=== PATIENT | female | born 1980 | race Caucasian/White ===

== ENCOUNTER 2016-04-12 03:34 | Observation (INO) | payer SELFPAY ==
[2016-04-12] MEDS ORDERED: Sodium Chloride 0.9% 10 ML Syringe FLUSH PRN (03:36)
[2016-04-12] MEDS ORDERED: Sodium Chloride 0.9% 1,000 ML IV ONE (03:40)
[2016-04-12] MEDS ORDERED: Ondansetron 4 MG/2 ML SDV IVPUSH ONE (03:40)
[2016-04-12] MEDS ORDERED: diphenhydrAMINE 50 MG/ML SDV IVPUSH ONE (03:42)
[2016-04-12] MEDS ORDERED: methylPREDNISolone Sodium Succinate 125 MG/2 ML SDV IV ONE (03:42)
[2016-04-12] MEDS ORDERED: EPINEPHrine 1:1000 1 MG/ML SDV IM ONE (04:09)
[2016-04-12] MEDS ORDERED: LORazepam 2 MG/ML MDV IVPUSH ONE ×2 (04:10→04:55)
[2016-04-12] MEDS ORDERED: Haloperidol Lactate 5 MG/ML SDV IVPUSH ONE (04:31)
[2016-04-12 04:37] LABS: BASOPHILS PERCENT AUTO 0.1 % (0.2-1.2); EOSINOPHILS PERCENT AUTO 0.7 % (0.0-4.0); HEMATOCRIT 42.2 % (33.0-47.0); HEMOGLOBIN 14.3 g/dL (12.0-16.0); LYMPHOCYTES PERCENT AUTO 30.6 % (25.0-50.0); MEAN CORPUSCULAR HEMOGLOBIN 30.7 pg (26.0-32.0); MEAN CORPUSCULAR HGB CONC 33.9 g/dL (32.0-36.0); MEAN CORPUSCULAR VOLUME 90.6 fL (78.0-93.0); MONOCYTES PERCENT AUTO 6.8 % (2.0-11.0); NEUTROPHILS PERCENT AUTO 61.8 % (50.0-80.0); RDW CV 13.5 % (10.0-15.0); RED BLOOD CELL COUNT 4.66 x10^6/uL (4.00-5.50)
[2016-04-12] MEDS ORDERED: Haloperidol Lactate 5 MG/ML SDV ONE (04:39)
[2016-04-12 05:08] LABS: A/G RATIO 1.03; ALBUMIN 3.6 g/dL (3.4-5.0); ALKALINE PHOSPHATASE 82 U/L (46-116); BILIRUBIN TOTAL 0.1 mg/dL (0.2-1.0); CALCIUM 8.1 mg/dL (8.5-10.1); CHLORIDE,CL 113 mmol/L (98-107); CORRECTED CALCIUM 8.42 mg/dL (8.5-10.1); CREATININE 0.7 mg/dL (0.55-1.02); ESTIMATED GFR > 60; GLUCOSE RANDOM 107 mg/dL (74-106)
[2016-04-12 05:09] LABS: C-REACTIVE PROTEIN < 0.2 mg/dL (<=0.9); INR 0.9 (2.0-3.5); PROTHROMBIN TIME 10.7 SEC (10.0-12.8)
[2016-04-12] MEDS ORDERED: LORazepam 2 MG/ML MDV IVPUSH PRN (06:23)
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
[2016-04-12] MEDS ORDERED: PARoxetine 20 MG Tab PO SCH (08:00)
[2016-04-12 11:28] VITALS: BP 122/81
[2016-04-12] MEDS ORDERED: Flu Vaccine 2016-17(36Mos+)/PF 60 MCG/0.5 ML Syringe IM ONE (12:00)
[2016-04-12 12:57] LABS: APPEARANCE,URINE SLIGHTLY CLOUDY (CLEAR); BILIRUBIN,URINE NEGATIVE (NEGATIVE); GLUCOSE,URINE NEGATIVE (NEGATIVE); KETONES,URINE NEGATIVE (NEGATIVE); LEUKOCYTE ESTERASE,URINE NEGATIVE (NEGATIVE); NITRITE,URINE NEGATIVE (NEGATIVE); OCCULT BLOOD,URINE NEGATIVE (NEGATIVE); PH,URINE 5.5 (5.0-8.0); PROTEIN,URINE NEGATIVE (NEGATIVE); UROBILINOGEN,URINE 0.2 EU/dL (0.2)
[2016-04-12 13:04] LABS: BARBITUATES,URINE NEGATIVE (NEGATIVE); BENZODIAZEPINES,URINE NEGATIVE (NEGATIVE); COCAINE,URINE NEGATIVE (NEGATIVE); MARIJUANA,URINE NEGATIVE (NEGATIVE); METHADONE,URINE NEGATIVE (NEGATIVE); METHAMPHETAMINE,URINE NEGATIVE (NEGATIVE); METHYLENEDIOXYMETHAMP,UR NEGATIVE (NEGATIVE); OPIATES,URINE NEGATIVE (NEGATIVE); POC DRUG SCRN UR NEG CONTROL ACCEPTABLE (ACCEPTABLE); POC DRUG SCRN UR POS CONTROL ACCEPTABLE (ACCEPTABLE); URINE CASSETTE LOT NUMBER 163361
[2016-04-12 13:13] LABS: BACTERIA,URINE MODERATE /HPF (NEGATIVE); RBC,URINE 0-5 /HPF (NOT SEEN); WBC,URINE 0-5 /HPF (NOT SEEN)
[2016-04-12 13:14] LABS: MUCUS,URINE NOT SEEN /LPF (NEGATIVE)
--- NOTE | 2016-04-12 14:34 | PCM.DCSUM1 ---
Discharge Summary - Hospital Course Free Text/Narrative:: Patient admitted due to allergic reaction to some type of alcohol. She was intoxicated on admission. stated the only new alcohol she tried was some champagne. She no longer has any rash or facial redness. She was given benadryl as well as subq epi by Jose Alejandro Alvarado. Possible statements of suicidality reported from her while she was intoxicated. - Discharge Data Discharge Date: 04/12/16 Discharge Disposition: Home, Self-Care 01 Condition: Good - Discharge Diagnosis/Problem(s) (1) Allergic reaction SNOMED Code(s): 604845656 ICD Code: T78.40XA - ALLERGY, UNSPECIFIED, INITIAL ENCOUNTER Status: Acute Priority: Low Current Visit: Yes Qualifiers: Encounter type: subsequent encounter Qualified Code(s): T78.40XD - Allergy , unspecified, subsequent encounter - Patient Instructions Diet: Usual Diet as Tolerated Activity: As Tolerated Driving: May Drive Today Showering/Bathing: August Shower - Discharge Plan Home Medications: Home Meds PARoxetine [Paxil] 20 mg PO DAILY tablet 05/21/15 [Rx] Acetaminophen [Tylenol] 650 mg PO Q4H PRN 08/23/15 [History] Patient Handouts: Allergies, [id number], Food Allergy Forms: ED Department Discharge Referrals: PCP,Unknown [Primary Care Provider] - - Discharge Summary/Plan Comment DC Time >30 min.: Yes - General Info Date of Service: 04/12/16 Admission Dx/Problem (Free Text: allergic reaction Functional Status: Reports: pain controlled, tolerating diet, ambulating - Review of Systems General: Reports: no symptoms HEENT: Reports: no symptoms Pulmonary: Reports: no symptoms Cardiovascular: Reports: no symptoms Gastrointestinal: Reports: No symptoms Genitourinary: Reports: no symptoms Musculoskeletal: Reports: no symptoms Skin: Reports: no symptoms Neurological: Reports: no symptoms Psychiatric: Reports: no symptoms - Patient Data Vitals - Most Recent: Last Vital Signs Temp 36.9 C 04/12/16 10:15 Pulse 128 H 04/12/16 10:15 Resp 20 04/12/16 10:15 BP 122/81 04/12/16 10:15 Pulse Ox 96 04/12/16 10:15 Weight - Most Recent: 225 kg Lab Results - Last 24 hrs: Laboratory Results - last 24 hr 04/12/16 04/12/16 Range/Units 12:50 12:50 Urine Color Yellow (YELLOW) Urine Appearance Slightly cloudy H (CLEAR) Urine pH 5.5 (5.0-8.0) Ur Specific [place] >=1.030 Urine Protein Negative (NEGATIVE) mg/dL Urine Glucose (UA) Negative (NEGATIVE) mg/dL Urine Ketones Negative (NEGATIVE) mg/dL Urine Occult Blood Negative (NEGATIVE) Urine Nitrite Negative (NEGATIVE) Urine Bilirubin Negative (NEGATIVE) Urine Urobilinogen 0.2 (0.2) EU/dL Ur Leukocyte Esterase Negative (NEGATIVE) Urine RBC 0-5 (NOT SEEN) /HPF Urine WBC 0-5 (NOT SEEN) /HPF Ur Transition Epith Cell Rare H (NEGATIVE) /HPF Urine Bacteria Moderate H (NEGATIVE) /HPF Urine Mucus Not seen (NEGATIVE) /LPF Urine Opiates Screen Negative (NEGATIVE) Ur Buprenorphine Scrn Negative (NEGATIVE) Ur Oxycodone Screen Negative (NEGATIVE) Urine Methadone Screen Negative (NEGATIVE) Ur Barbituates Screen Negative (NEGATIVE) Ur Tricyclics Screen Negative (NEGATIVE) Ur Amphetamines Screen Negative (NEGATIVE) U Methamphetamines Scrn Negative (NEGATIVE) Urine MDMA Screen Negative (NEGATIVE) U Benzodiazepines Scrn Negative (NEGATIVE) Urine Cocaine Screen Negative (NEGATIVE) U Marijuana (THC) Screen Negative (NEGATIVE) Med Orders - Current: Current Medications Lorazepam (Ativan) 2 mg IVPUSH Q6H PRN PRN Reason: Agitation Paroxetine HCl (Paxil) 20 mg PO DAILY EMILY Last Admin: 04/12/16 11:25 Dose: 20 mg Sodium Chloride (Saline Flush) 10 ml FLUSH ASDIRECTED PRN PRN Reason: Keep Vein Open Discontinued Medications Diphenhydramine HCl (Benadryl) 50 mg IVPUSH ONETIME ONE Stop: 04/12/16 03:43 Last Admin: 04/12/16 04:00 Dose: 50 mg Epinephrine HCl (Adrenalin 1:1000) 0.3 mg IM ONETIME ONE Stop: 04/12/16 04:10 Last Admin: 04/12/16 04:16 Dose: 0.3 mg Haloperidol Lactate (Haldol) Confirm Administered Dose 10 mg .ROUTE .STK-MED ONE Stop: 04/12/16 04:40 Last Admin: 04/12/16 04:54 Dose: Not Given Haloperidol Lactate (Haldol) 10 mg IVPUSH ONETIME ONE Stop: 04/12/16 04:32 Last Admin: 04/12/16 04:54 Dose: 10 mg Sodium Chloride (Normal Saline) 1,000 mls @ 1,000 mls/hr IV .BOLUS ONE Stop: 04/12/16 04:39 Last Admin: 04/12/16 03:55 Dose: 1,000 mls/hr Influenza Virus Vaccine (Fluzone/Fluarix Vaccine) 60 mcg IM .ONCE ONE Stop: 04/12/16 12:01 Last Admin: 04/12/16 12:45 Dose: Not Given Lorazepam (Ativan) 1 mg IVPUSH ONETIME ONE Stop: 04/12/16 04:11 Last Admin: 04/12/16 04:18 Dose: 1 mg Lorazepam (Ativan) 1 mg IVPUSH ONETIME ONE Stop: 04/12/16 04:56 Last Admin: 04/12/16 04:19 Dose: 1 mg Methylprednisolone Sodium Succinate (Solu-Medrol) 125 mg IV ONETIME ONE Stop: 04/12/16 03:43 Last Admin: 04/12/16 04:00 Dose: 125 mg Ondansetron HCl (Zofran) 4 mg IVPUSH ONETIME ONE Stop: 04/12/16 03:41 Last Admin: 04/12/16 04:00 Dose: 4 mg - Exam General: Reports: alert, oriented, cooperative, no acute distress HEENT: Reports: Pupils equal Lungs: Reports: Clear to auscultation, Normal respiratory effort Cardiovascular: Reports: regular rate, regular rhythm Abdomen: Reports: bowel sounds present, soft, no tenderness, no distension Extremities: Reports: no edema, normal pulses Skin: Reports: warm, dry, intact Neurological: Reports: no new focal deficit Psy/Mental Status: Reports: alert, normal affect, normal mood. Denies: suicidal ideation, homicidal ideation *Q Meaningful Use (DIS) - VTE *Q VTE Criteria *Q: - Stroke *Q Stroke Criteria *Q: - AMI *Q AMI Criteria *Q:
--- NOTE | 2016-04-14 08:24 | ER ---
Date of Service: 04/12/2016 ADDENDUM: This emergency room note may be used as the patient's admission H and P. MWK: 04/13/2016 15:47:46 MODL: 04/13/2016 19:36:18 /[id number]
== END 2016-04-12 14:45 | disposition home or self-care (01) ==
LOC: VM.ED 03:34 → VM.MS 05:00
PROVIDERS: ADMIT Physician Assistant; ATTEND Physician Assistant
DX: T78.40XD Allergy, unspecified, subsequent encounter (principal); F10.129 Alcohol abuse with intoxication, unspecified; F32.9 Major depressive disorder, single episode, unspecified; F41.9 Anxiety disorder, unspecified; Z90.710 Acquired absence of both cervix and uterus; Z91.048 Other nonmedicinal substance allergy status; Z79.899 Other long term (current) drug therapy; Z91.040 Latex allergy status; Z88.8 Allergy status to other drugs, medicaments and biological substances
CPT/HCPCS: 36415; 80053; 80305; 81001; 84443; 85025; 85610; 86140; 96365; 96372; 96375; 99285; A9270; G0480; J0171; J1200; J1630; J2060; J2405; J2930; J7030; 96361; G0378

== ENCOUNTER 2016-04-15 21:31 | Emergency (ER) | payer SELFPAY ==
[2016-04-15] MEDS ORDERED: LORazepam 2 MG/ML MDV IM ONE (22:02)
[2016-04-15] MEDS ORDERED: Haloperidol Lactate 5 MG/ML SDV IM ONE (22:14)
[2016-04-15 22:34] LABS: BASOPHILS PERCENT AUTO 0.2 % (0.2-1.2); EOSINOPHILS PERCENT AUTO 2.5 % (0.0-4.0); HEMATOCRIT 42.9 % (33.0-47.0); HEMOGLOBIN 14.8 g/dL (12.0-16.0); LYMPHOCYTES PERCENT AUTO 27.8 % (25.0-50.0); MEAN CORPUSCULAR HGB CONC 34.5 g/dL (32.0-36.0); MEAN CORPUSCULAR VOLUME 89.9 fL (78.0-93.0); NEUTROPHILS PERCENT AUTO 62.5 % (50.0-80.0); RDW CV 13.4 % (10.0-15.0); RED BLOOD CELL COUNT 4.77 x10^6/uL (4.00-5.50)
[2016-04-15 22:38] LABS: APPEARANCE,URINE SLIGHTLY CLOUDY (CLEAR); BILIRUBIN,URINE NEGATIVE (NEGATIVE); GLUCOSE,URINE NEGATIVE (NEGATIVE); KETONES,URINE NEGATIVE (NEGATIVE); LEUKOCYTE ESTERASE,URINE NEGATIVE (NEGATIVE); NITRITE,URINE NEGATIVE (NEGATIVE); OCCULT BLOOD,URINE NEGATIVE (NEGATIVE); PROTEIN,URINE NEGATIVE (NEGATIVE); UROBILINOGEN,URINE 0.2 EU/dL (0.2)
[2016-04-15 22:41] LABS: BARBITUATES,URINE NEGATIVE (NEGATIVE); BENZODIAZEPINES,URINE NEGATIVE (NEGATIVE); COCAINE,URINE NEGATIVE (NEGATIVE); HCG URINE CONTROL ACCEPTABLE; MARIJUANA,URINE NEGATIVE (NEGATIVE); METHADONE,URINE NEGATIVE (NEGATIVE); METHAMPHETAMINE,URINE NEGATIVE (NEGATIVE); METHYLENEDIOXYMETHAMP,UR NEGATIVE (NEGATIVE); OPIATES,URINE NEGATIVE (NEGATIVE); POC DRUG SCRN UR NEG CONTROL ACCEPTABLE (ACCEPTABLE); POC DRUG SCRN UR POS CONTROL ACCEPTABLE (ACCEPTABLE); URINE CASSETTE LOT NUMBER 163631
[2016-04-15 22:51] LABS: BACTERIA,URINE NOT SEEN /HPF (NEGATIVE); MUCUS,URINE NOT SEEN /LPF (NEGATIVE); RBC,URINE NOT SEEN /HPF (NOT SEEN); WBC,URINE NOT SEEN /HPF (NOT SEEN)
[2016-04-15 23:03] LABS: A/G RATIO 1.12; ALBUMIN 3.8 g/dL (3.4-5.0); ALKALINE PHOSPHATASE 91 U/L (46-116); BILIRUBIN TOTAL 0.2 mg/dL (0.2-1.0); CALCIUM 8.3 mg/dL (8.5-10.1); CHLORIDE,CL 107 mmol/L (98-107); CORRECTED CALCIUM 8.46 mg/dL (8.5-10.1); ESTIMATED GFR > 60; GLUCOSE RANDOM 94 mg/dL (74-106)
[2016-04-15 23:06] LABS: ACETAMINOPHEN 0 ug/ml (10-30)
[2016-04-16 00:38] VITALS: BP 144/103
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
== END 2016-04-16 00:08 | disposition home or self-care (01) ==
LOC: VM.ED 21:31
DX: F32.9 Major depressive disorder, single episode, unspecified (principal); F41.9 Anxiety disorder, unspecified; F20.9 Schizophrenia, unspecified; Z90.710 Acquired absence of both cervix and uterus; Z79.899 Other long term (current) drug therapy; Z88.8 Allergy status to other drugs, medicaments and biological substances; Z91.040 Latex allergy status; Z91.048 Other nonmedicinal substance allergy status
CPT/HCPCS: 36415; 80053; 80305; 81001; 81025; 84443; 85025; 96372; 99285; G0479; G0480; J1630; J2060

== ENCOUNTER 2016-04-18 14:33 | Emergency (ER) | payer SELFPAY ==
[2016-04-18 15:22] VITALS: BP 143/96
--- NOTE | 2016-04-18 15:36 | EDM.PDOC ---
ED HPI Trauma - General Chief Complaint: Upper Extremity Injury/Pain Stated Complaint: RT HAND INJURY Time Seen by Provider: 04/18/16 14:42 Source: Reports: Patient History Limitations: Reports: No limitations - History of Present Illness INITIAL COMMENTS - FREE TEXT/NARRATIVE: The patient comes in accompanied by her mother. Patient is right-handed and she has not injured this hand before. She does have a history of schizophrenia. She struck the back of her hand against a wall. She states that it was not directed at anybody. The dorsum of her hand is quite bruised. I did do an x-ray and was found that it was grossly negative. I then wrapped the hand with Coban and gave her an ice pack. I told her that she can anticipate that this will her probably for the rest of this week. I did give her conservative measures for this. Patient was agreeable to this. Before she departed I did check her pulse and it did come down to about 96 and her blood pressure remained high and this is probably secondary to her discomfort. I also gave her a Edgar wrap case she needs it. No pain about the wrist. Occurred When: just prior to arrival Occurred Where: home Method of Injury: direct blow Severity: moderate Pain/Injury Location: Reports: upper extremity, right Consciousness: Reports: no loss of consciousness, remembers incident Associated Symptoms: Reports: no other symptoms Allergies/ADRs: Allergies adhesive tape Allergy (Verified 04/18/16 15:02) Hives gabapentin Allergy (Verified 04/18/16 15:02) Cannot Remember latex Allergy (Verified 04/18/16 15:02) Hives isoniazid Adverse Reaction (Unknown, Verified 04/18/16 15:02) Seizure tramadol Adverse Reaction (Unknown, Verified 04/18/16 15:02) Seizure Home Medications: Ambulatory Orders PARoxetine [Paxil] 20 mg PO DAILY tablet 05/21/15 [Confirmed 04/18/16] Acetaminophen [Tylenol] 650 mg PO Q4H PRN 08/23/15 [Confirmed 04/18/16] Potassium Chloride [Klor-Con 10] 20 meq PO DAILY 04/15/16 [Confirmed 04/18/16] LORazepam [Ativan] 1 mg Q4H PRN 04/18/16 [Confirmed 04/18/16] hydrOXYzine Pamoate [Vistaril] 50 mg Q4H PRN 04/18/16 [Confirmed 04/18/16] Past Medical History HEENT History: Reports: None Cardiovascular History: Reports: Arrhythmia Other Cardiovascular History: tachycardia Gastrointestinal History: Reports: Other (see below) Other Gastrointestinal History: Heartburn CERTIFIED MORTICIAN History: Reports: Other (see below) Other OB/BYN History: dysmenorrhea Psychiatric History: Reports: Anxiety, Depression, Psychosis, Schizophrenia, Suicidal ideation Immunologic History: Reports: None Oncologic (Cancer) History: Reports: None - Past Surgical History Female Surgical History: Reports: Hysterectomy Other Female Surgeries/Procedures: hysterectomy on 02/04/16 Other Musculoskeletal Surgeries/Procedures:: foot surgery Oncologic Surgical History: Reports: None Social & Family History - Family History Family Medical History: Noncontributory - Tobacco Use Smoking Status *Q: Unknown Ever Smoked Years of Tobacco use: 1 Packs/Tins Daily: 1 Month Tobacco Last Used: 8\14 Second Hand Smoke Exposure: Yes - Alcohol Use Days Per Week of Alcohol Use: 0 Number of Drinks Per Day: 0 Total Drinks Per Week: 0 - Recreational Drug Use Recreational Drug Use: No Drug Use in Last 12 Months: No - Sexual History Sexual History: Reports: Same sex partner, Single partner Review of Systems - Review of Systems Review Of Systems: See Below Constitutional: Reports: no symptoms Eyes: Reports: no symptoms Ears: Reports: no symptoms Nose: Reports: no symptoms Mouth/Throat: Reports: no symptoms Respiratory: Reports: no symptoms Cardiovascular: Reports: no symptoms GI/Abdominal: Reports: No symptoms Musculoskeletal: Reports: hand pain (Right. ). Denies: joint pain, joint swelling Skin: Reports: bruising (right hand- dorsum. ) Neurological: Reports: no symptoms Psychiatric: Reports: depression, anxiety, hallucinations (visual) (Chronic condition. ) Trauma Exam - Physical Exam Exam: See Below Exam Limited By: No limitations General Appearance: Reports: alert, anxious, moderate distress Respiratory Exam: Reports: no respiratory distress, lungs clear, normal breath sounds Cardiovascular: Reports: normal peripheral pulses, regular rate, rhythm, no edema, no gallop, no JVD, no murmur, no rub Extremities: Reports: pain with movement (right hand pain. The patient does have ecchymosis about the right hand about the dorsum. This involves the metacarpals of three and four. The dexterity is hindered by perception of pain. Interdigit strength is also decreased. She does have good capillary refill. No crepitus per se. ), tenderness Skin: Reports: Ecchymosis (right hand. ) Course - Vital Signs Last Recorded V/S: Last Vital Signs Temp 37.4 C 04/18/16 14:40 Pulse 107 H 04/18/16 14:40 Resp 16 04/18/16 14:40 BP 143/96 H 04/18/16 14:40 Pulse Ox - Orders/Labs/Meds Orders: Active Orders 24 hr Category Date Time Status Hand Comp Min 3V Rt [CR] Stat Exams 04/18/16 15:13 Taken Departure - Departure Time of Disposition: 15:35 Disposition: Home, Self-Care 01 Preliminary Cause of *Q: Cardiac arrest Condition: good Clinical Impression: Contusion of right hand Qualifiers: Encounter type: initial encounter Qualified Code(s): S60.221A - Contusion of right hand, initial encounter Referrals: Sanam Woodson DO [Primary Care Provider] - Forms: ED Department Discharge Additional Instructions: The x-ray was grossly negative. Utilize ice and ibuprofen and Tylenol. Gentle range of motion. - My Orders Last 24 Hours: My Active Orders 04/18/16 15:13 Hand Comp Min 3V Rt [CR] Stat - Assessment/Plan Last 24 Hours: My Active Orders 04/18/16 15:13 Hand Comp Min 3V Rt [CR] Stat
== END 2016-04-18 15:40 | disposition home or self-care (01) ==
LOC: VM.ED 14:33
DX: S60.221A Contusion of right hand, initial encounter (principal); I49.9 Cardiac arrhythmia, unspecified; F41.9 Anxiety disorder, unspecified; F32.9 Major depressive disorder, single episode, unspecified; Z90.710 Acquired absence of both cervix and uterus; Z88.8 Allergy status to other drugs, medicaments and biological substances; Z91.040 Latex allergy status; W22.8XXA Striking against or struck by other objects, initial encounter; Y92.009 Unspecified place in unspecified non-institutional (private) residence as the place of occurrence of the external cause
CPT/HCPCS: 73130-RT; 99282-GF; 99283

== ENCOUNTER 2016-04-21 15:21 | Emergency (ER) | payer SELFPAY ==
[2016-04-21] MEDS ORDERED: Sodium Chloride 0.9% 10 ML Syringe FLUSH PRN (15:31)
[2016-04-21] MEDS ORDERED: Sodium Chloride 0.9% 1,000 ML IV ONE (15:34)
[2016-04-21] MEDS ORDERED: Haloperidol Lactate 5 MG/ML SDV IVPUSH ONE (15:35)
[2016-04-21] MEDS ORDERED: diphenhydrAMINE 50 MG/ML SDV IVPUSH ONE (15:41)
[2016-04-21 16:03] LABS: BASOPHILS PERCENT AUTO 0.2 % (0.2-1.2); EOSINOPHILS PERCENT AUTO 3.5 % (0.0-4.0); HEMATOCRIT 42.7 % (33.0-47.0); HEMOGLOBIN 14.2 g/dL (12.0-16.0); LYMPHOCYTES PERCENT AUTO 30.4 % (25.0-50.0); MEAN CORPUSCULAR HEMOGLOBIN 30.7 pg (26.0-32.0); MEAN CORPUSCULAR HGB CONC 33.3 g/dL (32.0-36.0); MEAN CORPUSCULAR VOLUME 92.2 fL (78.0-93.0); NEUTROPHILS PERCENT AUTO 55.9 % (50.0-80.0); RDW CV 13.4 % (10.0-15.0); RED BLOOD CELL COUNT 4.63 x10^6/uL (4.00-5.50)
[2016-04-21 16:36] LABS: A/G RATIO 1.06; ALBUMIN 3.5 g/dL (3.4-5.0); ALKALINE PHOSPHATASE 90 U/L (46-116); BILIRUBIN TOTAL 0.2 mg/dL (0.2-1.0); C-REACTIVE PROTEIN 0.7 mg/dL (<=0.9); CALCIUM 8.3 mg/dL (8.5-10.1); CHLORIDE,CL 106 mmol/L (98-107); CREATININE 0.9 mg/dL (0.55-1.02); ESTIMATED GFR > 60; GLUCOSE RANDOM 87 mg/dL (74-106)
[2016-04-21 16:48] LABS: APPEARANCE,URINE CLEAR (CLEAR); BILIRUBIN,URINE NEGATIVE (NEGATIVE); GLUCOSE,URINE NEGATIVE (NEGATIVE); KETONES,URINE NEGATIVE (NEGATIVE); LEUKOCYTE ESTERASE,URINE NEGATIVE (NEGATIVE); NITRITE,URINE NEGATIVE (NEGATIVE); OCCULT BLOOD,URINE NEGATIVE (NEGATIVE); PH,URINE 6.5 (5.0-8.0); PROTEIN,URINE NEGATIVE (NEGATIVE); UROBILINOGEN,URINE 0.2 EU/dL (0.2)
[2016-04-21 16:49] LABS: INR 0.9 (2.0-3.5); PROTHROMBIN TIME 9.9 SEC (10.0-12.8)
[2016-04-21 16:56] LABS: RBC,URINE 0-5 /HPF (NOT SEEN); WBC,URINE 0-5 /HPF (NOT SEEN)
[2016-04-21 16:58] LABS: BACTERIA,URINE RARE /HPF (NEGATIVE); MUCUS,URINE RARE /LPF (NEGATIVE)
[2016-04-21 17:24] LABS: BARBITUATES,URINE NEGATIVE (NEGATIVE); BENZODIAZEPINES,URINE NEGATIVE (NEGATIVE); COCAINE,URINE NEGATIVE (NEGATIVE); MARIJUANA,URINE NEGATIVE (NEGATIVE); METHADONE,URINE NEGATIVE (NEGATIVE); METHAMPHETAMINE,URINE NEGATIVE (NEGATIVE); METHYLENEDIOXYMETHAMP,UR NEGATIVE (NEGATIVE); OPIATES,URINE NEGATIVE (NEGATIVE); POC DRUG SCRN UR NEG CONTROL ACCEPTABLE (ACCEPTABLE); POC DRUG SCRN UR POS CONTROL ACCEPTABLE (ACCEPTABLE); URINE CASSETTE LOT NUMBER 163361
[2016-04-21 17:43] VITALS: BP 138/78
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
== END 2016-04-21 18:30 ==
LOC: VM.ED 15:21
DX: F41.9 Anxiety disorder, unspecified (principal); F32.9 Major depressive disorder, single episode, unspecified; Z79.899 Other long term (current) drug therapy; Z88.8 Allergy status to other drugs, medicaments and biological substances
CPT/HCPCS: 36415; 70450; 71010; 80053; 80305; 81001; 83605; 85025; 85610; 86140; 87040; 93005; 96361; 96374; 96375; 99285; J1200; J1630; J7030

== ENCOUNTER 2016-09-23 20:11 | Emergency (ER) | payer OTHER, SELFPAY ==
--- NOTE | 2016-09-23 20:35 | EDM.PDOC ---
ED HPI GENERAL MEDICAL PROBLEM - General Chief Complaint: Chest Pain Stated Complaint: heart racing; chest pain; nausea Time Seen by Provider: 09/23/16 20:13 Source of Information: Reports: Patient, Family, RN, RN Notes Reviewed History Limitations: Reports: No Limitations - History of Present Illness INITIAL COMMENTS - FREE TEXT/NARRATIVE: Patient presents to the ED at [facility] complaining of chest pain, palpitations, nausea, and SOB. Patient states her symptoms began about 2 hours ago. She has a history of tachy arrythmias in the past, related to low potassium levels. Patient did have one emesis [employer]. Onset: Today Onset Date: 09/23/16 Onset Time: 18:30 Duration: Constant, Getting Worse Location: Reports: Chest Quality: Reports: Pressure Severity: Moderate Improves with: Reports: None Worsens with: Reports: Movement Context: Denies: Activity, Exercise, Lifting, Sick Contact, Trauma Associated Symptoms: Reports: Nausea/Vomiting - Related Data Allergies Allergy/AdvReac Type Severity Reaction Status Date / Time adhesive tape Allergy Hives Verified 04/21/16 15:47 gabapentin Allergy Cannot Verified 04/21/16 15:47 Remember latex Allergy Hives Verified 04/21/16 15:47 isoniazid AdvReac Unknown Seizure Verified 04/21/16 15:47 tramadol AdvReac Unknown Seizure Verified 04/21/16 15:47 Home Meds: Home Meds Acetaminophen [Tylenol] 650 mg PO Q4H PRN 08/23/15 [History] Potassium Chloride [Klor-Con 10] 20 meq PO DAILY 04/15/16 [History] hydrOXYzine Pamoate [Vistaril] 50 mg PO Q4H PRN 04/18/16 [History] Past Medical History HEENT History: Reports: None Cardiovascular History: Reports: Arrhythmia Other Cardiovascular History: tachycardia Gastrointestinal History: Reports: Other (See Below) Other Gastrointestinal History: Heartburn [employer] History: Reports: Other (See Below) Other OB/BYN History: dysmenorrhea Psychiatric History: Reports: Anxiety, Depression, Psychosis, Schizophrenia, Suicidal Ideation Immunologic History: Reports: None Oncologic (Cancer) History: Reports: None - Past Surgical History Female Surgical History: Reports: Hysterectomy Other Female Surgeries/Procedures: hysterectomy on 02/04/16 Other Musculoskeletal Surgeries/Procedures:: foot surgery Oncologic Surgical History: Reports: None Social & Family History - Family History Family Medical History: Noncontributory - Tobacco Use Smoking Status *Q: Current Every Day Smoker Years of Tobacco use: 20 Packs/Tins Daily: 0.7 Month Tobacco Last Used: 8\14 Second Hand Smoke Exposure: Yes - Alcohol Use Days Per Week of Alcohol Use: 0 Number of Drinks Per Day: 0 Total Drinks Per Week: 0 - Recreational Drug Use Recreational Drug Use: No Drug Use in Last 12 Months: No - Sexual History Sexual History: Reports: Same Sex Partner, Single Partner ED ROS GENERAL - Review of Systems Review Of Systems: See Below Constitutional: Denies: Fever, Chills Respiratory: Reports: Shortness of Breath. Denies: Cough Cardiovascular: Reports: Chest Pain, Lightheadedness, Palpitations GI/Abdominal: Reports: Nausea, Vomiting. Denies: Abdominal Pain, Diarrhea Skin: Reports: No Symptoms Neurological: Denies: Dizziness, Headache, Numbness, Paresthesia, Tingling ED EXAM, GENERAL - Physical Exam Exam: See Below Exam Limited By: No Limitations General Appearance: Alert, Anxious, Obese Respiratory/Chest: No Respiratory Distress, Lungs Clear, Normal Breath Sounds Cardiovascular: Normal Peripheral Pulses, Regular Rate, Rhythm, No JVD, No Murmur, Tachycardia Peripheral Pulses: 2+: Radial (L), Radial (R) GI/Abdominal: Normal Bowel Sounds, Soft, Non-Tender Neurological: Alert, Oriented Skin Exam: Warm, Dry, Intact, Normal Color, No Rash EKG INTERPRETATION EKG Date: 09/23/16 Time: 20:42 Rhythm: Other Rate (Beats/Min): 133 Cornell: Normal P-Wave: Present QRS: Normal ST-T: Normal QT: Normal Comparison: No Change EKG Interpretation Comments: EKG #1 A flutter/Tachy Nonspecific T wave abnormality EKG #2 Sinus Tachycardia Nonspecific T wave abnormality Course - Orders/Labs/Meds Orders: Active Orders 24 hr Category Date Time Status EKG 12 Lead [EKG Documentation Completion] [RC] STAT Care 09/23/16 20:37 Active EKG 12 Lead [EKG Documentation Completion] [RC] STAT Care 09/23/16 21:34 Active Chest 2V [CR] Stat Exams 09/23/16 20:36 Taken Sodium Chloride 0.9% [Saline Flush] Med 09/23/16 20:36 Active 10 ml FLUSH ASDIRECTED PRN Peripheral IV Insertion Adult [OM.PC] Routine Oth 09/23/16 20:36 Ordered Medication Orders Sodium Chloride (Saline Flush) 10 ml FLUSH ASDIRECTED PRN PRN Reason: Keep Vein Open Labs: Laboratory Tests 09/23/16 09/23/16 09/23/16 Range/Units 20:59 20:59 21:02 WBC 11.9 H (4.0-10.0) x10^3/uL RBC 4.66 (4.00-5.50) x10^6/uL Hgb 14.2 (12.0-16.0) g/dL Hct 41.7 (33.0-47.0) % MCV 89.5 (78.0-93.0) fL MCH 30.5 (26.0-32.0) pg MCHC 34.1 (32.0-36.0) g/dL RDW Coeff of Dionna 13.4 (10.0-15.0) % Plt Count 279 (130-400) x10^3/uL Neut % (Auto) 78.9 (50.0-80.0) % Lymph % (Auto) 12.9 L (25.0-50.0) % Rutherford % (Auto) 7.8 (2.0-11.0) % Eos % (Auto) 0.3 (0.0-4.0) % Baso % (Auto) 0.1 L (0.2-1.2) % Sodium 144 (136-145) mmol/L Potassium 3.0 L (3.5-5.1) mmol/L Chloride 108 H (98-107) mmol/L Carbon Dioxide 22 (21-32) mmol/L BUN 5 L (7-18) mg/dL Creatinine 0.9 (0.55-1.02) mg/dL Est Cr Clr Drug Dosing TNP Estimated GFR (MDRD) > 60 Glucose 146 H (74-106) mg/dL Calcium 8.0 L (8.5-10.1) mg/dL Corrected Calcium 8.32 L (8.5-10.1) mg/dL Phosphorus 3.2 (2.6-4.7) mg/dL Magnesium 1.6 L (1.8-2.4) mg/dL Total Bilirubin 0.2 (0.2-1.0) mg/dL AST 19 (15-37) U/L ALT 45 (14-59) U/L Alkaline Phosphatase 79 (46-116) U/L Creatine Kinase 44 (26-192) U/L POC Troponin I 0.00 (0.00-0.08) ng/mL Total Protein 7.1 (6.4-8.2) g/dL Albumin 3.6 (3.4-5.0) g/dL Globulin 3.5 Albumin/Globulin Ratio 1.03 Urine Color (YELLOW) Urine Appearance (CLEAR) Urine pH (5.0-8.0) Ur Specific Huggins Urine Protein (NEGATIVE) mg/dL Urine Glucose (UA) (NEGATIVE) mg/dL Urine Ketones (NEGATIVE) mg/dL Urine Occult Blood (NEGATIVE) Urine Nitrite (NEGATIVE) Urine Bilirubin (NEGATIVE) Urine Urobilinogen (0.2) EU/dL Ur Leukocyte Esterase (NEGATIVE) Urine RBC (NOT SEEN) /HPF Urine WBC (NOT SEEN) /HPF Ur Squamous Epith Cells (NEGATIVE) /HPF Urine Bacteria (NEGATIVE) /HPF Urine Mucus (NEGATIVE) /LPF Urine Opiates Screen (NEGATIVE) Ur Buprenorphine Scrn (NEGATIVE) Ur Oxycodone Screen (NEGATIVE) Urine Methadone Screen (NEGATIVE) Ur Barbiturates Screen (NEGATIVE) Ur Tricyclics Screen (NEGATIVE) Ur Amphetamine Screen (NEGATIVE) U Methamphetamines Scrn (NEGATIVE) Urine MDMA Screen (NEGATIVE) U Benzodiazepines Scrn (NEGATIVE) U Cocaine Metab Screen (NEGATIVE) U Marijuana (THC) Screen (NEGATIVE) Ethyl Alcohol < 3 (0-3) mg/dL 09/23/16 09/23/16 Range/Units 21:29 21:29 WBC (4.0-10.0) x10^3/uL RBC (4.00-5.50) x10^6/uL Hgb (12.0-16.0) g/dL Hct (33.0-47.0) % MCV (78.0-93.0) fL MCH (26.0-32.0) pg MCHC (32.0-36.0) g/dL RDW Coeff of Dionna (10.0-15.0) % Plt Count (130-400) x10^3/uL Neut % (Auto) (50.0-80.0) % Lymph % (Auto) (25.0-50.0) % Rutherford % (Auto) (2.0-11.0) % Eos % (Auto) (0.0-4.0) % Baso % (Auto) (0.2-1.2) % Sodium (136-145) mmol/L Potassium (3.5-5.1) mmol/L Chloride (98-107) mmol/L Carbon Dioxide (21-32) mmol/L BUN (7-18) mg/dL Creatinine (0.55-1.02) mg/dL Est Cr Clr Drug Dosing Estimated GFR (MDRD) Glucose (74-106) mg/dL Calcium (8.5-10.1) mg/dL Corrected Calcium (8.5-10.1) mg/dL Phosphorus (2.6-4.7) mg/dL Magnesium (1.8-2.4) mg/dL Total Bilirubin (0.2-1.0) mg/dL AST (15-37) U/L ALT (14-59) U/L Alkaline Phosphatase (46-116) U/L Creatine Kinase (26-192) U/L POC Troponin I (0.00-0.08) ng/mL Total Protein (6.4-8.2) g/dL Albumin (3.4-5.0) g/dL Globulin Albumin/Globulin Ratio Urine Color Yellow (YELLOW) Urine Appearance Cloudy H (CLEAR) Urine pH 5.5 (5.0-8.0) Ur Specific Huggins 1.025 Urine Protein Negative (NEGATIVE) mg/dL Urine Glucose (UA) Negative (NEGATIVE) mg/dL Urine Ketones Negative (NEGATIVE) mg/dL Urine Occult Blood Negative (NEGATIVE) Urine Nitrite Negative (NEGATIVE) Urine Bilirubin Negative (NEGATIVE) Urine Urobilinogen 0.2 (0.2) EU/dL Ur Leukocyte Esterase Negative (NEGATIVE) Urine RBC 0-5 (NOT SEEN) /HPF Urine WBC 0-5 (NOT SEEN) /HPF Ur Squamous Epith Cells Many H (NEGATIVE) /HPF Urine Bacteria Not seen (NEGATIVE) /HPF Urine Mucus Few H (NEGATIVE) /LPF Urine Opiates Screen Negative (NEGATIVE) Ur Buprenorphine Scrn Negative (NEGATIVE) Ur Oxycodone Screen Negative (NEGATIVE) Urine Methadone Screen Negative (NEGATIVE) Ur Barbiturates Screen Negative (NEGATIVE) Ur Tricyclics Screen Negative (NEGATIVE) Ur Amphetamine Screen Negative (NEGATIVE) U Methamphetamines Scrn Negative (NEGATIVE) Urine MDMA Screen Negative (NEGATIVE) U Benzodiazepines Scrn Negative (NEGATIVE) U Cocaine Metab Screen Negative (NEGATIVE) U Marijuana (THC) Screen Negative (NEGATIVE) Ethyl Alcohol (0-3) mg/dL Meds: Medications Generic Name Dose Route Start Last Admin Trade Name Freq PRN Reason Stop Dose Admin Sodium Chloride 10 ml 09/23/16 20:36 Saline Flush FLUSH ASDIRECTED PRN Keep Vein Open Discontinued Medications Generic Name Dose Route Start Last Admin Trade Name Freq PRN Reason Stop Dose Admin Sodium Chloride 1,000 mls @ 999 mls/hr 09/23/16 20:36 09/23/16 22:02 Normal Saline IV 09/23/16 21:36 999 mls/hr ONETIME ONE Administration Ondansetron HCl 4 mg 09/23/16 20:39 09/23/16 21:50 Zofran IVPUSH 09/23/16 20:40 4 mg ONETIME ONE Administration Departure - Departure Time of Disposition: 22:29 Disposition: Home, Self-Care 01 Reason for Transfer *Q: Other Condition: Good Clinical Impression: Sinus tachycardia, Nausea Instructions: Sinus Tachycardia Referrals: Sanam Woodson DO [Primary Care Provider] - Forms: ED Department Discharge Additional Instructions: 1. Stay well hydrated and rest 2. Take medications the same without any changes; may take one extra potassium pill tonight 3. See your Primary as symptoms warrant ED Communication - ED Communication Date/Time Date: 09/23/16 Time Called: 22:19 - Discussed Case With (1) Discussed Case With (1): Outpatient Provider Person/s Notified (1): Brian Loera - Conversation Summary Summary Comment: Discussed EKG and labs with Dr. Toi Loera, Cardiology. EKG only shows Sinus Tach. No intervention needed from Cardiology. - Problem List Review Problem List Initiated/Reviewed/Updated: Yes - My Orders Last 24 Hours: My Active Orders 09/23/16 20:36 Chest 2V [CR] Stat Sodium Chloride 0.9% [Saline Flush] 10 ml FLUSH ASDIRECTED PRN Peripheral IV Insertion Adult [OM.PC] Routine 09/23/16 20:37 EKG 12 Lead [EKG Documentation Completion] [RC] STAT 09/23/16 21:34 EKG 12 Lead [EKG Documentation Completion] [RC] STAT - Assessment/Plan Last 24 Hours: My Active Orders 09/23/16 20:36 Chest 2V [CR] Stat Sodium Chloride 0.9% [Saline Flush] 10 ml FLUSH ASDIRECTED PRN Peripheral IV Insertion Adult [OM.PC] Routine 09/23/16 20:37 EKG 12 Lead [EKG Documentation Completion] [RC] STAT 09/23/16 21:34 EKG 12 Lead [EKG Documentation Completion] [RC] STAT Plan: Observation admission was offered to patient, but was declined
[2016-09-23] MEDS ORDERED: Sodium Chloride 0.9% 1,000 ML IV ONE (20:36)
[2016-09-23] MEDS ORDERED: Sodium Chloride 0.9% 10 ML Syringe FLUSH PRN (20:36)
[2016-09-23] MEDS ORDERED: Ondansetron 4 MG/2 ML SDV IVPUSH ONE (20:39)
[2016-09-23 21:35] LABS: CHLORIDE,CL 108 mmol/L (98-107); SODIUM,NA 144 mmol/L (136-145)
[2016-09-24 05:20] VITALS: BP 138/75
== END 2016-09-23 23:38 | disposition home or self-care (01) ==
LOC: VM.ED 20:11
DX: R00.0 Tachycardia, unspecified (principal); R11.0 Nausea; F41.9 Anxiety disorder, unspecified; F32.9 Major depressive disorder, single episode, unspecified; F20.9 Schizophrenia, unspecified; F17.210 Nicotine dependence, cigarettes, uncomplicated; Z90.710 Acquired absence of both cervix and uterus; Z98.890 Other specified postprocedural states; Z79.899 Other long term (current) drug therapy; Z88.5 Allergy status to narcotic agent; Z88.8 Allergy status to other drugs, medicaments and biological substances; Z91.040 Latex allergy status
CPT/HCPCS: 36415; 71020; 80053; 80305; 81001; 82550; 83735; 84100; 84484; 85025; 93005; 96365; 96366; 96375; 99284; 99285; G0480; J2405; J7030

== ENCOUNTER 2016-10-01 04:43 | Emergency (ER) | payer OTHER, SELFPAY ==
[2016-10-01] MEDS ORDERED: Sodium Chloride 0.9% 10 ML Syringe FLUSH PRN (05:06)
[2016-10-01] MEDS ORDERED: Ampicillin/Sulbactam Na 3 GM in Sodium Chloride 0.9% 100 ML IV ONE (05:09)
[2016-10-01 06:06] LABS: CHLORIDE,CL 107 mmol/L (98-107); SODIUM,NA 140 mmol/L (136-145)
[2016-10-01] MEDS ORDERED: Ketorolac 30 MG/ML SDV IVPUSH ONE (06:16)
[2016-10-01] MEDS ORDERED: Morphine 4 MG/ML Syringe IVPUSH ONE ×2 (06:16→08:33)
[2016-10-01] MEDS ORDERED: Sodium Chloride 0.9% 80 ML IV ONE (06:38)
[2016-10-01] MEDS ORDERED: Iopamidol 612 MG/ML 100 ML Bottle IVPUSH ONE (06:38)
[2016-10-01 14:22] VITALS: BP 128/88
--- NOTE | 2016-10-02 04:27 | ER ---
Date of Service: 10/01/2016 SUBJECTIVE: aDfne presents to the emergency room with complaints of right-sided facial swelling. The patient states that she was seen for dental infection at [facility] yesterday and was started on amoxicillin 500 mg twice daily. The patient has a history of severe periodontal disease and advanced tooth decay. She does have complete dentures on upper dentures. She is a patient of Dr. Anderson Bronson. The patient states that she came home after starting the amoxicillin and throughout the evening and into the night, she began experiencing increased right-sided facial swelling and exquisite tenderness to her right lateral neck area. She states that she is fatigued and does feel weak, but denies any significant nausea or vomiting. She states that she is able to swallow albeit with increased discomfort. PAST MEDICAL HISTORY: 1. Dental infections. 2. Schizophrenia by history. 3. History of tachycardia. 4. Chronic hypokalemia. 5. Status post hysterectomy. 6. Depression and anxiety. MEDICATIONS: 1. Penicillin V 500 mg p.o. b.i.d. 2. Vistaril 50 mg p.o. q.4 hours p.r.n. 3. Klor-Con 20 mEq p.o. daily. 4. Tylenol 650 mg p.o. q.4 hours p.r.n. ALLERGIES: Adhesive tape, gabapentin, latex, isoniazid, and tramadol. REVIEW OF SYSTEMS: GENERAL: Denies any fever or chills. HEENT: Denies any sore throat, rhinorrhea, or congestion. Mouth, please see history of present illness. Respiratory: Denies any shortness of breath. Cardiac: Denies any substernal chest pain. No palpitations. GI: No nausea, vomiting, or diarrhea. No melena, hematochezia, or hematemesis. : Denies any dysuria. PHYSICAL EXAMINATION: General: This is a 36-year-old female patient, who is in no acute distress. Blood pressure is 135/92, pulse rate is 88, temperature is 36.3, respiratory rate 16, and O2 saturations 98%. Skin: Warm, pink, and dry. HEENT: Head is normocephalic, atraumatic. Mouth, oral mucosa, is moist. She does have severe tooth decay with right lower molar and premolar decayed to the level of the gums. No obvious large abscess noted. Neck: No obvious large palpable areas of abscess noted. She does have significant edema to the right buccal area consistent with facial cellulitis. Lungs: Clear to auscultation. Heart: Regular rate and rhythm. Abdomen: Soft, nontender. There is no hepatosplenomegaly noted. There is no masses noted. DIAGNOSTIC DATA: CT scan of the soft tissue of the patient's neck was obtained. She did have evidence of significant cellulitis to the right buccal area in the lateral aspect of her neck. There was no large parapharyngeal abscesses or other collections of infection. No obvious retropharyngeal masses or abscess noted. LABORATORY DATA: WBCs 9.6, hemoglobin is 14.7, platelets are 266. Chemistry: Sodium is 140, potassium is 4.1, chloride is 107, bicarb is 25, BUN is 7, creatinine 0.8. GFR is greater than 60. Glucose is 86, lactic acid is 0.6, calcium is 7.9, corrected calcium is 8.22, total bilirubin is 0.4. AST is 16, ALT is 35, alkaline phosphatase is 72, CRP elevated at 2.2, total protein is 7.2, and albumin is 3.6. EMERGENCY ROOM COURSE: IV access was established. The patient was given morphine 4 mg IV and Toradol 30 mg IV. She was also given 3 g IV Unasyn IV. She remained stable under my care in the emergency room. To note, she was given a 2nd 4 mg dose of morphine prior to departure. ASSESSMENT: Right-sided facial cellulitis. PLAN: I did speak with the maxillofacial surgeon at [facility] in [place]. To note, the patient is a [place] patient, but they did not have a maxillofacial surgeon on-call. Subsequently, the surgeon at [facility] did review the images and stated that the patient should be treated with broad-spectrum IV beta-lactam such as Unasyn. The patient was subsequently given her initial dose of Unasyn 3 g IV and was setup as a series patient under outpatient care for a total of 3 more infusions, 1 at noon, 1 at 6 this evening, and 1 at midnight. We will re- evaluate her after each infusion, but likely she will require further infusions of the antibiotic during her stay. All questions were answered. MWK: 10/01/2016 13:36:40 MODL: 10/01/2016 21:06:57 /[id number]
== END 2016-10-01 09:40 | disposition home or self-care (01) ==
LOC: VM.ED 04:43
DX: L03.211 Cellulitis of face (principal); Z90.710 Acquired absence of both cervix and uterus; Z91.040 Latex allergy status; Z88.8 Allergy status to other drugs, medicaments and biological substances; Z88.5 Allergy status to narcotic agent
CPT/HCPCS: 36415; 70491; 80053; 83605; 85025; 86140; 87040; 96365; 96375; 96376; 99284; J0295; J1885; J2270; J7050; Q9967

== ENCOUNTER 2016-10-01 19:24 | Observation (INO) | payer OTHER ==
[2016-10-01] MEDS ORDERED: Sodium Chloride 0.9% 10 ML Syringe FLUSH PRN (20:00)
[2016-10-01] MEDS ORDERED: Sodium Chloride 0.9% 1,000 ML IV ONE (21:02)
[2016-10-01] MEDS ORDERED: Ondansetron 4 MG/2 ML SDV IVPUSH SCH (21:15)
[2016-10-01] MEDS: Acetaminophen/HYDROcodone 325-5 MG Tab PO PRN (21:25)
[2016-10-01] MEDS ORDERED: Ondansetron 4 MG/2 ML SDV IVPUSH PRN (21:32)
[2016-10-02] MEDS: Ampicillin/Sulbactam Na 3 GM in Sodium Chloride 0.9% 100 ML IV SCH ×4 (00:06→18:10)
[2016-10-02] MEDS: Clindamycin Phosphate 900 MG in Sodium Chloride 0.9% 100 ML IV SCH ×3 (03:12→16:04)
[2016-10-02] MEDS: Acetaminophen/HYDROcodone 325-5 MG Tab PO PRN (03:15)
[2016-10-02] MEDS ORDERED: Morphine 4 MG/ML Syringe IVPUSH ONE ×2 (03:49→13:15)
[2016-10-02] MEDS ORDERED: Ketorolac 30 MG/ML SDV IVPUSH ONE ×2 (03:53→13:15)
[2016-10-02] MEDS: Acetaminophen/HYDROcodone 325-10 MG Tab PO PRN ×4 (07:53→20:16)
[2016-10-02] MEDS ORDERED: Acetaminophen/HYDROcodone 325-10 MG Tab PO ONE (21:38)
[2016-10-03] MEDS: Ampicillin/Sulbactam Na 3 GM in Sodium Chloride 0.9% 100 ML IV SCH ×2 (00:17→06:22)
[2016-10-03] MEDS: Acetaminophen/HYDROcodone 325-10 MG Tab PO PRN ×2 (00:17→06:21)
[2016-10-03] MEDS: Clindamycin Phosphate 900 MG in Sodium Chloride 0.9% 100 ML IV SCH ×2 (00:18→07:40)
[2016-10-03 06:14] VITALS: BP 148/97
--- NOTE | 2016-10-04 08:24 | ER ---
Date of Service: SUBJECTIVE: Dafne was seen earlier today with complaints of right-sided facial swelling. She underwent a CT scan and was found to have significant cellulitis to the right side of her face arising from a dental infection. Dr. Najera, maxillofacial surgeon, at [facility] in [place] was consulted regarding this patient and he advised setting the patient up for IV Unasyn every 6 hours as an outpatient. The patient subsequently was given a dose of Unasyn at noon yesterday as well as at 6 and presents tonight at midnight for her third subsequent infusion. The patient states that she has noticed that the swelling to her face has increased and she is experiencing some firmness and tautness to the inferior aspect of her chin and lower jaw. She states that she has not been experiencing any fever or chills and states that the discomfort is controlled adequately with Lortab 5/325. PAST MEDICAL HISTORY: 1. Dental infections. 2. Schizophrenia, by history. 3. History of tachycardia. 4. Chronic hypokalemia. 5. Status post hysterectomy. 6. Depression. 7. Anxiety. MEDICATIONS: 1. Vistaril 50 mg p.o. q.4 hours p.r.n. 2. Klor-Con 20 mEq p.o. daily. 3. Lortab 5/325 one every 4 hours as needed for pain. 4. Unasyn 3 g IV q.6 hours. ALLERGIES: Adhesive tape, gabapentin, latex, isoniazid, and tramadol. REVIEW OF SYSTEMS: General: Denies any fever or chills. HEENT: Please see history of present illness. Does complain of some increased discomfort to the inferior aspect of the patient's right lower jaw. Denies any difficulties with swallowing or managing her secretions. Respiratory: Denies any shortness of breath or cough. Cardiac: Denies any substernal chest pain. No jaw, arm, neck, or back pain. GI: No nausea, vomiting, or diarrhea. No melena, hematochezia, or hematemesis. : Denies any dysuria. Musculoskeletal: No myalgias or arthralgias. PHYSICAL EXAMINATION: General: This is a 36-year-old female patient, who is in no acute distress. Vital Signs: Blood pressure is 100/58, pulse rate is 93, temperature is 36.7, O2 saturation is 98%, and respiratory rate is 16. Skin: Warm, pink, and dry. HEENT: Head is normocephalic, atraumatic. Mouth, oral mucosa is moist. She does have evidence of significant edema to her right lower jaw area. The skin in the inferior aspect of the area is more taut than when examined earlier today. No significant erythema or outward signs of cellulitis at this time. NECK: She does have some fullness and right anterior cervical lymphadenopathy. Lungs: Clear to auscultation. Heart: Regular rate and rhythm. Abdomen: Soft, nontender. There are no hepatosplenomegaly or masses noted. Extremities: Without edema. Neurologic: She is alert. Answers all questions appropriately. Her speech is fluent. Remainder of her physical examination is within normal limits. LABORATORY DATA: Repeat laboratory studies: WBC is 6.8, hemoglobin is 13.5, and platelets are 284. C-reactive protein is mildly elevated at 5.1. ASSESSMENT: Dental infection and subsequent soft tissue infection of the right lower jaw. PLAN: I did again contact Dr. Najera, the maxillofacial surgeon, at [facility] in [place] and discussed the new findings of this patient. I did ask him if he advised repeat imaging of the patient, which he advised not at this point. I also stated if he felt that the patient should be transferred and he felt at this time if the patient was able to manage her own secretions, was not experiencing any significant trismus, or other worrisome signs or symptoms that she could remain at our facility. We will continue with the IV Unasyn. In addition, I will add clindamycin 900 mg every 8 hours. We will admit her on observation status. We will begin normal saline at 150 an hour. We will continue with oral Lortab 5/325 one every 4 hours as needed for pain. All questions were answered. SCOTTIEK: 10/02/2016 04:34:17 MODL: 10/02/2016 05:10:29 /[id number]
--- NOTE | 2016-10-06 02:38 | ER ---
Date of Service: ADDENDUM: This emergency room note may be used as the patient's admission H and P. MWK: 10/05/2016 23:29:26 MODL: 10/06/2016 02:30:15 /[id number]
--- NOTE | 2016-10-07 08:04 | DISCH ---
ADMITTING DIAGNOSIS: Right-sided dental infection and right-sided facial cellulitis. SUBJECTIVE: The patient was admitted on 10/01/2016 with right-sided facial cellulitis. She had been seen at [facility] by Dr. Anderson Leigh and was found to have a dental infection with started on Pen VK. The patient presented to the emergency room with significant facial swelling and worsening infection refractory to the Pen VK and was subsequently started on IV Unasyn 3 g q.6 hours. On the third dose of Unasyn, she was evaluated and found to have worsening swelling and the patient was subsequently admitted for observation due to increased swelling and worsening of her condition. The patient was kept on Unasyn 3 g every 6 hours, then was also started on clindamycin 900 mg every 8 hours in addition. In the evening of hospital day 2, she showed significant improvement in the swelling and decision was made to discharge the patient. PHYSICAL EXAMINATION: General: At the time of discharge, the patient's swelling had improved significantly as had her discomfort. Vital Signs: Blood pressure is 140/97, pulse rate is 68, temperature is 37.1, respiratory rate is 14, O2 saturations 93% on room air. Skin: Warm, pink, and dry. HEENT: The patient does continue to have some right-sided facial swelling but this has improved significantly. No edema to the hypopharynx. She is able to manage her secretions. Lungs: Clear to auscultation. Heart: Regular rate and rhythm. Abdomen: Soft and nontender. There is no hepatosplenomegaly noted. There is no masses noted. Extremities: Without edema. Remainder of her physical examination is within normal limits. LABORATORY DATA: WBC is 6.8, hemoglobin is 13.5, platelets are 248. INR is 0.9. PT is 9.9. Chemistry: Sodium is 140, potassium is 4.1, chloride is 107, bicarb is 25, BUN is 9, creatinine is 0.3, GFR is greater than 60, glucose is 86. Lactic acid remained within normal limits. HOSPITAL COURSE: Again, the patient was handled initially as an outpatient receiving IV Unasyn to administrator health care facility every 6 hours. The patient was subsequently admitted and kept on the Unasyn at 3 g/hour as well as clindamycin 900 mg every 8 hours. She did receive a CT scan of the soft tissue of her neck which revealed cellulitis and no evidence of any abscess that could be drained surgically. Dr. Najera at [facility] Maxillofacial Surgery was consulted on several occasions regarding the patient's condition. DISCHARGE CONDITION: Good. DISPOSITION: Home with self-care. DISCHARGE MEDICATIONS: 1. [place] 10/325 one every 4 to 6 hours as needed for pain. 2. Augmentin 875 mg 1 twice daily for 10 days. FOLLOWUP: Follow up in the next 7 to 10 days with Maxillofacial Surgery at [facility]. I did contact [facility] and spoke to mail the warehouse order picker regarding setting up an appointment for this patient, but they did not have a maxillofacial surgeon on-call at that time. At time of discharge, she advised that the patient contact [facility] on Tuesday. The patient was given the information regarding contacting the clinic for further followup and treatment. MWK: 10/05/2016 23:39:41 MODL: 10/07/2016 02:09:08 /[id number]
--- NOTE | 2016-10-14 20:00 | PN ---
Progress Note for MAYRA HERNANDEZ Date: 10/02/2016 Room #: VM.204 SUBJECTIVE: The patient did well overnight. She states that she has noticed that the swelling to her face has decreased somewhat. She still is continuing to experience discomfort on the right side of her face. She is continuing to receive IV Unasyn and clindamycin. She states that she is not experiencing any difficulties with swallowing or managing her oral secretions. PHYSICAL EXAMINATION: General: This is a 36-year-old female patient, in no acute distress. Vital Signs: Blood pressure is 103/69, heart rate is 66, temperature is 36.4, respiratory rate 12, and O2 saturations 93% on room air. Skin: Warm, pink, and dry. HEENT: Mouth, oral mucosa is moist. She is experiencing continued swelling to the right side of her face, however, it possibly has decreased in size somewhat, but certainly has not increased in size. She does have fullness to her anterior cervical lymph nodes. No obvious edema to her posterior hypopharynx. No obvious drainable abscess noted. Lungs: Clear to auscultation. Heart: Regular rate and rhythm. Normal S1 and S2. No S3, S4, clicks, or rubs. Abdomen: Soft, nontender. There is no hepatosplenomegaly noted. There are no masses noted. Extremities: Without edema. ASSESSMENT: Right-sided facial cellulitis secondary to dental infection. PLAN: We will continue the IV Unasyn and clindamycin. We will anticipate discharge once her symptoms are continuing to improve. Again I did consult Maxillofacial Surgery at [facility] in [place] regarding this patient. All questions were answered . MWK: 10/14/2016 19:11:40 MODL: 10/14/2016 19:44:21 /[id number]
== END 2016-10-03 08:24 | disposition home or self-care (01) ==
LOC: VM.MS 19:24
PROVIDERS: ADMIT Physician Assistant; ATTEND Physician Assistant
DX: K04.7 Periapical abscess without sinus (principal); F20.9 Schizophrenia, unspecified; F32.9 Major depressive disorder, single episode, unspecified; F41.9 Anxiety disorder, unspecified; Z88.5 Allergy status to narcotic agent; Z88.1 Allergy status to other antibiotic agents; Z88.8 Allergy status to other drugs, medicaments and biological substances; Z91.040 Latex allergy status; Z91.048 Other nonmedicinal substance allergy status; Z79.899 Other long term (current) drug therapy
CPT/HCPCS: 94760; A9270; J0295; J1885; J2270; J2405; J7030; J7050; 96361; 96365; 96366; 96367; 96375; 96376; 99219; 99225; G0378; S0077

== ENCOUNTER 2016-10-31 16:49 | Emergency (ER) | payer MEDICAID, SELFPAY ==
[2016-10-31] MEDS ORDERED: Aspirin 81 MG Tab.Chew PO ONE (17:08)
[2016-10-31] MEDS ORDERED: Sodium Chloride 0.9% 10 ML Syringe FLUSH PRN (17:08)
[2016-10-31] MEDS ORDERED: GI Cocktail Oral Solution 30 ML PO ONE (17:08)
[2016-10-31] MEDS ORDERED: Sodium Chloride 0.9% 1,000 ML IV ONE (17:08)
[2016-10-31] MEDS ORDERED: LORazepam 2 MG/ML SDV IVPUSH ONE (17:08)
[2016-10-31 18:26] LABS: CHLORIDE,CL 107 mmol/L (98-107); SODIUM,NA 142 mmol/L (136-145)
[2016-10-31] MEDS ORDERED: Potassium Chloride 10 MEQ Tab.ER PO ONE (18:38)
--- NOTE | 2016-10-31 18:44 | EDM.PDOC ---
ED HPI GENERAL MEDICAL PROBLEM - General Chief Complaint: Chest Pain Stated Complaint: CHEST PAINS,SOB Time Seen by Provider: 10/31/16 16:53 Source of Information: Reports: Patient, Family History Limitations: Reports: No Limitations - History of Present Illness INITIAL COMMENTS - FREE TEXT/NARRATIVE: Patient arrives complaints of chest pain, shortness of breath. She has a history of anxiety, depression, tachycardia. No history of diabetes, thyroid issues. She denies nausea, vomiting, headache, no abdominal pain. She states she has left sided chest pressure that does radiate down the arms bilateral with numbness. She states lying down makes it worse, has been here before for similar type attacks. She denies family history of early cardiac . No history of SVT. Has history of hypokalemia. Denies blood in urine or stool, no UTI symptoms. Onset: Today, Sudden Onset Date: 10/31/16 Onset Time: 17:00 Location: Reports: Chest Quality: Reports: Pressure, Same as Previous Episode Severity: Moderate Improves with: Reports: Medication Worsens with: Reports: Movement Associated Symptoms: Reports: Chest Pain Middle Chest Pain Score (Numeric/FACES): 8 - Related Data Allergies Allergy/AdvReac Type Severity Reaction Status Date / Time adhesive tape Allergy Hives Verified 10/31/16 17:10 gabapentin Allergy Cannot Verified 10/31/16 17:10 Remember latex Allergy Hives Verified 10/31/16 17:10 isoniazid AdvReac Unknown Seizure Verified 10/31/16 17:10 tramadol AdvReac Unknown Seizure Verified 10/31/16 17:10 Home Meds: Home Meds . 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 ankle surgery. hand surgery Oncologic Surgical History: Reports: None Social & Family History - Family History Family Medical History: Noncontributory - Tobacco Use Smoking Status *Q: Current Status Unknown Years of Tobacco use: 10 Packs/Tins Daily: 1 Month Tobacco Last Used: 8\14 Second Hand Smoke Exposure: Yes - Caffeine Use Caffeine Use: Reports: None - Alcohol Use Days Per Week of Alcohol Use: 0 Number of Drinks Per Day: 0 Total Drinks Per Week: 0 - Recreational Drug Use Recreational Drug Use: No Drug Use in Last 12 Months: No - Sexual History Sexual History: Reports: Same Sex Partner, Single Partner ED ROS GENERAL - Review of Systems Review Of Systems: See Below Constitutional: Reports: Diaphoresis HEENT: Reports: No Symptoms Respiratory: Reports: Shortness of Breath Cardiovascular: Reports: Chest Pain Endocrine: Reports: No Symptoms GI/Abdominal: Reports: No Symptoms : Reports: No Symptoms Musculoskeletal: Reports: Arm Pain, Hand Pain Skin: Reports: No Symptoms Neurological: Reports: Numbness, Tingling (to hands) Psychiatric: Reports: Anxiety Hematologic/Lymphatic: Reports: No Symptoms Immunologic: Reports: No Symptoms ED EXAM, GENERAL - Physical Exam Exam: See Below Exam Limited By: No Limitations General Appearance: Alert, Moderate Distress Eye Exam: Bilateral Eye: EOMI, PERRL Ears: Normal TMs Throat/Mouth: Normal Inspection, Normal Lips, Normal Teeth, Normal Gums, Normal Oropharynx, Normal Voice, No Airway Compromise Head: Atraumatic, Normocephalic Neck: Normal Inspection, Supple, Non-Tender, Full Range of Motion Respiratory/Chest: No Respiratory Distress, Lungs Clear, Normal Breath Sounds, No Accessory Muscle Use, Chest Non-Tender Cardiovascular: Normal Peripheral Pulses, No Edema, No Gallop, Tachycardia Peripheral Pulses: 2+: Posterior Tibial (L), Posterior Tibial (R), Dorsalis Pedis (L), Dorsalis Pedis (R) GI/Abdominal: Normal Bowel Sounds, Soft, Non-Tender, No Organomegaly, No Distention Back Exam: Normal Inspection Extremities: Normal Inspection, Normal Range of Motion, Non-Tender, No Pedal Edema, Normal Capillary Refill Neurological: Alert, Oriented, CN II-XII Intact, Normal Cognition, Normal Gait, Normal Reflexes, No Motor/Sensory Deficits Psychiatric: Normal Affect, Anxious Skin Exam: Warm, Intact, Diaphoretic Lymphatic: No Adenopathy Course - Vital Signs Last Recorded V/S: Last Vital Signs Temp 37.9 C 10/31/16 16:50 Pulse 125 H 10/31/16 18:15 Resp 20 10/31/16 18:15 BP 125/86 10/31/16 18:15 Pulse Ox 98 10/31/16 16:50 - Orders/Labs/Meds Orders: Active Orders 24 hr Category Date Time Status EKG Documentation Completion [RC] ROUTINE Care 10/31/16 17:08 Active Chest 2V [CR] Stat Exams 10/31/16 17:08 Taken CULTURE BLOOD [BC] Stat Lab 10/31/16 17:30 Received CULTURE BLOOD [BC] Stat Lab 10/31/16 17:36 Results Blood Culture x2 Reflex Set [OM.PC] Stat Oth 10/31/16 17:14 Ordered Saline Lock Insert [OM.PC] Routine Oth 10/31/16 17:08 Ordered Labs: Laboratory Tests 10/31/16 10/31/16 10/31/16 Range/Units 17:36 17:36 17:36 WBC 9.6 (4.0-10.0) x10^3/uL RBC 4.59 (4.00-5.50) x10^6/uL Hgb 13.9 (12.0-16.0) g/dL Hct 40.7 (33.0-47.0) % MCV 88.7 (78.0-93.0) fL MCH 30.3 (26.0-32.0) pg MCHC 34.2 (32.0-36.0) g/dL RDW Coeff of Dionna 13.1 (10.0-15.0) % Plt Count 234 (130-400) x10^3/uL Neut % (Auto) 79.8 (50.0-80.0) % Lymph % (Auto) 14.4 L (25.0-50.0) % [place] % (Auto) 5.1 (2.0-11.0) % Eos % (Auto) 0.6 (0.0-4.0) % Baso % (Auto) 0.1 L (0.2-1.2) % PT 10.4 (10.0-12.8) SEC INR 0.9 L (2.0-3.5) APTT 22.1 L (24.0-36.0) SEC D-Dimer, Quantitative (<=0.58) mg/LFEU Sodium 142 (136-145) mmol/L Potassium 2.4 L* D (3.5-5.1) mmol/L Chloride 107 (98-107) mmol/L Carbon Dioxide 24 (21-32) mmol/L BUN 5 L (7-18) mg/dL Creatinine 1.0 (0.55-1.02) mg/dL Est Cr Clr Drug Dosing 64.95 mL/min Estimated GFR (MDRD) > 60 Glucose 189 H (74-106) mg/dL Lactic Acid (0.4-2.0) mmol/L Calcium 8.1 L (8.5-10.1) mg/dL Corrected Calcium 8.66 (8.5-10.1) mg/dL Total Bilirubin 0.2 (0.2-1.0) mg/dL AST 13 L (15-37) U/L ALT 25 (14-59) U/L Alkaline Phosphatase 71 (46-116) U/L Creatine Kinase 46 (26-192) U/L Creatine Kinase Index TNP CK-MB (CK-2) TNP Troponin I < 0.017 (<=0.056) ng/mL C-Reactive Protein 0.2 (<=0.9) mg/dL Total Protein 7.0 (6.4-8.2) g/dL Albumin 3.3 L (3.4-5.0) g/dL Globulin 3.7 Albumin/Globulin Ratio 0.89 Amylase 31 (25-115) U/L Lipase 88 (73-393) U/L TSH, Ultra Sensitive (0.358-3.74) uIU/mL Urine Color (YELLOW) Urine Appearance (CLEAR) Urine pH (5.0-8.0) Ur Specific [place] Urine Protein (NEGATIVE) mg/dL Urine Glucose (UA) (NEGATIVE) mg/dL Urine Ketones (NEGATIVE) mg/dL Urine Occult Blood (NEGATIVE) Urine Nitrite (NEGATIVE) Urine Bilirubin (NEGATIVE) Urine Urobilinogen (0.2) EU/dL Ur Leukocyte Esterase (NEGATIVE) Urine RBC (NOT SEEN) /HPF Urine WBC (NOT SEEN) /HPF Ur Squamous Epith Cells (NEGATIVE) /HPF Urine Bacteria (NEGATIVE) /HPF Urine Mucus (NEGATIVE) /LPF 10/31/16 10/31/16 10/31/16 Range/Units 17:36 17:36 17:36 WBC (4.0-10.0) x10^3/uL RBC (4.00-5.50) x10^6/uL Hgb (12.0-16.0) g/dL Hct (33.0-47.0) % MCV (78.0-93.0) fL MCH (26.0-32.0) pg MCHC (32.0-36.0) g/dL RDW Coeff of Dionna (10.0-15.0) % Plt Count (130-400) x10^3/uL Neut % (Auto) (50.0-80.0) % Lymph % (Auto) (25.0-50.0) % [place] % (Auto) (2.0-11.0) % Eos % (Auto) (0.0-4.0) % Baso % (Auto) (0.2-1.2) % PT (10.0-12.8) SEC INR (2.0-3.5) APTT (24.0-36.0) SEC D-Dimer, Quantitative 0.43 (<=0.58) mg/LFEU Sodium (136-145) mmol/L Potassium (3.5-5.1) mmol/L Chloride (98-107) mmol/L Carbon Dioxide (21-32) mmol/L BUN (7-18) mg/dL Creatinine (0.55-1.02) mg/dL Est Cr Clr Drug Dosing mL/min Estimated GFR (MDRD) Glucose (74-106) mg/dL Lactic Acid 3.3 H (0.4-2.0) mmol/L Calcium (8.5-10.1) mg/dL Corrected Calcium (8.5-10.1) mg/dL Total Bilirubin (0.2-1.0) mg/dL AST (15-37) U/L ALT (14-59) U/L Alkaline Phosphatase (46-116) U/L Creatine Kinase (26-192) U/L Creatine Kinase Index CK-MB (CK-2) Troponin I (<=0.056) ng/mL C-Reactive Protein (<=0.9) mg/dL Total Protein (6.4-8.2) g/dL Albumin (3.4-5.0) g/dL Globulin Albumin/Globulin Ratio Amylase (25-115) U/L Lipase (73-393) U/L TSH, Ultra Sensitive 1.983 (0.358-3.74) uIU/mL Urine Color (YELLOW) Urine Appearance (CLEAR) Urine pH (5.0-8.0) Ur Specific [place] Urine Protein (NEGATIVE) mg/dL Urine Glucose (UA) (NEGATIVE) mg/dL Urine Ketones (NEGATIVE) mg/dL Urine Occult Blood (NEGATIVE) Urine Nitrite (NEGATIVE) Urine Bilirubin (NEGATIVE) Urine Urobilinogen (0.2) EU/dL Ur Leukocyte Esterase (NEGATIVE) Urine RBC (NOT SEEN) /HPF Urine WBC (NOT SEEN) /HPF Ur Squamous Epith Cells (NEGATIVE) /HPF Urine Bacteria (NEGATIVE) /HPF Urine Mucus (NEGATIVE) /LPF 10/31/16 Range/Units 17:45 WBC (4.0-10.0) x10^3/uL RBC (4.00-5.50) x10^6/uL Hgb (12.0-16.0) g/dL Hct (33.0-47.0) % MCV (78.0-93.0) fL MCH (26.0-32.0) pg MCHC (32.0-36.0) g/dL RDW Coeff of Dionna (10.0-15.0) % Plt Count (130-400) x10^3/uL Neut % (Auto) (50.0-80.0) % Lymph % (Auto) (25.0-50.0) % [place] % (Auto) (2.0-11.0) % Eos % (Auto) (0.0-4.0) % Baso % (Auto) (0.2-1.2) % PT (10.0-12.8) SEC INR (2.0-3.5) APTT (24.0-36.0) SEC D-Dimer, Quantitative (<=0.58) mg/LFEU Sodium (136-145) mmol/L Potassium (3.5-5.1) mmol/L Chloride (98-107) mmol/L Carbon Dioxide (21-32) mmol/L BUN (7-18) mg/dL Creatinine (0.55-1.02) mg/dL Est Cr Clr Drug Dosing mL/min Estimated GFR (MDRD) Glucose (74-106) mg/dL Lactic Acid (0.4-2.0) mmol/L Calcium (8.5-10.1) mg/dL Corrected Calcium (8.5-10.1) mg/dL Total Bilirubin (0.2-1.0) mg/dL AST (15-37) U/L ALT (14-59) U/L Alkaline Phosphatase (46-116) U/L Creatine Kinase (26-192) U/L Creatine Kinase Index CK-MB (CK-2) Troponin I (<=0.056) ng/mL C-Reactive Protein (<=0.9) mg/dL Total Protein (6.4-8.2) g/dL Albumin (3.4-5.0) g/dL Globulin Albumin/Globulin Ratio Amylase (25-115) U/L Lipase (73-393) U/L TSH, Ultra Sensitive (0.358-3.74) uIU/mL Urine Color Light yellow (YELLOW) Urine Appearance Turbid H (CLEAR) Urine pH 6.5 (5.0-8.0) Ur Specific [place] 1.010 Urine Protein Negative (NEGATIVE) mg/dL Urine Glucose (UA) 250 H (NEGATIVE) mg/dL Urine Ketones Negative (NEGATIVE) mg/dL Urine Occult Blood Negative (NEGATIVE) Urine Nitrite Negative (NEGATIVE) Urine Bilirubin Negative (NEGATIVE) Urine Urobilinogen 0.2 (0.2) EU/dL Ur Leukocyte Esterase Negative (NEGATIVE) Urine RBC Not seen (NOT SEEN) /HPF Urine WBC Not seen (NOT SEEN) /HPF Ur Squamous Epith Cells Few H (NEGATIVE) /HPF Urine Bacteria Not seen (NEGATIVE) /HPF Urine Mucus Rare H (NEGATIVE) /LPF Meds: Medications Discontinued Medications Generic Name Dose Route Start Last Admin Trade Name Freq PRN Reason Stop Dose Admin Al Hydroxide/Mg Hydroxide 30 ml 10/31/16 17:08 10/31/16 17:32 Gi Cocktail PO 10/31/16 17:09 30 ml ONETIME ONE Administration Aspirin 324 mg 10/31/16 17:08 10/31/16 17:05 Aspirin PO 10/31/16 17:09 324 mg ONETIME ONE Administration Sodium Chloride 1,000 mls @ 999 mls/hr 10/31/16 17:08 10/31/16 17:32 Normal Saline IV 10/31/16 18:08 999 mls/hr ONETIME ONE Administration Lorazepam 0.5 mg 10/31/16 17:08 10/31/16 17:33 Ativan IVPUSH 10/31/16 17:09 0.5 mg ONETIME ONE Administration Potassium Chloride 60 meq 10/31/16 18:38 10/31/16 18:55 Klor-Con 10 PO 10/31/16 18:39 60 meq ONETIME ONE Administration Sodium Chloride 10 ml 10/31/16 17:08 Saline Flush FLUSH ASDIRECTED PRN Keep Vein Open - Radiology Interpretation Free Text/Narrative:: chest x-ray reviewed, no acute process. Ekg sinus tach - Re-Assessments/Exams Free Text/Narrative Re-Assessment/Exam: 10/31/16 18:46 potassium level at 2.4, patient given 60 meq of KCL. According to patient, she does have history of hypokalemia. Departure - Departure Time of Disposition: 19:42 Disposition: Eloped 07 Condition: Good Clinical Impression: POTS (postural orthostatic tachycardia syndrome) Instructions: Postural Orthostatic Tachycardia Syndrome Referrals: Sanam Woodson DO [Primary Care Provider] - Forms: ED Department Discharge Additional Instructions: Restart taking your potassium medications, eat a diet high in potassium and follow up with Dr. Woodson for symptom management. You need to follow through with your metabolic/endocrine appointment to rule out endocrine involvement. Possible postural orthostatic tachycardia syndrome? Please call us anytime with any questions or concerns that you may have. - Problem List & Annotations (1) POTS (postural orthostatic tachycardia syndrome) SNOMED Code(s): 482502157 Code(s): R00.0 - TACHYCARDIA, UNSPECIFIED; I95.1 - ORTHOSTATIC HYPOTENSION Status: Acute Priority: Medium - Problem List Review Problem List Initiated/Reviewed/Updated: Yes - My Orders Last 24 Hours: My Active Orders 10/31/16 17:08 EKG Documentation Completion [RC] ROUTINE Chest 2V [CR] Stat Saline Lock Insert [OM.PC] Routine 10/31/16 17:14 Blood Culture x2 Reflex Set [OM.PC] Stat 10/31/16 17:30 CULTURE BLOOD [BC] Stat 10/31/16 17:36 CULTURE BLOOD [BC] Stat - Assessment/Plan Last 24 Hours: My Active Orders 10/31/16 17:08 EKG Documentation Completion [RC] ROUTINE Chest 2V [CR] Stat Saline Lock Insert [OM.PC] Routine 10/31/16 17:14 Blood Culture x2 Reflex Set [OM.PC] Stat 10/31/16 17:30 CULTURE BLOOD [BC] Stat 10/31/16 17:36 CULTURE BLOOD [BC] Stat Assessment:: Chest pain ?? POTS Plan: Restart taking your potassium medications, eat a diet high in potassium and follow up with Dr. Woodson for symptom management. You need to follow through with your metabolic/endocrine appointment to rule out endocrine involvement. Possible postural orthostatic tachycardia syndrome? Please call us anytime with any questions or concerns that you may have.
[2016-10-31 18:48] VITALS: BP 125/86
== END 2016-10-31 19:50 | disposition left against medical advice (07) ==
LOC: VM.ED 16:49
DX: I49.8 Other specified cardiac arrhythmias (principal); Z91.040 Latex allergy status; Z88.5 Allergy status to narcotic agent; Z90.49 Acquired absence of other specified parts of digestive tract; Z90.710 Acquired absence of both cervix and uterus; Z98.890 Other specified postprocedural states
CPT/HCPCS: 36415; 71020; 80053; 81001; 82150; 82550; 83605; 83690; 84443; 84484; 85025; 85379; 85610; 85730; 86140; 87040; 93005; 96361; 96374; 99285; A9270; J2060; J7030; 99284-GF

== ENCOUNTER 2016-11-01 19:05 | Observation (INO) | payer MEDICAID, OTHER ==
--- NOTE | 2016-11-01 19:16 | EDM.PDOC ---
ED HPI GENERAL MEDICAL PROBLEM - General Chief Complaint: Cardiovascular Problem Stated Complaint: HEART BEATING REALLY FAST Time Seen by Provider: 11/01/16 19:15 Source of Information: Reports: Patient, RN, RN Notes Reviewed History Limitations: Reports: No Limitations - History of Present Illness INITIAL COMMENTS - FREE TEXT/NARRATIVE: Patient presents to the ED at [facility] with acute on chronic tachycardia. This patient is well known to us. She had a long-standing history of hypokalemia. She had been seen by Cardiology in the past. She had also seen Nephrology and Urology. According to the patient, it is not well understood why she had the tachycardia and hypokalemic events. Patient was seen in this ER yesterday for the same symptoms. Patient was given IV and oral potassium. Patient states she did not feel any better upon discharge. She states she has been tachy in the 120's and higher all day today. She feels very shaky and dizzy. She did have a fever yesterday. Lactic Acid yesterday was 3.1, K+ 2.4. Patient states her chest does hurt from her current symptoms. She denies any N/V /D. No focal neurological deficits. She does not feel SOB. Duration: Chronic - Related Data Allergies Allergy/AdvReac Type Severity Reaction Status Date / Time adhesive tape Allergy Hives Verified 11/01/16 19:28 gabapentin Allergy Cannot Verified 11/01/16 19:28 Remember latex Allergy Hives Verified 11/01/16 19:28 isoniazid AdvReac Unknown Seizure Verified 11/01/16 19:28 tramadol AdvReac Unknown Seizure Verified 11/01/16 19:28 Home Meds: Home Meds . 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 (See Below) Other OB/BYN History: dysmenorrhea Psychiatric History: Reports: Anxiety, Depression, Psychosis, Schizophrenia, Suicidal Ideation Immunologic History: Reports: None Oncologic (Cancer) History: Reports: None - Past Surgical History Other Musculoskeletal Surgeries/Procedures:: foot surgery Social & Family History - Family History Family Medical History: Noncontributory - Tobacco Use Smoking Status *Q: Current Status Unknown Years of Tobacco use: 10 Packs/Tins Daily: 1 Month Tobacco Last Used: 8\14 Second Hand Smoke Exposure: Yes - Caffeine Use Caffeine Use: Reports: None - Alcohol Use Days Per Week of Alcohol Use: 0 Number of Drinks Per Day: 0 Total Drinks Per Week: 0 - Recreational Drug Use Recreational Drug Use: No Drug Use in Last 12 Months: No - Sexual History Sexual History: Reports: Same Sex Partner, Single Partner ED ROS GENERAL - Review of Systems Review Of Systems: See Below Constitutional: Reports: Diaphoresis, Decreased Appetite. Denies: Fever, Chills Respiratory: Denies: Shortness of Breath, Cough Cardiovascular: Reports: Chest Pain, Lightheadedness, Palpitations GI/Abdominal: Reports: Decreased Appetite. Denies: Abdominal Pain, Nausea, Vomiting Skin: Reports: No Symptoms Neurological: Reports: Dizziness, Headache. Denies: Numbness, Paresthesia, Tingling ED EXAM, GENERAL - Physical Exam Exam: See Below Exam Limited By: No Limitations General Appearance: Alert, WD/WN, Anxious, Obese Respiratory/Chest: No Respiratory Distress, Lungs Clear, Normal Breath Sounds Cardiovascular: No Edema, No Murmur, Tachycardia, Other (Distant heart tones) Peripheral Pulses: 2+: Radial (L), Radial (R) GI/Abdominal: Normal Bowel Sounds, Soft, Non-Tender Neurological: Alert, Oriented Psychiatric: Anxious Skin Exam: Warm, Dry, Intact, Normal Color, No Rash EKG INTERPRETATION EKG Date: 11/01/16 Time: 19:18 Rhythm: NSR Rate (Beats/Min): 148 [place]: Normal P-Wave: Present QRS: Normal ST-T: Normal QT: Normal NM/PQ Interval: 0.12 Comparison: No Change EKG Interpretation Comments: 1. Sinus Tachycardia, possible Atrial flutter 2. LVH and ST-T change Course - Vital Signs Last Recorded V/S: Last Vital Signs Temp 36.8 C 11/01/16 19:08 Pulse 120 H 11/01/16 20:12 Resp 16 11/01/16 20:12 BP 144/72 H 11/01/16 20:12 Pulse Ox 98 11/01/16 20:12 - Orders/Labs/Meds Orders: Active Orders 24 hr Category Date Time Status Admission Status [Patient Status] [ADT] Routine ADT 11/01/16 20:40 Ordered EKG 12 Lead [EKG Documentation Completion] [RC] STAT Care 11/01/16 19:20 Active Chest 1V Frontal [CR] Stat Exams 11/01/16 19:31 Taken CULTURE BLOOD [BC] Stat Lab 11/01/16 19:45 Received CULTURE BLOOD [BC] Stat Lab 11/01/16 19:51 Received Sodium Chloride 0.9% [Saline Flush] Med 11/01/16 19:38 Active 10 ml FLUSH ASDIRECTED PRN Blood Culture x2 Reflex Set [OM.PC] Stat Oth 11/01/16 19:32 Ordered Peripheral IV Insertion Adult [OM.PC] Routine Oth 11/01/16 19:38 Ordered Medication Orders Sodium Chloride (Saline Flush) 10 ml FLUSH ASDIRECTED PRN PRN Reason: Keep Vein Open Labs: Laboratory Tests 11/01/16 11/01/16 11/01/16 Range/Units 19:45 19:45 19:45 WBC 7.3 (4.0-10.0) x10^3/uL RBC 4.49 (4.00-5.50) x10^6/uL Hgb 13.6 (12.0-16.0) g/dL Hct 39.7 (33.0-47.0) % MCV 88.4 (78.0-93.0) fL MCH 30.3 (26.0-32.0) pg MCHC 34.3 (32.0-36.0) g/dL RDW Coeff of Dionna 13.7 (10.0-15.0) % Plt Count 244 (130-400) x10^3/uL Neut % (Auto) 70.7 (50.0-80.0) % Lymph % (Auto) 20.4 L (25.0-50.0) % [place] % (Auto) 8.1 (2.0-11.0) % Eos % (Auto) 0.7 (0.0-4.0) % Baso % (Auto) 0.1 L (0.2-1.2) % Sodium 142 (136-145) mmol/L Potassium 2.6 L* (3.5-5.1) mmol/L Chloride 108 H (98-107) mmol/L Carbon Dioxide 22 (21-32) mmol/L BUN 2 L (7-18) mg/dL Creatinine 0.8 (0.55-1.02) mg/dL Est Cr Clr Drug Dosing TNP Estimated GFR (MDRD) > 60 Glucose 106 (74-106) mg/dL Lactic Acid 2.4 H (0.4-2.0) mmol/L Calcium 8.0 L (8.5-10.1) mg/dL Phosphorus 2.7 (2.6-4.7) mg/dL Magnesium 2.0 (1.8-2.4) mg/dL Creatine Kinase 66 (26-192) U/L Creatine Kinase Index 1.1 (0.0-4.0) % CK-MB (CK-2) 0.7 (0.0-3.6) ng/mL Troponin I < 0.017 (<=0.056) ng/mL C-Reactive Protein (<=0.9) mg/dL 11/01/16 Range/Units 19:45 WBC (4.0-10.0) x10^3/uL RBC (4.00-5.50) x10^6/uL Hgb (12.0-16.0) g/dL Hct (33.0-47.0) % MCV (78.0-93.0) fL MCH (26.0-32.0) pg MCHC (32.0-36.0) g/dL RDW Coeff of Dionna (10.0-15.0) % Plt Count (130-400) x10^3/uL Neut % (Auto) (50.0-80.0) % Lymph % (Auto) (25.0-50.0) % [place] % (Auto) (2.0-11.0) % Eos % (Auto) (0.0-4.0) % Baso % (Auto) (0.2-1.2) % Sodium (136-145) mmol/L Potassium (3.5-5.1) mmol/L Chloride (98-107) mmol/L Carbon Dioxide (21-32) mmol/L BUN (7-18) mg/dL Creatinine (0.55-1.02) mg/dL Est Cr Clr Drug Dosing Estimated GFR (MDRD) Glucose (74-106) mg/dL Lactic Acid (0.4-2.0) mmol/L Calcium (8.5-10.1) mg/dL Phosphorus (2.6-4.7) mg/dL Magnesium (1.8-2.4) mg/dL Creatine Kinase (26-192) U/L Creatine Kinase Index (0.0-4.0) % CK-MB (CK-2) (0.0-3.6) ng/mL Troponin I (<=0.056) ng/mL C-Reactive Protein 0.9 (<=0.9) mg/dL Meds: Medications Generic Name Dose Route Start Last Admin Trade Name Freq PRN Reason Stop Dose Admin Sodium Chloride 10 ml 11/01/16 19:38 Saline Flush FLUSH ASDIRECTED PRN Keep Vein Open Discontinued Medications Generic Name Dose Route Start Last Admin Trade Name Freq PRN Reason Stop Dose Admin Acetaminophen 1,000 mg 11/01/16 19:54 11/01/16 19:58 Tylenol Extra Strength PO 11/01/16 19:55 1,000 mg ONETIME ONE Administration Diltiazem HCl 20 mg 11/01/16 19:57 11/01/16 20:08 Diltiazem IVPUSH 11/01/16 19:58 20 mg ONETIME ONE Administration Sodium Chloride 1,000 mls @ 999 mls/hr 11/01/16 19:39 11/01/16 19:49 Normal Saline IV 11/01/16 20:39 999 mls/hr ONETIME ONE Administration - Radiology Interpretation Free Text/Narrative:: No radiographic evidence of infiltrate, including aspiration pneumonia - Discussed with Dr. Munir Lucero, 11/01/2016 20:17 See scanned report in EMR Departure - Departure Time of Disposition: 20:42 Disposition: Refer to Observation Condition: Good Clinical Impression: Tachycardia, Hypokalemia, Tremor, Dizziness ED Communication - ED Communication Date/Time Date: 11/01/16 Time Called: 20:34 - Problem List & Annotations (1) Tachycardia SNOMED Code(s): 2781556 Code(s): R00.0 - TACHYCARDIA, UNSPECIFIED Status: Chronic Priority: High Current Visit: Yes (2) Hypokalemia SNOMED Code(s): 34493686 Code(s): E87.6 - HYPOKALEMIA Status: Chronic Priority: High Current Visit: Yes (3) Tremor SNOMED Code(s): 34130312 Code(s): R25.1 - TREMOR, UNSPECIFIED Status: Acute Priority: Medium Current Visit: Yes Onset Date: ~11/01/16 (4) Dizziness SNOMED Code(s): 926891781, 924125246 Code(s): R42 - DIZZINESS AND GIDDINESS Status: Acute Priority: Medium Current Visit: Yes Onset Date: ~11/01/16 - Problem List Review Problem List Initiated/Reviewed/Updated: Yes - My Orders Last 24 Hours: My Active Orders 11/01/16 19:20 EKG 12 Lead [EKG Documentation Completion] [RC] STAT 11/01/16 19:31 Chest 1V Frontal [CR] Stat 11/01/16 19:32 Blood Culture x2 Reflex Set [OM.PC] Stat 11/01/16 19:38 Sodium Chloride 0.9% [Saline Flush] 10 ml FLUSH ASDIRECTED PRN Peripheral IV Insertion Adult [OM.PC] Routine 11/01/16 19:45 CULTURE BLOOD [BC] Stat 11/01/16 19:51 CULTURE BLOOD [BC] Stat 11/01/16 20:40 Admission Status [Patient Status] [ADT] Routine - Assessment/Plan Last 24 Hours: My Active Orders 11/01/16 19:20 EKG 12 Lead [EKG Documentation Completion] [RC] STAT 11/01/16 19:31 Chest 1V Frontal [CR] Stat 11/01/16 19:32 Blood Culture x2 Reflex Set [OM.PC] Stat 11/01/16 19:38 Sodium Chloride 0.9% [Saline Flush] 10 ml FLUSH ASDIRECTED PRN Peripheral IV Insertion Adult [OM.PC] Routine 11/01/16 19:45 CULTURE BLOOD [BC] Stat 11/01/16 19:51 CULTURE BLOOD [BC] Stat 11/01/16 20:40 Admission Status [Patient Status] [ADT] Routine Plan: Discussed with patient admitting for obs for IV Potassium and Cardiac monitoring. Patient agrees with POC.
[2016-11-01] MEDS ORDERED: Sodium Chloride 0.9% 1,000 ML IV ONE (19:39)
[2016-11-01] MEDS ORDERED: Acetaminophen 500 MG Tab PO ONE (19:54)
[2016-11-01] MEDS ORDERED: Diltiazem 25 MG/5 ML SDV IVPUSH ONE (19:57)
[2016-11-01 20:24] LABS: CHLORIDE,CL 108 mmol/L (98-107); SODIUM,NA 142 mmol/L (136-145)
[2016-11-01] MEDS ORDERED: Acetaminophen 325 MG Tab PO PRN (20:52)
[2016-11-01] MEDS ORDERED: Ondansetron 4 MG Tab.DIS PO PRN (20:52)
[2016-11-01] MEDS: Potassium Chloride 20 MEQ in Premix Bag 1 BAG IV SCH ×2 (21:49→23:23)
[2016-11-01] MEDS: Acetaminophen/HYDROcodone 325-5 MG Tab PO PRN (21:58)
--- NOTE | 2016-11-01 22:39 | PCM.HP ---
H&P History of Present Illness - General Date of Service: 11/01/16 Admit Problem/Dx: Admission Diagnosis/Problem Admission Diagnosis/Problem Tachycardia Hypokalemia Dizziness Tremors Source of Information: Patient, RN, RN Notes Reviewed History Limitations: Reports: No Limitations - History of Present Illness Initial Comments - Free Text/Narative: Patient presented to the ED at [facility] with acute on chronic tachycardia. This patient is well known to us. She had a long-standing history of hypokalemia. She had been seen by Cardiology in the past. She had also seen Nephrology and Urology. According to the patient, it is not well understood why she had the tachycardia and hypokalemic events. Patient was seen in this ER yesterday for the same symptoms. Patient was given IV and oral potassium. Patient states she did not feel any better upon discharge. She states she has been tachy in the 120's and higher all day today. She feels very shaky and dizzy. She did have a fever yesterday. Lactic Acid yesterday was 3.1, K+ 2.4. Patient states her chest does hurt from her current symptoms. She denies any N/V /D. No focal neurological deficits. She does not feel SOB. Duration of Symptoms: Reports: Chronic - Related Data Allergies/Adverse Reactions: Allergies Allergy/AdvReac Type Severity Reaction Status Date / Time adhesive tape Allergy Hives Verified 11/01/16 19:28 gabapentin Allergy Cannot Verified 11/01/16 19:28 Remember latex Allergy Hives Verified 11/01/16 19:28 isoniazid AdvReac Unknown Seizure Verified 11/01/16 19:28 tramadol AdvReac Unknown Seizure Verified 11/01/16 19:28 Home Medications: Home Meds . [No Known Home Meds] 10/31/16 [History] Past Medical History Cardiovascular History: Reports: Arrhythmia Other Cardiovascular History: tachycardia Gastrointestinal History: Reports: [employer] History: Reports: Other (See Below) Other OB/BYN History: dysmenorrhea Psychiatric History: Reports: Anxiety, Depression, Psychosis, Schizophrenia, Suicidal Ideation - Past Surgical History Other Musculoskeletal Surgeries/Procedures:: foot surgery Social & Family History - Family History Family Medical History: Noncontributory - Tobacco Use Smoking Status *Q: Current Status Unknown Years of Tobacco use: 10 Packs/Tins Daily: 1 Month Tobacco Last Used: 8\14 Second Hand Smoke Exposure: Yes - Caffeine Use Caffeine Use: Reports: None - Alcohol Use Days Per Week of Alcohol Use: 0 Number of Drinks Per Day: 0 Total Drinks Per Week: 0 - Recreational Drug Use Recreational Drug Use: No Drug Use in Last 12 Months: No - Sexual History Sexual History: Reports: Same Sex Partner, Single Partner H&P Review of Systems - Review of Systems: Review Of Systems: See Below General: Reports: Fever, Decreased Appetite. Denies: Chills, Weakness Pulmonary: Denies: Shortness of Breath, Cough Cardiovascular: Reports: Lightheadedness. Denies: Chest Pain, Palpitations Gastrointestinal: Reports: Nausea. Denies: Abdominal Pain, Diarrhea, Vomiting Skin: Reports: No Symptoms Neurological: Reports: Dizziness, Headache. Denies: Numbness, Paresthesia, Tingling Exam - Exam Exam: See Below - Vital Signs Vital Signs: Last Vital Signs Temp 36.6 C 11/01/16 20:30 Pulse 110 H 11/01/16 20:50 Resp 16 11/01/16 20:12 BP 144/72 H 11/01/16 20:12 Pulse Ox 98 11/01/16 20:12 Weight: 113.398 kg - Exam General: Alert, Oriented, Cooperative Lungs: Clear to Auscultation, Normal Respiratory Effort Cardiovascular: Normal S1, Normal S2, Tachycardia GI/Abdominal Exam: Normal Bowel Sounds, Soft, Non-Tender Peripheral Pulses: 2+: Radial (L), Radial (R) Skin: Warm, Dry, Intact Neuro Extensive - Mental Status: Alert, Oriented x3 - Patient Data Result Diagrams: 11/01/16 19:45 11/01/16 19:45 *Q Meaningful Use (ADM) - VTE *Q VTE Criteria *Q: No prophylaxis indicated - Early ambulation - Stroke *Q Stroke Criteria *Q: - AMI *Q AMI Criteria *Q: - Problem List (1) Tachycardia SNOMED Code(s): 1332730 ICD Code: R00.0 - TACHYCARDIA, UNSPECIFIED Status: Chronic Priority: High Current Visit: Yes (2) Hypokalemia SNOMED Code(s): 43509953 ICD Code: E87.6 - HYPOKALEMIA Status: Chronic Priority: High Current Visit: Yes (3) Tremor SNOMED Code(s): 06498667 ICD Code: R25.1 - TREMOR, UNSPECIFIED Status: Acute Priority: Medium Current Visit: Yes Onset Date: ~11/01/16 (4) Dizziness SNOMED Code(s): 902482977, 916254043 ICD Code: R42 - DIZZINESS AND GIDDINESS Status: Acute Priority: Medium Current Visit: Yes Onset Date: ~11/01/16 Problem List Initiated/Reviewed/Updated: Yes Orders Last 24hrs: Active Orders 24 hr Category Date Time Status Patient Status [ADT] Routine ADT 11/01/16 20:52 Active Ambulate [RC] ASDIRECTED Care 11/01/16 20:52 Active Ambulate [RC] PER UNIT ROUTINE Care 11/01/16 21:04 Active Cardiac Monitoring [RC] 06,10,14,18,22,02 Care 11/01/16 21:03 Active Height and Weight [RC] UPON Care 11/01/16 20:52 Active Intake and Output [RC] QSHIFT Care 11/01/16 21:02 Active May Shower [RC] ASDIRECTED Care 11/01/16 20:52 Active Oxygen Therapy [RC] PRN Care 11/01/16 20:52 Active VTE/DVT Education [RC] PER UNIT ROUTINE Care 11/01/16 20:52 Active Vital Signs [RC] 06,10,14,18,22,02 Care 11/01/16 20:52 Active Regular Diet [DIET] Diet 11/01/16 Breakfast Active BASIC METABOLIC PANEL,BMP [CHEM] Routine Lab 11/02/16 05:11 Ordered Acetaminophen [Tylenol] Med 11/01/16 20:52 Active 650 mg PO Q4H PRN Acetaminophen/HYDROcodone [[place] 325-5 MG] Med 11/01/16 21:09 Active 1 tab PO Q4H PRN HYDROmorphone [Dilaudid] Med 11/01/16 20:52 Active 0.5 mg IVPUSH Q2H PRN Ondansetron [Zofran ODT] Med 11/01/16 20:52 Active 4 mg PO Q6H PRN Potassium Chloride [KCL 20 MEQ in Water 50 ML] 20 meq Med 11/01/16 21:15 Active Premix Bag 1 bag IV Q2H Resuscitation Status Routine Resus Stat 11/01/16 20:52 Ordered Medication Orders Acetaminophen (Tylenol) 650 mg PO Q4H PRN PRN Reason: Pain (Mild 1-3)/fever Hydrocodone Bitart/Acetaminophen ([place] 325-5 Mg) 1 tab PO Q4H PRN PRN Reason: Pain (moderate 4-6) Last Admin: 11/01/16 21:58 Dose: 1 tab Hydromorphone HCl (Dilaudid) 0.5 mg IVPUSH Q2H PRN PRN Reason: Pain (severe 7-10) Potassium Chloride 20 meq/ (Premix) 50 mls @ 25 mls/hr IV Q2H EMILY Stop: 11/02/16 03:14 Last Admin: 11/01/16 21:49 Dose: 25 mls/hr Ondansetron HCl (Zofran Odt) 4 mg PO Q6H PRN PRN Reason: nausea, able to take PO Sodium Chloride (Saline Flush) 10 ml FLUSH ASDIRECTED PRN PRN Reason: Keep Vein Open Assessment/Plan Comment:: 1. Admit observation 2. Replace Potassium IV; no IVF warranted 3. Recheck blood work in AM 4. DVT prophylaxis - early ambulation 5. Pain medication for headache 6. Code 1 7. Patient will be transferred to a higher level of care should the need arise 8. Anticipate admission <48 hours
[2016-11-01] MEDS ORDERED: LORazepam 2 MG/ML SDV IVPUSH ONE (22:40)
[2016-11-02] MEDS: Potassium Chloride 20 MEQ in Premix Bag 1 BAG IV SCH ×4 (00:01→07:30)
[2016-11-02] MEDS: HYDROmorphone 1 MG/ML Syringe IVPUSH PRN ×3 (01:02→08:48)
[2016-11-02] MEDS: Sodium Chloride 0.9% 10 ML Syringe FLUSH PRN ×3 (01:12→08:49)
[2016-11-02 07:12] LABS: CHLORIDE,CL 109 mmol/L (98-107); SODIUM,NA 142 mmol/L (136-145)
[2016-11-02] MEDS ORDERED: LORazepam 2 MG/ML SDV IM ONE (09:21)
[2016-11-02] MEDS: Acetaminophen/HYDROcodone 325-5 MG Tab PO PRN (09:36)
[2016-11-02] MEDS ORDERED: HYDROmorphone 1 MG/ML Syringe IVPUSH ONE (13:38)
--- NOTE | 2016-11-02 13:53 | PCM.DCSUM1 ---
Discharge Summary - Hospital Course HPI Initial Comments: Patient presented to the ED at [facility] yesterday with acute on chronic tachycardia. This patient is well known to us. She had a long-standing history of hypokalemia. She had been seen by Cardiology in the past. She had also seen Nephrology and Urology. According to the patient, it is not well understood why she had the tachycardia and hypokalemic events. Patient was seen in this ER two days ago (10/31/2016) for the same symptoms. Patient was given IV and oral potassium. Patient states she did not feel any better upon discharge. She states she has been tachy in the 120's and higher all day today. She feels very shaky and dizzy. She did have a fever yesterday. Lactic Acid yesterday was 3.1, K+ 2.4. Patient states her chest does hurt from her current symptoms. She denies any N/V /D. No focal neurological deficits. She does not feel SOB. - Discharge Data Discharge Date: 11/02/16 Discharge Disposition: DC/Tfer to Acute Hospital 02 Condition: Good - Discharge Diagnosis/Problem(s) (1) Tachycardia SNOMED Code(s): 8069507 ICD Code: R00.0 - TACHYCARDIA, UNSPECIFIED Status: Chronic Priority: High Current Visit: Yes (2) Hypokalemia SNOMED Code(s): 96315411 ICD Code: E87.6 - HYPOKALEMIA Status: Chronic Priority: High Current Visit: Yes (3) Tremor SNOMED Code(s): 54712420 ICD Code: R25.1 - TREMOR, UNSPECIFIED Status: Acute Priority: Medium Current Visit: Yes Onset Date: ~11/01/16 (4) Dizziness SNOMED Code(s): 653996636, 818171925 ICD Code: R42 - DIZZINESS AND GIDDINESS Status: Acute Priority: Medium Current Visit: Yes Onset Date: ~11/01/16 (5) Headache SNOMED Code(s): 21191274 ICD Code: R51 - HEADACHE Status: Acute Current Visit: Yes Qualifiers: Headache type: unspecified Headache chronicity pattern: acute headache Intractability: not intractable Qualified Code(s): R51 - Headache - Patient Summary/Data Operative Procedure(s) Performed: None Labs Pending at D/C: None Hospital Course: Patient continued to remain tachy with low potassium after IV supplement. Patient continue with a severe headache dizziness. She feels tremorous despite IV medications. Blood pressures remain ok, afebrile. HR 120's-150's after Cardizem. TSH elevated. Discussed with patient a recommend further treatment and work-up at [facility]. Patient agrees with POC and wished to proceed. - Patient Instructions Diet: Heart Healthy Diet Activity: Rest and Relax Today Driving: Do Not Drive Showering/Bathing: May Shower Notify Provider of: Fever, Increased Pain, Nausea and/or Vomiting - Discharge Plan Home Medications: Home Meds . [No Known Home Meds] 10/31/16 [History] Forms: Interfacility Transfer EMTALA - Discharge Summary/Plan Comment DC Time >30 min.: Yes Discharge Summary/Plan Comment: Patient will be transferred to [facility]. Accepting provider is Dr. Hubbard, Hospitalist. Full report given. All questions answered. 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 Patient agrees with POC and wishes to proceed. - General Info Date of Service: 11/02/16 Admission Dx/Problem (Free Text: Admission Diagnosis/Problem Admission Diagnosis/Problem Tachycardia Hypokalemia Dizziness Tremors Functional Status: Reports: Tolerating Diet, Ambulating Numeric/FACES Score: 10 - Review of Systems General: Reports: Fatigue. Denies: Fever, Weakness Pulmonary: Reports: Shortness of Breath Cardiovascular: Reports: Palpitations, Orthopnea, Lightheadedness Gastrointestinal: Denies: Abdominal Pain, Nausea, Vomiting Skin: Reports: No Symptoms Neurological: Reports: Dizziness, Headache. Denies: Numbness, Paresthesia, Tingling - Patient Data Vitals - Most Recent: Last Vital Signs Temp 36.6 C 11/02/16 09:44 Pulse 112 H 11/02/16 09:44 Resp 20 11/02/16 09:44 BP 129/82 11/02/16 09:44 Pulse Ox 96 11/02/16 09:44 Weight - Most Recent: 113.398 kg I&O - Last 24 hours: Intake & Output 11/01/16 11/02/16 11/02/16 22:59 06:59 14:59 Intake Total 850 120 Output Total 250 750 Balance -250 100 120 Lab Results - Last 24 hrs: Laboratory Results - last 24 hr 11/02/16 Range/Units 06:17 Sodium 142 (136-145) mmol/L Potassium 2.8 L* (3.5-5.1) mmol/L Chloride 109 H (98-107) mmol/L Carbon Dioxide 23 (21-32) mmol/L BUN 3 L (7-18) mg/dL Creatinine 0.8 (0.55-1.02) mg/dL Est Cr Clr Drug Dosing 84.76 mL/min Estimated GFR (MDRD) > 60 Glucose 112 H (74-106) mg/dL Calcium 7.9 L (8.5-10.1) mg/dL TSH, Ultra Sensitive 6.033 H (0.358-3.74) uIU/mL Med Orders - Current: Current Medications Acetaminophen (Tylenol) 650 mg PO Q4H PRN PRN Reason: Pain (Mild 1-3)/fever Hydrocodone Bitart/Acetaminophen ([place] 325-5 Mg) 1 tab PO Q4H PRN PRN Reason: Pain (moderate 4-6) Last Admin: 11/02/16 09:36 Dose: 1 tab Hydromorphone HCl (Dilaudid) 0.5 mg IVPUSH Q2H PRN PRN Reason: Pain (severe 7-10) Last Admin: 11/02/16 05:46 Dose: 0.5 mg Ondansetron HCl (Zofran Odt) 4 mg PO Q6H PRN PRN Reason: nausea, able to take PO Sodium Chloride (Saline Flush) 10 ml FLUSH ASDIRECTED PRN PRN Reason: Keep Vein Open Last Admin: 11/02/16 08:49 Dose: 10 ml Discontinued Medications Acetaminophen (Tylenol Extra Strength) 1,000 mg PO ONETIME ONE Stop: 11/01/16 19:55 Last Admin: 11/01/16 19:58 Dose: 1,000 mg Diltiazem HCl (Diltiazem) 20 mg IVPUSH ONETIME ONE Stop: 11/01/16 19:58 Last Admin: 11/01/16 20:08 Dose: 20 mg Hydromorphone HCl (Dilaudid) 1 mg IVPUSH ONETIME ONE Stop: 11/02/16 13:39 Sodium Chloride (Normal Saline) 1,000 mls @ 999 mls/hr IV ONETIME ONE Stop: 11/01/16 20:39 Last Admin: 11/01/16 19:49 Dose: 999 mls/hr Potassium Chloride 20 meq/ (Premix) 50 mls @ 25 mls/hr IV Q2H EMILY Stop: 11/02/16 03:14 Last Admin: 11/02/16 07:30 Dose: Not Given Potassium Chloride 20 meq/ (Premix) 50 mls @ 25 mls/hr IV Q2H EMILY Stop: 11/02/16 03:59 Last Admin: 11/02/16 00:01 Dose: 25 mls/hr Potassium Chloride 20 meq/ (Premix) 50 mls @ 25 mls/hr IV Q2H EMLIY Stop: 11/02/16 04:29 Last Admin: 11/02/16 02:08 Dose: 25 mls/hr Lorazepam (Ativan) 2 mg IVPUSH ONETIME ONE Stop: 11/01/16 22:41 Last Admin: 11/01/16 23:05 Dose: 2 mg Lorazepam (Ativan) 2 mg IM ONETIME ONE Stop: 11/02/16 09:22 Last Admin: 11/02/16 09:36 Dose: 2 mg - Exam General: Reports: Alert, Oriented, Cooperative Neck: Reports: Supple Lungs: Reports: Clear to Auscultation, Normal Respiratory Effort Cardiovascular: Reports: Regular Rhythm, No Murmurs, Tachycardia GI/Abdominal Exam: Normal Bowel Sounds, Soft, Non-Tender Skin: Reports: Warm, Dry, Intact Neurological: Reports: No New Focal Deficit, Normal Speech *Q Meaningful Use (DIS) - VTE *Q VTE Criteria *Q: No risk for VTE - patient is ambulating - Stroke *Q Stroke Criteria *Q: - AMI *Q AMI Criteria *Q:
[2016-11-02 14:07] VITALS: BP 140/64
== END 2016-11-02 15:20 | disposition short-term general hospital (02) ==
LOC: VM.ED 19:05 → VM.MS 20:40
PROVIDERS: ADMIT Nurse Practitioner Family; ATTEND Nurse Practitioner Family
DX: R00.0 Tachycardia, unspecified (principal); E87.6 Hypokalemia; R25.1 Tremor, unspecified; R42 Dizziness and giddiness; R51 Headache; F41.9 Anxiety disorder, unspecified; F32.9 Major depressive disorder, single episode, unspecified; Z79.899 Other long term (current) drug therapy; Z88.8 Allergy status to other drugs, medicaments and biological substances; Z91.09 Other allergy status, other than to drugs and biological substances; Z91.040 Latex allergy status; F17.210 Nicotine dependence, cigarettes, uncomplicated
CPT/HCPCS: 36415; 70450; 71010; 80048; 82550; 82553; 83605; 83735; 84100; 84443; 84484; 85025; 86140; 87040; 93005; 96361; 96374; 99285; A9270; J1170; J2060; J3480; J7030; J7050; 96365; 96367; 96372; 96375; 96376; 99217; 99220; G0378; J3490

== ENCOUNTER 2017-01-08 21:05 | Emergency (ER) | payer MEDICAID, SELFPAY ==
[2017-01-08 21:53] VITALS: BP 119/70
[2017-01-08] MEDS ORDERED: Albuterol/Ipratropium 3.0-0.5 MG/3 ML Neb Soln NEB ONE (22:02)
[2017-01-08] MEDS ORDERED: Take Home: Codeine/guaiFENesin 100-10 MG/5 ML Syrup 5 ML, 2 Cup Pack PO ONE (22:03)
[2017-01-08] MEDS ORDERED: Take Home: predniSONE 20 MG, 2 Tab Pack PO ONE (22:03)
--- NOTE | 2017-01-08 22:22 | EDM.PDOC ---
ED HPI GENERAL MEDICAL PROBLEM - General Chief Complaint: Respiratory Problem Stated Complaint: severe coughing Time Seen by Provider: 01/08/17 21:25 Source of Information: Reports: Patient History Limitations: Reports: No Limitations - History of Present Illness INITIAL COMMENTS - FREE TEXT/NARRATIVE: Pt comes in today with a 2 week history of a cough. She was in the clinic 2 days ago and was started on Augmentin. Today she presents to the ED because the coughing is so severe. The pt is unable to sleep at night, lay flat, will cough so hard she will throw up. Pt denies any fever, chest pain, or SOB with rest. Onset: Gradual Improves with: Reports: Rest Chest Pain Score (Numeric/FACES): 6 - Related Data Allergies Allergy/AdvReac Type Severity Reaction Status Date / Time adhesive tape Allergy Hives Verified 01/08/17 21:46 gabapentin Allergy Cannot Verified 01/08/17 21:46 Remember latex Allergy Hives Verified 01/08/17 21:46 isoniazid AdvReac Unknown Seizure Verified 01/08/17 21:46 tramadol AdvReac Unknown Seizure Verified 01/08/17 21:46 Home Meds: Home Meds Amoxicillin/Clavulanate K [Augmentin 875 MG/125 MG] 1 tab PO Q12HR 01/08/17 [ History] Benzonatate [Tessalon Perle] 100 mg PO TID PRN 01/08/17 [History] Past Medical History HEENT History: Reports: None Cardiovascular History: Reports: Arrhythmia Other Cardiovascular History: tachycardia Gastrointestinal History: Reports: GERD Other Gastrointestinal History: Heartburn 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) Other OB/BYN History: dysmenorrhea Psychiatric History: Reports: Anxiety, Depression, Psychosis, Schizophrenia, Suicidal Ideation Immunologic History: Reports: None Oncologic (Cancer) History: Reports: None - Past Surgical History Respiratory Surgical History: Reports: Thoracotomy Female Surgical History: Reports: Hysterectomy Other Female Surgeries/Procedures: hysterectomy on 02/04/16 Other Musculoskeletal Surgeries/Procedures:: foot surgery Social & Family History - Family History Family Medical History: Noncontributory - Tobacco Use Smoking Status *Q: Current Every Day Smoker Years of Tobacco use: 20 Packs/Tins Daily: 1 Used Tobacco, but Quit: No Month Tobacco Last Used: 8\14 Second Hand Smoke Exposure: Yes - Caffeine Use Caffeine Use: Reports: None - Alcohol Use Days Per Week of Alcohol Use: 0 Number of Drinks Per Day: 0 Total Drinks Per Week: 0 - Recreational Drug Use Recreational Drug Use: No Drug Use in Last 12 Months: No - Sexual History Sexual History: Reports: Same Sex Partner, Single Partner ED ROS GENERAL - Review of Systems Review Of Systems: See Below Constitutional: Reports: No Symptoms HEENT: Reports: No Symptoms Respiratory: Reports: Wheezing, Cough, Sputum Cardiovascular: Reports: No Symptoms Endocrine: Reports: No Symptoms GI/Abdominal: Reports: Mucous in Stool Musculoskeletal: Reports: No Symptoms Skin: Reports: No Symptoms ED EXAM, GENERAL - Physical Exam Exam: See Below Exam Limited By: No Limitations General Appearance: Alert, WD/WN, No Apparent Distress Head: Atraumatic, Normocephalic Neck: Normal Inspection, Non-Tender, Full Range of Motion Respiratory/Chest: Decreased Breath Sounds, Wheezing Cardiovascular: Normal Peripheral Pulses Course - Vital Signs Last Recorded V/S: Last Vital Signs Temp 37.1 C 01/08/17 21:48 Pulse 90 01/08/17 21:48 Resp 18 01/08/17 21:48 BP 119/70 01/08/17 21:48 Pulse Ox 96 01/08/17 21:48 - Orders/Labs/Meds Orders: Active Orders 24 hr Category Date Time Status RT Aerosol Therapy [RC] ASDIRECTED Care 01/08/17 22:02 Active Meds: Medications Discontinued Medications Generic Name Dose Route Start Last Admin Trade Name Alla PRN Reason Stop Dose Admin Albuterol/Ipratropium 3 ml 01/08/17 22:02 01/08/17 22:11 Duoneb 3.0-0.5 Mg/3 Ml NEB 01/08/17 22:03 3 ml ONETIME ONE Administration Guaifenesin/Codeine Phosphate 3 packet 01/08/17 22:03 Take Home: Codeine/Guaifenesin 100-10 Mg/5ml PO 01/08/17 22:04 ONETIME ONE Prednisone 2 packet 01/08/17 22:03 Take Home: Prednisone 20 Mg, 2 Tab Pack PO 01/08/17 22:04 ONETIME ONE Departure - Departure Time of Disposition: 22:24 Disposition: Home, Self-Care 01 Condition: Good Clinical Impression: Acute bronchospasm Acute bronchiolitis Qualifiers: Bronchiolitis organism: unspecified organism Qualified Code(s): J21.9 - Acute bronchiolitis, unspecified - Discharge Information Instructions: Smoking Cessation, Tips for Success, [id number], Acute Bronchitis, [id number] Referrals: Sanam Woodson DO [Primary Care Provider] - Forms: ED Department Discharge - My Orders Last 24 Hours: My Active Orders 01/08/17 22:02 RT Aerosol Therapy [RC] ASDIRECTED - Assessment/Plan Last 24 Hours: My Active Orders 01/08/17 22:02 RT Aerosol Therapy [RC] ASDIRECTED
== END 2017-01-08 22:43 | disposition home or self-care (01) ==
LOC: VM.ED 21:05
DX: J21.9 Acute bronchiolitis, unspecified (principal); K21.9 Gastro-esophageal reflux disease without esophagitis; F41.9 Anxiety disorder, unspecified; F32.9 Major depressive disorder, single episode, unspecified; F20.9 Schizophrenia, unspecified; Z90.710 Acquired absence of both cervix and uterus; F17.210 Nicotine dependence, cigarettes, uncomplicated; Z88.5 Allergy status to narcotic agent; Z91.040 Latex allergy status; Z88.8 Allergy status to other drugs, medicaments and biological substances
CPT/HCPCS: 94640; 99283; A9270

== ENCOUNTER 2017-04-09 23:30 | Emergency (ER) | payer MEDICAID, OTHER ==
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
[2017-04-10 00:35] VITALS: BP 129/86
== END 2017-04-10 00:09 | disposition home or self-care (01) ==
LOC: VM.ED 23:30
DX: Z46.89 Encounter for fitting and adjustment of other specified devices (principal); M21.071 Valgus deformity, not elsewhere classified, right ankle; F17.210 Nicotine dependence, cigarettes, uncomplicated; Z88.5 Allergy status to narcotic agent; Z91.040 Latex allergy status; Z88.8 Allergy status to other drugs, medicaments and biological substances; Z91.048 Other nonmedicinal substance allergy status
CPT/HCPCS: 99282

== ENCOUNTER 2017-04-27 17:02 | Emergency (ER) | payer MEDICAID ==
[2017-04-27 17:34] VITALS: BP 98/74
--- NOTE | 2017-04-27 17:35 | EDM.PDOC ---
ED HPI GENERAL MEDICAL PROBLEM - General Chief Complaint: Lower Extremity Injury/Pain Stated Complaint: Right Foot Pain/Injury Time Seen by Provider: 04/27/17 17:03 Source of Information: Reports: Patient, RN, RN Notes Reviewed History Limitations: Reports: No Limitations - History of Present Illness INITIAL COMMENTS - FREE TEXT/NARRATIVE: Patient presents to the ED at [facility] complaining of right lateral foot pain "after I stepped wrong." Patient states she was walking on a dry level surface when she heard a popping sound as she stepped down on her right foot. Patient recently had right foot surgery on 03/11/[address] Tim Woodson. Surgery was uneventful and incision has been healing well. Patient states she was not suppose to be weight baring on her right foot until seen by Podiatry. She has an appointment with Dr. Woodson tomorrow at the [facility] in [place]. Patient denies any numbness, tingling, or paresthesia of the right lower extremity. Onset: Today, Sudden Right Feet Pain Score (Numeric/FACES): 10 - Related Data Allergies Allergy/AdvReac Type Severity Reaction Status Date / Time adhesive tape Allergy Hives Verified 04/27/17 17:24 gabapentin Allergy Cannot Verified 04/27/17 17:24 Remember latex Allergy Hives Verified 04/27/17 17:24 isoniazid AdvReac Unknown Seizure Verified 04/27/17 17:24 tramadol AdvReac Unknown Seizure Verified 04/27/17 17:24 Home Meds: Home Meds oxyCODONE HCl/Acetaminophen [oxyCODONE-Acetaminophen 5-325] 1 tab Q4H PRN [History] Past Medical History HEENT History: Reports: None Cardiovascular History: Reports: Arrhythmia Other Cardiovascular History: tachycardia Gastrointestinal History: Reports: GERD Other Gastrointestinal History: Heartburn 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) Other OB/BYN History: dysmenorrhea Psychiatric History: Reports: Anxiety, Depression, Psychosis, Schizophrenia, Suicidal Ideation Immunologic History: Reports: None Oncologic (Cancer) History: Reports: None - Past Surgical History Respiratory Surgical History: Reports: Thoracotomy Female Surgical History: Reports: Hysterectomy Other Female Surgeries/Procedures: hysterectomy on 02/04/16 Other Musculoskeletal Surgeries/Procedures:: foot surgery Social & Family History - Family History Family Medical History: Noncontributory - Tobacco Use Smoking Status *Q: Current Every Day Smoker Years of Tobacco use: 20 Packs/Tins Daily: 1 Used Tobacco, but Quit: No Month Tobacco Last Used: 8\\14 Second Hand Smoke Exposure: Yes - Caffeine Use Caffeine Use: Reports: None - Alcohol Use Days Per Week of Alcohol Use: 0 Number of Drinks Per Day: 0 Total Drinks Per Week: 0 - Recreational Drug Use Recreational Drug Use: No Drug Use in Last 12 Months: No - Sexual History Sexual History: Reports: Same Sex Partner, Single Partner Review of Systems - Review of Systems Review Of Systems: See Below Constitutional: Denies: Chills, Fever Respiratory: Denies: Shortness of Breath, Cough Cardiovascular: Denies: Chest Pain, Palpitations Musculoskeletal: Reports: Foot Pain (Right) Skin: Reports: No Symptoms Neurological: Reports: No Symptoms. Denies: Numbness, Paresthesia, Tingling ED EXAM, GENERAL - Physical Exam Exam: See Below Exam Limited By: No Limitations General Appearance: Alert, No Apparent Distress Respiratory/Chest: No Respiratory Distress, Lungs Clear, Normal Breath Sounds Cardiovascular: Normal Peripheral Pulses, Regular Rate, Rhythm Peripheral Pulses: 2+: Posterior Tibial (R), Dorsalis Pedis (R) Extremities: Normal Capillary Refill, Limited Range of Motion (due to pain of right foot), Other (very mild lateral right foot swelling; no obvious bone deformity; tender to deep palpation right lateral). No: Joint Swelling, Leg Pain, Increased Warmth, Redness Skin Exam: Warm, Dry, Intact, Normal Color Course - Vital Signs Last Recorded V/S: Last Vital Signs Temp 37.2 C 04/27/17 17:10 Pulse 100 04/27/17 17:10 Resp 20 04/27/17 17:10 BP 98/74 04/27/17 17:10 Pulse Ox - Orders/Labs/Meds Orders: Active Orders 24 hr Category Date Time Status Foot Comp Min 3V Rt [CR] Stat Exams 04/27/17 17:35 Taken - Radiology Interpretation Free Text/Narrative:: Right Foot, 3V: No acute fracture or dislocation See scanned report in EMR Departure - Departure Time of Disposition: 18:40 Disposition: Home, Self-Care 01 Condition: Good Clinical Impression: Right foot pain Contusion of foot, right Qualifiers: Encounter type: initial encounter Qualified Code(s): S90.31XA - Contusion of right foot, initial encounter - Discharge Information Instructions: Foot Contusion Referrals: Sanam Woodson DO [Primary Care Provider] - Forms: ED Department Discharge Additional Instructions: 1. Stay well hydrated and rest 2. Continue taking home medications as directed 3. Use scooter as directed 4. May use ice if needed 5. Keep appointment with Dr. Woodson tomorrow 6. Call with any questions/concerns - Problem List Review Problem List Initiated/Reviewed/Updated: Yes - My Orders Last 24 Hours: My Active Orders 04/27/17 17:35 Foot Comp Min 3V Rt [CR] Stat - Assessment/Plan Last 24 Hours: My Active Orders 04/27/17 17:35 Foot Comp Min 3V Rt [CR] Stat Plan: No evidence of fracture or dislocation of right foot. Will discharge home. Continue using scooter for right foot. Keep appointment with Dr. Woodson for tomorrow.
== END 2017-04-27 18:55 | disposition home or self-care (01) ==
LOC: VM.ED 17:02
DX: S90.31XA Contusion of right foot, initial encounter (principal); F17.210 Nicotine dependence, cigarettes, uncomplicated; Z88.8 Allergy status to other drugs, medicaments and biological substances; Z91.040 Latex allergy status; Z88.5 Allergy status to narcotic agent; X50.1XXA Overexertion from prolonged static or awkward postures, initial encounter
CPT/HCPCS: 73630-RT; 99283

== ENCOUNTER 2017-05-08 20:25 | Observation (INO) | payer MEDICAID ==
--- NOTE | 2017-05-08 20:37 | EDM.PDOC ---
ED HPI GENERAL MEDICAL PROBLEM - General Chief Complaint: General Stated Complaint: Low Potassium; tachycardia; N/V Time Seen by Provider: 05/08/17 20:27 Source of Information: Reports: Patient, Family, RN, RN Notes Reviewed History Limitations: Reports: No Limitations - History of Present Illness INITIAL COMMENTS - FREE TEXT/NARRATIVE: Patient presents to the emergency room at [facility] complaining of chest discomfort, nausea and vomiting, and tachycardia. The patient has a long- standing history of issues with hypokalemia and she states her current symptoms are similar to those in the past. The patient is on potassium supplementation but she does have issues with hypokalemia from time to time. Patient states she was recently taken off of her potassium pills. The patient states her symptoms began earlier today. The patient states she only vomited once. The patient states that she can "feel my heart pounding." Patient denies any neurological problems. The patient denies any shortness of breath. The patient denies any abdominal pain. No dizziness. Onset: Today upper, mid sternal Pain Score (Numeric/FACES): 5 - Related Data Allergies Allergy/AdvReac Type Severity Reaction Status Date / Time adhesive tape Allergy Hives Verified 05/08/17 21:14 gabapentin Allergy Cannot Verified 05/08/17 21:14 Remember latex Allergy Hives Verified 05/08/17 21:14 isoniazid AdvReac Unknown Seizure Verified 05/08/17 21:14 tramadol AdvReac Unknown Seizure Verified 05/08/17 21:14 Home Meds: Home Meds . 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) Other OB/BYN History: dysmenorrhea Psychiatric History: Reports: Anxiety, Depression, Psychosis, Schizophrenia, Suicidal Ideation Immunologic History: Reports: None Oncologic (Cancer) History: Reports: None - Past Surgical History Respiratory Surgical History: Reports: Thoracotomy Female Surgical History: Reports: Hysterectomy Other Female Surgeries/Procedures: hysterectomy on 02/04/16 Other Musculoskeletal Surgeries/Procedures:: foot surgery Social & Family History - Family History Family Medical History: Noncontributory - Tobacco Use Smoking Status *Q: Current Every Day Smoker Years of Tobacco use: 20 Packs/Tins Daily: 1 Used Tobacco, but Quit: No Month Tobacco Last Used: 8\\14 Second Hand Smoke Exposure: Yes - Caffeine Use Caffeine Use: Reports: None - Alcohol Use Days Per Week of Alcohol Use: 0 Number of Drinks Per Day: 0 Total Drinks Per Week: 0 - Recreational Drug Use Recreational Drug Use: No Drug Use in Last 12 Months: No - Sexual History Sexual History: Reports: Same Sex Partner, Single Partner ED ROS GENERAL - Review of Systems Review Of Systems: See Below Constitutional: Reports: No Symptoms. Denies: Fever, Chills, Weakness Respiratory: Denies: Shortness of Breath, Cough Cardiovascular: Reports: Chest Pain, Palpitations. Denies: Lightheadedness GI/Abdominal: Reports: Nausea, Vomiting. Denies: Abdominal Pain Skin: Reports: No Symptoms Neurological: Reports: No Symptoms. Denies: Dizziness, Headache, Numbness, Paresthesia, Tingling ED EXAM, GENERAL - Physical Exam Exam: See Below Exam Limited By: No Limitations General Appearance: Alert, No Apparent Distress, Obese Respiratory/Chest: No Respiratory Distress, Lungs Clear, Normal Breath Sounds Cardiovascular: Normal Peripheral Pulses, No Murmur, Tachycardia Peripheral Pulses: 2+: Radial (L), Radial (R) GI/Abdominal: Normal Bowel Sounds, Soft, Non-Tender Neurological: Alert, Oriented Skin Exam: Warm, Dry, Intact, Normal Color, No Rash EKG INTERPRETATION EKG Date: 05/08/17 Time: 20:58 Rhythm: Other (Sinus Tachycardia) Rate (Beats/Min): 125 [place]: Normal P-Wave: Present QRS: Normal ST-T: Normal QT: Normal AK/PQ Interval: 0.12 Comparison: Change From Previous EKG EKG Interpretation Comments: 1. Sinus Tachycardia 2. Nonspecific ST & T-wave abnormality Course - Vital Signs Last Recorded V/S: Last Vital Signs Temp 36.8 C 05/08/17 20:35 Pulse 136 H 05/08/17 20:35 Resp 24 H 05/08/17 20:35 BP 143/82 H 05/08/17 20:35 Pulse Ox 100 05/08/17 20:35 - Orders/Labs/Meds Orders: Active Orders 24 hr Category Date Time Status Admission Status [Patient Status] [ADT] Routine ADT 05/08/17 22:02 Ordered Acetaminophen [Tylenol Extra Strength] Med 05/08/17 22:02 Once 1,000 mg PO ONETIME ONE Medication Orders Acetaminophen (Tylenol Extra Strength) 1,000 mg PO ONETIME ONE Stop: 05/08/17 22:03 Labs: Laboratory Tests 05/08/17 Range/Units 21:00 Sodium 144 (136-145) mmol/L Potassium 2.5 L* (3.5-5.1) mmol/L Chloride 107 (98-107) mmol/L Carbon Dioxide 25 (21-32) mmol/L BUN 8 (7-18) mg/dL Creatinine 1.0 (0.55-1.02) mg/dL Est Cr Clr Drug Dosing 61.51 mL/min Estimated GFR (MDRD) > 60 Glucose 166 H (74-106) mg/dL Calcium 8.3 L (8.5-10.1) mg/dL Magnesium 1.7 L (1.8-2.4) mg/dL Creatine Kinase 63 (26-192) U/L Creatine Kinase Index TNP CK-MB (CK-2) TNP Troponin I < 0.017 (<=0.056) ng/mL Meds: Medications Generic Name Dose Route Start Last Admin Trade Name Freq PRN Reason Stop Dose Admin Acetaminophen 1,000 mg 05/08/17 22:02 Tylenol Extra Strength PO 05/08/17 22:03 ONETIME ONE Departure - Departure Time of Disposition: 22:05 Disposition: Refer to Observation Clinical Impression: Hypokalemia, Hypomagnesemia, Headache - Problem List & Annotations (1) Hypokalemia SNOMED Code(s): 55893213 Code(s): E87.6 - HYPOKALEMIA Status: Acute Priority: High Current Visit : Yes Onset Date: ~05/08/17 (2) Hypomagnesemia SNOMED Code(s): 625096721 Code(s): E83.42 - HYPOMAGNESEMIA Status: Acute Priority: High Current Visit: Yes Onset Date: ~05/08/17 (3) Headache SNOMED Code(s): 63743038 Code(s): R51 - HEADACHE Status: Acute Priority: Medium Current Visit: Yes Onset Date: ~05/08/17 Qualifiers: Headache type: unspecified Headache chronicity pattern: acute headache Intractability: not intractable Qualified Code(s): R51 - Headache - Problem List Review Problem List Initiated/Reviewed/Updated: Yes - My Orders Last 24 Hours: My Active Orders 05/08/17 22:02 Admission Status [Patient Status] [ADT] Routine Acetaminophen [Tylenol Extra Strength] 1,000 mg PO ONETIME ONE - Assessment/Plan Admission H&P: Please use this note as an admission H&P Last 24 Hours: My Active Orders 05/08/17 22:02 Admission Status [Patient Status] [ADT] Routine Acetaminophen [Tylenol Extra Strength] 1,000 mg PO ONETIME ONE Plan: Patient will be admitted to the observation unit for hypokalemia and hypomagnesemia, and a headache. The patient will receive IV potassium and recheck labs in the morning. If they are stable she will be discharged. Patient agrees with the plan of care and wishes to proceed.
[2017-05-08 21:38] LABS: CHLORIDE,CL 107 mmol/L (98-107); SODIUM,NA 144 mmol/L (136-145)
[2017-05-08] MEDS ORDERED: Acetaminophen 500 MG Tab PO ONE (22:02)
[2017-05-08] MEDS ORDERED: Acetaminophen 325 MG Tab PO PRN (22:14)
[2017-05-08] MEDS ORDERED: Ondansetron 4 MG Tab.DIS PO PRN (22:14)
[2017-05-08] MEDS ORDERED: Sodium Chloride 0.9% with KCl 1,000 ML IV SCH (22:15)
[2017-05-08] MEDS ORDERED: Magnesium Sulfate/Water 2 GM in Premix Bag 1 BAG IV ONE (22:32)
[2017-05-08] MEDS ORDERED: Potassium Chloride 20 MEQ Tab.ER PO ONE (22:43)
[2017-05-08] MEDS ORDERED: NS + KCl 20mEq/L 1,000 ML IV SCH (22:45)
[2017-05-08] MEDS ORDERED: Ketorolac 30 MG/ML SDV IVPUSH ONE (22:55)
--- NOTE | 2017-05-08 23:09 | PCM.HP ---
H&P History of Present Illness - General Date of Service: 05/08/17 Admit Problem/Dx: Admission Diagnosis/Problem Admission Diagnosis/Problem Hypokalemia Hypomagnesemia Tachycardia Headache Source of Information: Patient, Family, Old Records, RN, RN Notes Reviewed History Limitations: Reports: No Limitations - History of Present Illness Initial Comments - Free Text/Narative: This is a 37-year-old female patient presented to the emergency room at [facility] earlier this evening complaining of headache, tachycardia, and nausea and vomiting. The patient states that when she has the symptoms she knows that her potassium level is low. The patient does have a long-standing history of hypokalemia in the past. She has had extensive workup for this without any etiology being found. The patient was to see an stage electrician but has not attended any appointments. The patient has not seen her primary care provider since January 2017. The patient states that she is due this week to have her potassium level rechecked. The patient denies any focal neurological deficits. The patient states that she only vomited one time. She still feels somewhat nauseated. The patient was given Tylenol in the emergency room for her headache but still complains of a 10 out of 10 headache. The patient has not vomited since she came to the hospital. The patient denies any shortness of breath. No cough. The patient states she has some chest discomfort. The patient's cardiac enzymes were negative in the emergency room. The patient's admission EKG only showed a sinus tachycardia without any ST to T changes. Patient denies any myalgias. The patient does not feel dizzy or lightheaded. Onset of Symptoms: Reports: Today upper, mid sternal Pain Score (Numeric/FACES): 5 - Related Data Allergies/Adverse Reactions: Allergies Allergy/AdvReac Type Severity Reaction Status Date / Time adhesive tape Allergy Hives Verified 05/08/17 21:14 gabapentin Allergy Cannot Verified 05/08/17 21:14 Remember latex Allergy Hives Verified 05/08/17 21:14 isoniazid AdvReac Unknown Seizure Verified 05/08/17 21:14 tramadol AdvReac Unknown Seizure Verified 05/08/17 21:14 Home Medications: Home Meds . 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: Other (See Below) Other OB/BYN History: dysmenorrhea Psychiatric History: Reports: Anxiety, Depression, Psychosis, Schizophrenia, Suicidal Ideation Endocrine/Metabolic History: Reports: Obesity/BMI 30+ - Past Surgical History Respiratory Surgical History: Reports: Thoracotomy Female Surgical History: Reports: Hysterectomy Other Female Surgeries/Procedures: hysterectomy on 02/04/16 Other Musculoskeletal Surgeries/Procedures:: foot surgery Social & Family History - Family History Family Medical History: Noncontributory - Tobacco Use Smoking Status *Q: Current Every Day Smoker Tobacco Use Within Last Twelve Months: Cigarettes Years of Tobacco use: 20 Packs/Tins Daily: 1 Used Tobacco, but Quit: No Second Hand Smoke Exposure: Yes - Tobacco Core Measures Tobacco Use/Smoking Within Last 30 Days: Refused Screening - Caffeine Use Caffeine Use: Reports: None - Alcohol Use Alcohol Use History: No Days Per Week of Alcohol Use: 0 Number of Drinks Per Day: 0 Total Drinks Per Week: 0 Alcohol Use in Last Twelve Months: No - Recreational Drug Use Recreational Drug Use: No Drug Use in Last 12 Months: No - Sexual History Sexual History: Reports: Same Sex Partner, Single Partner - Living Situation & Occupation Living situation: Reports: , with Spouse Occupation: Employed H&P Review of Systems - Review of Systems: Review Of Systems: See Below General: Denies: Fever, Chills, Weakness Pulmonary: Denies: Shortness of Breath, Cough Cardiovascular: Reports: Palpitations. Denies: Chest Pain, Lightheadedness Gastrointestinal: Reports: Nausea, Vomiting. Denies: Abdominal Pain Musculoskeletal: Reports: No Symptoms Skin: Reports: No Symptoms Neurological: Reports: Headache. Denies: Dizziness Exam - Exam Exam: See Below - Vital Signs Vital Signs: Last Vital Signs Temp 36.6 C 05/08/17 22:34 Pulse 109 H 05/08/17 22:34 Resp 16 05/08/17 22:34 BP 154/94 H 05/08/17 22:34 Pulse Ox 98 05/08/17 22:34 Weight: 101.514 kg - Exam General: Alert, Oriented Lungs: Clear to Auscultation, Normal Respiratory Effort Cardiovascular: Regular Rhythm, Normal S1, Normal S2, Tachycardia GI/Abdominal Exam: Normal Bowel Sounds, Soft, Non-Tender Peripheral Pulses: 2+: Radial (L), Radial (R) Skin: Warm, Dry, Intact Neuro Extensive - Mental Status: Alert, Oriented x3 - Patient Data Result Diagrams: 05/08/17 21:00 *Q Meaningful Use (ADM) - VTE *Q VTE Criteria *Q: No indication for fall risk - Stroke *Q Stroke Criteria *Q: - AMI *Q AMI Criteria *Q: - Problem List (1) Hypokalemia SNOMED Code(s): 01759594 ICD Code: E87.6 - HYPOKALEMIA Status: Acute Priority: High Current Visit: Yes Onset Date: ~05/08/17 (2) Hypomagnesemia SNOMED Code(s): 777801800 ICD Code: E83.42 - HYPOMAGNESEMIA Status: Acute Priority: High Current Visit: Yes Onset Date: ~05/08/17 (3) Headache SNOMED Code(s): 30585663 ICD Code: R51 - HEADACHE Status: Acute Priority: Medium Current Visit: Yes Onset Date: ~05/08/17 Qualifiers: Headache type: unspecified Headache chronicity pattern: acute headache Intractability: not intractable Qualified Code(s): R51 - Headache (4) Schizophrenia, catatonic, chronic with acute exacerbation SNOMED Code(s): 986664942 ICD Code: F20.2 - CATATONIC SCHIZOPHRENIA Status: Chronic Priority: Low Current Visit: No (5) Anxiety SNOMED Code(s): 36361921 ICD Code: F41.9 - ANXIETY DISORDER, UNSPECIFIED Status: Chronic Priority : Low Current Visit: No (6) Depression SNOMED Code(s): 11108650 ICD Code: F32.9 - MAJOR DEPRESSIVE DISORDER, SINGLE EPISODE, UNSPECIFIED Status: Chronic Priority: Low Current Visit: No Qualifiers: Depression Type: major depressive disorder Major depression recurrence: recurrent Active/Remission status: currently active Psychotic features: without psychotic features (7) Tobacco use disorder SNOMED Code(s): 078855988 ICD Code: F17.200 - NICOTINE DEPENDENCE, UNSPECIFIED, UNCOMPLICATED Status : Chronic Priority: Low Current Visit: No (8) GERD (gastroesophageal reflux disease) SNOMED Code(s): 312686308 ICD Code: K21.9 - GASTRO-ESOPHAGEAL REFLUX DISEASE WITHOUT ESOPHAGITIS Status: Chronic Priority: Low Current Visit: Yes Qualifiers: Esophagitis presence: with esophagitis Qualified Code(s): K21.0 - Gastro- esophageal reflux disease with esophagitis Problem List Initiated/Reviewed/Updated: Yes Orders Last 24hrs: Active Orders 24 hr Category Date Time Status Patient Status [ADT] Routine ADT 05/08/17 22:14 Active Ambulate [RC] ASDIRECTED Care 05/08/17 22:14 Active Cardiac Monitoring [RC] CONTINUOUS Care 05/08/17 22:16 Active Height and Weight [RC] UPON Care 05/08/17 22:14 Active Intake and Output [RC] QSHIFT Care 05/08/17 22:15 Active May Shower [RC] ASDIRECTED Care 05/08/17 22:14 Active Oxygen Therapy [RC] PRN Care 05/08/17 22:14 Active VTE/DVT Education [RC] PER UNIT ROUTINE Care 05/08/17 22:14 Active Vital Signs [RC] Q4H Care 05/08/17 22:14 Active Regular Diet [DIET] Diet 05/08/17 Breakfast Active BASIC METABOLIC PANEL,BMP [CHEM] Routine Lab 05/09/17 05:11 Ordered MAGNESIUM [CHEM] Routine Lab 05/09/17 05:11 Ordered Acetaminophen [Tylenol] Med 05/08/17 22:14 Active 650 mg PO Q4H PRN Magnesium Sulfate/Water [Magnesium Sulfate 2 GM in Med 05/08/17 22:32 Active Water 50 ML] 2 gm Premix Bag 1 bag IV ONETIME NS + KCl 20mEq/L [Normal Saline with 20 mEq KCl] 1,000 Med 05/08/17 22:45 Active ml IV ASDIRECTED Ondansetron [Zofran ODT] Med 05/08/17 22:14 Active 4 mg PO Q6H PRN Resuscitation Status Routine Resus Stat 05/08/17 22:14 Ordered Medication Orders Acetaminophen (Tylenol) 650 mg PO Q4H PRN PRN Reason: Pain (Mild 1-3)/fever Magnesium Sulfate 2 gm/ Premix 50 mls @ 25 mls/hr IV ONETIME ONE Stop: 05/09/17 00:31 Last Admin: 05/08/17 23:03 Dose: 25 mls/hr Potassium Chloride/Sodium Chloride (Normal Saline With 20 Meq Kcl) 1,000 mls @ 125 mls/hr IV ASDIRECTED EMILY Ondansetron HCl (Zofran Odt) 4 mg PO Q6H PRN PRN Reason: nausea, able to take PO Assessment/Plan Comment:: 37-year-old female patient with a past medical history of depression, anxiety, schizoaffective disorder, hypokalemia, GERD, and obesity is admitted to the observation unit at [facility] with a diagnosis of hypokalemia, hypomagnesemia, and headache. The patient will be started on normal saline with 20 mEq IV and she will also be given 40 mEq by mouth potassium. The patient will also be given 2 g of IV magnesium. The patient will have her headache treated with Tylenol and/or ibuprofen. The patient requested antibiotics for her headache, however it was discussed the patient she will not receive any narcotics for her headache pain. The patient states that she currently is not taking any home medications. As of the time of this dictation, the patient has not received any electrolyte supplementation, therefore I cannot check electrolyte levels until the morning blood work. The patient is a full code. DVT prophylaxis is early ambulation. The patient is not at any risk for DVT development. The patient does wish to be transferred to a higher level of care should the need arise. The patient will be on continuous cardiac telemetry. She does have Zofran ordered for any nausea/vomiting. I do not anticipate the patient staying greater than 48 hours this admission. If the patient's potassium and magnesium levels returned to normal, she may be discharged home tomorrow.
[2017-05-09] MEDS ORDERED: Metoprolol Tartrate 5 MG/5 ML SDV IVPUSH ONE (00:45)
[2017-05-09 07:23] LABS: CHLORIDE,CL 111 mmol/L (98-107); SODIUM,NA 145 mmol/L (136-145)
[2017-05-09] MEDS ORDERED: Potassium Chloride 20 MEQ in Premix Bag 1 BAG IV SCH (09:35)
[2017-05-09 09:59] VITALS: BP 162/59
[2017-05-09] MEDS ORDERED: Potassium Chloride 20 MEQ Tab.ER PO ONE (10:39)
--- NOTE | 2017-05-09 10:46 | PCM.DCSUM1 ---
Discharge Summary - Hospital Course HPI Initial Comments: This is a 37-year-old female patient presented to the emergency room at [facility] earlier this evening complaining of headache, tachycardia, and nausea and vomiting. The patient states that when she has the symptoms she knows that her potassium level is low. The patient does have a long-standing history of hypokalemia in the past. She has had extensive workup for this without any etiology being found. 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 The patient has not seen her primary care provider since January 2017. The patient states that she is due this week to have her potassium level rechecked. The patient denies any focal neurological deficits. The patient states that she only vomited one time. She still feels somewhat nauseated. The patient was given Tylenol in the emergency room for her headache but still complains of a 10 out of 10 headache. The patient has not vomited since she came to the hospital. The patient denies any shortness of breath. No cough. The patient states she has some chest discomfort. The patient's cardiac enzymes were negative in the emergency room. The patient's admission EKG only showed a sinus tachycardia without any ST to T changes. Patient denies any myalgias. The patient does not feel dizzy or lightheaded. - Discharge Data Discharge Date: 05/09/17 Discharge Disposition: Home, Self-Care 01 Condition: Good - Discharge Diagnosis/Problem(s) (1) Hypokalemia SNOMED Code(s): 51492782 ICD Code: E87.6 - HYPOKALEMIA Status: Resolved Priority: High Current Visit: Yes Onset Date: ~05/08/17 (2) Hypomagnesemia SNOMED Code(s): 198596956 ICD Code: E83.42 - HYPOMAGNESEMIA Status: Resolved Priority: High Current Visit: Yes Onset Date: ~05/08/17 (3) Headache SNOMED Code(s): 49777308 ICD Code: R51 - HEADACHE Status: Resolved Priority: Medium Current Visit: Yes Onset Date: ~05/08/17 Qualifiers: Headache type: unspecified Headache chronicity pattern: acute headache Intractability: not intractable Qualified Code(s): R51 - Headache (4) Schizophrenia, catatonic, chronic with acute exacerbation SNOMED Code(s): 045564769 ICD Code: F20.2 - CATATONIC SCHIZOPHRENIA Status: Chronic Priority: Low Current Visit: No (5) Anxiety SNOMED Code(s): 47966469 ICD Code: F41.9 - ANXIETY DISORDER, UNSPECIFIED Status: Chronic Priority : Low Current Visit: No (6) Depression SNOMED Code(s): 26824779 ICD Code: F32.9 - MAJOR DEPRESSIVE DISORDER, SINGLE EPISODE, UNSPECIFIED Status: Chronic Priority: Low Current Visit: No Qualifiers: Depression Type: major depressive disorder Major depression recurrence: recurrent Active/Remission status: currently active Psychotic features: without psychotic features (7) Tobacco use disorder SNOMED Code(s): 014062419 ICD Code: F17.200 - NICOTINE DEPENDENCE, UNSPECIFIED, UNCOMPLICATED Status : Chronic Priority: Low Current Visit: No (8) GERD (gastroesophageal reflux disease) SNOMED Code(s): 786710916 ICD Code: K21.9 - GASTRO-ESOPHAGEAL REFLUX DISEASE WITHOUT ESOPHAGITIS Status: Chronic Priority: Low Current Visit: Yes Qualifiers: Esophagitis presence: with esophagitis Qualified Code(s): K21.0 - Gastro- esophageal reflux disease with esophagitis - Patient Summary/Data Operative Procedure(s) Performed: None Consults: None Labs Pending at D/C: None Recommended Follow-up Testing/Procedures: Recheck potassium per PCP Planned Operative Procedure(s) after DC: None Hospital Course: Patient did well during her stay on observation. Patient continue to have a headache, despite being given Tylenol and Advil. Patient continue to have myalgias, which is chronic she states this morning. Otherwise, no chest pain, palpitations improved. No N/V/D. Ambulating ok. No problems with urination or BM 's. - Patient Instructions Diet: Regular Diet as Tolerated Activity: Rest and Relax Today Driving: May Drive Today Showering/Bathing: May Shower Notify Provider of: Fever, Nausea and/or Vomiting Other/Special Instructions: problems related to low potassium - Discharge Plan Home Medications: Home Meds . [No Known Home Meds] 05/08/17 [History] Patient Handouts: Hypokalemia, Muscle Cramps and Spasms Referrals: Sanam Woodson DO [Primary Care Provider] - - Discharge Summary/Plan Comment DC Time >30 min.: No Discharge Summary/Plan Comment: Patient will be discharged home today. Potassium level acceptable for discharge. Patient will be given an additional 20 meq at discharge. She is asked to have her K level checked tomorrow during her appointment with her PCP. Patient discharged in stable condition. - General Info Date of Service: 05/09/17 Admission Dx/Problem (Free Text: Admission Diagnosis/Problem Admission Diagnosis/Problem Hypokalemia Hypomagnesemia Tachycardia Headache Functional Status: Reports: Pain Controlled, Tolerating Diet, Ambulating, Urinating - Review of Systems General: Denies: Fever, Weakness Pulmonary: Denies: Shortness of Breath, Cough Cardiovascular: Denies: Chest Pain, Palpitations Gastrointestinal: Denies: Abdominal Pain, Nausea, Vomiting Skin: Reports: No Symptoms Neurological: Reports: No Symptoms - Patient Data Vitals - Most Recent: Last Vital Signs Temp 37.1 C 05/09/17 09:58 Pulse 90 05/09/17 09:58 Resp 20 05/09/17 09:58 BP 162/59 H 05/09/17 09:58 Pulse Ox 96 05/09/17 09:58 Weight - Most Recent: 101.514 kg I&O - Last 24 hours: Intake & Output 05/08/17 05/09/17 05/09/17 22:59 06:59 14:59 Intake Total 1094 120 Output Total 600 Balance 494 120 Lab Results - Last 24 hrs: Laboratory Results - last 24 hr 05/09/17 Range/Units 06:55 Sodium 145 (136-145) mmol/L Potassium 3.4 L (3.5-5.1) mmol/L Chloride 111 H (98-107) mmol/L Carbon Dioxide 24 (21-32) mmol/L BUN 5 L (7-18) mg/dL Creatinine 0.7 (0.55-1.02) mg/dL Est Cr Clr Drug Dosing 87.87 mL/min Estimated GFR (MDRD) > 60 Glucose 117 H (74-106) mg/dL Calcium 8.2 L (8.5-10.1) mg/dL Magnesium 2.0 (1.8-2.4) mg/dL Med Orders - Current: Current Medications Acetaminophen (Tylenol) 650 mg PO Q4H PRN PRN Reason: Pain (Mild 1-3)/fever Last Admin: 05/09/17 04:09 Dose: 650 mg Potassium Chloride/Sodium Chloride (Normal Saline With 20 Meq Kcl) 1,000 mls @ 125 mls/hr IV ASDIRECTED [facility] Last Admin: 05/09/17 01:13 Dose: 125 mls/hr Potassium Chloride 20 meq/ (Premix) 0 mls @ 50 mls/hr IV Q2H [facility] Stop: 05/09/17 11:36 Last Admin: 05/09/17 09:54 Dose: 50 mls/hr Ondansetron HCl (Zofran Odt) 4 mg PO Q6H PRN PRN Reason: nausea, able to take PO Potassium Chloride (Klor-Con M20) 20 meq PO ONETIME ONE Stop: 05/09/17 10:40 Discontinued Medications Acetaminophen (Tylenol Extra Strength) 1,000 mg PO ONETIME ONE Stop: 05/08/17 22:03 Last Admin: 05/08/17 22:07 Dose: 1,000 mg Potassium Chloride/Sodium Chloride (Normal Saline With 40 Meq Kcl) 1,000 mls @ 125 mls/hr IV ASDIRECTED [facility] Magnesium Sulfate 2 gm/ Premix 50 mls @ 25 mls/hr IV ONETIME ONE Stop: 05/09/17 00:31 Last Admin: 05/08/17 23:03 Dose: 25 mls/hr Ketorolac Tromethamine (Toradol) 30 mg IVPUSH ONETIME ONE Stop: 05/08/17 22:56 Last Admin: 05/08/17 23:25 Dose: 30 mg Metoprolol Tartrate (Lopressor) 5 mg IVPUSH ONETIME ONE Stop: 05/09/17 00:46 Last Admin: 05/09/17 01:08 Dose: 5 mg Potassium Chloride (Klor-Con M20) 40 meq PO ONETIME ONE Stop: 05/08/17 22:44 Last Admin: 05/08/17 23:10 Dose: 40 meq - Exam General: Reports: Alert, Oriented Lungs: Reports: Clear to Auscultation, Normal Respiratory Effort Cardiovascular: Reports: Regular Rate, Regular Rhythm, No Murmurs GI/Abdominal Exam: Normal Bowel Sounds, Soft, Non-Tender Skin: Reports: Warm, Dry, Intact Neurological: Reports: No New Focal Deficit, Normal Speech *Q Meaningful Use (DIS) - VTE *Q VTE Criteria *Q: No risk for falls - Stroke *Q Stroke Criteria *Q: - AMI *Q AMI Criteria *Q:
== END 2017-05-09 11:15 | disposition home or self-care (01) ==
LOC: VM.ED 20:25 → VM.MS 22:02
PROVIDERS: ADMIT Nurse Practitioner Family; ATTEND Nurse Practitioner Family
DX: E87.6 Hypokalemia (principal); E83.42 Hypomagnesemia; R51 Headache; F17.210 Nicotine dependence, cigarettes, uncomplicated; F41.9 Anxiety disorder, unspecified; F32.9 Major depressive disorder, single episode, unspecified; K21.9 Gastro-esophageal reflux disease without esophagitis; M79.1 Myalgia; F29 Unspecified psychosis not due to a substance or known physiological condition; F20.9 Schizophrenia, unspecified; R45.851 Suicidal ideations; E66.9 Obesity, unspecified; Z68.32 Body mass index [BMI] 32.0-32.9, adult; Z91.040 Latex allergy status; Z88.8 Allergy status to other drugs, medicaments and biological substances; Z91.048 Other nonmedicinal substance allergy status; Z90.711 Acquired absence of uterus with remaining cervical stump; Z98.890 Other specified postprocedural states
CPT/HCPCS: 36415; 80048; 82550; 83735; 84484; 93005; 96361; 96365; 96367; 96375; 99285; A9270; G0378; J1885; J3480; J3475; J3490

== ENCOUNTER 2017-05-10 14:37 | Observation (INO) | payer MEDICAID ==
[2017-05-10] MEDS ORDERED: Ketorolac 30 MG/ML SDV IVPUSH PRN (15:04)
[2017-05-10] MEDS ORDERED: Sodium Chloride 0.9% 10 ML Syringe FLUSH PRN (15:04)
[2017-05-10] MEDS ORDERED: Promethazine 25 MG Tab PO PRN (15:04)
[2017-05-10] MEDS ORDERED: HYDROmorphone 1 MG/ML Syringe IVPUSH PRN ×2 (15:04→16:20)
[2017-05-10] MEDS ORDERED: Magnesium Sulfate/Water 100 ML IV ONE (15:06)
[2017-05-10] MEDS ORDERED: Sodium Chloride 0.9% 1,000 ML IV SCH ×2 (15:15→16:30)
[2017-05-10] MEDS ORDERED: MAGNESIUM CARBONATE PO PRN (16:19)
[2017-05-10] MEDS ORDERED: ALUMINUM HYDROXIDE PO PRN (16:19)
[2017-05-10] MEDS ORDERED: Acetaminophen 325 MG Tab PO PRN (16:19)
[2017-05-10] MEDS ORDERED: ALGINIC ACID PO PRN (16:19)
[2017-05-10] MEDS ORDERED: Lactated Ringers 1,000 ML IV SCH (16:30)
[2017-05-10] MEDS ORDERED: Diazepam 2 MG Tab PO PRN (17:31)
[2017-05-10] MEDS: hydrOXYzine HCl 25 MG Tab PO PRN (17:41)
[2017-05-10] MEDS: Ibuprofen 200 MG Tab PO PRN (17:41)
[2017-05-10] MEDS: Potassium Chloride 20 MEQ Tab.ER PO SCH ×2 (17:41→20:22)
--- NOTE | 2017-05-11 00:16 | HP ---
CHIEF COMPLAINT: Headache, dizziness, and racing heart rate. HISTORY OF PRESENT ILLNESS: Her symptoms all started up again an hour ago with the heart racing, but she has been really dizzy the last two days. Her symptoms started on Tuesday. Her chest hurt every time her heart pounded. She woke up feeling drenched in sweat, but has not really had any fevers. She went to the emergency room and was admitted on Tuesday. Her potassium was 2.4. She was given some IV potassium, and levels improved to 3.4 on discharge. She was given an oral dose as well. She was given some IV fluids based on what Pharmacy found, but she remembers only the potassium. Her magnesium also improved on discharge, but now she is getting muscle cramps in her legs. She has had multiple previous admissions for low potassium and tachycardia. She has not started any new medications. She did have foot surgery back in March. She was on some oxycodone, but ran out of that several weeks ago. She did take two Motrin of 400 mg this morning for headache. PAST MEDICAL HISTORY: Otherwise, her past medical history does include 1. GERD. 2. Depression. She had some depression in the past with psychotic features. She was on Seroquel, Wellbutrin, Celexa, Cymbalta, and Paxil, all previously. 3. Smoking. 4. Convulsive disorder with tramadol and isoniazid. 5. Obesity. 6. Anxiety, she previously took BuSpar. 7. Polycystic ovaries. 8. Metformin-caused diarrhea. 9. She had some chronic foot pain. She previously did take pain pills, but has not been on opioids continuously for quite some time. 10.Recurrent hypokalemia. 11.She has had workups for hypoaldosteronism and pheochromocytoma, which have all came back normal. This has been going on over the past three to four years. ALLERGIES: Include tape, gabapentin caused stuttering and bad dreams, isoniazid caused abnormal body movements, tramadol caused body convulsions, and latex, she is sensitive to that. SOCIAL HISTORY: Otherwise, socially, she is . Again, she smokes. She denies any significant alcohol use. FAMILY HISTORY: Mother is alive, had diabetes, COPD, and hypertension. Father had hypertension. Sister has depression. PAST SURGICAL HISTORY: Otherwise, surgically 1. She had multiple foot surgeries on the right foot including recent osteotomy, calcaneal on 03/11/2017. 2. She has had a previous thoracotomy after she had pneumonia. 3. She had a pain pump, but that was removed. 4. She has had carpal tunnel surgery. 5. Lap hysterectomy. 6. Cholecystectomy. 7. Knee surgery. 8. Arthroscopy. REVIEW OF SYSTEMS: Constitutional: No weight changes, no fever, and no chills documented. HEENT: No sore throat. Cardiac: She has had the chest pounding, but no really tightness or pressure. She has had racing heart rates, but no irregular beats. Respiratory: No cough. No shortness of breath. Musculoskeletal: She has had muscle aches. She has right foot pain, but she feels that is pretty similar since surgery. Abdomen: She has not felt nausea or vomiting. She states they just do not feel good. She has not had diarrhea. Neurologic: She has felt shaky, but has not had any confusion. Otherwise, all systems were reviewed and were found to be negative unless otherwise stated for her history. MEDICATIONS: She did have oxycodone refilled by Podiatry on 03/11/2017 for 45 pills, then again on 03/15/2017, 03/30/2017, 04/12/2017, and 04/22/2017. PHYSICAL EXAMINATION: Does include: Vital Signs: Her blood pressure on admission of 152/119; repeat after pain medication was 148/84, weight of 100.8 kg, temperature of 98.4, pulse of 100, respiratory rate of 18, and O2 of 100% on room air. General: She is in no acute distress. Heart: Regular rate and rhythm. S1 and S2 without murmur. Pulmonary: Lungs sounds are clear to auscultation bilaterally without crackles or wheezes. Extremities: Warm and dry. No edema. Psychiatric: Mental Status: She is alert and orientated x3. Neurologic: Her arm has slightly tremor noted, but it was more so towards the end of the visit, and it was slightly shaky. LABORATORY DATA: Lab work reviewed from the clinic did show her to have a normal hemoglobin of 14.4, white count of 5.1, and platelets of 227; magnesium was 1.6, glucose was 134, BUN was 3, creatinine was 0.71, sodium was 140, potassium was 3.7, chloride was 107, bicarbonate was 22, and calcium was 9.6. DIAGNOSTIC STUDIES: EKG showed sinus tachycardia same as the hospital EKG, possible left atrial enlargement, and non-specific T-wave abnormality was reported. ASSESSMENT AND PLAN: 1. Recurrent hypokalemia with tachycardia, unknown etiology. She has had previous workup. At this point, we are going to admit her, put her on some oral potassium, give her some IV fluids, and see if that improves her condition. 2. Hypomagnesemia with muscle cramps. I will replace IV. 3. Tachycardia and shakiness could be related to pain and some dehydration. We will give her some IV fluids. 4. Headache and shakiness. I did elect to give her some IV Toradol and IV Dilaudid to try to get her pain and blood pressure and heart rates under control. We will follow closely. 5. History of depression. 6. Right foot pain with recent surgery. She is off pain pills for that other than Motrin and Tylenol. The plan at this point, the patient will be admitted for observation. As she continues to feel poorly and she is quite tachycardic, we will place her on telemetry. Anticipate if she improves, she will be able to be discharged home tomorrow. MERONA: 05/10/2017 17:18:40 MODL: 05/11/2017 00:08:12 /[id number]
[2017-05-11] MEDS: hydrOXYzine HCl 25 MG Tab PO PRN (00:37)
[2017-05-11] MEDS: Ibuprofen 200 MG Tab PO PRN (00:38)
[2017-05-11 07:16] LABS: CHLORIDE,CL 111 mmol/L (98-107); SODIUM,NA 144 mmol/L (136-145)
[2017-05-11] MEDS ORDERED: Potassium Chloride 20 MEQ Tab.ER PO SCH (08:00)
[2017-05-11] MEDS ORDERED: HYDROmorphone 2 MG Tab PO PRN (08:35)
[2017-05-11] MEDS: hydrOXYzine HCl 25 MG Tab PO SCH ×2 (09:02→12:04)
[2017-05-11 10:32] VITALS: BP 125/82
[2017-05-11] MEDS ORDERED: oxyCODONE 5 MG Tab PO PRN (13:34)
[2017-05-11] MEDS ORDERED: Sertraline 25 MG Tab PO SCH (14:00)
[2017-05-11] MEDS ORDERED: Magnesium Oxide 400 MG Tab PO SCH (20:00)
--- NOTE | 2017-05-12 02:03 | DISCH ---
PRIMARY DISCHARGE DIAGNOSES: 1. Sinus tachycardia with recurrent hypokalemia and anxiety. 2. Recent opioid use due to surgery with increased restlessness after being off medication and headaches, improved on discharge with a headache level of 3. 3. Hypomagnesemia, replaced IV. 4. History of depression and anxiety, currently off medications. 5. Right foot pain with recent surgery. 6. Smoking. 7. Remote history of thoracotomy and pain pump procedures. 8. Obesity. 9. Previous [facility] admission after there was some concern for alcohol, she had cut herself at one point, had some hallucinations, she was on Seroquel, she has ongoing insomnia. REASON FOR ADMISSION: On the date of admission, this 37-year-old female was just discharged from an observation stay the day before. She came to the clinic for a followup visit. She was found to be tachycardic with heart rates of 140. She was shaky. She had a severe 10/10 headache. She was admitted. She was placed on IV fluids. She was given 1 dose of 0.5 mg of Dilaudid, improved her heart rate significantly, her headache came down to an 8/10. She also received some IV Toradol and some Phenergan for nausea, but no other narcotics during the night. She did receive an oral dose of Dilaudid in the morning 2 mg. She received some hydroxyzine for her anxiety. This seemed to help her and overall she was doing much better and was felt to be stable for discharge. We discussed her anxiety and depression. We elected to go back on her Zoloft as that was one of the more recent antidepressants that she had taken. She had been on Seroquel for a time after the [facility], but had not been diagnosed with bipolar. There was some report of potential schizophrenia, but she is not having any hallucinations or those symptoms currently. She is not currently following with a psychiatrist. She has also been on Elavil in the past for pain. She has recently had this worsening of the restlessness in her legs. Her mother and sister have restless legs, but she has never been diagnosed. Otherwise, the patient has had multiple previous admissions for hypokalemia and tachycardia, worked up for hyperaldosteronism and pheochromocytoma in the past, which were all negative. Her thyroid testing was normal during this stay and in the end we decided to discharge her on 20 mEq twice daily of potassium and 400 mg at bedtime of mag oxide. We will see her back in the clinic in 1 week with a BMP and a mag level. She will be on Zoloft 25 mg daily. She will also have oxycodone 5 mg pills to help take for pain at bedtime as possibility was that coming off narcotics abruptly did exacerbate her symptoms. Atarax was also ordered for her to take 3 times a day as needed for anxiety. Overall, the patient was discharged in improved and stable condition. PHYSICAL EXAMINATION: Vital Signs: Discharge vitals include a temperature 97.6, pulse 77, blood pressure 125/82, respiratory rate 16, and O2 of 98% on room air. General: She is in no acute distress. Heart: Regular rate and rhythm S1, S2 without murmur. Lungs: Sounds are clear to auscultation bilaterally without crackles or wheezes. Abdomen: Positive bowel sounds. Soft and nontender. Extremities: Warm and dry. No edema other than some edema over the right foot, which she had previous surgery on. Mental Status: Alert and orientated x3. DISCHARGE PLAN AND INSTRUCTIONS: The patient also did have benzodiazepines ordered during her hospital stay if needed, but she never did take any of those. She never exhibited any drug-seeking behaviors during her stay. There was no indication of alcohol use. She was strongly encouraged to quit smoking. [facility]. We will refer her back to Psychiatry if needed. MKA: 05/11/2017 17:35:13 MODL: 05/12/2017 01:56:55 /[id number]
== END 2017-05-11 14:05 | disposition home or self-care (01) ==
LOC: UNDOADMOB 14:37 → VM.MS 14:37 → UNDODISOB 05-11 14:05
PROVIDERS: ADMIT Internal Medicine; ATTEND Internal Medicine
DX: E87.6 Hypokalemia (principal); R00.0 Tachycardia, unspecified; E83.42 Hypomagnesemia; G25.81 Restless legs syndrome; R51 Headache; F31.9 Bipolar disorder, unspecified; F41.8 Other specified anxiety disorders; K21.9 Gastro-esophageal reflux disease without esophagitis; E66.9 Obesity, unspecified; G89.28 Other chronic postprocedural pain; F17.210 Nicotine dependence, cigarettes, uncomplicated; Z88.8 Allergy status to other drugs, medicaments and biological substances; Z91.040 Latex allergy status; Z83.3 Family history of diabetes mellitus; Z82.49 Family history of ischemic heart disease and other diseases of the circulatory system; Z82.5 Family history of asthma and other chronic lower respiratory diseases; Z98.890 Other specified postprocedural states; Z79.891 Long term (current) use of opiate analgesic; Z79.899 Other long term (current) drug therapy
CPT/HCPCS: 36415; 80048; 83735; 84443; 96361; 96365; 96366; 96375; A9270; G0378; J1170; J1885; J3475; J7030

== ENCOUNTER 2017-05-20 17:53 | Emergency (ER) | payer MEDICAID ==
[2017-05-20 18:05] VITALS: BP 135/85
[2017-05-20] MEDS ORDERED: Ketorolac 30 MG/ML SDV IM ONE (18:24)
[2017-05-20] MEDS ORDERED: diphenhydrAMINE 50 MG/ML SDV IM ONE (18:25)
[2017-05-20 19:06] LABS: CHLORIDE,CL 105 mmol/L (98-107); SODIUM,NA 141 mmol/L (136-145)
--- NOTE | 2017-05-20 20:08 | EDM.PDOC ---
ED HPI GENERAL MEDICAL PROBLEM - General Chief Complaint: Neurological Problem Time Seen by Provider: 05/20/17 17:58 Source of Information: Reports: Patient History Limitations: Reports: No Limitations - History of Present Illness INITIAL COMMENTS - FREE TEXT/NARRATIVE: Pt. developed onset of confused speech and headache while at work today. Pt. has has similar episodes in the past, but typically not with headache. She denies any head trauma. Pt. was able to answer questions of coworkers and did follow commands, but would state that she "needed to walk home" occasionally. She states that the headache is frontal in nature. Pt. was started on her medications yesterday which she had stopped previously. She denies any blurred vision, paresthesias, or other focal neuro symptoms. She does have a history of schizophrenia. She previously had been on seroquel, but is currently not taking this. Onset: Today Location: Reports: Head Quality: Reports: Throbbing Severity: Moderate - Related Data Allergies Allergy/AdvReac Type Severity Reaction Status Date / Time adhesive tape Allergy Hives Verified 05/20/17 18:09 gabapentin Allergy Cannot Verified 05/20/17 18:09 Remember latex Allergy Hives Verified 05/20/17 18:09 isoniazid AdvReac Unknown Seizure Verified 05/20/17 18:09 tramadol AdvReac Unknown Seizure Verified 05/20/17 18:09 Home Meds: Home Meds Acetaminophen 650 mg PO Q4H PRN 05/10/17 [History] Albuterol [Proair HFA] 1 puff INH Q4H PRN 05/10/17 [History] Ibuprofen 800 mg PO TID PRN 05/10/17 [History] Mag Carb/Al Hydrox/Alginic Ac [Gaviscon Liquid] 30 ml PO Q4H PRN 05/10/17 [ History] Magnesium Oxide 400 mg PO BEDTIME #30 tablet 05/11/17 [Rx] Potassium Chloride [Klor-Con M20] 20 meq PO BIDMEALS #60 tab.er 05/11/17 [Rx] Sertraline [Zoloft] 25 mg PO DAILY #30 tablet 05/11/17 [Rx] hydrOXYzine HCl [hydrOXYzine] 25 mg PO TID #90 tablet 05/11/17 [Rx] oxyCODONE 5 mg PO BEDTIME PRN #5 tablet 01/31/18 [Rx] Past Medical History - Past Health History Medical/Surgical History: Denies Medical/Surgical History HEENT History: Reports: None Cardiovascular History: Reports: Arrhythmia Other Cardiovascular History: tachycardia Respiratory History: Reports: Asthma Gastrointestinal History: Reports: GERD Other Gastrointestinal History: Heartburn PROJECT LEAD History: Reports: Other (See Below) Other OB/BYN History: dysmenorrhea Psychiatric History: Reports: Anxiety, Depression, Psychosis, Schizophrenia, Suicidal Ideation Endocrine/Metabolic History: Reports: Obesity/BMI 30+ Hematologic History: Reports: None Immunologic History: Reports: None Oncologic (Cancer) History: Reports: None - Infectious Disease History Infectious Disease History: Reports: Other (See Below) 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 - Past Surgical History Respiratory Surgical History: Reports: Thoracotomy GI Surgical History: Reports: Cholecystectomy, Colonoscopy Female Surgical History: Reports: Hysterectomy Other Female Surgeries/Procedures: hysterectomy on 02/04/16 Other Musculoskeletal Surgeries/Procedures:: foot surgery Social & Family History - Family History Family Medical History: Noncontributory - Tobacco Use Smoking Status *Q: Current Status Unknown Years of Tobacco use: 20 Packs/Tins Daily: 1 Used Tobacco, but Quit: No Month Tobacco Last Used: 8\\14 Second Hand Smoke Exposure: Yes - Caffeine Use Caffeine Use: Reports: None - Alcohol Use Days Per Week of Alcohol Use: 0 Number of Drinks Per Day: 0 Total Drinks Per Week: 0 - Recreational Drug Use Recreational Drug Use: No Drug Use in Last 12 Months: No - Sexual History Sexual History: Reports: Same Sex Partner, Single Partner - Living Situation & Occupation Living situation: Reports: , with Spouse Occupation: Employed ED ROS GENERAL - Review of Systems Review Of Systems: See Below Constitutional: Reports: No Symptoms HEENT: Reports: No Symptoms Respiratory: Reports: No Symptoms Cardiovascular: Reports: No Symptoms Endocrine: Reports: No Symptoms GI/Abdominal: Reports: No Symptoms : Reports: No Symptoms Musculoskeletal: Reports: No Symptoms Skin: Reports: No Symptoms Neurological: Reports: Headache, Change in Speech Psychiatric: Reports: No Symptoms Hematologic/Lymphatic: Reports: No Symptoms Immunologic: Reports: No Symptoms ED EXAM, NEURO - Physical Exam Exam: See Below Exam Limited By: No Limitations General Appearance: Alert, WD/WN, No Apparent Distress Eye Exam: Bilateral Eye: EOMI, Normal Fundi, Normal Inspection, PERRL Ears: Normal External Exam, Normal Canal, Hearing Grossly Normal, Normal TMs Nose: Normal Inspection, Normal Mucosa, No Blood Throat/Mouth: Normal Inspection, Normal Lips, Normal Teeth, Normal Gums, Normal Oropharynx, Normal Voice, No Airway Compromise Head Exam: Atraumatic, Normocephalic Neck: Normal Inspection, Supple, Non-Tender, Full Range of Motion Respiratory/Chest: No Respiratory Distress, Lungs Clear, Normal Breath Sounds, No Accessory Muscle Use, Chest Non-Tender Cardiovascular: Normal Peripheral Pulses, Regular Rate, Rhythm, No Edema, No Gallop, No JVD, No Murmur, No Rub GI/Abdominal: Normal Bowel Sounds, Soft, Non-Tender, No Organomegaly, No Distention, No Abnormal Bruit, No Mass (Female) Exam: Deferred Rectal (Female) Exam: Deferred Neurological: Alert, Normal Mood/Affect, Normal Dorsiflexion, CN II-XII Intact, Normal Plantar Flexion, Normal Gait, Normal Reflexes, No Motor/Sensory Deficits , Oriented x 3, Other (repetitive speech) Back Exam: Normal Inspection, Full Range of Motion, NT Extremities: Normal Inspection, Normal Range of Motion, Non-Tender, No Pedal Edema, Normal Capillary Refill Psychiatric: Normal Affect, Normal Mood, Anxious, Tearful Skin Exam: Warm, Dry, Intact, Normal Color, No Rash Course - Vital Signs Last Recorded V/S: Last Vital Signs Temp 37.1 C 05/20/17 17:58 Pulse 89 05/20/17 17:58 Resp 18 05/20/17 17:58 BP 135/85 05/20/17 17:58 Pulse Ox 98 05/20/17 17:58 - Orders/Labs/Meds Orders: Active Orders 24 hr Category Date Time Status Head wo Cont [CT] Stat Exams 05/20/17 18:12 Taken Labs: Laboratory Tests 05/20/17 05/20/17 05/20/17 Range/Units 18:32 18:32 18:32 WBC 5.9 (4.0-10.0) x10^3/uL RBC 4.73 (4.00-5.50) x10^6/uL Hgb 14.7 (12.0-16.0) g/dL Hct 43.3 (33.0-47.0) % MCV 91.5 D (78.0-93.0) fL MCH 31.1 (26.0-32.0) pg MCHC 33.9 (32.0-36.0) g/dL RDW Coeff of Dionna 12.7 (10.0-15.0) % Plt Count 257 (130-400) x10^3/uL Neut % (Auto) 59.6 (50.0-80.0) % Lymph % (Auto) 29.5 (25.0-50.0) % [place] % (Auto) 9.0 (2.0-11.0) % Eos % (Auto) 1.7 (0.0-4.0) % Baso % (Auto) 0.2 (0.2-1.2) % PT 10.1 (9.8-11.8) SEC INR 0.9 L (2.0-3.5) Sodium 141 (136-145) mmol/L Potassium 4.2 (3.5-5.1) mmol/L Chloride 105 (98-107) mmol/L Carbon Dioxide 27 (21-32) mmol/L BUN 6 L (7-18) mg/dL Creatinine 0.8 (0.55-1.02) mg/dL Est Cr Clr Drug Dosing TNP Estimated GFR (MDRD) > 60 Glucose 81 (74-106) mg/dL Calcium 8.6 (8.5-10.1) mg/dL Corrected Calcium 8.84 (8.5-10.1) mg/dL Total Bilirubin 0.3 (0.2-1.0) mg/dL AST 13 L (15-37) U/L ALT 24 (14-59) U/L Alkaline Phosphatase 81 (46-116) U/L C-Reactive Protein 0.4 (<=0.9) mg/dL Total Protein 7.4 (6.4-8.2) g/dL Albumin 3.7 (3.4-5.0) g/dL Globulin 3.7 Albumin/Globulin Ratio 1.00 TSH, Ultra Sensitive 1.037 (0.358-3.74) uIU/mL Urine Color (YELLOW) Urine Appearance (CLEAR) Urine pH (5.0-8.0) Ur Specific [place] Urine Protein (NEGATIVE) mg/dL Urine Glucose (UA) (NEGATIVE) mg/dL Urine Ketones (NEGATIVE) mg/dL Urine Occult Blood (NEGATIVE) Urine Nitrite (NEGATIVE) Urine Bilirubin (NEGATIVE) Urine Urobilinogen (0.2) EU/dL Ur Leukocyte Esterase (NEGATIVE) Urine RBC (NOT SEEN) /HPF Urine WBC (NOT SEEN) /HPF Ur Squamous Epith Cells (NEGATIVE) /HPF Urine Bacteria (NEGATIVE) /HPF Urine Mucus (NEGATIVE) /LPF Urine Opiates Screen (NEGATIVE) Ur Buprenorphine Scrn (NEGATIVE) Ur Oxycodone Screen (NEGATIVE) Urine Methadone Screen (NEGATIVE) Ur Barbituates Screen (NEGATIVE) Ur Tricyclics Screen (NEGATIVE) Ur Amphetamines Screen (NEGATIVE) U Methamphetamines Scrn (NEGATIVE) Urine MDMA Screen (NEGATIVE) U Benzodiazepines Scrn (NEGATIVE) Urine Cocaine Screen (NEGATIVE) U Marijuana (THC) Screen (NEGATIVE) Ethyl Alcohol < 3 (0-3) mg/dL 05/20/17 05/20/17 Range/Units 18:42 18:42 WBC (4.0-10.0) x10^3/uL RBC (4.00-5.50) x10^6/uL Hgb (12.0-16.0) g/dL Hct (33.0-47.0) % MCV (78.0-93.0) fL MCH (26.0-32.0) pg MCHC (32.0-36.0) g/dL RDW Coeff of Dionna (10.0-15.0) % Plt Count (130-400) x10^3/uL Neut % (Auto) (50.0-80.0) % Lymph % (Auto) (25.0-50.0) % [place] % (Auto) (2.0-11.0) % Eos % (Auto) (0.0-4.0) % Baso % (Auto) (0.2-1.2) % PT (9.8-11.8) SEC INR (2.0-3.5) Sodium (136-145) mmol/L Potassium (3.5-5.1) mmol/L Chloride (98-107) mmol/L Carbon Dioxide (21-32) mmol/L BUN (7-18) mg/dL Creatinine (0.55-1.02) mg/dL Est Cr Clr Drug Dosing Estimated GFR (MDRD) Glucose (74-106) mg/dL Calcium (8.5-10.1) mg/dL Corrected Calcium (8.5-10.1) mg/dL Total Bilirubin (0.2-1.0) mg/dL AST (15-37) U/L ALT (14-59) U/L Alkaline Phosphatase (46-116) U/L C-Reactive Protein (<=0.9) mg/dL Total Protein (6.4-8.2) g/dL Albumin (3.4-5.0) g/dL Globulin Albumin/Globulin Ratio TSH, Ultra Sensitive (0.358-3.74) uIU/mL Urine Color Light yellow (YELLOW) Urine Appearance Clear (CLEAR) Urine pH 7.5 (5.0-8.0) Ur Specific [place] 1.015 Urine Protein Negative (NEGATIVE) mg/dL Urine Glucose (UA) Negative (NEGATIVE) mg/dL Urine Ketones Negative (NEGATIVE) mg/dL Urine Occult Blood Negative (NEGATIVE) Urine Nitrite Negative (NEGATIVE) Urine Bilirubin Negative (NEGATIVE) Urine Urobilinogen 0.2 (0.2) EU/dL Ur Leukocyte Esterase Negative (NEGATIVE) Urine RBC 0-5 (NOT SEEN) /HPF Urine WBC 0-5 (NOT SEEN) /HPF Ur Squamous Epith Cells Few H (NEGATIVE) /HPF Urine Bacteria Not seen (NEGATIVE) /HPF Urine Mucus Not seen (NEGATIVE) /LPF Urine Opiates Screen Negative (NEGATIVE) Ur Buprenorphine Scrn Negative (NEGATIVE) Ur Oxycodone Screen Negative (NEGATIVE) Urine Methadone Screen Negative (NEGATIVE) Ur Barbituates Screen Negative (NEGATIVE) Ur Tricyclics Screen Negative (NEGATIVE) Ur Amphetamines Screen Negative (NEGATIVE) U Methamphetamines Scrn Negative (NEGATIVE) Urine MDMA Screen Negative (NEGATIVE) U Benzodiazepines Scrn Negative (NEGATIVE) Urine Cocaine Screen Negative (NEGATIVE) U Marijuana (THC) Screen Negative (NEGATIVE) Ethyl Alcohol (0-3) mg/dL Meds: Medications Discontinued Medications Generic Name Dose Route Start Last Admin Trade Name Freq PRN Reason Stop Dose Admin Chlorpromazine HCl 50 mg 05/20/17 18:22 05/20/17 18:41 Thorazine IM 05/20/17 18:23 50 mg ONETIME ONE Administration Diphenhydramine HCl 50 mg 05/20/17 18:25 05/20/17 18:41 Benadryl IM 05/20/17 18:26 50 mg ONETIME ONE Administration Ketorolac Tromethamine 30 mg 05/20/17 18:24 05/20/17 18:40 Toradol IM 05/20/17 18:25 30 mg ONETIME ONE Administration Departure - Departure Time of Disposition: 09:36 Disposition: Home, Self-Care 01 Condition: Good Clinical Impression: Headache - Discharge Information Instructions: Migraine Headache, [id number] Referrals: Sanam Woodson DO [Primary Care Provider] - Forms: ED Department Discharge Additional Instructions: Home to rest. Ibuprofen 600mg every 6 hours. Follow-up with Dr. Woodson in 7-10 days. - My Orders Last 24 Hours: My Active Orders 05/20/17 18:12 Head wo Cont [CT] Stat - Assessment/Plan Last 24 Hours: My Active Orders 05/20/17 18:12 Head wo Cont [CT] Stat
== END 2017-05-20 19:36 | disposition home or self-care (01) ==
LOC: VM.ED 17:53
DX: R51 Headache (principal); J45.909 Unspecified asthma, uncomplicated; K21.9 Gastro-esophageal reflux disease without esophagitis; F32.9 Major depressive disorder, single episode, unspecified; Z88.5 Allergy status to narcotic agent; Z91.040 Latex allergy status; Z88.8 Allergy status to other drugs, medicaments and biological substances; Z72.0 Tobacco use
CPT/HCPCS: 36415; 70450; 80053; 80305; 81001; 84443; 85025; 85610; 86140; 96372; 99284; G0480; J1200; J1885; J3230

== ENCOUNTER 2017-05-30 09:16 | Emergency (ER) | payer MEDICAID ==
[2017-05-30] MEDS ORDERED: Sodium Chloride 0.9% 10 ML Syringe FLUSH PRN (09:42)
[2017-05-30] MEDS ORDERED: Sodium Chloride 0.9% 1,000 ML IV ONE (09:44)
[2017-05-30] MEDS ORDERED: Metoclopramide 10 MG/2 ML SDV IVPUSH ONE (09:46)
[2017-05-30] MEDS ORDERED: Ketorolac 30 MG/ML SDV IVPUSH ONE (09:47)
[2017-05-30 10:29] LABS: CHLORIDE,CL 108 mmol/L (98-107); SODIUM,NA 138 mmol/L (136-145)
[2017-05-30 14:37] VITALS: BP 126/78
--- NOTE | 2017-05-31 02:54 | EDM.PDOC ---
ED HPI GENERAL MEDICAL PROBLEM - General Chief Complaint: Cardiovascular Problem Stated Complaint: er Time Seen by Provider: 05/30/17 09:22 Source of Information: Reports: Patient History Limitations: Reports: No Limitations - History of Present Illness INITIAL COMMENTS - FREE TEXT/NARRATIVE: Pt. presents to ER with complaints of sinus tachycardia. She has a history of this in the past. She has been seen in ER several times for paroxsymal sinus tachycardia in the 120s to 130s, usually associated with hypokalemia and hypomagnesmia. She denies any recent injury. No fever or chills. No weakness. She states that she also has a severe headache associated with this as well. Pt. denies any substernal chest pain. No significant shortness of breath. No abdominal pain. No nausea/vomiting/diarrhea. Onset: Today Location: Reports: Chest Headache Pain Score (Numeric/FACES): 2 Chest Pain Score (Numeric/FACES): 0 - Related Data Allergies Allergy/AdvReac Type Severity Reaction Status Date / Time adhesive tape Allergy Hives Verified 05/30/17 12:48 gabapentin Allergy Cannot Verified 05/30/17 12:48 Remember latex Allergy Hives Verified 05/30/17 12:48 isoniazid AdvReac Unknown Seizure Verified 05/30/17 12:48 tramadol AdvReac Unknown Seizure Verified 05/30/17 12:48 Home Meds: Home Meds Acetaminophen 650 mg PO Q4H PRN 05/10/17 [History] Albuterol [Proair HFA] 1 puff INH Q4H PRN 05/10/17 [History] Ibuprofen 800 mg PO TID PRN 05/10/17 [History] Mag Carb/Al Hydrox/Alginic Ac [Gaviscon Liquid] 30 ml PO Q4H PRN 05/10/17 [ History] Potassium Chloride [Klor-Con M20] 20 meq PO BIDMEALS #60 tab.er 05/11/17 [Rx] Sertraline [Zoloft] 25 mg PO DAILY #30 tablet 05/11/17 [Rx] hydrOXYzine HCl [hydrOXYzine] 25 mg PO TID #90 tablet 05/11/17 [Rx] Ketorolac Tromethamine 10 mg PO Q4H 05/30/17 [History] Magnesium Oxide 400 mg PO BID 05/30/17 [History] Past Medical History - Past Health History Medical/Surgical History: Denies Medical/Surgical History HEENT History: Reports: None Cardiovascular History: Reports: Arrhythmia Other Cardiovascular History: tachycardia Respiratory History: Reports: Asthma Gastrointestinal History: Reports: GERD Other Gastrointestinal History: Heartburn 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) Other OB/BYN History: dysmenorrhea Psychiatric History: Reports: Anxiety, Depression, Psychosis, Schizophrenia, Suicidal Ideation Endocrine/Metabolic History: Reports: Obesity/BMI 30+ Hematologic History: Reports: None Immunologic History: Reports: None Oncologic (Cancer) History: Reports: None - Infectious Disease History Infectious Disease History: Reports: Other (See Below) 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 - Past Surgical History Respiratory Surgical History: Reports: Thoracotomy GI Surgical History: Reports: Cholecystectomy, Colonoscopy Female Surgical History: Reports: Hysterectomy Other Female Surgeries/Procedures: hysterectomy on 02/04/16 Other Musculoskeletal Surgeries/Procedures:: foot surgery Social & Family History - Family History Family Medical History: Noncontributory - Tobacco Use Smoking Status *Q: Current Every Day Smoker Years of Tobacco use: 21 Packs/Tins Daily: 1 Used Tobacco, but Quit: No Month Tobacco Last Used: 8\14 Second Hand Smoke Exposure: Yes - Caffeine Use Caffeine Use: Reports: None - Alcohol Use Days Per Week of Alcohol Use: 0 Number of Drinks Per Day: 0 Total Drinks Per Week: 0 - Recreational Drug Use Recreational Drug Use: No Drug Use in Last 12 Months: No - Sexual History Sexual History: Reports: Same Sex Partner, Single Partner - Living Situation & Occupation Living situation: Reports: , with Spouse Occupation: Employed ED ROS GENERAL - Review of Systems Review Of Systems: See Below Constitutional: Reports: Fatigue HEENT: Reports: No Symptoms Respiratory: Reports: No Symptoms Cardiovascular: Reports: Other (tachycardia) Endocrine: Reports: No Symptoms GI/Abdominal: Reports: No Symptoms : Reports: No Symptoms Musculoskeletal: Reports: No Symptoms Skin: Reports: No Symptoms Neurological: Reports: No Symptoms Psychiatric: Reports: No Symptoms Hematologic/Lymphatic: Reports: No Symptoms Immunologic: Reports: No Symptoms ED EXAM, GENERAL - Physical Exam Exam: See Below Exam Limited By: No Limitations General Appearance: Alert, WD/WN, No Apparent Distress Respiratory/Chest: No Respiratory Distress, Lungs Clear, Normal Breath Sounds, No Accessory Muscle Use, Chest Non-Tender Cardiovascular: Normal Peripheral Pulses, No Edema, No Gallop, No JVD, No Murmur , No Rub, Tachycardia (returned to normal rate and rhythm after a fluid bolus of NS) Peripheral Pulses: 2+: Radial (L), Radial (R) GI/Abdominal: Normal Bowel Sounds, Soft, Non-Tender, No Organomegaly, No Distention, No Abnormal Bruit, No Mass Back Exam: Normal Inspection, Full Range of Motion, NT Extremities: Normal Inspection, Normal Range of Motion, Non-Tender, Normal Capillary Refill, No Pedal Edema Neurological: Alert, Oriented, CN II-XII Intact, Normal Cognition, Normal Gait, Normal Reflexes, No Motor/Sensory Deficits Psychiatric: Normal Affect, Normal Mood Skin Exam: Warm, Dry, Intact, Normal Color, No Rash Course - Vital Signs Last Recorded V/S: Last Vital Signs Temp 36.1 C 05/30/17 09:20 Pulse 64 05/30/17 10:10 Resp 18 05/30/17 10:10 BP 126/78 05/30/17 10:10 Pulse Ox 99 05/30/17 10:10 - Orders/Labs/Meds Orders: Active Orders 24 hr Category Date Time Status EKG Documentation Completion [RC] STAT Care 05/30/17 09:42 Active Peripheral IV Insertion Adult [OM.PC] Routine Oth 05/30/17 09:43 Ordered Labs: Laboratory Tests 05/30/17 05/30/17 05/30/17 Range/Units 09:52 09:52 09:52 WBC 4.3 (4.0-10.0) x10^3/uL RBC 4.57 (4.00-5.50) x10^6/uL Hgb 14.5 (12.0-16.0) g/dL Hct 42.0 (33.0-47.0) % MCV 91.9 (78.0-93.0) fL MCH 31.7 (26.0-32.0) pg MCHC 34.5 (32.0-36.0) g/dL RDW Coeff of Dionna 12.9 (10.0-15.0) % Plt Count 233 (130-400) x10^3/uL Neut % (Auto) 61.0 (50.0-80.0) % Lymph % (Auto) 28.9 (25.0-50.0) % [place] % (Auto) 8.7 (2.0-11.0) % Eos % (Auto) 1.2 (0.0-4.0) % Baso % (Auto) 0.2 (0.2-1.2) % PT 10.0 (9.8-11.8) SEC INR 0.9 L (2.0-3.5) Sodium 138 (136-145) mmol/L Potassium 3.0 L (3.5-5.1) mmol/L Chloride 108 H (98-107) mmol/L Carbon Dioxide 25 (21-32) mmol/L BUN 8 (7-18) mg/dL Creatinine 0.9 (0.55-1.02) mg/dL Est Cr Clr Drug Dosing TNP Estimated GFR (MDRD) > 60 Glucose 122 H (74-106) mg/dL Calcium 8.5 (8.5-10.1) mg/dL Corrected Calcium 8.90 (8.5-10.1) mg/dL Phosphorus 2.5 L (2.6-4.7) mg/dL Magnesium 1.9 (1.8-2.4) mg/dL Total Bilirubin 0.3 (0.2-1.0) mg/dL AST 10 L (15-37) U/L ALT 21 (14-59) U/L Alkaline Phosphatase 80 (46-116) U/L Creatine Kinase 37 (26-192) U/L Creatine Kinase Index TNP CK-MB (CK-2) TNP Troponin I < 0.017 (<=0.056) ng/mL C-Reactive Protein 0.2 (<=0.9) mg/dL Total Protein 7.0 (6.4-8.2) g/dL Albumin 3.5 (3.4-5.0) g/dL Globulin 3.5 Albumin/Globulin Ratio 1.00 TSH, Ultra Sensitive 1.487 (0.358-3.74) uIU/mL Meds: Medications Discontinued Medications Generic Name Dose Route Start Last Admin Trade Name Freq PRN Reason Stop Dose Admin Sodium Chloride 1,000 mls @ 1,000 mls/hr 05/30/17 09:44 05/30/17 10:22 Normal Saline IV 05/30/17 10:43 1,000 mls/hr .BOLUS ONE Administration Ketorolac Tromethamine 30 mg 05/30/17 09:47 05/30/17 10:19 Toradol IVPUSH 05/30/17 09:48 30 mg ONETIME ONE Administration Metoclopramide HCl 10 mg 05/30/17 09:46 05/30/17 10:21 Reglan IVPUSH 05/30/17 09:47 10 mg ONETIME ONE Administration Sodium Chloride 10 ml 05/30/17 09:42 Saline Flush FLUSH ASDIRECTED PRN Keep Vein Open Departure - Departure Time of Disposition: 11:20 Disposition: Home, Self-Care 01 Clinical Impression: POTS (postural orthostatic tachycardia syndrome) Instructions: Postural Orthostatic Tachycardia Syndrome Referrals: Sanam Woodson DO [Primary Care Provider] - Forms: ED Department Discharge Additional Instructions: Follow-up with Dr. Woodson next week. Return if you have recurrence of your headache or sustained rapid heart rate. - My Orders Last 24 Hours: My Active Orders 05/30/17 09:42 EKG Documentation Completion [RC] STAT 05/30/17 09:43 Peripheral IV Insertion Adult [OM.PC] Routine - Assessment/Plan Last 24 Hours: My Active Orders 05/30/17 09:42 EKG Documentation Completion [RC] STAT 05/30/17 09:43 Peripheral IV Insertion Adult [OM.PC] Routine
== END 2017-05-30 11:20 | disposition home or self-care (01) ==
LOC: VM.ED 09:16
DX: I49.8 Other specified cardiac arrhythmias (principal); J45.909 Unspecified asthma, uncomplicated; F17.210 Nicotine dependence, cigarettes, uncomplicated; Z91.040 Latex allergy status; Z88.5 Allergy status to narcotic agent; Z88.8 Allergy status to other drugs, medicaments and biological substances; Z79.899 Other long term (current) drug therapy
CPT/HCPCS: 36415; 80053; 82550; 83735; 84100; 84443; 84484; 85025; 85610; 86140; 93005; 96361; 96374; 96375; 99285; J1885; J2765; J7030

== ENCOUNTER 2017-06-11 15:35 | Emergency (ER) | payer MEDICAID ==
[2017-06-11] MEDS ORDERED: Sodium Chloride 0.9% 10 ML Syringe FLUSH PRN (15:57)
[2017-06-11] MEDS ORDERED: Metoprolol Tartrate 5 MG/5 ML SDV IVPUSH ONE ×2 (15:57→16:42)
[2017-06-11] MEDS ORDERED: Metoprolol Tartrate 5 MG/5 ML SDV ONE (15:58)
[2017-06-11] MEDS ORDERED: Sodium Chloride 0.9% 1,000 ML IV SCH (16:00)
[2017-06-11] MEDS ORDERED: Ketorolac 15 MG/ML SDV IVPUSH ONE (16:23)
--- NOTE | 2017-06-11 16:32 | EDM.PDOC ---
ED HPI GENERAL MEDICAL PROBLEM - General Chief Complaint: Chest Pain Stated Complaint: fast heart rate Time Seen by Provider: 06/11/17 15:40 Source of Information: Reports: Patient History Limitations: Reports: No Limitations - History of Present Illness INITIAL COMMENTS - FREE TEXT/NARRATIVE: Patient comes into the emergency department today with a sudden onset heart palpitations and increased heart rate dizziness or lightheadedness. Patient has a history of severe tachycardia and SVT. She has been on medications in the past to control this. They have taken her off those medications approximately 3 or 4 months ago and since then she's had 4 episodes of severe tachycardia or SVT. She is coming to the emergency room only approximately 20 days ago for similar symptoms at that time she was given IV fluids which controlled the rate. She had not need to have adenosine. Patient states she's had adenosine a few times in the past she really looks about does not have this time. She states that she does have a headache with the palpitation does have discomfort related to that. She denies any active chest pain shortness of breath blurred vision. Onset: Sudden Headache Pain Score (Numeric/FACES): 8 - Related Data Allergies Allergy/AdvReac Type Severity Reaction Status Date / Time adhesive tape Allergy Hives Verified 05/30/17 12:48 gabapentin Allergy Cannot Verified 05/30/17 12:48 Remember latex Allergy Hives Verified 05/30/17 12:48 isoniazid AdvReac Unknown Seizure Verified 05/30/17 12:48 tramadol AdvReac Unknown Seizure Verified 05/30/17 12:48 Home Meds: Home Meds Acetaminophen 650 mg PO Q4H PRN 05/10/17 [History] Albuterol [Proair HFA] 1 puff INH Q4H PRN 05/10/17 [History] Ibuprofen 800 mg PO TID PRN 05/10/17 [History] Mag Carb/Al Hydrox/Alginic Ac [Gaviscon Liquid] 30 ml PO Q4H PRN 05/10/17 [ History] Potassium Chloride [Klor-Con M20] 20 meq PO BIDMEALS #60 tab.er 05/11/17 [Rx] Sertraline [Zoloft] 25 mg PO DAILY #30 tablet 05/11/17 [Rx] hydrOXYzine HCl [hydrOXYzine] 25 mg PO TID #90 tablet 01/31/18 [Rx] Ketorolac Tromethamine 10 mg PO Q4H 05/30/17 [History] Magnesium Oxide 400 mg PO BID 05/30/17 [History] Past Medical History - Past Health History Medical/Surgical History: Denies Medical/Surgical History HEENT History: Reports: None Cardiovascular History: Reports: Arrhythmia Other Cardiovascular History: tachycardia Respiratory History: Reports: Asthma Gastrointestinal History: Reports: GERD Other Gastrointestinal History: Heartburn 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: Reports: Other (See Below) Other OB/BYN History: dysmenorrhea Psychiatric History: Reports: Anxiety, Depression, Psychosis, Schizophrenia, Suicidal Ideation Endocrine/Metabolic History: Reports: Obesity/BMI 30+ Hematologic History: Reports: None Immunologic History: Reports: None Oncologic (Cancer) History: Reports: None - Infectious Disease History Infectious Disease History: Reports: Other (See Below) 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 - Past Surgical History Respiratory Surgical History: Reports: Thoracotomy GI Surgical History: Reports: Cholecystectomy, Colonoscopy Female Surgical History: Reports: Hysterectomy Other Female Surgeries/Procedures: hysterectomy on 02/04/16 Other Musculoskeletal Surgeries/Procedures:: foot surgery Social & Family History - Family History Family Medical History: Noncontributory - Tobacco Use Smoking Status *Q: Current Every Day Smoker Years of Tobacco use: 21 Packs/Tins Daily: 1 Used Tobacco, but Quit: No Month Tobacco Last Used: 8\14 Second Hand Smoke Exposure: Yes - Caffeine Use Caffeine Use: Reports: None - Alcohol Use Days Per Week of Alcohol Use: 0 Number of Drinks Per Day: 0 Total Drinks Per Week: 0 - Recreational Drug Use Recreational Drug Use: No Drug Use in Last 12 Months: No - Sexual History Sexual History: Reports: Same Sex Partner, Single Partner - Living Situation & Occupation Living situation: Reports: , with Spouse Occupation: Employed ED ROS GENERAL - Review of Systems Review Of Systems: See Below Constitutional: Reports: No Symptoms Respiratory: Reports: No Symptoms Cardiovascular: Reports: Palpitations GI/Abdominal: Reports: No Symptoms : Reports: No Symptoms Musculoskeletal: Reports: No Symptoms Skin: Reports: No Symptoms Neurological: Reports: No Symptoms ED EXAM, GENERAL - Physical Exam Exam: See Below Exam Limited By: No Limitations General Appearance: Alert, WD/WN, Moderate Distress Respiratory/Chest: No Respiratory Distress, Lungs Clear, Normal Breath Sounds, No Accessory Muscle Use, Chest Non-Tender Cardiovascular: No JVD, No Murmur, No Rub, Tachycardia Peripheral Pulses: 2+: Radial (L), Radial (R), Dorsalis Pedis (L), Dorsalis Pedis (R) Neurological: Alert, Oriented Psychiatric: Normal Affect, Normal Mood Skin Exam: Warm, Intact EKG INTERPRETATION EKG Date: 06/11/17 Course - Vital Signs Last Recorded V/S: Last Vital Signs Temp 37.1 C 06/11/17 17:18 Pulse 112 H 06/11/17 18:24 Resp 14 06/11/17 18:24 BP 113/65 06/11/17 18:24 Pulse Ox 96 06/11/17 18:24 - Orders/Labs/Meds Orders: Active Orders 24 hr Category Date Time Status EKG 12 Lead [EKG Documentation Completion] [RC] ROUTINE Care 06/11/17 17:55 Active Peripheral IV Insertion Adult [OM.PC] Routine Oth 06/11/17 15:57 Ordered Labs: Laboratory Tests 06/11/17 06/11/17 06/11/17 Range/Units 16:20 16:20 16:20 WBC 8.7 (4.0-10.0) x10^3/uL RBC 4.19 (4.00-5.50) x10^6/uL Hgb 13.0 D (12.0-16.0) g/dL Hct 38.9 (33.0-47.0) % MCV 92.8 (78.0-93.0) fL MCH 31.0 (26.0-32.0) pg MCHC 33.4 (32.0-36.0) g/dL RDW Coeff of Dionna 13.0 (10.0-15.0) % Plt Count 232 (130-400) x10^3/uL Neut % (Auto) 78.6 (50.0-80.0) % Lymph % (Auto) 16.2 L (25.0-50.0) % [place] % (Auto) 4.8 (2.0-11.0) % Eos % (Auto) 0.3 (0.0-4.0) % Baso % (Auto) 0.1 L (0.2-1.2) % Sodium 143 (136-145) mmol/L Potassium 2.7 L* (3.5-5.1) mmol/L Chloride 109 H (98-107) mmol/L Carbon Dioxide 25 (21-32) mmol/L BUN 7 (7-18) mg/dL Creatinine 0.9 (0.55-1.02) mg/dL Est Cr Clr Drug Dosing 68.35 mL/min Estimated GFR (MDRD) > 60 Glucose 153 H (74-106) mg/dL Calcium 8.1 L (8.5-10.1) mg/dL Corrected Calcium 8.74 (8.5-10.1) mg/dL Total Bilirubin 0.2 (0.2-1.0) mg/dL AST 11 L (15-37) U/L ALT 24 (14-59) U/L Alkaline Phosphatase 71 (46-116) U/L Troponin I < 0.017 (<=0.056) ng/mL Total Protein 6.3 L (6.4-8.2) g/dL Albumin 3.2 L (3.4-5.0) g/dL Globulin 3.1 Albumin/Globulin Ratio 1.03 Meds: Medications Discontinued Medications Generic Name Dose Route Start Last Admin Trade Name Freq PRN Reason Stop Dose Admin Sodium Chloride 1,000 mls @ 1,000 mls/hr 06/11/17 16:00 06/11/17 15:59 Normal Saline IV 1,000 mls/hr ASDIRECTED EMILY Administration Ketorolac Tromethamine 15 mg 06/11/17 16:23 06/11/17 16:37 Toradol IVPUSH 06/11/17 16:24 15 mg ONETIME ONE Administration Metoprolol Tartrate 5 mg 06/11/17 15:57 06/11/17 15:59 Lopressor IVPUSH 06/11/17 15:58 5 mg ONETIME ONE Administration Metoprolol Tartrate Confirm 06/11/17 15:58 06/11/17 16:43 Lopressor Administered 06/11/17 15:59 Not Given Dose 5 mg .ROUTE .STK-MED ONE Metoprolol Tartrate 5 mg 06/11/17 16:42 06/11/17 16:56 Lopressor IVPUSH 06/11/17 16:43 5 mg ONETIME ONE Administration Metoprolol Tartrate 25 mg 06/11/17 17:45 06/11/17 18:13 Lopressor PO 06/11/17 17:46 Not Given ONETIME ONE Potassium Chloride 20 meq 06/11/17 17:45 06/11/17 18:06 Klor-Con PO 20 meq ASDIRECTED EMILY Administration Sodium Chloride 10 ml 06/11/17 15:57 Saline Flush FLUSH ASDIRECTED PRN Keep Vein Open Departure - Departure Time of Disposition: 18:15 Disposition: Home, Self-Care 01 Condition: Good Clinical Impression: Tachycardia, Sinus tachycardia Headache Qualifiers: Headache type: tension-type Headache chronicity pattern: acute headache Intractability: not intractable Qualified Code(s): G44.209 - Tension-type headache, unspecified, not intractable Instructions: Sinus Tachycardia Referrals: Sanam Woodson DO [Primary Care Provider] - Forms: ED Department Discharge Additional Instructions: 1. Labs completed in the ER and reviewed with the patient. 2. Pt is advised to increase her oral potassium that she is prescribed at home for one day until she sees her PCP on Tuesday 3. Patient is also given a beta chasidy- Metoprolol to take one dose at home tomorrow as well. 4. Increase water intake while on the beta chasidy 5. Arise slowly from a lying or sitting position 6. Follow-up with PCP on Tuesday - Problem List Review Problem List Initiated/Reviewed/Updated: Yes - My Orders Last 24 Hours: My Active Orders 06/11/17 15:57 Peripheral IV Insertion Adult [OM.PC] Routine 06/11/17 17:55 EKG 12 Lead [EKG Documentation Completion] [RC] ROUTINE - Assessment/Plan Last 24 Hours: My Active Orders 06/11/17 15:57 Peripheral IV Insertion Adult [OM.PC] Routine 06/11/17 17:55 EKG 12 Lead [EKG Documentation Completion] [RC] ROUTINE Plan: 1. Start IV 2. Complete EKG 3. 1 L of saline given in ER 4. Lopressor x 2 doses given in ER 5. Labs completed in the ER and reviewed with the patient. The findings reveal hypokalemia. Patient given oral medication in the emergency department. Plan is to have the patient increase her oral regimen at home over the weekend return to PCP on Tuesday. Patient is also given a beta chasidy- Metoprolol to take one dose at home tomorrow. Again patient is to follow-up in the clinic on Tuesday. 6. Patient is advised that specialty care regarding her severe tachycardia/SVT episodes is warranted.
[2017-06-11 16:52] LABS: CHLORIDE,CL 109 mmol/L (98-107); SODIUM,NA 143 mmol/L (136-145)
[2017-06-11] MEDS ORDERED: Metoprolol Tartrate 25 MG Tab PO ONE (17:45)
[2017-06-11] MEDS ORDERED: Potassium Chloride 20 MEQ Packet PO SCH (17:45)
[2017-06-11 18:24] VITALS: BP 113/65
== END 2017-06-11 18:28 | disposition home or self-care (01) ==
LOC: VM.ED 15:35
DX: R00.0 Tachycardia, unspecified (principal); G44.209 Tension-type headache, unspecified, not intractable; J45.909 Unspecified asthma, uncomplicated; K21.9 Gastro-esophageal reflux disease without esophagitis; F17.210 Nicotine dependence, cigarettes, uncomplicated; F41.8 Other specified anxiety disorders; E66.9 Obesity, unspecified; Z91.040 Latex allergy status; Z88.5 Allergy status to narcotic agent; Z91.09 Other allergy status, other than to drugs and biological substances; Z79.899 Other long term (current) drug therapy; Z68.41 Body mass index [BMI] 40.0-44.9, adult
CPT/HCPCS: 36415; 80053; 84484; 85025; 93005; 96365; 96375; 96376; 99285; A9270; J1885; J7030; J3490

== ENCOUNTER 2017-06-12 14:18 | Observation (INO) | payer MEDICAID ==
[2017-06-12] MEDS ORDERED: Metoprolol Tartrate 5 MG/5 ML SDV IVPUSH ONE ×3 (14:54→16:27)
[2017-06-12] MEDS ORDERED: Sodium Chloride 0.9% 10 ML Syringe FLUSH PRN (14:54)
[2017-06-12] MEDS: NS + KCl 20mEq/L 1,000 ML IV SCH ×2 (15:02→22:29)
[2017-06-12] MEDS ORDERED: LORazepam 2 MG/ML MDV IVPUSH PRN (15:28)
[2017-06-12] MEDS ORDERED: Morphine 2 MG/ML Syringe IVPUSH ONE (15:30)
[2017-06-12 15:42] LABS: CHLORIDE,CL 108 mmol/L (98-107); SODIUM,NA 143 mmol/L (136-145)
[2017-06-12] MEDS ORDERED: Potassium Chloride 10 MEQ Tab.ER PO ONE (15:49)
[2017-06-12] MEDS ORDERED: Ondansetron 4 MG/2 ML SDV IVPUSH ONE (16:02)
--- NOTE | 2017-06-12 16:33 | EDM.PDOC ---
ED HPI GENERAL MEDICAL PROBLEM - General Chief Complaint: Cardiovascular Problem Stated Complaint: HEART RACING Time Seen by Provider: 06/12/17 14:43 Source of Information: Reports: Patient, Family History Limitations: Reports: No Limitations - History of Present Illness INITIAL COMMENTS - FREE TEXT/NARRATIVE: Patient returns to the ED today with complaints of palpitations. She does have palpitations and racing heart feelings on occasion. She was just seen yesterday in this hospital for similar complaints. She was treated with iv metoprolol and discharged. She returns today after having taken the oral metoprolol she was given while here yesterday. She has no complaints of SOB or chest pain, but states she feels like her heart is beating out of her chest. She is here with her . Has been taken off her propranolol last September and has had several episodes of this. Has history of hypokalemia and hypomagnesemia. Onset: Today Duration: Intermittent Location: Reports: Chest Headache Pain Score (Numeric/FACES): 9 Chest Pain Score (Numeric/FACES): 6 - Related Data Allergies Allergy/AdvReac Type Severity Reaction Status Date / Time adhesive tape Allergy Hives Verified 06/12/17 15:30 gabapentin Allergy Cannot Verified 06/12/17 15:30 Remember latex Allergy Hives Verified 06/12/17 15:30 isoniazid AdvReac Unknown Seizure Verified 06/12/17 15:30 tramadol AdvReac Unknown Seizure Verified 06/12/17 15:30 Home Meds: Home Meds Acetaminophen 650 mg PO Q4H PRN 05/10/17 [History] Albuterol [Proair HFA] 1 puff INH Q4H PRN 05/10/17 [History] Ibuprofen 800 mg PO TID PRN 05/10/17 [History] Mag Carb/Al Hydrox/Alginic Ac [Gaviscon Liquid] 30 ml PO Q4H PRN 05/10/17 [ History] Potassium Chloride [Klor-Con M20] 20 meq PO BIDMEALS #60 tab.er 05/11/17 [Rx] Sertraline [Zoloft] 25 mg PO DAILY #30 tablet 05/11/17 [Rx] hydrOXYzine HCl [hydrOXYzine] 25 mg PO TID #90 tablet 05/11/17 [Rx] Magnesium Oxide 400 mg PO BID 05/30/17 [History] Pramipexole Di-HCl [Mirapex] 0.125 mg PO BEDTIME 06/12/17 [History] Past Medical History - Past Health History Medical/Surgical History: Denies Medical/Surgical History HEENT History: Reports: None Cardiovascular History: Reports: Arrhythmia Other Cardiovascular History: tachycardia Respiratory History: Reports: Asthma Gastrointestinal History: Reports: GERD Other Gastrointestinal History: Heartburn 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 (See Below) Other OB/BYN History: dysmenorrhea Psychiatric History: Reports: Anxiety, Depression, Psychosis, Schizophrenia, Suicidal Ideation Endocrine/Metabolic History: Reports: Obesity/BMI 30+ Hematologic History: Reports: None Immunologic History: Reports: None Oncologic (Cancer) History: Reports: None - Infectious Disease History Infectious Disease History: Reports: Other (See Below) 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 - Past Surgical History Respiratory Surgical History: Reports: Thoracotomy GI Surgical History: Reports: Cholecystectomy, Colonoscopy Female Surgical History: Reports: Hysterectomy Other Female Surgeries/Procedures: hysterectomy on 02/04/16 Other Musculoskeletal Surgeries/Procedures:: foot surgery Social & Family History - Family History Family Medical History: Noncontributory - Tobacco Use Smoking Status *Q: Current Every Day Smoker Years of Tobacco use: 21 Packs/Tins Daily: 1 Used Tobacco, but Quit: No Month Tobacco Last Used: 8\14 Second Hand Smoke Exposure: Yes - Caffeine Use Caffeine Use: Reports: None - Alcohol Use Days Per Week of Alcohol Use: 0 Number of Drinks Per Day: 0 Total Drinks Per Week: 0 - Recreational Drug Use Recreational Drug Use: No Drug Use in Last 12 Months: No - Sexual History Sexual History: Reports: Same Sex Partner, Single Partner - Living Situation & Occupation Living situation: Reports: , with Spouse Occupation: Employed ED ROS GENERAL - Review of Systems Review Of Systems: See Below Constitutional: Reports: No Symptoms HEENT: Reports: No Symptoms Respiratory: Reports: No Symptoms Cardiovascular: Reports: Palpitations Endocrine: Reports: No Symptoms GI/Abdominal: Reports: No Symptoms : Reports: No Symptoms Musculoskeletal: Reports: No Symptoms Skin: Reports: No Symptoms Neurological: Reports: Headache Psychiatric: Reports: No Symptoms Hematologic/Lymphatic: Reports: No Symptoms Immunologic: Reports: No Symptoms ED EXAM, GENERAL - Physical Exam Exam: See Below Exam Limited By: No Limitations General Appearance: Alert, WD/WN, No Apparent Distress Eye Exam: Bilateral Eye: EOMI, Normal Inspection, PERRL Ears: Normal TMs Head: Atraumatic, Normocephalic Neck: Normal Inspection, Supple, Non-Tender, Full Range of Motion Respiratory/Chest: No Respiratory Distress, Lungs Clear, Normal Breath Sounds, No Accessory Muscle Use, Chest Non-Tender Cardiovascular: Tachycardia Peripheral Pulses: 2+: Posterior Tibial (L), Posterior Tibial (R), Dorsalis Pedis (L), Dorsalis Pedis (R) GI/Abdominal: Normal Bowel Sounds, Soft, Non-Tender, No Organomegaly, No Distention, No Abnormal Bruit, No Mass Back Exam: Normal Inspection, Full Range of Motion, NT Extremities: Normal Inspection, Normal Range of Motion, Non-Tender, Normal Capillary Refill, No Pedal Edema Neurological: Alert, Oriented, CN II-XII Intact, Normal Cognition, Normal Gait, Normal Reflexes, No Motor/Sensory Deficits Psychiatric: Normal Affect, Anxious Skin Exam: Warm, Dry, Intact, Normal Color, No Rash Lymphatic: No Adenopathy Course - Vital Signs Last Recorded V/S: Last Vital Signs Temp 37.1 C 06/12/17 14:25 Pulse 136 H 06/12/17 14:25 Resp 20 06/12/17 14:25 BP 110/53 L 06/12/17 15:02 Pulse Ox 100 06/12/17 14:25 - Orders/Labs/Meds Orders: Active Orders 24 hr Category Date Time Status BASIC METABOLIC PANEL,BMP [CHEM] Stat Lab 06/12/17 15:15 Received LORazepam [Ativan] Med 06/12/17 15:28 Active 0.5 mg IVPUSH Q4H PRN NS + KCl 20mEq/L [Normal Saline with 20 mEq KCl] 1,000 Med 06/12/17 15:00 Active ml IV ASDIRECTED Sodium Chloride 0.9% [Saline Flush] Med 06/12/17 14:54 Active 10 ml FLUSH ASDIRECTED PRN Saline Lock Insert [OM.PC] Routine Oth 06/12/17 14:54 Ordered Medication Orders Potassium Chloride/Sodium Chloride (Normal Saline With 20 Meq Kcl) 1,000 mls @ 150 mls/hr IV ASDIRECTED EMILY Last Admin: 06/12/17 15:02 Dose: 150 mls/hr Lorazepam (Ativan) 0.5 mg IVPUSH Q4H PRN PRN Reason: Anxiety Sodium Chloride (Saline Flush) 10 ml FLUSH ASDIRECTED PRN PRN Reason: Keep Vein Open Labs: Laboratory Tests 06/12/17 Range/Units 15:15 WBC 7.0 (4.0-10.0) x10^3/uL RBC 4.31 (4.00-5.50) x10^6/uL Hgb 13.5 (12.0-16.0) g/dL Hct 40.2 (33.0-47.0) % MCV 93.3 H (78.0-93.0) fL MCH 31.3 (26.0-32.0) pg MCHC 33.6 (32.0-36.0) g/dL RDW Coeff of Dionna 13.4 (10.0-15.0) % Plt Count 236 (130-400) x10^3/uL Neut % (Auto) 70.7 (50.0-80.0) % Lymph % (Auto) 20.8 L (25.0-50.0) % [place] % (Auto) 7.5 (2.0-11.0) % Eos % (Auto) 0.9 (0.0-4.0) % Baso % (Auto) 0.1 L (0.2-1.2) % Meds: Medications Generic Name Dose Route Start Last Admin Trade Name Freq PRN Reason Stop Dose Admin Potassium Chloride/Sodium Chloride 1,000 mls @ 150 mls/hr 06/12/17 15:00 07/27 15:02 Normal Saline With 20 Meq Kcl IV 150 mls/hr ASDIRECTED EMILY Administration Lorazepam 0.5 mg 06/12/17 15:28 Ativan IVPUSH Q4H PRN Anxiety Sodium Chloride 10 ml 06/12/17 14:54 Saline Flush FLUSH ASDIRECTED PRN Keep Vein Open Discontinued Medications Generic Name Dose Route Start Last Admin Trade Name Freq PRN Reason Stop Dose Admin Metoprolol Tartrate 5 mg 06/12/17 14:54 06/12/17 15:02 Lopressor IVPUSH 06/12/17 14:55 5 mg ONETIME ONE Administration Morphine Sulfate 2 mg 06/12/17 15:30 Morphine IVPUSH 06/12/17 15:31 ONETIME ONE Departure - Departure Time of Disposition: 16:55 Disposition: Refer to Observation Condition: Good Clinical Impression: Palpitations, Sinus tachycardia Referrals: Sanam Woodson DO [Primary Care Provider] - - Problem List & Annotations (1) Hypomagnesemia SNOMED Code(s): 979294482 Code(s): E83.42 - HYPOMAGNESEMIA Status: Resolved Priority: High Current Visit: No Onset Date: ~05/08/17 (2) Hypokalemia SNOMED Code(s): 45845336 Code(s): E87.6 - HYPOKALEMIA Status: Resolved Priority: High Current Visit: No Onset Date: ~05/08/17 (3) Sinus tachycardia SNOMED Code(s): 57703902 Code(s): R00.0 - TACHYCARDIA, UNSPECIFIED Status: Acute Priority: Medium Current Visit: Yes (4) Palpitations SNOMED Code(s): 22395457 Code(s): R00.2 - PALPITATIONS Status: Acute Priority: Medium Current Visit: Yes - Problem List Review Problem List Initiated/Reviewed/Updated: Yes - My Orders Last 24 Hours: My Active Orders 06/12/17 14:54 Sodium Chloride 0.9% [Saline Flush] 10 ml FLUSH ASDIRECTED PRN Saline Lock Insert [OM.PC] Routine 06/12/17 15:00 NS + KCl 20mEq/L [Normal Saline with 20 mEq KCl] 1,000 ml IV ASDIRECTED 06/12/17 15:15 BASIC METABOLIC PANEL,BMP [CHEM] Stat 06/12/17 15:28 LORazepam [Ativan] 0.5 mg IVPUSH Q4H PRN - Assessment/Plan Last 24 Hours: My Active Orders 06/12/17 14:54 Sodium Chloride 0.9% [Saline Flush] 10 ml FLUSH ASDIRECTED PRN Saline Lock Insert [OM.PC] Routine 06/12/17 15:00 NS + KCl 20mEq/L [Normal Saline with 20 mEq KCl] 1,000 ml IV ASDIRECTED 06/12/17 15:15 BASIC METABOLIC PANEL,BMP [CHEM] Stat 06/12/17 15:28 LORazepam [Ativan] 0.5 mg IVPUSH Q4H PRN Assessment:: Sinus tachycardia hypokalemia hypomagnesemia Plan: 1. Sinus tachycardia continue fluids, iv hydration, IV metoprolol as needed 2. Hypokalemia continue fluids with 40 KCL, daily PO KCL, 3. Hypomagnesemia start magnesium, reinfuse in AM
[2017-06-12] MEDS ORDERED: Acetaminophen 325 MG Tab PO ONE (17:19)
[2017-06-12] MEDS ORDERED: Acetaminophen/HYDROcodone 325-5 MG Tab PO PRN (18:16)
[2017-06-12] MEDS ORDERED: Ibuprofen 200 MG Tab PO PRN (18:16)
[2017-06-12] MEDS ORDERED: Ondansetron 4 MG Tab.DIS PO PRN (18:16)
[2017-06-12] MEDS ORDERED: Magnesium Sulfate/Water 2 GM in Premix Bag 1 BAG IV ONE (18:21)
[2017-06-12] MEDS ORDERED: Aluminum Hydroxide/Magnesium Hydroxide/Simethicone Susp 30 ML Cup PO PRN (18:29)
[2017-06-12] MEDS ORDERED: Albuterol 8 GM Inhaler INH PRN (18:29)
[2017-06-12] MEDS: Potassium Chloride 20 MEQ Tab.ER PO SCH (18:38)
[2017-06-12] MEDS ORDERED: Pramipexole 0.125 MG Tab PO SCH (20:00)
[2017-06-12] MEDS: hydrOXYzine HCl 25 MG Tab PO SCH (20:44)
[2017-06-12] MEDS: Magnesium Oxide 400 MG Tab PO SCH (20:44)
[2017-06-12] MEDS ORDERED: Ketorolac 30 MG/ML SDV IVPUSH ONE (22:35)
[2017-06-13] MEDS: NS + KCl 20mEq/L 1,000 ML IV SCH (05:12)
[2017-06-13 06:29] VITALS: BP 124/74
[2017-06-13] MEDS: hydrOXYzine HCl 25 MG Tab PO SCH (07:47)
[2017-06-13] MEDS: Potassium Chloride 20 MEQ Tab.ER PO SCH (07:47)
[2017-06-13] MEDS: Magnesium Oxide 400 MG Tab PO SCH (07:47)
[2017-06-13] MEDS ORDERED: Sertraline 25 MG Tab PO SCH (08:00)
--- NOTE | 2017-06-13 15:13 | PCM.DCSUM1 ---
Discharge Summary - Hospital Course Free Text/Narrative:: Pt. was admitted 06/11/17 with sinus tachycardia, hypokalemia, and hypomagnesmia. She has chronic issues with this. She also was experiencing a severe headache which is often the case when her electrolytes are low. Pt. electrolytes have been repleted and her headache is resolved. Her tachycardia has completely resolved, and she remains in a sinus rhythm. - Discharge Data Discharge Date: 06/13/17 Discharge Disposition: Home, Self-Care 01 Condition: Good - Discharge Diagnosis/Problem(s) (1) Headache SNOMED Code(s): 41657565 ICD Code: R51 - HEADACHE Status: Acute Qualifiers: Headache type: unspecified Headache chronicity pattern: episodic headache Intractability: not intractable Qualified Code(s): R51 - Headache (2) Hypokalemia SNOMED Code(s): 72010789 ICD Code: E87.6 - HYPOKALEMIA Status: Acute Priority: High (3) POTS (postural orthostatic tachycardia syndrome) SNOMED Code(s): 020323909 ICD Code: R00.0 - TACHYCARDIA, UNSPECIFIED; I95.1 - ORTHOSTATIC HYPOTENSION Status: Acute Priority: High (4) Sinus tachycardia SNOMED Code(s): 40401589 ICD Code: R00.0 - TACHYCARDIA, UNSPECIFIED Status: Acute Priority: High (5) Hypomagnesemia SNOMED Code(s): 698075042 ICD Code: E83.42 - HYPOMAGNESEMIA Status: Resolved Priority: High Onset Date: ~05/08/17 - Patient Instructions Driving: Do Not Drive - Discharge Plan Home Medications: Home Meds Acetaminophen 650 mg PO Q4H PRN 05/10/17 [History] Albuterol [Proair HFA] 1 puff INH Q4H PRN 05/10/17 [History] Ibuprofen 800 mg PO TID PRN 05/10/17 [History] Mag Carb/Al Hydrox/Alginic Ac [Gaviscon Liquid] 30 ml PO Q4H PRN 05/10/17 [ History] Potassium Chloride [Klor-Con M20] 20 meq PO BIDMEALS #60 tab.er 05/11/17 [Rx] Sertraline [Zoloft] 25 mg PO DAILY #30 tablet 05/11/17 [Rx] hydrOXYzine HCl [hydrOXYzine] 25 mg PO TID #90 tablet 05/11/17 [Rx] Magnesium Oxide 400 mg PO BID 05/30/17 [History] Pramipexole Di-HCl [Mirapex] 0.125 mg PO BEDTIME 06/12/17 [History] Forms: ED Department Discharge Referrals: Sanam Woodson DO [Primary Care Provider] - - General Info Date of Service: 06/13/17 Admission Dx/Problem (Free Text: Tachycardia Hypokalemia Hypomagnesmia Functional Status: Reports: Pain Controlled - Review of Systems General: Reports: No Symptoms HEENT: Reports: No Symptoms Pulmonary: Reports: No Symptoms Cardiovascular: Reports: No Symptoms Gastrointestinal: Reports: No Symptoms Genitourinary: Reports: No Symptoms Musculoskeletal: Reports: No Symptoms Skin: Reports: No Symptoms Neurological: Reports: No Symptoms - Patient Data Vitals - Most Recent: Last Vital Signs Temp 36.9 C 06/13/17 06:00 Pulse 77 06/13/17 06:00 Resp 19 06/13/17 06:00 BP 124/74 06/13/17 06:00 Pulse Ox 96 06/13/17 06:00 Weight - Most Recent: 101.831 kg I&O - Last 24 hours: Intake & Output 06/13/17 06/13/17 06/13/17 06:59 14:59 22:59 Intake Total 3160 Output Total 1800 Balance 1360 Lab Results - Last 24 hrs: Laboratory Results - last 24 hr 06/13/17 Range/Units 06:37 Potassium 4.1 D (3.5-5.1) mmol/L Magnesium 1.9 (1.8-2.4) mg/dL Med Orders - Current: Current Medications Discontinued Medications Acetaminophen (Tylenol) 650 mg PO NOW ONE Stop: 06/12/17 17:20 Last Admin: 06/12/17 17:43 Dose: 650 mg Hydrocodone Bitart/Acetaminophen ([place] 325-5 Mg) 1 tab PO Q4H PRN PRN Reason: Pain (moderate 4-6) Last Admin: 06/12/17 20:44 Dose: 1 tab Al Hydroxide/Mg Hydroxide (Mag-Al Plus) 30 ml PO Q4H PRN PRN Reason: Heartburn Albuterol (Ventolin Hfa) 0 gm INH Q4H PRN PRN Reason: Shortness of Breath Chlorpromazine HCl (Thorazine) 50 mg IM ONETIME ONE Stop: 06/12/17 22:40 Last Admin: 06/12/17 23:17 Dose: 50 mg Hydroxyzine HCl (Atarax) 25 mg PO TID [facility] Last Admin: 06/13/17 07:47 Dose: 25 mg Potassium Chloride/Sodium Chloride (Normal Saline With 20 Meq Kcl) 1,000 mls @ 150 mls/hr IV ASDIRECTED [facility] Last Admin: 06/13/17 05:12 Dose: 150 mls/hr Magnesium Sulfate 2 gm/ Premix 50 mls @ 25 mls/hr IV ONETIME ONE Stop: 06/12/17 20:20 Last Admin: 06/12/17 18:32 Dose: 25 mls/hr Chlorpromazine HCl 25 mg/ (Sodium Chloride) 51 mls @ 100 mls/hr IV ONETIME ONE Stop: 06/12/17 23:03 Last Admin: 06/12/17 23:38 Dose: Not Given Ibuprofen (Motrin) 600 mg PO Q6H PRN PRN Reason: Pain (mild 1-3) Ketorolac Tromethamine (Toradol) 30 mg IVPUSH ONETIME ONE Stop: 06/12/17 22:36 Last Admin: 06/12/17 22:44 Dose: 30 mg Lorazepam (Ativan) 0.5 mg IVPUSH Q4H PRN PRN Reason: Anxiety Last Admin: 06/12/17 15:40 Dose: 0.5 mg Magnesium Oxide (Magnesium Oxide) 400 mg PO BID [facility] Last Admin: 06/13/17 07:47 Dose: 400 mg Metoprolol Tartrate (Lopressor) 5 mg IVPUSH ONETIME ONE Stop: 06/12/17 14:55 Last Admin: 06/12/17 15:02 Dose: 5 mg Metoprolol Tartrate (Lopressor) 5 mg IVPUSH ONETIME ONE Stop: 06/12/17 15:52 Last Admin: 06/12/17 15:56 Dose: 5 mg Metoprolol Tartrate (Lopressor) 5 mg IVPUSH ONETIME ONE Stop: 06/12/17 16:28 Last Admin: 06/12/17 16:41 Dose: 5 mg Morphine Sulfate (Morphine) 2 mg IVPUSH ONETIME ONE Stop: 06/12/17 15:31 Last Admin: 06/12/17 15:39 Dose: 2 mg Ondansetron HCl (Zofran) 4 mg IVPUSH ONETIME ONE Stop: 06/12/17 16:03 Last Admin: 06/12/17 16:10 Dose: 4 mg Ondansetron HCl (Zofran Odt) 4 mg PO Q6H PRN PRN Reason: nausea, able to take PO Potassium Chloride (Klor-Con 10) 40 meq PO ONETIME ONE Stop: 06/12/17 15:50 Last Admin: 06/12/17 15:56 Dose: 40 meq Potassium Chloride (Klor-Con M20) 20 meq PO BIDMEALS [facility] Last Admin: 06/13/17 07:47 Dose: 20 meq Pramipexole Dihydrochloride (Mirapex) 0.125 mg PO BEDTIME [facility] Last Admin: 06/12/17 20:44 Dose: 0.125 mg Sertraline HCl (Zoloft) 25 mg PO DAILY [facility] Last Admin: 06/13/17 07:47 Dose: 25 mg Sodium Chloride (Saline Flush) 10 ml FLUSH ASDIRECTED PRN PRN Reason: Keep Vein Open - Exam General: Reports: Alert, Oriented Neck: Reports: Supple Lungs: Reports: Clear to Auscultation, Normal Respiratory Effort Cardiovascular: Reports: Regular Rate, Regular Rhythm GI/Abdominal Exam: Normal Bowel Sounds, Soft, Non-Tender, No Organomegaly, No Distention, No Abnormal Bruit, No Mass, Pelvis Stable (Female) Exam: Deferred Rectal (Female) Exam: Normal Exam, Normal Rectal Tone Back Exam: Reports: Normal Inspection, Full Range of Motion Extremities: Normal Inspection, Normal Range of Motion, Non-Tender, No Pedal Edema, Normal Capillary Refill Skin: Reports: Warm, Dry, Intact Neurological: Reports: No New Focal Deficit Psy/Mental Status: Reports: Alert, Normal Affect, Normal Mood *Q Meaningful Use (DIS) - VTE *Q VTE Criteria *Q: - Stroke *Q Stroke Criteria *Q: - AMI *Q AMI Criteria *Q:
== END 2017-06-13 11:00 | disposition home or self-care (01) ==
LOC: VM.ED 14:18 → VM.MS 16:38
PROVIDERS: ADMIT Nurse Practitioner Family; ATTEND Nurse Practitioner Family
DX: R51 Headache (principal); E87.6 Hypokalemia; R00.0 Tachycardia, unspecified; E83.42 Hypomagnesemia; Z79.899 Other long term (current) drug therapy; Z88.8 Allergy status to other drugs, medicaments and biological substances; Z91.040 Latex allergy status; Z91.09 Other allergy status, other than to drugs and biological substances
CPT/HCPCS: 36415; 80048; 83735; 84132; 84484; 85025; 85610; 93005; 96361; 96365; 96366; 96372; 96375; 96376; 99285; A9270-GY; G0378; J1885; J2060; J2270; J2405; J3230; J3475; J3480; J3490

== ENCOUNTER 2017-06-20 21:18 | Emergency (ER) | payer MEDICAID ==
--- NOTE | 2017-06-20 21:39 | EDM.PDOC ---
ED HPI GENERAL MEDICAL PROBLEM - General Chief Complaint: Cardiovascular Problem Stated Complaint: fast heart rate Time Seen by Provider: 06/20/17 21:23 Source of Information: Reports: Patient, Family, RN, RN Notes Reviewed History Limitations: Reports: No Limitations - History of Present Illness INITIAL COMMENTS - FREE TEXT/NARRATIVE: Patient presents to the ED at [facility] complaining of a fast heart rate, headache, and feeling shaky. Symptoms started earlier this afternoon. Patient has a long standing history of hypokalemia and hypomagnesia. She has been hospitalized several times in the past for these problems. Patient states her current presentation is similar to previous electrolyte problems. She denies any chest pain or SOB. No focal neurological deficits. Patient denies any N/V/ D. No sweating. No dizziness. Patient was recently seen by her PCP on 06/15/2017, at which time she was started on Verapamil 100mg daily. Patient states she is taking this medication as directed. See scanned reports for PCP office visit note from 06/15 Onset: Today, Sudden Onset Date: 06/20/17 - Related Data Allergies Allergy/AdvReac Type Severity Reaction Status Date / Time adhesive tape Allergy Hives Verified 06/20/17 21:38 gabapentin Allergy Cannot Verified 06/20/17 21:38 Remember latex Allergy Hives Verified 06/20/17 21:38 isoniazid AdvReac Unknown Seizure Verified 06/20/17 21:38 tramadol AdvReac Unknown Seizure Verified 06/20/17 21:38 Home Meds: Home Meds Acetaminophen 650 mg PO Q4H PRN 05/10/17 [History] Albuterol [Proair HFA] 1 puff INH Q4H PRN 05/10/17 [History] Ibuprofen 800 mg PO TID PRN 05/10/17 [History] Mag Carb/Al Hydrox/Alginic Ac [Gaviscon Liquid] 30 ml PO Q4H PRN 05/10/17 [ History] Potassium Chloride [Klor-Con M20] 20 meq PO BIDMEALS #60 tab.er 05/11/17 [Rx] Sertraline [Zoloft] 25 mg PO DAILY #30 tablet 05/11/17 [Rx] hydrOXYzine HCl [hydrOXYzine] 25 mg PO TID #90 tablet 05/11/17 [Rx] Magnesium Oxide 500 mg PO BID 05/30/17 [History] Pramipexole Di-HCl [Mirapex] 0.125 mg PO BEDTIME 06/12/17 [History] Verapamil [Verelan PM] 100 mg PO DAILY 06/20/17 [History] Past Medical History - Past Health History Medical/Surgical History: Denies Medical/Surgical History HEENT History: Reports: None Cardiovascular History: Reports: Arrhythmia Other Cardiovascular History: tachycardia Respiratory History: Reports: Asthma Gastrointestinal History: Reports: GERD Other Gastrointestinal History: Heartburn 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) Other OB/BYN History: dysmenorrhea Psychiatric History: Reports: Anxiety, Depression, Psychosis, Schizophrenia, Suicidal Ideation Endocrine/Metabolic History: Reports: Obesity/BMI 30+ Hematologic History: Reports: None Immunologic History: Reports: None Oncologic (Cancer) History: Reports: None - Infectious Disease History Infectious Disease History: Reports: Other (See Below) 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 - Past Surgical History Respiratory Surgical History: Reports: Thoracotomy GI Surgical History: Reports: Cholecystectomy, Colonoscopy Female Surgical History: Reports: Hysterectomy Other Female Surgeries/Procedures: hysterectomy on 02/04/16 Other Musculoskeletal Surgeries/Procedures:: foot surgery Social & Family History - Family History Family Medical History: Noncontributory - Tobacco Use Smoking Status *Q: Current Every Day Smoker Years of Tobacco use: 21 Packs/Tins Daily: 1 Used Tobacco, but Quit: No Month Tobacco Last Used: 8\14 Second Hand Smoke Exposure: Yes - Caffeine Use Caffeine Use: Reports: None - Alcohol Use Days Per Week of Alcohol Use: 0 Number of Drinks Per Day: 0 Total Drinks Per Week: 0 - Recreational Drug Use Recreational Drug Use: No Drug Use in Last 12 Months: No - Sexual History Sexual History: Reports: Same Sex Partner, Single Partner - Living Situation & Occupation Living situation: Reports: , with Spouse Occupation: Employed ED ROS GENERAL - Review of Systems Review Of Systems: See Below Constitutional: Denies: Fever, Chills, Weakness Respiratory: Denies: Shortness of Breath, Cough Cardiovascular: Reports: Palpitations. Denies: Chest Pain, Syncope GI/Abdominal: Denies: Abdominal Pain, Nausea, Vomiting Skin: Reports: No Symptoms Neurological: Reports: Headache. Denies: Dizziness, Numbness, Paresthesia, Tingling ED EXAM, GENERAL - Physical Exam Exam: See Below Exam Limited By: No Limitations General Appearance: Alert, No Apparent Distress Respiratory/Chest: No Respiratory Distress, Lungs Clear, Normal Breath Sounds Cardiovascular: Normal Peripheral Pulses, No Edema, No Murmur, Tachycardia Peripheral Pulses: 2+: Radial (L), Radial (R) GI/Abdominal: Normal Bowel Sounds, Soft, Non-Tender Neurological: Alert, Oriented Skin Exam: Warm, Dry, Intact, Normal Color Course - Vital Signs Last Recorded V/S: Last Vital Signs Temp 37.8 C 06/20/17 21:20 Pulse 114 H 06/20/17 22:45 Resp 12 06/20/17 22:45 BP 122/63 06/20/17 22:45 Pulse Ox 98 06/20/17 22:45 - Orders/Labs/Meds Orders: Active Orders 24 hr Category Date Time Status EKG 12 Lead [EKG Documentation Completion] [RC] STAT Care 06/20/17 21:37 Active Labs: Laboratory Tests 06/20/17 06/20/17 Range/Units 22:03 22:03 WBC 6.3 (4.0-10.0) x10^3/uL RBC 4.25 (4.00-5.50) x10^6/uL Hgb 13.2 (12.0-16.0) g/dL Hct 39.6 (33.0-47.0) % MCV 93.2 H (78.0-93.0) fL MCH 31.1 (26.0-32.0) pg MCHC 33.3 (32.0-36.0) g/dL RDW Coeff of Dionna 13.2 (10.0-15.0) % Plt Count 252 (130-400) x10^3/uL Neut % (Auto) 65.2 (50.0-80.0) % Lymph % (Auto) 25.0 (25.0-50.0) % [place] % (Auto) 9.3 (2.0-11.0) % Eos % (Auto) 0.5 (0.0-4.0) % Baso % (Auto) 0.0 L (0.2-1.2) % Sodium 141 (136-145) mmol/L Potassium 3.2 L (3.5-5.1) mmol/L Chloride 107 (98-107) mmol/L Carbon Dioxide 24 (21-32) mmol/L BUN 6 L (7-18) mg/dL Creatinine 0.9 (0.55-1.02) mg/dL Est Cr Clr Drug Dosing TNP Estimated GFR (MDRD) > 60 Glucose 131 H (74-106) mg/dL Calcium 8.6 (8.5-10.1) mg/dL Magnesium 1.8 (1.8-2.4) mg/dL Creatine Kinase 53 (26-192) U/L Troponin I < 0.017 (<=0.056) ng/mL Departure - Departure Time of Disposition: 23:15 Disposition: DC/Tfer to [facility] 02 Reason for Transfer *Q: Other Clinical Impression: Hypokalemia, Tachycardia Headache Qualifiers: Headache type: unspecified Headache chronicity pattern: episodic headache Intractability: not intractable Qualified Code(s): R51 - Headache Forms: Interfacility Transfer [facility] ED Communication - ED Communication Date/Time Date: 06/20/17 Time Called: 23:10 - Discussed Case With (1) Discussed Case With (1): Admitting Provider (JULIAN Eugene [place]. Report given. Patient accepted in transfer. Patient will be sent via ALS) - Problem List Review Problem List Initiated/Reviewed/Updated: Yes - My Orders Last 24 Hours: My Active Orders 06/20/17 21:37 EKG 12 Lead [EKG Documentation Completion] [RC] STAT - Assessment/Plan Last 24 Hours: My Active Orders 06/20/17 21:37 EKG 12 Lead [EKG Documentation Completion] [RC] STAT Plan: Case was discussed with JULIAN Eugene [place]. Recommend transferring to [place] for further workup and evaluation. Patient will be given IV KCL and Magnesium. Patient will be sent via ALS ground.
[2017-06-20 22:33] LABS: CHLORIDE,CL 107 mmol/L (98-107); SODIUM,NA 141 mmol/L (136-145)
[2017-06-20] MEDS ORDERED: Sodium Chloride 0.9% 10 ML Syringe FLUSH PRN (23:14)
[2017-06-20] MEDS ORDERED: Potassium Chloride 20 MEQ in Premix Bag 1 BAG IV ONE (23:15)
[2017-06-20] MEDS ORDERED: Sodium Chloride 0.9% 1,000 ML IV ONE (23:15)
[2017-06-20] MEDS ORDERED: Magnesium Sulfate/Water 2 GM in Premix Bag 1 BAG IV ONE (23:15)
[2017-06-20] MEDS ORDERED: Calcium Carbonate 750 MG Tab.Chew PO ONE (23:46)
[2017-06-21 00:08] VITALS: BP 128/69
== END 2017-06-21 00:15 | disposition short-term general hospital (02) ==
LOC: VM.ED 21:18
DX: E87.6 Hypokalemia (principal); R00.0 Tachycardia, unspecified; R51 Headache; J45.909 Unspecified asthma, uncomplicated; F17.210 Nicotine dependence, cigarettes, uncomplicated; Z88.5 Allergy status to narcotic agent; Z91.040 Latex allergy status; Z88.8 Allergy status to other drugs, medicaments and biological substances; Z79.899 Other long term (current) drug therapy
CPT/HCPCS: 36415; 80048; 82550; 83735; 84484; 85025; 93005; 96365; 99285; A9270; J3480; J7030; J3475

== ENCOUNTER 2017-09-05 11:23 | Emergency (ER) | payer MEDICAID ==
[2017-09-05] MEDS ORDERED: Ketorolac 30 MG/ML SDV IM ONE (11:39)
[2017-09-05] MEDS ORDERED: Acetaminophen/HYDROcodone 325-10 MG Tab PO ONE (11:40)
--- NOTE | 2017-09-05 12:06 | EDM.PDOC ---
ED HPI GENERAL MEDICAL PROBLEM - General Chief Complaint: General Stated Complaint: FELL DOWN STAIRS/INJURED RIGHT FOOT Time Seen by Provider: 09/05/17 11:39 Source of Information: Reports: Patient History Limitations: Reports: No Limitations - History of Present Illness INITIAL COMMENTS - FREE TEXT/NARRATIVE: Patient was at home and fell down 3 stairs, injuring her right ankle. She does have a history of 2 surgeries to the affected side. She reports one as a tendon repair and a second done last March as a bone wedge. She did not hit her head, no LOC, no headache or chest pain. No SOB. No abdominal pain. Is able to move foot and fingers. Blood flow is adequate. Onset: Today, Sudden Onset Date: 09/05/17 Duration: Intermittent Location: Reports: Lower Extremity, Right Quality: Reports: Sharp, Stabbing Severity: Moderate Improves with: Reports: Cold Therapy, Medication Worsens with: Reports: Movement Associated Symptoms: Reports: No Other Symptoms Right Feet Pain Score (Numeric/FACES): 10 - Related Data Allergies Allergy/AdvReac Type Severity Reaction Status Date / Time adhesive tape Allergy Hives Verified 09/05/17 11:30 gabapentin Allergy Cannot Verified 09/05/17 11:30 Remember latex Allergy Hives Verified 09/05/17 11:30 isoniazid AdvReac Unknown Seizure Verified 09/05/17 11:30 tramadol AdvReac Unknown Seizure Verified 09/05/17 11:30 Home Meds: Home Meds Acetaminophen 650 mg PO Q4H PRN 05/10/17 [History] Albuterol [Proair HFA] 1 puff INH Q4H PRN 05/10/17 [History] Ibuprofen 800 mg PO TID PRN 05/10/17 [History] Mag Carb/Al Hydrox/Alginic Ac [Gaviscon Liquid] 30 ml PO Q4H PRN 05/10/17 [ History] Sertraline [Zoloft] 25 mg PO DAILY #30 tablet 05/11/17 [Rx] Magnesium Oxide 500 mg PO BID 05/30/17 [History] Pramipexole Di-HCl [Mirapex] 0.125 mg PO BEDTIME 06/12/17 [History] Verapamil [Verelan PM] 180 mg PO DAILY 06/20/17 [History] Metoprolol Succinate [Toprol XL] 25 mg PO BEDTIME 09/05/17 [History] Past Medical History - Past Health History Medical/Surgical History: Denies Medical/Surgical History HEENT History: Reports: None Cardiovascular History: Reports: Arrhythmia Other Cardiovascular History: tachycardia Respiratory History: Reports: Asthma Gastrointestinal History: Reports: GERD Other Gastrointestinal History: Heartburn 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) Other OB/BYN History: dysmenorrhea Psychiatric History: Reports: Anxiety, Depression, Psychosis, Schizophrenia, Suicidal Ideation Endocrine/Metabolic History: Reports: Obesity/BMI 30+ Hematologic History: Reports: None Immunologic History: Reports: None Oncologic (Cancer) History: Reports: None - Infectious Disease History Infectious Disease History: Reports: Other (See Below) 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 - Past Surgical History Respiratory Surgical History: Reports: Thoracotomy GI Surgical History: Reports: Cholecystectomy, Colonoscopy Female Surgical History: Reports: Hysterectomy Other Female Surgeries/Procedures: hysterectomy on 02/04/16 Other Musculoskeletal Surgeries/Procedures:: foot surgery Social & Family History - Family History Family Medical History: Noncontributory - Tobacco Use Smoking Status *Q: Current Every Day Smoker Years of Tobacco use: 20 Packs/Tins Daily: 1 - Caffeine Use Caffeine Use: Reports: None - Recreational Drug Use Recreational Drug Use: No - Sexual History Sexual History: Reports: Same Sex Partner, Single Partner - Living Situation & Occupation Living situation: Reports: , with Spouse Occupation: Employed ED ROS GENERAL - Review of Systems Review Of Systems: See Below Constitutional: Reports: No Symptoms HEENT: Reports: No Symptoms Respiratory: Reports: No Symptoms Cardiovascular: Reports: No Symptoms Endocrine: Reports: No Symptoms GI/Abdominal: Reports: No Symptoms : Reports: No Symptoms Musculoskeletal: Reports: Foot Pain Skin: Reports: No Symptoms Neurological: Reports: No Symptoms Psychiatric: Reports: No Symptoms Hematologic/Lymphatic: Reports: No Symptoms Immunologic: Reports: No Symptoms ED EXAM, GENERAL - Physical Exam Exam: See Below Exam Limited By: No Limitations General Appearance: Alert, WD/WN, Mild Distress Eye Exam: Bilateral Eye: EOMI, Normal Inspection, PERRL Ears: Normal TMs Nose: Normal Inspection, Normal Mucosa, No Blood Throat/Mouth: Normal Inspection, Normal Lips, Normal Teeth, Normal Gums, Normal Oropharynx, Normal Voice, No Airway Compromise Head: Atraumatic, Normocephalic Neck: Normal Inspection, Supple, Non-Tender, Full Range of Motion Respiratory/Chest: No Respiratory Distress, Lungs Clear, Normal Breath Sounds, No Accessory Muscle Use, Chest Non-Tender Cardiovascular: Normal Peripheral Pulses, Regular Rate, Rhythm, No Edema, No Gallop, No JVD, No Murmur, No Rub Peripheral Pulses: 2+: Posterior Tibial (L), Posterior Tibial (R), Dorsalis Pedis (L), Dorsalis Pedis (R) GI/Abdominal: Normal Bowel Sounds, Soft, Non-Tender, No Organomegaly, No Distention, No Abnormal Bruit, No Mass Back Exam: Normal Inspection, Full Range of Motion, NT Extremities: No Pedal Edema, Normal Capillary Refill, Limited Range of Motion Neurological: Alert, Oriented, CN II-XII Intact, Normal Cognition, Normal Reflexes, No Motor/Sensory Deficits, Abnormal Gait (due to pain to right foot) Psychiatric: Normal Affect, Normal Mood Skin Exam: Warm, Dry, Intact, Normal Color, No Rash Lymphatic: No Adenopathy Course - Vital Signs Last Recorded V/S: Last Vital Signs Temp 36.7 C 09/05/17 11:31 Pulse 83 09/05/17 13:27 Resp 14 09/05/17 13:27 BP 117/89 09/05/17 13:27 Pulse Ox 98 09/05/17 13:27 - Orders/Labs/Meds Orders: Active Orders 24 hr Category Date Time Status Foot Comp Min 3V Rt [CR] Stat Exams 09/05/17 11:39 Taken Meds: Medications Discontinued Medications Generic Name Dose Route Start Last Admin Trade Name Freq PRN Reason Stop Dose Admin Hydrocodone Bitart/Acetaminophen 1 tab 09/05/17 11:40 09/05/17 11:47 [place] 325-10 Mg PO 09/05/17 11:41 1 tab ONETIME ONE Administration Hydrocodone Bitart/Acetaminophen 1 packet 09/05/17 13:19 09/05/17 13:24 Take Home: Acetaminophen/Hydrocodone 325-10mg PO 09/05/17 13:20 1 packet ONETIME ONE Administration Ketorolac Tromethamine 30 mg 09/05/17 11:39 09/05/17 11:46 Toradol IM 09/05/17 11:40 30 mg ONETIME ONE Administration - Radiology Interpretation Free Text/Narrative:: x-ray negative for acute fractures per radiology - Re-Assessments/Exams Free Text/Narrative Re-Assessment/Exam: 09/05/17 12:09 X-ray ordered, pain meds administered. Departure - Departure Time of Disposition: 13:15 Disposition: Home, Self-Care 01 Condition: Good Clinical Impression: Right ankle sprain Qualifiers: Encounter type: initial encounter Involved ligament of ankle: unspecified ligament Qualified Code(s): S93.401A - Sprain of unspecified ligament of right ankle, initial encounter - Discharge Information Instructions: Ankle Sprain, [id number] Referrals: Sanam Woodson, [Primary Care Provider] - Forms: ED Department Discharge Additional Instructions: Follow up with Dr. Woodson in 7-10 days if your pain is not resolving to determine whether an MRI is necessary to determine ligament damage. Keep your foot wrapped with the compression dressing to help keep the swelling down. Elevate your foot as much as possible and use ice on it for up to 30 minutes at a time. Alternate ibuprofen and tylenol for pain and swelling. Make sure to lock your hydrocodone up. If you do not use it all you should take it to the pharmacy or clinic to destroy it. Return to work when you are able to stand without increased pain and swelling. I would recommend off work through Tuesday. Please call with any questions or concerns. - Problem List & Annotations (1) Contusion of foot, right SNOMED Code(s): 53985182 Code(s): S90.31XA - CONTUSION OF RIGHT FOOT, INITIAL ENCOUNTER Status: Acute Priority: Medium Qualifiers: Encounter type: initial encounter Qualified Code(s): S90.31XA - Contusion of right foot, initial encounter (2) Right ankle sprain SNOMED Code(s): 93573067 Code(s): S93.401A - SPRAIN OF UNSPECIFIED LIGAMENT OF RIGHT ANKLE, INIT ENCNTR Status: Acute Priority: Medium Qualifiers: Encounter type: initial encounter Involved ligament of ankle: unspecified ligament Qualified Code(s): S93.401A - Sprain of unspecified ligament of right ankle, initial encounter - Problem List Review Problem List Initiated/Reviewed/Updated: Yes - My Orders Last 24 Hours: My Active Orders 09/05/17 11:39 Foot Comp Min 3V Rt [CR] Stat - Assessment/Plan Last 24 Hours: My Active Orders 09/05/17 11:39 Foot Comp Min 3V Rt [CR] Stat Assessment:: right ankle and foot contusion/sprain Plan: Follow up with Dr. Woodson in 7-10 days if your pain is not resolving to determine whether an MRI is necessary to determine ligament damage. Keep your foot wrapped with the compression dressing to help keep the swelling down. Elevate your foot as much as possible and use ice on it for up to 30 minutes at a time. Alternate ibuprofen and tylenol for pain and swelling. Make sure to lock your hydrocodone up. If you do not use it all you should take it to the pharmacy or clinic to destroy it. Return to work when you are able to stand without increased pain and swelling. I would recommend off work through Tuesday. Please call with any questions or concerns.
[2017-09-05] MEDS ORDERED: Take Home: Acetaminophen/HYDROcodone 325-10 MG, 5 Tab Pack PO ONE (13:19)
[2017-09-05 13:27] VITALS: BP 117/89
== END 2017-09-05 13:28 | disposition home or self-care (01) ==
LOC: VM.ED 11:23
DX: S93.401A Sprain of unspecified ligament of right ankle, initial encounter (principal); J45.909 Unspecified asthma, uncomplicated; K21.9 Gastro-esophageal reflux disease without esophagitis; E66.9 Obesity, unspecified; F17.210 Nicotine dependence, cigarettes, uncomplicated; Z88.8 Allergy status to other drugs, medicaments and biological substances; Z91.040 Latex allergy status; Z79.899 Other long term (current) drug therapy; W10.9XXA Fall (on) (from) unspecified stairs and steps, initial encounter; Z68.41 Body mass index [BMI] 40.0-44.9, adult
CPT/HCPCS: 73630; 96372; 99283; A9270; J1885

== ENCOUNTER 2017-09-30 17:39 | Observation (INO) | payer MEDICAID ==
[2017-09-30] MEDS ORDERED: hydrOXYzine HCl 25 MG Tab PO ONE (17:46)
[2017-09-30] MEDS ORDERED: Diltiazem 25 MG/5 ML SDV IVPUSH ONE ×2 (17:48→17:52)
[2017-09-30] MEDS ORDERED: Sodium Chloride 0.9% 10 ML Syringe FLUSH PRN (17:48)
--- NOTE | 2017-09-30 17:56 | EDM.PDOC ---
<Dixie Wilson - Last Filed: 09/30/17 18:37> ED HPI GENERAL MEDICAL PROBLEM - General Chief Complaint: Cardiovascular Problem Stated Complaint: tachycardia Time Seen by Provider: 09/30/17 17:39 Source of Information: Reports: Patient History Limitations: Reports: No Limitations - History of Present Illness INITIAL COMMENTS - FREE TEXT/NARRATIVE: Patient comes into the emergency Department today with complaints of tachycardia , shaky, heart palpatations. Patient has a long-standing history of tachycardia events. She is seen a web designer developer and window installer related to abnormal labs in the past with hopes of figuring out the cause of the tachycardia. She has been diagnosed with hypokalemia and hypomagnesia. Patient was last seen in our emergency department presently 3 months ago for the similar incident. Patient was given KCL and transferred to [place] for further management. She was placed on verapamil and metoprolol. Patient had a few follow-up appointments with them they ruled out anything cardiac-strong and stated was caused by high potassium levels of unknown etiology and stopped her verapamil and metoprolol. Patient has been trying to regulate her potassium however they have been unable to find an etiology for it. Patient comes in today with a sudden onset of tachycardia approximately 6 hours ago. She tried to slow her heart rate down at home however she was unsuccessful resulting her presenting to the ER. She denies any shortness of breath but she states that she is having chest discomfort related to the heart palpitations and has become dizzy and lightheaded regarding this as well. She denies any pitting edema, diarrhea, vomiting, or fever. Onset: Sudden Quality: Reports: Ache Severity: Moderate Improves with: Reports: None Worsens with: Reports: None Associated Symptoms: Reports: Headaches - Related Data Allergies Allergy/AdvReac Type Severity Reaction Status Date / Time adhesive tape Allergy Hives Verified 09/30/17 18:30 gabapentin Allergy Cannot Verified 09/30/17 18:30 Remember latex Allergy Hives Verified 09/30/17 18:30 isoniazid AdvReac Unknown Seizure Verified 09/30/17 18:30 tramadol AdvReac Unknown Seizure Verified 09/30/17 18:30 Home Meds: Home Meds Acetaminophen 650 mg PO Q4H PRN 05/10/17 [History] Albuterol [Proair HFA] 1 puff INH Q4H PRN 05/10/17 [History] Ibuprofen 800 mg PO TID PRN 05/10/17 [History] Mag Carb/Al Hydrox/Alginic Ac [Gaviscon Liquid] 30 ml PO Q4H PRN 05/10/17 [ History] Magnesium Oxide 400 mg PO BID 05/30/17 [History] Pramipexole Di-HCl [Mirapex] 0.125 mg PO BEDTIME 06/12/17 [History] Hydrocortisone [Cortef] 10 mg ASDIRECTED 09/30/17 [History] Sertraline [Zoloft] 50 mg PO DAILY 09/30/17 [History] Past Medical History - Past Health History Medical/Surgical History: Denies Medical/Surgical History HEENT History: Reports: None Cardiovascular History: Reports: Arrhythmia Other Cardiovascular History: tachycardia Respiratory History: Reports: Asthma Gastrointestinal History: Reports: GERD Other Gastrointestinal History: Heartburn DRAPERY SEAMSTRESS History: Reports: Other (See Below) Other OB/BYN History: dysmenorrhea Psychiatric History: Reports: Anxiety, Depression, Psychosis, Schizophrenia, Suicidal Ideation Endocrine/Metabolic History: Reports: Obesity/BMI 30+ Hematologic History: Reports: None Immunologic History: Reports: None Oncologic (Cancer) History: Reports: None - Infectious Disease History Infectious Disease History: Reports: Other (See Below) 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 - Past Surgical History Respiratory Surgical History: Reports: Thoracotomy GI Surgical History: Reports: Cholecystectomy, Colonoscopy Female Surgical History: Reports: Hysterectomy Other Female Surgeries/Procedures: hysterectomy on 02/04/16 Other Musculoskeletal Surgeries/Procedures:: foot surgery Social & Family History - Family History Family Medical History: Noncontributory - Caffeine Use Caffeine Use: Reports: None - Sexual History Sexual History: Reports: Same Sex Partner, Single Partner - Living Situation & Occupation Living situation: Reports: , with Spouse Occupation: Employed ED ROS GENERAL - Review of Systems Review Of Systems: See Below Constitutional: Reports: No Symptoms HEENT: Reports: No Symptoms Respiratory: Reports: No Symptoms Cardiovascular: Reports: Palpitations Endocrine: Reports: No Symptoms GI/Abdominal: Reports: No Symptoms : Reports: No Symptoms Musculoskeletal: Reports: No Symptoms Skin: Reports: No Symptoms Neurological: Reports: No Symptoms Psychiatric: Reports: Anxiety Hematologic/Lymphatic: Reports: No Symptoms Immunologic: Reports: No Symptoms ED EXAM, GENERAL - Physical Exam Exam: See Below Exam Limited By: No Limitations General Appearance: Alert, WD/WN, Anxious, Mild Distress Respiratory/Chest: No Respiratory Distress, Lungs Clear, Normal Breath Sounds, No Accessory Muscle Use, Chest Non-Tender Cardiovascular: No Edema, No JVD, No Murmur, No Rub, Tachycardia Peripheral Pulses: 2+: Carotid (L), Carotid (R), Radial (L), Radial (R) GI/Abdominal: Normal Bowel Sounds, Soft, Non-Tender, No Distention Back Exam: Normal Inspection, Full Range of Motion Extremities: Normal Inspection, Normal Range of Motion, Non-Tender, No Pedal Edema, Normal Capillary Refill Neurological: Alert, Oriented, Normal Gait Psychiatric: Anxious Skin Exam: Warm, Dry, Intact, Normal Color, No Rash Course - Vital Signs Last Recorded V/S: Last Vital Signs Temp 36.9 C 09/30/17 17:40 Pulse 141 H 09/30/17 17:40 Resp 16 09/30/17 17:40 BP 146/81 H 09/30/17 17:40 Pulse Ox 98 09/30/17 17:40 - Orders/Labs/Meds Orders: Active Orders 24 hr Category Date Time Status Admission Status [Patient Status] [ADT] Routine ADT 09/30/17 19:31 Ordered EKG Documentation Completion [RC] STAT Care 09/30/17 17:47 Active Sodium Chloride 0.9% [Saline Flush] Med 09/30/17 17:48 Active 10 ml FLUSH ASDIRECTED PRN Peripheral IV Insertion Adult [OM.PC] Stat Oth 09/30/17 17:47 Ordered Medication Orders Sodium Chloride (Saline Flush) 10 ml FLUSH ASDIRECTED PRN PRN Reason: Keep Vein Open Labs: Laboratory Tests 09/30/17 09/30/17 09/30/17 Range/Units 18:00 18:00 18:00 WBC 11.4 H (4.0-10.0) x10^3/uL RBC 4.64 (4.00-5.50) x10^6/uL Hgb 14.2 (12.0-16.0) g/dL Hct 41.4 (33.0-47.0) % MCV 89.2 D (78.0-93.0) fL MCH 30.6 (26.0-32.0) pg MCHC 34.3 (32.0-36.0) g/dL RDW Coeff of Dionna 13.5 (10.0-15.0) % Plt Count 216 (130-400) x10^3/uL Neut % (Auto) 77.6 (50.0-80.0) % Lymph % (Auto) 13.4 L (25.0-50.0) % [place] % (Auto) 8.6 (2.0-11.0) % Eos % (Auto) 0.3 (0.0-4.0) % Baso % (Auto) 0.1 L (0.2-1.2) % Sodium 143 (136-145) mmol/L Potassium 2.5 L* (3.5-5.1) mmol/L Chloride 107 (98-107) mmol/L Carbon Dioxide 22 (21-32) mmol/L Anion Gap 16.5 (10-20) mmol/L BUN 4 L (7-18) mg/dL Creatinine 0.8 (0.55-1.02) mg/dL Est Cr Clr Drug Dosing TNP Estimated GFR (MDRD) > 60 Glucose 130 H (74-106) mg/dL Calcium 8.5 (8.5-10.1) mg/dL Corrected Calcium 8.82 (8.5-10.1) mg/dL Magnesium 1.6 L (1.8-2.4) mg/dL Total Bilirubin 0.2 (0.2-1.0) mg/dL AST 13 L (15-37) U/L ALT 20 (14-59) U/L Alkaline Phosphatase 64 (46-116) U/L Troponin I < 0.017 (<=0.056) ng/mL NT-Pro-B Natriuret Pep 41 (<=125) pg/mL Total Protein 7.2 (6.4-8.2) g/dL Albumin 3.6 (3.4-5.0) g/dL Globulin 3.6 Albumin/Globulin Ratio 1.00 Meds: Medications Generic Name Dose Route Start Last Admin Trade Name Freq PRN Reason Stop Dose Admin Sodium Chloride 10 ml 09/30/17 17:48 Saline Flush FLUSH ASDIRECTED PRN Keep Vein Open Discontinued Medications Generic Name Dose Route Start Last Admin Trade Name Freq PRN Reason Stop Dose Admin Al Hydroxide/Mg Hydroxide 30 ml 09/30/17 19:28 Gi Cocktail PO 09/30/17 19:29 ONETIME ONE Diltiazem HCl 25 mg 09/30/17 17:48 Diltiazem IVPUSH 09/30/17 17:49 ONETIME ONE Diltiazem HCl 20 mg 09/30/17 17:52 09/30/17 18:12 Diltiazem IVPUSH 09/30/17 17:53 20 mg ONETIME ONE Administration Hydroxyzine HCl 50 mg 09/30/17 17:46 09/30/17 18:08 Atarax PO 09/30/17 17:47 50 mg ONETIME ONE Administration Sodium Chloride 1,000 mls @ 1,000 mls/hr 09/30/17 18:01 09/30/17 18:11 Normal Saline IV 09/30/17 19:00 1,000 mls/hr ONETIME ONE Administration Potassium Chloride 20 meq/ 50 mls @ 50 mls/hr 09/30/17 18:31 09/30/17 18:45 Premix IV 09/30/17 19:30 50 mls/hr ONETIME ONE Administration - Re-Assessments/Exams Free Text/Narrative Re-Assessment/Exam: 09/30/17 18:27 Post Cardizem and hydroxyzine-15mins: heart rate 123. Pt more relaxed chest discomfort gone. Pt conversing. Shaking minimal. Pt reports feeling much better Departure - Departure Disposition: Refer to Observation Clinical Impression: Tachycardia, Hypokalemia, Hypomagnesemia - My Orders Last 24 Hours: My Active Orders 09/30/17 19:31 Admission Status [Patient Status] [ADT] Routine - Assessment/Plan Last 24 Hours: My Active Orders 09/30/17 19:31 Admission Status [Patient Status] [ADT] Routine Assessment:: 1. Tachycardia Plan: 1. EKG completed in the ER reviewed results with the patient 2. Labs completed in the ER reviewed results with the patient 3. IV with normal saline bolus provided 4. Cardizem IV blous given for tachycardia heart rate in the 140s 5. Hydroxyzine HCL given for anxiety 6. Critical K+ 2.5. KCL given IV in ER <Bj Read - Last Filed: 09/30/17 19:37> ED HPI GENERAL MEDICAL PROBLEM Middle Chest Pain Score (Numeric/FACES): 7 Departure - Departure Time of Disposition: 19:36 Reason for Transfer *Q: Other Condition: Good ED Communication - ED Communication Date/Time Date: 09/30/17 Time Called: 19:19 - Discussed Case With (1) Discussed Case With (1): Outpatient Provider Person/s Notified (1): Sanam Woodson - Conversation Summary Outpatient Provider Agreed to Follow-up on this Patient: Yes Patient Aware of Amendments fo Care Plan: Yes - Assessment/Plan Plan: Case discussed with Dr. Teofilo Woodson. Patient will be admitted obs for tachycardia and hypokalemia. Plan that patient will stay <48 hours.
[2017-09-30] MEDS ORDERED: Sodium Chloride 0.9% 1,000 ML IV ONE (18:01)
[2017-09-30 18:30] LABS: CHLORIDE,CL 107 mmol/L (98-107); SODIUM,NA 143 mmol/L (136-145)
[2017-09-30] MEDS ORDERED: Potassium Chloride 20 MEQ in Premix Bag 1 BAG IV ONE (18:31)
[2017-09-30] MEDS ORDERED: GI Cocktail Oral Solution 30 ML PO ONE (19:28)
[2017-09-30] MEDS ORDERED: Potassium Chloride 20 MEQ Tab.ER PO ONE (19:42)
[2017-09-30] MEDS ORDERED: Aluminum Hydroxide/Magnesium Hydroxide/Simethicone Susp 30 ML Cup PO PRN (19:44)
[2017-09-30] MEDS ORDERED: Ibuprofen 200 MG Tab PO PRN (19:44)
[2017-09-30] MEDS ORDERED: Albuterol 0.083% 2.5 MG/3 ML Neb Soln INH PRN (19:44)
[2017-09-30] MEDS ORDERED: Sodium Chloride 0.9% with KCl 1,000 ML IV SCH (19:45)
--- NOTE | 2017-09-30 19:52 | PCM.HP ---
H&P History of Present Illness - General Date of Service: 09/30/17 Admit Problem/Dx: Admission Diagnosis/Problem Admission Diagnosis/Problem Tachycardia Hypokalemia Hypomagnesemia Source of Information: Patient, Family, Old Records, RN, RN Notes Reviewed History Limitations: Reports: No Limitations - History of Present Illness Initial Comments - Free Text/Narative: Patient comes into the emergency Department today with complaints of tachycardia , shaky, heart palpatations. Patient has a long-standing history of tachycardia events. She has been seen by a cremator and director regulatory affairs related to abnormal labs in the past with hopes of figuring out the cause of the tachycardia. She has been diagnosed with hypokalemia and hypomagnesia. Patient was last seen in our emergency department presently 3 months ago for the similar incident. Patient was given KCL and transferred to [place] for further management. She was placed on verapamil and metoprolol. Patient had a few follow -up appointments with them and they ruled out anything cardiac-strong and stated the cause of high potassium levels is unknown etiology and stopped her verapamil and metoprolol. Patient has been trying to regulate her potassium however they have been unable to find an etiology for it. Patient comes in today with a sudden onset of tachycardia approximately 6 hours ago. She tried to slow her heart rate down at home. She was unsuccessful resulting in her presenting to the ER. She denies any shortness of breath but she states that she is having chest discomfort related to the heart palpitations and has become dizzy and lightheaded well. She denies any pitting edema, diarrhea, vomiting, or fever. While in the ER, the patient received IV KCL, GI cocktail, and IV Cardiazem. Her heart rate remained in the 120's at the time of this admission. Her chest discomfort at resolved after the GI cocktail. Patient remained hemodynamically stable while in the ED. Onset of Symptoms: Reports: Today, Sudden Middle Chest Pain Score (Numeric/FACES): 7 - Related Data Allergies/Adverse Reactions: Allergies Allergy/AdvReac Type Severity Reaction Status Date / Time adhesive tape Allergy Hives Verified 09/30/17 18:30 gabapentin Allergy Cannot Verified 09/30/17 18:30 Remember latex Allergy Hives Verified 09/30/17 18:30 isoniazid AdvReac Unknown Seizure Verified 09/30/17 18:30 tramadol AdvReac Unknown Seizure Verified 09/30/17 18:30 Home Medications: Home Meds Acetaminophen 650 mg PO Q4H PRN 05/10/17 [History] Albuterol [Proair HFA] 1 puff INH Q4H PRN 05/10/17 [History] Ibuprofen 800 mg PO TID PRN 05/10/17 [History] Mag Carb/Al Hydrox/Alginic Ac [Gaviscon Liquid] 30 ml PO Q4H PRN 05/10/17 [ History] Magnesium Oxide 400 mg PO BID 05/30/17 [History] Pramipexole Di-HCl [Mirapex] 0.125 mg PO BEDTIME 06/12/17 [History] Hydrocortisone [Cortef] 10 mg ASDIRECTED 09/30/17 [History] Sertraline [Zoloft] 50 mg PO DAILY 09/30/17 [History] Past Medical History Cardiovascular History: Reports: Arrhythmia Other Cardiovascular History: tachycardia Respiratory History: Reports: Asthma Gastrointestinal History: Reports: GERD DIRECTOR OF ACCOUNTING History: Reports: Other (See Below) Other OB/BYN History: dysmenorrhea Psychiatric History: Reports: Anxiety, Depression, Psychosis, Schizophrenia, Suicidal Ideation Endocrine/Metabolic History: Reports: Obesity/BMI 30+ - Infectious Disease History Infectious Disease History: Reports: Other (See Below) 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 - Past Surgical History Respiratory Surgical History: Reports: Thoracotomy GI Surgical History: Reports: Cholecystectomy, Colonoscopy Female Surgical History: Reports: Hysterectomy Other Female Surgeries/Procedures: hysterectomy on 02/04/16 Other Musculoskeletal Surgeries/Procedures:: foot surgery Social & Family History - Family History Family Medical History: Noncontributory - Tobacco Use Smoking Status *Q: Current Every Day Smoker Years of Tobacco use: 20 Packs/Tins Daily: 1 - Caffeine Use Caffeine Use: Reports: None - Recreational Drug Use Recreational Drug Use: No - Sexual History Sexual History: Reports: Same Sex Partner, Single Partner - Living Situation & Occupation Living situation: Reports: , with Spouse Occupation: Employed H&P Review of Systems - Review of Systems: Review Of Systems: See Below General: Denies: Fever, Chills, Weakness Pulmonary: Denies: Shortness of Breath, Cough Cardiovascular: Reports: Palpitations, Lightheadedness. Denies: Chest Pain, Edema Gastrointestinal: Denies: Abdominal Pain, Nausea, Vomiting Skin: Reports: No Symptoms Neurological: Reports: Dizziness. Denies: Headache, Numbness, Paresthesia, Tingling Exam - Exam Exam: See Below - Vital Signs Vital Signs: Last Vital Signs Temp 36.9 C 09/30/17 17:40 Pulse 122 H 09/30/17 18:30 Resp 16 09/30/17 18:30 BP 127/88 09/30/17 18:30 Pulse Ox 98 09/30/17 17:40 Weight: 99.79 kg - Exam General: Alert, Oriented, Cooperative Lungs: Clear to Auscultation, Normal Respiratory Effort Cardiovascular: Regular Rhythm, Normal S1, Normal S2, Tachycardia GI/Abdominal Exam: Normal Bowel Sounds, Soft, Non-Tender Extremities: Normal Inspection Peripheral Pulses: 2+: Radial (L), Radial (R) Skin: Warm, Dry, Intact Neuro Extensive - Mental Status: Alert, Oriented x3 - Patient Data Lab Results Last 24 hrs: Laboratory Results - last 24 hr 09/30/17 09/30/17 09/30/17 Range/Units 18:00 18:00 18:00 WBC 11.4 H (4.0-10.0) x10^3/uL RBC 4.64 (4.00-5.50) x10^6/uL Hgb 14.2 (12.0-16.0) g/dL Hct 41.4 (33.0-47.0) % MCV 89.2 D (78.0-93.0) fL MCH 30.6 (26.0-32.0) pg MCHC 34.3 (32.0-36.0) g/dL RDW Coeff of Dionna 13.5 (10.0-15.0) % Plt Count 216 (130-400) x10^3/uL Neut % (Auto) 77.6 (50.0-80.0) % Lymph % (Auto) 13.4 L (25.0-50.0) % [place] % (Auto) 8.6 (2.0-11.0) % Eos % (Auto) 0.3 (0.0-4.0) % Baso % (Auto) 0.1 L (0.2-1.2) % Sodium 143 (136-145) mmol/L Potassium 2.5 L* (3.5-5.1) mmol/L Chloride 107 (98-107) mmol/L Carbon Dioxide 22 (21-32) mmol/L Anion Gap 16.5 (10-20) mmol/L BUN 4 L (7-18) mg/dL Creatinine 0.8 (0.55-1.02) mg/dL Est Cr Clr Drug Dosing TNP Estimated GFR (MDRD) > 60 Glucose 130 H (74-106) mg/dL Calcium 8.5 (8.5-10.1) mg/dL Corrected Calcium 8.82 (8.5-10.1) mg/dL Magnesium 1.6 L (1.8-2.4) mg/dL Total Bilirubin 0.2 (0.2-1.0) mg/dL AST 13 L (15-37) U/L ALT 20 (14-59) U/L Alkaline Phosphatase 64 (46-116) U/L Troponin I < 0.017 (<=0.056) ng/mL NT-Pro-B Natriuret Pep 41 (<=125) pg/mL Total Protein 7.2 (6.4-8.2) g/dL Albumin 3.6 (3.4-5.0) g/dL Globulin 3.6 Albumin/Globulin Ratio 1.00 Result Diagrams: 09/30/17 18:00 09/30/17 18:00 *Q Meaningful Use (ADM) - VTE *Q VTE Criteria *Q: Patient is not at risk for DVT or falls at time of this admission - Problem List (1) Tachycardia SNOMED Code(s): 3142256 ICD Code: R00.0 - TACHYCARDIA, UNSPECIFIED Status: Acute Priority: High Current Visit: Yes (2) Hypokalemia SNOMED Code(s): 87911206 ICD Code: E87.6 - HYPOKALEMIA Status: Acute Priority: High Current Visit: Yes (3) Hypomagnesemia SNOMED Code(s): 083151074 ICD Code: E83.42 - HYPOMAGNESEMIA Status: Acute Priority: Medium Current Visit: Yes (4) Anxiety SNOMED Code(s): 40918207 ICD Code: F41.9 - ANXIETY DISORDER, UNSPECIFIED Status: Chronic Priority : Low Current Visit: No (5) Depression SNOMED Code(s): 42917662 ICD Code: F32.9 - MAJOR DEPRESSIVE DISORDER, SINGLE EPISODE, UNSPECIFIED Status: Chronic Priority: Low Current Visit: No Qualifiers: Depression Type: major depressive disorder Major depression recurrence: recurrent Active/Remission status: currently active Psychotic features: without psychotic features (6) GERD (gastroesophageal reflux disease) SNOMED Code(s): 493845732 ICD Code: K21.9 - GASTRO-ESOPHAGEAL REFLUX DISEASE WITHOUT ESOPHAGITIS Status: Chronic Priority: Low Current Visit: No Qualifiers: Esophagitis presence: with esophagitis Qualified Code(s): K21.0 - Gastro- esophageal reflux disease with esophagitis Problem List Initiated/Reviewed/Updated: Yes Orders Last 24hrs: Active Orders 24 hr Category Date Time Status Patient Status [ADT] Routine ADT 09/30/17 19:39 Ordered Ambulate [RC] ASDIRECTED Care 09/30/17 19:39 Ordered Cardiac Monitoring [RC] CONTINUOUS Care 09/30/17 19:40 Ordered EKG Documentation Completion [RC] STAT Care 09/30/17 17:47 Active Height and Weight [RC] UPON Care 09/30/17 19:39 Ordered Intake and Output [RC] QSHIFT Care 09/30/17 19:40 Ordered Oxygen Therapy [RC] PRN Care 09/30/17 19:39 Ordered Up With Assistance [RC] ASDIRECTED Care 09/30/17 19:39 Ordered VTE/DVT Education [RC] PER UNIT ROUTINE Care 09/30/17 19:39 Ordered Vital Signs [RC] Q4H Care 09/30/17 19:39 Ordered Heart Healthy Diet [DIET] Diet 09/30/17 Breakfast Ordered BASIC METABOLIC PANEL,BMP [CHEM] Routine Lab 10/01/17 05:11 Ordered MAGNESIUM [CHEM] Routine Lab 10/01/17 05:11 Ordered Acetaminophen [Tylenol] Med 09/30/17 19:44 Ordered 650 mg PO Q4H PRN Albuterol [Take Home: Albuterol 6.7 GM, 1 INH Pack] Med 09/30/17 19:44 Ordered 1 puff INH Q4H PRN Diltiazem [Cardizem CD] Med 09/30/17 19:45 Ordered 120 mg PO DAILY Hydrocortisone [Cortef] Med 09/30/17 19:45 Ordered 10 mg PO ASDIRECTED Ibuprofen [Motrin] Med 09/30/17 19:44 Ordered 800 mg PO TID PRN Mag Carb/Al Hydrox/Alginic Ac [Gaviscon Liquid] Med 09/30/17 19:44 Ordered 30 ml PO Q4H PRN Magnesium Oxide Med 09/30/17 20:00 Ordered 400 mg PO BID Potassium Chloride [Klor-Con M20] Med 09/30/17 19:42 Once 40 meq PO ONETIME ONE Pramipexole Di-HCl [Mirapex] Med 09/30/17 20:00 Ordered 0.125 mg PO BEDTIME Sertraline [Zoloft] Med 10/01/17 08:00 Ordered 50 mg PO DAILY Sodium Chloride 0.9% [Saline Flush] Med 09/30/17 17:48 Active 10 ml FLUSH ASDIRECTED PRN Sodium Chloride 0.9% with KCl [Normal Saline with 40 Med 09/30/17 19:45 Ordered mEq KCl] 1,000 ml IV ASDIRECTED Peripheral IV Insertion Adult [OM.PC] Stat Oth 09/30/17 17:47 Ordered Resuscitation Status Routine Resus Stat 09/30/17 19:39 Ordered Medication Orders Acetaminophen (Tylenol) 650 mg PO Q4H PRN PRN Reason: Pain Albuterol (Take Home: Albuterol 6.7 Gm, 1 Inh Pack) packet INH Q4H PRN PRN Reason: Shortness of Breath Diltiazem HCl (Cardizem Cd) 120 mg PO DAILY EMILY Potassium Chloride/Sodium Chloride (Normal Saline With 40 Meq Kcl) 1,000 mls @ 100 mls/hr IV ASDIRECTED EMILY Ibuprofen (Motrin) 800 mg PO TID PRN PRN Reason: Pain Magnesium Oxide (Magnesium Oxide) 400 mg PO BID EMILY Non-Formulary Medication (Hydrocortisone [Cortef]) 10 mg PO ASDIRECTED EMILY Non-Formulary Medication (Mag Carb/Al Hydrox/Alginic Ac [Gaviscon Liquid]) 30 ml PO Q4H PRN PRN Reason: Heartburn Non-Formulary Medication (Pramipexole Di-Hcl [Mirapex]) 0.125 mg PO BEDTIME EMILY Potassium Chloride (Klor-Con M20) 40 meq PO ONETIME ONE Stop: 09/30/17 19:43 Sertraline HCl (Zoloft) 50 mg PO DAILY EMILY Sodium Chloride (Saline Flush) 10 ml FLUSH ASDIRECTED PRN PRN Reason: Keep Vein Open Assessment/Plan Comment:: 37-year-old female patient with a past medical history of tachycardia, anxiety, depression, GERD is admitted to the observation unit [facility] with a diagnosis of tachycardia, hypokalemia, hypomagnesemia. The patient will have IV and by mouth potassium given for replacement of her low potassium level. I will continue the patient on her home magnesium as this will be adequate since her magnesium level is only 1.6 on admission. I will start the patient on IV fluids with potassium at 100 mL an hour as a maintenance. I will recheck a basic metabolic panel and magnesium in the morning. The patient wishes to be a full code. The patient does agree to transfer to a higher level of care should the need arise. I do anticipate the patient only being admitted for less than 48 hours. I will also start the patient on by mouth Cardizem low dose 120 mg and titrate as needed to keep her heart rate less than 100. Continue home medications the same.
[2017-09-30] MEDS ORDERED: Pramipexole 0.125 MG Tab PO SCH (20:00)
[2017-09-30] MEDS ORDERED: Diltiazem 120 MG Cap.CD PO SCH (20:00)
[2017-09-30] MEDS: Acetaminophen 325 MG Tab PO PRN (21:37)
[2017-09-30] MEDS ORDERED: Magnesium Oxide 400 MG Tab PO ONE (22:45)
[2017-09-30] MEDS: Magnesium Oxide 400 MG Tab PO SCH (22:46)
[2017-10-01] MEDS ORDERED: Hydrocortisone 20 MG Tab PO SCH (07:00)
[2017-10-01] MEDS ORDERED: Sertraline 50 MG Tab PO SCH (08:00)
[2017-10-01 08:11] LABS: CHLORIDE,CL 111 mmol/L (98-107); SODIUM,NA 143 mmol/L (136-145)
[2017-10-01] MEDS: Acetaminophen 325 MG Tab PO PRN (08:45)
[2017-10-01] MEDS: Magnesium Oxide 400 MG Tab PO SCH (08:45)
[2017-10-01] MEDS ORDERED: LORazepam 1 MG Tab PO ONE (09:47)
[2017-10-01] MEDS ORDERED: LORazepam 1 MG Tab PO PRN (09:48)
[2017-10-01 10:05] VITALS: BP 114/65
--- NOTE | 2017-10-01 11:42 | DISCH ---
PRIMARY DISCHARGE DIAGNOSES: 1. Hypokalemia. 2. Sinus tachycardia. 3. Chest pain. 4. Hypokalemia. 5. Hypomagnesemia. 6. Anxiety. 7. History of depression. 8. Gastroesophageal reflux disease. 9. Obesity. 10.Smoking. REASON FOR ADMISSION: On the date of admission, this 37-year-old female with multiple previous admissions and ER visits for the same symptoms of tachycardia and hypokalemia presented to the ER with heart rates up to 160s. She reports she had been on increasing stress over the past week as her nephew went into the [employer]. Her potassium, which had previously been stopped due to her being on a diuretic that caused hyperkalemia, had fallen to 2.5. She also had been stopped a couple months ago on her metoprolol and verapamil by Cardiology as they did not feel it was cardiac; however, no recent office visits have taken place, and she did not come in for her recent clinic visit with me. She was given potassium replacement, both IV and orally. Potassium improved to 4.4 by the next morning, but she was still having chest discomfort. She denied that the GI cocktail had helped. It was 6/10. She was receiving Motrin and ibuprofen. She did get some hydroxyzine initially in the ER. On the morning of discharge, she did get a dose of Ativan, which seemed to help the pain go from a 6 to 4. I did do a D-dimer test, which was negative. The patient states this is the worst her chest discomfort has been. It has been worse with deep breaths, but she admits she has been smoking more, especially yesterday. She has not had any cough. No fever or chills. Otherwise, around midnight last night, her heart rate came back down to a normal sinus rhythm in the 70s and 80s. She states she was sleeping at that time. Otherwise, her blood pressure at its highest when she came into the ER was 146/81 and then 146/90, had improved, and was 114/65 on discharge. She did also receive some IV Cardizem in the ER to slower heart rates. She was admitted for observation and cares. DISCHARGE PLAN AND INSTRUCTIONS: 1. She will follow up in the clinic with Dr. Leigh on 10/10/2017, as previously planned. She is going to have a BMP to check the potassium on Tuesday. She was discharged with 0.5 mg pill or a half of a 1 mg Ativan to take up to 3 times a day as needed over the weekend for anxiety, #5 pills were given. She is instructed to take her Zoloft daily as apparently she has not been compliant with that. 2. She will restart her metoprolol 25 mg twice daily on discharge, and she will continue hydrocortisone until seen by Endocrinology in October. Discharge vitals included a temperature of 97.7, pulse 76, blood pressure 114/65, respiratory rate 16, and O2 of 99% on room air. In general, she is in no acute distress. Her heart has regular rate and rhythm. S1 and S2 without murmur. Lungs sounds are clear to auscultation bilaterally without crackles or wheezes. Extremities are warm and dry, no edema. Mental status, she is alert and orientated x3. MKA: 10/01/2017 11:04:18 MODL: 10/01/2017 11:37:57 /[id number]
== END 2017-10-01 11:32 | disposition home or self-care (01) ==
LOC: VM.ED 17:39 → VM.MS 19:31
PROVIDERS: ADMIT Nurse Practitioner Family; ATTEND Nurse Practitioner Family
DX: R00.0 Tachycardia, unspecified (principal); E87.6 Hypokalemia; R07.9 Chest pain, unspecified; K21.9 Gastro-esophageal reflux disease without esophagitis; E83.42 Hypomagnesemia; E66.9 Obesity, unspecified; F41.9 Anxiety disorder, unspecified; F17.210 Nicotine dependence, cigarettes, uncomplicated; Z79.899 Other long term (current) drug therapy; Z88.5 Allergy status to narcotic agent; Z88.8 Allergy status to other drugs, medicaments and biological substances; Z91.040 Latex allergy status; Z91.048 Other nonmedicinal substance allergy status
CPT/HCPCS: 36415; 80048; 80053; 83735; 83880; 84484; 85025; 85379; 93005; 96361; 96365; 96375; 99285; A9270; J3480; J3490; J7030; G0378

== ENCOUNTER 2017-10-28 16:15 | Observation (INO) | payer MEDICAID ==
[2017-10-28] MEDS ORDERED: Diltiazem 25 MG/5 ML SDV IVPUSH ONE ×2 (16:43→17:55)
[2017-10-28] MEDS ORDERED: Lactated Ringers 1,000 ML IV SCH (16:45)
[2017-10-28] MEDS ORDERED: Ketorolac 30 MG/ML SDV IVPUSH ONE ×2 (17:13→23:23)
[2017-10-28 17:30] LABS: CHLORIDE,CL 109 mmol/L (98-107); SODIUM,NA 143 mmol/L (136-145)
[2017-10-28 17:33] LABS: ANION GAP 13.6 mmol/L (10-20)
[2017-10-28] MEDS ORDERED: Morphine 4 MG/ML Syringe IVPUSH ONE (19:52)
[2017-10-28] MEDS: Enoxaparin 40 MG/0.4 ML Syringe SUBCUT SCH (19:58)
[2017-10-28] MEDS: Sodium Chloride 0.9% with KCl 1,000 ML IV SCH (19:58)
[2017-10-28] MEDS: Sodium Chloride 0.9% 10 ML Syringe FLUSH PRN (20:25)
--- NOTE | 2017-10-28 21:15 | EDM.PDOC ---
ED HPI GENERAL MEDICAL PROBLEM - General Chief Complaint: Cardiovascular Problem Time Seen by Provider: 10/28/17 16:20 Source of Information: Reports: Patient History Limitations: Reports: No Limitations - History of Present Illness INITIAL COMMENTS - FREE TEXT/NARRATIVE: Pt. presents to ER with complaints of palpitations and headache. She states that she woke up this AM not feeling well, and states that the headache was gradual in onset. She also has been having palpitations throughout the day today. She denies any chest pain or dyspnea. Her only other complaint is that of fatigue. She denies any fever or chills. No nausea, vomiting, or diarrhea. Denies any neck stiffness. Onset: Today Location: Reports: Head, Chest, Generalized Headache Pain Score (Numeric/FACES): 10 - Related Data Allergies Allergy/AdvReac Type Severity Reaction Status Date / Time adhesive tape Allergy Hives Verified 10/28/17 16:36 gabapentin Allergy Cannot Verified 10/28/17 16:36 Remember latex Allergy Hives Verified 10/28/17 16:36 isoniazid AdvReac Unknown Seizure Verified 10/28/17 16:36 tramadol AdvReac Unknown Seizure Verified 10/28/17 16:36 Home Meds: Home Meds Acetaminophen 650 mg PO Q4H PRN 05/10/17 [History] Albuterol [Proair HFA] 1 puff INH Q4H PRN 05/10/17 [History] Magnesium Oxide 400 mg PO BID 05/30/17 [History] Pramipexole Di-HCl [Mirapex] 0.125 mg PO BEDTIME 06/12/17 [History] Hydrocortisone [Cortef] 10 mg PO DAILY@12 09/30/17 [History] Sertraline [Zoloft] 75 mg PO DAILY 09/30/17 [History] hydrOXYzine HCl [hydrOXYzine] 25 mg PO TID 09/30/17 [History] Metoprolol Tartrate [Lopressor] 25 mg PO Q12HR #60 tab 10/01/17 [Rx] Hydrocortisone [Cortef] 15 mg PO DAILY 10/28/17 [History] LORazepam [Ativan] 0.5 mg PO BID PRN 10/28/17 [History] Mag Carb/Al Hydrox/Alginic Ac [Gaviscon Extra Strength Liquid] 30 ml PO Q4H PRN 10/28/17 [History] Meloxicam [Mobic] 7.5 mg PO DAILY 10/28/17 [History] Omeprazole Magnesium [Prilosec Otc] 20 mg PO DAILY 10/28/17 [History] Ondansetron HCl [Zofran] 4 mg PO TID PRN 10/28/17 [History] Potassium Chloride 15 meq PO DAILY 10/28/17 [History] Past Medical History - Past Health History Medical/Surgical History: Denies Medical/Surgical History HEENT History: Reports: None Cardiovascular History: Reports: Arrhythmia Other Cardiovascular History: inappropriate sinus tachycardia. tachyarrhythmia Respiratory History: Reports: Asthma Gastrointestinal History: Reports: GERD Other Gastrointestinal History: Heartburn EXERCISE PHYSIOLOGIST History: Reports: Polycystic Ovaries, Other (See Below) Other EXERCISE PHYSIOLOGIST History: dysmenorrhea Neurological History: Reports: Seizure Psychiatric History: Reports: Anxiety, Depression, Psychosis, Schizophrenia, Suicidal Ideation Other Psychiatric History: Schizoaffective Disorder Endocrine/Metabolic History: Reports: Obesity/BMI 30+, Other (See Below) Other Endocrine/Metabolic History: adrenal insufficiency Hematologic History: Reports: None Immunologic History: Reports: None Oncologic (Cancer) History: Reports: None - Infectious Disease History Infectious Disease History: Reports: Other (See Below) 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 - Past Surgical History Respiratory Surgical History: Reports: Thoracotomy GI Surgical History: Reports: Cholecystectomy, Colonoscopy Female Surgical History: Reports: Hysterectomy Other Female Surgeries/Procedures: hysterectomy on 02/04/16 Other Musculoskeletal Surgeries/Procedures:: foot surgery Social & Family History - Family History Family Medical History: Noncontributory - Tobacco Use Smoking Status *Q: Current Every Day Smoker Years of Tobacco use: 20 Packs/Tins Daily: 0.5 Second Hand Smoke Exposure: Yes - Caffeine Use Caffeine Use: Reports: None - Recreational Drug Use Recreational Drug Use: No - Sexual History Sexual History: Reports: Same Sex Partner, Single Partner - Living Situation & Occupation Living situation: Reports: , with Spouse Occupation: Employed ED ROS GENERAL - Review of Systems Review Of Systems: See Below Constitutional: Reports: No Symptoms HEENT: Reports: No Symptoms Respiratory: Reports: No Symptoms Cardiovascular: Reports: Palpitations Endocrine: Reports: No Symptoms GI/Abdominal: Reports: No Symptoms : Reports: No Symptoms Musculoskeletal: Reports: No Symptoms Skin: Reports: No Symptoms Neurological: Reports: Headache Psychiatric: Reports: No Symptoms Hematologic/Lymphatic: Reports: No Symptoms Immunologic: Reports: No Symptoms ED EXAM, GENERAL - Physical Exam Exam: See Below General Appearance: Alert, WD/WN, No Apparent Distress Eye Exam: Bilateral Eye: EOMI, Normal Fundi, Normal Inspection, PERRL Nose: Normal Inspection, Normal Mucosa, No Blood Throat/Mouth: Normal Inspection, Normal Lips, Normal Teeth, Normal Gums, Normal Oropharynx, Normal Voice, No Airway Compromise Head: Atraumatic, Normocephalic Neck: Normal Inspection, Supple, Non-Tender, Full Range of Motion Respiratory/Chest: No Respiratory Distress, Lungs Clear, Normal Breath Sounds, No Accessory Muscle Use, Chest Non-Tender Cardiovascular: Normal Peripheral Pulses, No Edema, No Gallop, No JVD, No Murmur , No Rub, Tachycardia GI/Abdominal: Normal Bowel Sounds, Soft, Non-Tender, No Organomegaly, No Distention, No Abnormal Bruit, No Mass Back Exam: Normal Inspection, Full Range of Motion, NT Extremities: Normal Inspection, Normal Range of Motion, Non-Tender, Normal Capillary Refill, No Pedal Edema Neurological: Alert, Oriented, CN II-XII Intact, Normal Cognition, Normal Gait, Normal Reflexes, No Motor/Sensory Deficits Psychiatric: Normal Affect, Normal Mood Skin Exam: Warm, Dry, Intact, Normal Color, No Rash Course - Vital Signs Last Recorded V/S: Last Vital Signs Temp 37.3 C 10/28/17 18:20 Pulse 108 H 10/28/17 19:07 Resp 20 10/28/17 18:20 BP 120/79 10/28/17 19:07 Pulse Ox 97 10/28/17 18:20 - Orders/Labs/Meds Orders: Active Orders 24 hr Category Date Time Status Chest 1V Frontal [CR] Stat Exams 10/28/17 16:42 Taken Lactated Ringers [Ringers, Lactated] 1,000 ml Med 10/28/17 16:45 Active IV ASDIRECTED Sodium Chloride 0.9% [Saline Flush] Med 10/28/17 16:42 Active 10 ml FLUSH ASDIRECTED PRN Peripheral IV Insertion Adult [OM.PC] Routine Oth 10/28/17 16:43 Ordered Medication Orders Enoxaparin Sodium (Lovenox) 40 mg SUBCUT DAILY EMILY Last Admin: 10/28/17 19:58 Dose: 40 mg Lactated Ringer's (Ringers, Lactated) 1,000 mls @ 500 mls/hr IV ASDIRECTED EMILY Last Admin: 10/28/17 17:00 Dose: 500 mls/hr Potassium Chloride/Sodium Chloride (Normal Saline With 40 Meq Kcl) 1,000 mls @ 150 mls/hr IV ASDIRECTED EMILY Last Admin: 10/28/17 19:58 Dose: 150 mls/hr Sodium Chloride (Saline Flush) 10 ml FLUSH ASDIRECTED PRN PRN Reason: Keep Vein Open Last Admin: 10/28/17 20:25 Dose: 10 ml Labs: Laboratory Tests 10/28/17 10/28/17 10/28/17 Range/Units 16:55 16:55 16:55 WBC 10.4 H (4.0-10.0) x10^3/uL RBC 4.52 (4.00-5.50) x10^6/uL Hgb 14.0 (12.0-16.0) g/dL Hct 41.1 (33.0-47.0) % MCV 90.9 (78.0-93.0) fL MCH 31.0 (26.0-32.0) pg MCHC 34.1 (32.0-36.0) g/dL RDW Coeff of Dionna 13.9 (10.0-15.0) % Plt Count 205 (130-400) x10^3/uL Neut % (Auto) 78.6 (50.0-80.0) % Lymph % (Auto) 14.1 L (25.0-50.0) % [place] % (Auto) 6.5 (2.0-11.0) % Eos % (Auto) 0.7 (0.0-4.0) % Baso % (Auto) 0.1 L (0.2-1.2) % PT 10.5 (9.6-11.4) SEC INR 1.0 L (2.0-3.5) Sodium 143 (136-145) mmol/L Potassium 2.6 L* D (3.5-5.1) mmol/L Chloride 109 H (98-107) mmol/L Carbon Dioxide 23 (21-32) mmol/L Anion Gap 13.6 (10-20) mmol/L BUN 6 L (7-18) mg/dL Creatinine 0.9 (0.55-1.02) mg/dL Est Cr Clr Drug Dosing TNP Estimated GFR (MDRD) > 60 Glucose 148 H (74-106) mg/dL Calcium 8.8 (8.5-10.1) mg/dL Corrected Calcium 9.28 (8.5-10.1) mg/dL Phosphorus 2.2 L (2.6-4.7) mg/dL Magnesium 1.7 L (1.8-2.4) mg/dL Total Bilirubin 0.2 (0.2-1.0) mg/dL AST 8 L (15-37) U/L ALT 19 (14-59) U/L Alkaline Phosphatase 64 (46-116) U/L Troponin I < 0.017 (<=0.056) ng/mL C-Reactive Protein < 0.2 (<=0.9) mg/dL Total Protein 7.3 (6.4-8.2) g/dL Albumin 3.4 (3.4-5.0) g/dL Globulin 3.9 Albumin/Globulin Ratio 0.87 Meds: Medications Generic Name Dose Route Start Last Admin Trade Name Freq PRN Reason Stop Dose Admin Enoxaparin Sodium 40 mg 10/28/17 19:15 10/28/17 19:58 Lovenox SUBCUT 40 mg DAILY EMILY Administration Lactated Ringer's 1,000 mls @ 500 mls/hr 10/28/17 16:45 10/28/17 17:00 Ringers, Lactated IV 500 mls/hr ASDIRECTED EMILY Administration Potassium Chloride/Sodium Chloride 1,000 mls @ 150 mls/hr 10/28/17 19:15 19:58 Normal Saline With 40 Meq Kcl IV 150 mls/hr ASDIRECTED EMILY Administration Sodium Chloride 10 ml 10/28/17 16:42 10/28/17 20:25 Saline Flush FLUSH 10 ml ASDIRECTED PRN Administration Keep Vein Open Discontinued Medications Generic Name Dose Route Start Last Admin Trade Name Freq PRN Reason Stop Dose Admin Diltiazem HCl 20 mg 10/28/17 16:43 10/28/17 17:10 Diltiazem IVPUSH 10/28/17 16:44 20 mg ONETIME ONE Administration Diltiazem HCl 25 mg 10/28/17 17:55 10/28/17 19:00 Diltiazem IVPUSH 10/28/17 17:56 25 mg ONETIME ONE Administration Ketorolac Tromethamine 30 mg 10/28/17 17:13 10/28/17 17:45 Toradol IVPUSH 10/28/17 17:14 30 mg ONETIME ONE Administration Morphine Sulfate 4 mg 10/28/17 19:52 10/28/17 20:24 Morphine IVPUSH 10/28/17 19:53 4 mg ONETIME ONE Administration Departure - Departure Time of Disposition: 18:30 Disposition: Refer to Observation Clinical Impression: Atrial flutter Headache Qualifiers: Headache type: unspecified Headache chronicity pattern: episodic headache Intractability: not intractable Qualified Code(s): R51 - Headache - My Orders Last 24 Hours: My Active Orders 10/28/17 16:42 Chest 1V Frontal [CR] Stat Sodium Chloride 0.9% [Saline Flush] 10 ml FLUSH ASDIRECTED PRN 10/28/17 16:43 Peripheral IV Insertion Adult [OM.PC] Routine 10/28/17 16:45 Lactated Ringers [Ringers, Lactated] 1,000 ml IV ASDIRECTED - Assessment/Plan Last 24 Hours: My Active Orders 10/28/17 16:42 Chest 1V Frontal [CR] Stat Sodium Chloride 0.9% [Saline Flush] 10 ml FLUSH ASDIRECTED PRN 10/28/17 16:43 Peripheral IV Insertion Adult [OM.PC] Routine 10/28/17 16:45 Lactated Ringers [Ringers, Lactated] 1,000 ml IV ASDIRECTED Plan: Admitted observation. Pt. was given 20mg cardiazem IV and 25mg cardiazem IV. Heartrate was in the high 90s on discharge. Pt. was started on NS with 40kcl IV. Headache was treated with toradol and morphine. She is a code 1.
[2017-10-28] MEDS ORDERED: diphenhydrAMINE 50 MG/ML SDV IVPUSH ONE (23:23)
[2017-10-29] MEDS: Sodium Chloride 0.9% with KCl 1,000 ML IV SCH ×2 (00:11→09:53)
[2017-10-29] MEDS: Sodium Chloride 0.9% 10 ML Syringe FLUSH PRN ×3 (00:12→19:50)
[2017-10-29] MEDS ORDERED: Diltiazem 25 MG/5 ML SDV IVPUSH ONE (00:57)
[2017-10-29] MEDS ORDERED: Acetaminophen 325 MG Tab PO PRN (00:58)
[2017-10-29] MEDS ORDERED: Ondansetron 4 MG Tab.DIS PO PRN (00:58)
[2017-10-29] MEDS ORDERED: Aluminum Hydroxide/Magnesium Hydroxide/Simethicone Susp 30 ML Cup PO PRN (00:58)
[2017-10-29] MEDS ORDERED: LORazepam 0.5 MG Tab PO PRN (00:58)
[2017-10-29] MEDS ORDERED: Diltiazem IR 60 MG Tab PO SCH ×2 (02:00→16:00)
[2017-10-29] MEDS ORDERED: Diltiazem IR 30 MG Tab ONE (02:16)
[2017-10-29] MEDS: Omeprazole 20 MG Cap.CR PO SCH (06:37)
[2017-10-29] MEDS: Sertraline 25 MG Tab PO SCH (09:16)
[2017-10-29] MEDS: hydrOXYzine HCl 25 MG Tab PO SCH ×3 (09:16→19:50)
[2017-10-29] MEDS: Potassium Chloride 10 MEQ Tab.ER PO SCH (09:16)
[2017-10-29] MEDS: Magnesium Oxide 400 MG Tab PO SCH ×2 (09:16→19:50)
[2017-10-29] MEDS: Enoxaparin 40 MG/0.4 ML Syringe SUBCUT SCH (09:17)
[2017-10-29] MEDS: Hydrocortisone 20 MG Tab PO SCH (11:43)
[2017-10-29] MEDS: Diltiazem IR 60 MG Tab PO SCH ×3 (13:26→21:51)
[2017-10-29 17:55] LABS: CHLORIDE,CL 108 mmol/L (98-109); SODIUM,NA 142 mmol/L (138-146)
[2017-10-29 18:03] LABS: ANION GAP 14.9 mmol/L (10-20)
--- NOTE | 2017-10-29 18:14 | PCM.PN ---
- General Info Date of Service: 10/29/17 Admission Dx/Problem (Free Text): Atrial flutter Subjective Update: Pt. headache has resolved. She states that she is feeling better after receiving the thorazine. She did convert back to a-flutter at a rate of 150. She was again given cardizem 25mg IV and started on oral cardizem at 60mg BID. She is tolerating this well. Occasionally her heartrate will increased to 120- 130 range for a few seconds. Pt. states that she does feel somewhat lightheaded and has palpitations when this happens. Functional Status: Reports: Pain Controlled - Review of Systems General: Reports: No Symptoms HEENT: Reports: No Symptoms Pulmonary: Reports: No Symptoms Cardiovascular: Reports: Palpitations Gastrointestinal: Reports: No Symptoms Genitourinary: Reports: No Symptoms Musculoskeletal: Reports: No Symptoms Skin: Reports: No Symptoms Neurological: Reports: No Symptoms Psychiatric: Reports: No Symptoms - Patient Data Vitals - Most Recent: Last Vital Signs Temp 37.2 C 10/29/17 14:00 Pulse 89 10/29/17 14:00 Resp 20 10/29/17 14:00 BP 117/76 10/29/17 14:00 Pulse Ox 98 10/29/17 14:00 Weight - Most Recent: 102.058 kg I&O - Last 24 Hours: Intake & Output 10/29/17 10/29/17 10/29/17 06:59 14:59 22:59 Intake Total 2041 1008 460 Output Total 1850 450 Balance 191 558 460 Lab Results Last 24 Hours: Laboratory Results - last 24 hr 10/29/17 10/29/17 Range/Units 07:33 17:30 WBC 5.7 (4.0-10.0) x10^3/uL RBC 4.10 (4.00-5.50) x10^6/uL Hgb 12.6 (12.0-16.0) g/dL Hct 38.4 (33.0-47.0) % MCV 93.7 H (78.0-93.0) fL MCH 30.7 (26.0-32.0) pg MCHC 32.8 (32.0-36.0) g/dL RDW Coeff of Dionna 14.5 (10.0-15.0) % Plt Count 195 (130-400) x10^3/uL Sodium 142 (138-146) mmol/L Potassium 3.9 (3.5-4.9) mmol/L Chloride 108 (98-109) mmol/L Carbon Dioxide 23 (21-32) mmol/L Anion Gap 14.9 (10-20) mmol/L BUN 4 L (7-18) mg/dL Creatinine 0.7 (0.55-1.02) mg/dL Est Cr Clr Drug Dosing TNP Estimated GFR (MDRD) > 60 Glucose 130 H (74-106) mg/dL Calcium 8.4 L (8.5-10.1) mg/dL Med Orders - Current: Current Medications Acetaminophen (Tylenol) 650 mg PO Q4H PRN PRN Reason: Pain Al Hydroxide/Mg Hydroxide (Mag-Al Plus) 30 ml PO Q4H PRN PRN Reason: gerd Diltiazem HCl (Cardizem) 60 mg PO Q8HR [facility] Last Admin: 10/29/17 14:59 Dose: Not Given Enoxaparin Sodium (Lovenox) 40 mg SUBCUT DAILY [facility] Last Admin: 10/29/17 09:17 Dose: 40 mg Hydrocortisone (Cortef) 15 mg PO DAILY [facility] Last Admin: 10/29/17 09:15 Dose: 15 mg Hydrocortisone (Cortef) 10 mg PO DAILY@12 [facility] Last Admin: 10/29/17 11:43 Dose: 10 mg Hydroxyzine HCl (Atarax) 25 mg PO TID [facility] Last Admin: 10/29/17 11:43 Dose: 25 mg Lactated Ringer's (Ringers, Lactated) 1,000 mls @ 500 mls/hr IV ASDIRECTED [facility] Last Admin: 10/28/17 17:00 Dose: 500 mls/hr Lorazepam (Ativan) 0.5 mg PO BID PRN PRN Reason: Anxiety Magnesium Oxide (Magnesium Oxide) 400 mg PO BID [facility] Last Admin: 10/29/17 09:16 Dose: 400 mg Omeprazole (Omeprazole) 20 mg PO ACBREAKFAST [facility] Last Admin: 10/29/17 06:37 Dose: 20 mg Ondansetron HCl (Zofran Odt) 4 mg PO TID PRN PRN Reason: Nausea Potassium Chloride (Klor-Con 10) 15 meq PO DAILY [facility] Last Admin: 10/29/17 09:16 Dose: 15 meq Sertraline HCl (Zoloft) 75 mg PO DAILY [facility] Last Admin: 10/29/17 09:16 Dose: 75 mg Sodium Chloride (Saline Flush) 10 ml FLUSH ASDIRECTED PRN PRN Reason: Keep Vein Open Last Admin: 10/29/17 01:17 Dose: 10 ml Discontinued Medications Diltiazem HCl (Diltiazem) 20 mg IVPUSH ONETIME ONE Stop: 10/28/17 16:44 Last Admin: 10/28/17 17:10 Dose: 20 mg Diltiazem HCl (Diltiazem) 25 mg IVPUSH ONETIME ONE Stop: 10/28/17 17:56 Last Admin: 10/28/17 19:00 Dose: 25 mg Diltiazem HCl (Diltiazem) 25 mg IVPUSH ONETIME ONE Stop: 10/29/17 00:58 Last Admin: 10/29/17 01:17 Dose: 25 mg Diltiazem HCl (Cardizem) 60 mg PO Q12H [facility] Last Admin: 10/29/17 02:18 Dose: 60 mg Diltiazem HCl (Cardizem) Confirm Administered Dose 60 mg .ROUTE .STK-MED ONE Stop: 10/29/17 02:17 Last Admin: 10/29/17 02:19 Dose: Not Given Diltiazem HCl (Cardizem) 60 mg PO Q8HR [facility] Diphenhydramine HCl (Benadryl) 50 mg IVPUSH ONETIME ONE Stop: 10/28/17 23:24 Last Admin: 10/29/17 00:06 Dose: 50 mg Potassium Chloride/Sodium Chloride (Normal Saline With 40 Meq Kcl) 1,000 mls @ 150 mls/hr IV ASDIRECTED EMILY Last Admin: 10/29/17 09:53 Dose: 150 mls/hr Chlorpromazine HCl 50 mg/ (Sodium Chloride) 52 mls @ 50 mls/hr IV ONETIME ONE Stop: 10/29/17 00:25 Last Admin: 10/29/17 00:06 Dose: 50 mls/hr Ketorolac Tromethamine (Toradol) 30 mg IVPUSH ONETIME ONE Stop: 10/28/17 17:14 Last Admin: 10/28/17 17:45 Dose: 30 mg Ketorolac Tromethamine (Toradol) 30 mg IVPUSH ONETIME ONE Stop: 10/28/17 23:24 Last Admin: 10/29/17 00:06 Dose: 30 mg Morphine Sulfate (Morphine) 4 mg IVPUSH ONETIME ONE Stop: 10/28/17 19:53 Last Admin: 10/28/17 20:24 Dose: 4 mg - Exam General: Alert, Oriented HEENT: Pupils Equal Neck: Supple Lungs: Clear to Auscultation, Normal Respiratory Effort Cardiovascular: Tachycardia, Other (palpitations) GI/Abdominal Exam: Normal Bowel Sounds, Soft, Non-Tender, No Organomegaly, No Distention, No Abnormal Bruit, No Mass Extremities: Normal Inspection, Normal Range of Motion, Non-Tender, No Pedal Edema, Normal Capillary Refill Skin: Warm, Dry, Intact - Problem List Review Problem List Initiated/Reviewed/Updated: Yes - My Orders Last 24 Hours: My Active Orders 10/28/17 17:57 Patient Status [ADT] Routine 10/28/17 18:54 Telemetry Monitoring [Cardiac Monitoring] [RC] 06,,,18,,02 10/28/17 19:05 Cardiac Monitoring [RC] 06,10,,,,02 Intake and Output [RC] , Oxygen Therapy [RC] .PRN Up With Assistance [RC] ASDIRECTED VTE/DVT Education [RC] .PRN Vital Signs [RC] ,,,,,02 Code Status [Resuscitation Status] Routine 10/28/17 19:15 Enoxaparin [Lovenox] 40 mg SUBCUT DAILY 10/29/17 00:58 Acetaminophen [Tylenol] 650 mg PO Q4H PRN Alum Hydrox/Mag Hydrox/Simeth [Mag-Al Plus] 30 ml PO Q4H PRN LORazepam [Ativan] 0.5 mg PO BID PRN Ondansetron [Zofran ODT] 4 mg PO TID PRN 10/29/17 07:00 Omeprazole 20 mg PO ACBREAKFAST 10/29/17 08:00 Hydrocortisone [Cortef] 15 mg PO DAILY Magnesium Oxide 400 mg PO BID Potassium Chloride [Klor-Con 10] 15 meq PO DAILY Sertraline [Zoloft] 75 mg PO DAILY hydrOXYzine HCl [Atarax] 25 mg PO TID 10/29/17 12:00 Hydrocortisone [Cortef] 10 mg PO DAILY@12 10/29/17 14:00 Diltiazem IR [Cardizem] 60 mg PO Q8HR 10/29/17 Breakfast Regular Diet [DIET] 11/01/17 07:00 CBC W/O DIFF,HEMOGRAM [HEME] Q3D 11/04/17 07:00 CBC W/O DIFF,HEMOGRAM [HEME] Q3D 11/07/17 07:00 CBC W/O DIFF,HEMOGRAM [HEME] Q3D 11/10/17 07:00 CBC W/O DIFF,HEMOGRAM [HEME] Q3D 11/13/17 07:00 CBC W/O DIFF,HEMOGRAM [HEME] Q3D 11/16/17 07:00 CBC W/O DIFF,HEMOGRAM [HEME] Q3D - Plan Plan:: lab analyzer is down. We will check chemistry when the machine is available. Will increase cardizem to 60mg every 8 hours. Will reevaluate this afternoon/ tomorrow and will discharge pt. when rate is consistently controlled and she is tolerating her meds.
[2017-10-30] MEDS: Diltiazem IR 60 MG Tab PO SCH (06:16)
[2017-10-30] MEDS: Omeprazole 20 MG Cap.CR PO SCH (06:16)
[2017-10-30] MEDS: Enoxaparin 40 MG/0.4 ML Syringe SUBCUT SCH (07:35)
[2017-10-30] MEDS: hydrOXYzine HCl 25 MG Tab PO SCH ×2 (07:35→12:16)
[2017-10-30] MEDS: Magnesium Oxide 400 MG Tab PO SCH (07:35)
[2017-10-30] MEDS: Potassium Chloride 10 MEQ Tab.ER PO SCH (07:35)
[2017-10-30] MEDS: Sertraline 25 MG Tab PO SCH (07:36)
[2017-10-30 09:48] VITALS: BP 115/76
[2017-10-30] MEDS ORDERED: Sodium Chloride 0.9% 10 ML Syringe FLUSH PRN (12:15)
[2017-10-30] MEDS: Hydrocortisone 20 MG Tab PO SCH (12:16)
--- NOTE | 2017-10-30 12:26 | PCM.DCSUM1 ---
Discharge Summary - Hospital Course Brief History: Patient admitted Tuesday10/28/17 for palpitations. She has had this occurance many times. Potassium level was low at 2.6, magnesium low as well at 1.7. Admitted, started on IV Cardizem and transitioned to oral. Diagnosis: Stroke: No - Discharge Data Discharge Date: 10/30/17 Discharge Disposition: Home, Self-Care 01 Condition: Good - Discharge Diagnosis/Problem(s) (1) Atrial flutter SNOMED Code(s): 9014162 ICD Code: I48.92 - UNSPECIFIED ATRIAL FLUTTER Status: Acute Priority: Medium Current Visit: Yes Qualifiers: Atrial flutter type: unspecified Qualified Code(s): I48.92 - Unspecified atrial flutter (2) Hypokalemia SNOMED Code(s): 52800747 ICD Code: E87.6 - HYPOKALEMIA Status: Acute Priority: High Current Visit: No (3) Palpitations SNOMED Code(s): 63777564 ICD Code: R00.2 - PALPITATIONS Status: Acute Priority: Medium Current Visit: No - Patient Summary/Data Recommended Follow-up Testing/Procedures: Follow up abdominal/pelvis CT with contrast. This can be done on an outpatient basis. - Patient Instructions Diet: Usual Diet as Tolerated Diet, Other: drink decaffeinated items - Discharge Plan *PRESCRIPTION DRUG MONITORING PROGRAM REVIEWED*: Not Applicable *COPY OF PRESCRIPTION DRUG MONITORING REPORT IN PATIENT GAY: Not Applicable Home Medications: Home Meds Acetaminophen 650 mg PO Q4H PRN 05/10/17 [History] Albuterol [Proair HFA] 1 puff INH Q4H PRN 05/10/17 [History] Magnesium Oxide 400 mg PO BID 05/30/17 [History] Pramipexole Di-HCl [Mirapex] 0.125 mg PO BEDTIME 06/12/17 [History] Hydrocortisone [Cortef] 10 mg PO DAILY@12 09/30/17 [History] Sertraline [Zoloft] 75 mg PO DAILY 09/30/17 [History] hydrOXYzine HCl [hydrOXYzine] 25 mg PO TID 09/30/17 [History] Metoprolol Tartrate [Lopressor] 25 mg PO Q12HR #60 tab 10/01/17 [Rx] Hydrocortisone [Cortef] 15 mg PO DAILY 10/28/17 [History] LORazepam [Ativan] 0.5 mg PO BID PRN 10/28/17 [History] Mag Carb/Al Hydrox/Alginic Ac [Gaviscon Extra Strength Liquid] 30 ml PO Q4H PRN 10/28/17 [History] Meloxicam [Mobic] 7.5 mg PO DAILY 10/28/17 [History] Omeprazole Magnesium [Prilosec Otc] 20 mg PO DAILY 10/28/17 [History] Ondansetron HCl [Zofran] 4 mg PO TID PRN 10/28/17 [History] Potassium Chloride 15 meq PO DAILY 10/28/17 [History] Forms: ED Department Discharge Referrals: Sanam Woodson DO [Primary Care Provider] - - Discharge Summary/Plan Comment DC Time >30 min.: Yes Discharge Summary/Plan Comment: Please follow up with Dr. Woodson. She may want to change the Cardizem to a long acting formula. In the meantime continue to take the cardizem as prescribed. CT of the abdomen and pelvis on outpatient basis. Your CT is scheduled for tomorrow at 10:30. Please arrive at least 15 minutes early. Do not eat before your CT scan. Continue to take your other medications as normal. Stop the metoprolol as taking this with cardizem can cause your blood pressure and heart rate to drop to low. Please call if you have any questions or concerns. - Patient Data Vitals - Most Recent: Last Vital Signs Temp 37.1 C 10/30/17 09:47 Pulse 82 10/30/17 09:47 Resp 20 10/30/17 09:47 BP 115/76 10/30/17 09:47 Pulse Ox 97 10/30/17 09:47 Weight - Most Recent: 102.058 kg I&O - Last 24 hours: Intake & Output 10/29/17 10/30/17 10/30/17 22:59 06:59 14:59 Intake Total 1660 1600 420 Output Total 600 1250 Balance 1060 350 420 Lab Results - Last 24 hrs: Laboratory Results - last 24 hr 10/29/17 10/30/17 Range/Units 17:30 10:02 Sodium 142 (138-146) mmol/L Potassium 3.9 4.3 D (3.5-4.9) mmol/L Chloride 108 (98-109) mmol/L Carbon Dioxide 23 (21-32) mmol/L Anion Gap 14.9 (10-20) mmol/L BUN 4 L (7-18) mg/dL Creatinine 0.7 (0.55-1.02) mg/dL Est Cr Clr Drug Dosing TNP Estimated GFR (MDRD) > 60 Glucose 130 H (74-106) mg/dL Calcium 8.4 L (8.5-10.1) mg/dL Magnesium 1.8 (1.8-2.4) mg/dL Med Orders - Current: Current Medications Acetaminophen (Tylenol) 650 mg PO Q4H PRN PRN Reason: Pain Last Admin: 10/29/17 21:52 Dose: 650 mg Al Hydroxide/Mg Hydroxide (Mag-Al Plus) 30 ml PO Q4H PRN PRN Reason: gerd Diltiazem HCl (Cardizem) 60 mg PO Q8H [facility] Last Admin: 10/30/17 06:16 Dose: 60 mg Enoxaparin Sodium (Lovenox) 40 mg SUBCUT DAILY [facility] Last Admin: 10/30/17 07:35 Dose: 40 mg Hydrocortisone (Cortef) 15 mg PO DAILY [facility] Last Admin: 10/30/17 07:36 Dose: 15 mg Hydrocortisone (Cortef) 10 mg PO DAILY@12 [facility] Last Admin: 10/30/17 12:16 Dose: 10 mg Hydroxyzine HCl (Atarax) 25 mg PO TID [facility] Last Admin: 10/30/17 12:16 Dose: 25 mg Lactated Ringer's (Ringers, Lactated) 1,000 mls @ 500 mls/hr IV ASDIRECTED [facility] Last Admin: 10/28/17 17:00 Dose: 500 mls/hr Lorazepam (Ativan) 0.5 mg PO BID PRN PRN Reason: Anxiety Last Admin: 10/29/17 21:52 Dose: 0.5 mg Magnesium Oxide (Magnesium Oxide) 400 mg PO BID [facility] Last Admin: 10/30/17 07:35 Dose: 400 mg Omeprazole (Omeprazole) 20 mg PO ACBREAKFAST [facility] Last Admin: 10/30/17 06:16 Dose: 20 mg Ondansetron HCl (Zofran Odt) 4 mg PO TID PRN PRN Reason: Nausea Potassium Chloride (Klor-Con 10) 15 meq PO DAILY [facility] Last Admin: 10/30/17 07:35 Dose: 15 meq Sertraline HCl (Zoloft) 75 mg PO DAILY [facility] Last Admin: 10/30/17 07:36 Dose: 75 mg Sodium Chloride (Saline Flush) 10 ml FLUSH ASDIRECTED PRN PRN Reason: Keep Vein Open Last Admin: 10/29/17 19:50 Dose: 10 ml Sodium Chloride (Saline Flush) 10 ml FLUSH ASDIRECTED PRN PRN Reason: Keep Vein Open Discontinued Medications Diltiazem HCl (Diltiazem) 20 mg IVPUSH ONETIME ONE Stop: 10/28/17 16:44 Last Admin: 10/28/17 17:10 Dose: 20 mg Diltiazem HCl (Diltiazem) 25 mg IVPUSH ONETIME ONE Stop: 10/28/17 17:56 Last Admin: 10/28/17 19:00 Dose: 25 mg Diltiazem HCl (Diltiazem) 25 mg IVPUSH ONETIME ONE Stop: 10/29/17 00:58 Last Admin: 10/29/17 01:17 Dose: 25 mg Diltiazem HCl (Cardizem) 60 mg PO Q12H [facility] Last Admin: 10/29/17 02:18 Dose: 60 mg Diltiazem HCl (Cardizem) Confirm Administered Dose 60 mg .ROUTE .STK-MED ONE Stop: 10/29/17 02:17 Last Admin: 10/29/17 02:19 Dose: Not Given Diltiazem HCl (Cardizem) 60 mg PO Q8HR EMILY Diltiazem HCl (Cardizem) 60 mg PO Q8HR [facility] Last Admin: 10/29/17 14:59 Dose: Not Given Diphenhydramine HCl (Benadryl) 50 mg IVPUSH ONETIME ONE Stop: 10/28/17 23:24 Last Admin: 10/29/17 00:06 Dose: 50 mg Potassium Chloride/Sodium Chloride (Normal Saline With 40 Meq Kcl) 1,000 mls @ 150 mls/hr IV ASDIRECTED EMILY Last Admin: 10/29/17 09:53 Dose: 150 mls/hr Chlorpromazine HCl 50 mg/ (Sodium Chloride) 52 mls @ 50 mls/hr IV ONETIME ONE Stop: 10/29/17 00:25 Last Admin: 10/29/17 00:06 Dose: 50 mls/hr Ketorolac Tromethamine (Toradol) 30 mg IVPUSH ONETIME ONE Stop: 10/28/17 17:14 Last Admin: 10/28/17 17:45 Dose: 30 mg Ketorolac Tromethamine (Toradol) 30 mg IVPUSH ONETIME ONE Stop: 10/28/17 23:24 Last Admin: 10/29/17 00:06 Dose: 30 mg Morphine Sulfate (Morphine) 4 mg IVPUSH ONETIME ONE Stop: 10/28/17 19:53 Last Admin: 10/28/17 20:24 Dose: 4 mg
== END 2017-10-30 13:00 | disposition home or self-care (01) ==
LOC: VM.ED 16:15 → VM.MS 17:57
PROVIDERS: ADMIT Physician Assistant; ATTEND Physician Assistant
DX: I48.92 Unspecified atrial flutter (principal); E87.6 Hypokalemia; E66.9 Obesity, unspecified; F17.210 Nicotine dependence, cigarettes, uncomplicated; Z79.899 Other long term (current) drug therapy
CPT/HCPCS: 36415; 71045; 80048; 80053; 83735; 84100; 84132; 84484; 85025; 85027; 85610; 86140; 93005; 96361; 96372; 96374; 96375; 96376; 99285; A9270-GY; G0378; J1200; J1650; J1885; J2270; J3230; J3480; J3490; J7050; J7120

== ENCOUNTER 2017-12-21 19:21 | Observation (INO) | payer SELFPAY ==
[2017-12-21] MEDS ORDERED: Sodium Chloride 0.9% 10 ML Syringe FLUSH PRN (19:53)
[2017-12-21] MEDS ORDERED: Diltiazem 25 MG/5 ML SDV IVPUSH ONE (19:58)
[2017-12-21] MEDS ORDERED: Lactated Ringers 1,000 ML IV SCH (20:00)
[2017-12-21 20:41] LABS: CHLORIDE,CL 106 mmol/L (98-107); SODIUM,NA 139 mmol/L (136-145)
[2017-12-21 20:43] LABS: ANION GAP 12.6 mmol/L (10-20)
[2017-12-21] MEDS ORDERED: Sodium Chloride 0.9% with KCl 1,000 ML IV SCH (21:00)
--- NOTE | 2017-12-21 21:30 | EDM.PDOC ---
ED HPI GENERAL MEDICAL PROBLEM - General Chief Complaint: Cardiovascular Problem Stated Complaint: HEART RATE Time Seen by Provider: 12/21/17 19:57 History Limitations: Reports: No Limitations - History of Present Illness INITIAL COMMENTS - FREE TEXT/NARRATIVE: Pt. present to ER with palpitations. Was seen in ER at [place] and was found to be hypokalemic with a heart rate in the 130-140 range. She has a longstanding history of these issues in the past. The etiology of her hypokalemia is unclear- there is some question about eating disorder which pt. denies. She is to see nephrology regarding renal cause of her hypokalemia. According to her med record, she received IV and oral potassium in the ER at [place] on 12/19, as well as IV metoprolol and cardizem. Her potassium prior to the potassium supplementation was 3.0. She told the DrLisseth that saw her that she was told to stop taking her potassium and metoprolol, which she did on 12/04. There is no mention of these directions in her clinic note. She denies any vomiting or diarrhea. Denies taking any medications in excess that would lower potassium (ie, albuterol). Onset: Today Onset Date: 12/21/17 Location: Reports: Chest, Generalized Headache Pain Score (Numeric/FACES): 9 - Related Data Allergies Allergy/AdvReac Type Severity Reaction Status Date / Time adhesive tape Allergy Hives Verified 12/21/17 20:01 gabapentin Allergy Cannot Verified 12/21/17 20:01 Remember latex Allergy Hives Verified 12/21/17 20:01 isoniazid AdvReac Unknown Seizure Verified 12/21/17 20:01 tramadol AdvReac Unknown Seizure Verified 12/21/17 20:01 Home Meds: Home Meds Acetaminophen 650 mg PO Q4H PRN 05/10/17 [History] Albuterol [Proair HFA] 1 puff INH Q4H PRN 05/10/17 [History] hydrOXYzine HCl [hydrOXYzine] 25 mg PO TID 09/30/17 [History] LORazepam [Ativan] 0.5 mg PO BID PRN 10/28/17 [History] Mag Carb/Al Hydrox/Alginic Ac [Gaviscon Extra Strength Liquid] 30 ml PO Q4H PRN 10/28/17 [History] Omeprazole Magnesium [Prilosec Otc] 20 mg PO DAILY PRN 10/28/17 [History] Ondansetron HCl [Zofran] 4 mg PO TID PRN 10/28/17 [History] Potassium Chloride 20 meq PO DAILY 10/28/17 [History] Diltiazem HCl [Diltiazem ER] 180 mg PO DAILY 12/21/17 [History] Meloxicam [Mobic] 15 mg PO BID 12/21/17 [History] Pramipexole Di-HCl [Mirapex] 0.125 mg PO BEDTIME 12/21/17 [History] Past Medical History - Past Health History Medical/Surgical History: Denies Medical/Surgical History HEENT History: Reports: None Cardiovascular History: Reports: Arrhythmia Other Cardiovascular History: inappropriate sinus tachycardia. tachyarrhythmia Respiratory History: Reports: Asthma Gastrointestinal History: Reports: GERD Other Gastrointestinal History: Heartburn [employer] History: Reports: Polycystic Ovaries, Other (See Below) Other [employer] History: dysmenorrhea Neurological History: Reports: Seizure Psychiatric History: Reports: Anxiety, Depression, Psychosis, Schizophrenia, Suicidal Ideation Other Psychiatric History: Schizoaffective Disorder Endocrine/Metabolic History: Reports: Obesity/BMI 30+, Other (See Below) Other Endocrine/Metabolic History: adrenal insufficiency Hematologic History: Reports: None Immunologic History: Reports: None Oncologic (Cancer) History: Reports: None - Infectious Disease History Infectious Disease History: Reports: Other (See Below) 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 - Past Surgical History Respiratory Surgical History: Reports: Thoracotomy GI Surgical History: Reports: Cholecystectomy, Colonoscopy Female Surgical History: Reports: Hysterectomy Other Female Surgeries/Procedures: hysterectomy on 02/04/16 Other Musculoskeletal Surgeries/Procedures:: foot surgery Social & Family History - Family History Family Medical History: Noncontributory - Tobacco Use Smoking Status *Q: Current Every Day Smoker Years of Tobacco use: 10 Packs/Tins Daily: 1 - Caffeine Use Caffeine Use: Reports: None - Recreational Drug Use Recreational Drug Use: No - Sexual History Sexual History: Reports: Same Sex Partner, Single Partner - Living Situation & Occupation Living situation: Reports: , with Spouse Occupation: Employed ED ROS GENERAL - Review of Systems Review Of Systems: See Below Constitutional: Reports: No Symptoms HEENT: Reports: No Symptoms Respiratory: Reports: No Symptoms Cardiovascular: Reports: Palpitations. Denies: Chest Pain, Lightheadedness Endocrine: Reports: No Symptoms GI/Abdominal: Reports: No Symptoms : Reports: No Symptoms Musculoskeletal: Reports: No Symptoms Skin: Reports: No Symptoms Neurological: Reports: No Symptoms Psychiatric: Reports: No Symptoms Hematologic/Lymphatic: Reports: No Symptoms Immunologic: Reports: No Symptoms ED EXAM, GENERAL - Physical Exam Exam: See Below Exam Limited By: No Limitations General Appearance: Alert, WD/WN, No Apparent Distress Ears: Normal External Exam, Normal Canal, Hearing Grossly Normal, Normal TMs Nose: Normal Inspection, Normal Mucosa, No Blood Throat/Mouth: Normal Inspection, Normal Lips, Normal Teeth, Normal Gums, Normal Oropharynx, Normal Voice, No Airway Compromise Head: Atraumatic, Normocephalic Neck: Normal Inspection, Supple, Non-Tender, Full Range of Motion Respiratory/Chest: No Respiratory Distress, Lungs Clear, Normal Breath Sounds, No Accessory Muscle Use, Chest Non-Tender Cardiovascular: Tachycardia Peripheral Pulses: 3+: Radial (R) GI/Abdominal: Normal Bowel Sounds (Female) Exam: Deferred Rectal (Female) Exam: Deferred Back Exam: Normal Inspection, Full Range of Motion, NT Extremities: Normal Inspection, Normal Range of Motion, Non-Tender, Normal Capillary Refill, No Pedal Edema Neurological: Alert, Oriented, CN II-XII Intact, Normal Cognition, Normal Gait, Normal Reflexes, No Motor/Sensory Deficits Psychiatric: Anxious, Tearful Skin Exam: Warm, Dry, Intact, Normal Color, No Rash Lymphatic: No Adenopathy EKG INTERPRETATION Rhythm: NSR Rate (Beats/Min): 130 Bennett: Normal P-Wave: Present QRS: Normal ST-T: Normal QT: Normal Comparison: No Change Course - Vital Signs Last Recorded V/S: Last Vital Signs Temp 37.2 C 12/21/17 19:57 Pulse 138 H 12/21/17 19:57 Resp 18 12/21/17 19:57 BP 111/80 12/21/17 19:57 Pulse Ox 97 12/21/17 19:57 - Orders/Labs/Meds Orders: Active Orders 24 hr Category Date Time Status EKG Documentation Completion [RC] STAT Care 12/21/17 19:53 Active MISC TEST Stat Lab 12/21/17 19:31 Received Lactated Ringers [Ringers, Lactated] 1,000 ml Med 12/21/17 20:00 Active IV ASDIRECTED Sodium Chloride 0.9% [Saline Flush] Med 12/21/17 19:53 Active 10 ml FLUSH ASDIRECTED PRN Peripheral IV Insertion Adult [OM.PC] Routine Oth 12/21/17 19:53 Ordered Medication Orders Lactated Ringer's (Ringers, Lactated) 1,000 mls @ 500 mls/hr IV ASDIRECTED EMILY Last Admin: 12/21/17 20:15 Dose: 500 mls/hr Potassium Chloride/Sodium Chloride (Normal Saline With 40 Meq Kcl) 1,000 mls @ 200 mls/hr IV ASDIRECTED EMILY Last Admin: 12/21/17 21:00 Dose: 200 mls/hr Sodium Chloride (Saline Flush) 10 ml FLUSH ASDIRECTED PRN PRN Reason: Keep Vein Open Labs: Laboratory Tests 12/21/17 12/21/17 12/21/17 Range/Units 19:31 19:31 19:56 WBC 7.7 (4.0-10.0) x10^3/uL RBC 4.38 (4.00-5.50) x10^6/uL Hgb 13.9 (12.0-16.0) g/dL Hct 40.3 (33.0-47.0) % MCV 92.0 (78.0-93.0) fL MCH 31.7 (26.0-32.0) pg MCHC 34.5 (32.0-36.0) g/dL RDW Coeff of Dionna 13.9 (10.0-15.0) % Plt Count 241 (130-400) x10^3/uL Neut % (Auto) 74.9 (50.0-80.0) % Lymph % (Auto) 18.0 L (25.0-50.0) % Carson % (Auto) 5.8 (2.0-11.0) % Eos % (Auto) 1.2 (0.0-4.0) % Baso % (Auto) 0.1 L (0.2-1.2) % PT (9.6-11.4) SEC INR (2.0-3.5) Sodium (136-145) mmol/L Potassium (3.5-5.1) mmol/L Chloride (98-107) mmol/L Carbon Dioxide (21-32) mmol/L Anion Gap (10-20) mmol/L BUN (7-18) mg/dL Creatinine (0.55-1.02) mg/dL Est Cr Clr Drug Dosing mL/min Estimated GFR (MDRD) Glucose (74-106) mg/dL Calcium (8.5-10.1) mg/dL Corrected Calcium (8.5-10.1) mg/dL Phosphorus (2.6-4.7) mg/dL Magnesium (1.8-2.4) mg/dL Total Bilirubin (0.2-1.0) mg/dL AST (15-37) U/L ALT (14-59) U/L Alkaline Phosphatase (46-116) U/L Troponin I (<=0.056) ng/mL C-Reactive Protein (<=0.9) mg/dL NT-Pro-B Natriuret Pep (<=125) pg/mL Total Protein (6.4-8.2) g/dL Albumin (3.4-5.0) g/dL Globulin Albumin/Globulin Ratio Urine Color Yellow (YELLOW) Urine Appearance Slightly cloudy H (CLEAR) Urine pH 5.5 (5.0-8.0) Ur Specific Brewer 1.025 Urine Protein Negative (NEGATIVE) mg/dL Urine Glucose (UA) Negative (NEGATIVE) mg/dL Urine Ketones Negative (NEGATIVE) mg/dL Urine Occult Blood Negative (NEGATIVE) Urine Nitrite Negative (NEGATIVE) Urine Bilirubin Negative (NEGATIVE) Urine Urobilinogen 0.2 (0.2) EU/dL Ur Leukocyte Esterase Negative (NEGATIVE) Urine RBC 0-5 (NOT SEEN) /HPF Urine WBC 0-5 (NOT SEEN) /HPF Ur Squamous Epith Cells Many H (NEGATIVE) /HPF Urine Bacteria Rare (NEGATIVE) /HPF Hyaline Casts Rare H (NEGATIVE) /HPF Urine Mucus Few H (NEGATIVE) /LPF Urine Opiates Screen Negative (NEGATIVE) Ur Buprenorphine Scrn Negative (NEGATIVE) Ur Oxycodone Screen Negative (NEGATIVE) Urine Methadone Screen Negative (NEGATIVE) Ur Barbituates Screen Negative (NEGATIVE) Ur Tricyclics Screen Negative (NEGATIVE) Ur Amphetamines Screen Negative (NEGATIVE) U Methamphetamines Scrn Negative (NEGATIVE) Urine MDMA Screen Negative (NEGATIVE) U Benzodiazepines Scrn Negative (NEGATIVE) Urine Cocaine Screen Negative (NEGATIVE) U Marijuana (THC) Screen Positive H (NEGATIVE) 12/21/17 12/21/17 Range/Units 19:56 19:56 WBC (4.0-10.0) x10^3/uL RBC (4.00-5.50) x10^6/uL Hgb (12.0-16.0) g/dL Hct (33.0-47.0) % MCV (78.0-93.0) fL MCH (26.0-32.0) pg MCHC (32.0-36.0) g/dL RDW Coeff of Dionna (10.0-15.0) % Plt Count (130-400) x10^3/uL Neut % (Auto) (50.0-80.0) % Lymph % (Auto) (25.0-50.0) % Carson % (Auto) (2.0-11.0) % Eos % (Auto) (0.0-4.0) % Baso % (Auto) (0.2-1.2) % PT 10.2 (9.6-11.4) SEC INR 1.0 L (2.0-3.5) Sodium 139 (136-145) mmol/L Potassium 2.6 L* D (3.5-5.1) mmol/L Chloride 106 (98-107) mmol/L Carbon Dioxide 23 (21-32) mmol/L Anion Gap 12.6 (10-20) mmol/L BUN 6 L (7-18) mg/dL Creatinine 0.9 (0.55-1.02) mg/dL Est Cr Clr Drug Dosing 68.35 mL/min Estimated GFR (MDRD) > 60 Glucose 135 H (74-106) mg/dL Calcium 8.6 (8.5-10.1) mg/dL Corrected Calcium 9.08 (8.5-10.1) mg/dL Phosphorus 3.7 (2.6-4.7) mg/dL Magnesium 2.0 (1.8-2.4) mg/dL Total Bilirubin 0.2 (0.2-1.0) mg/dL AST 12 L (15-37) U/L ALT 22 (14-59) U/L Alkaline Phosphatase 73 (46-116) U/L Troponin I < 0.017 (<=0.056) ng/mL C-Reactive Protein 0.7 (<=0.9) mg/dL NT-Pro-B Natriuret Pep 112 (<=125) pg/mL Total Protein 7.3 (6.4-8.2) g/dL Albumin 3.4 (3.4-5.0) g/dL Globulin 3.9 Albumin/Globulin Ratio 0.87 Urine Color (YELLOW) Urine Appearance (CLEAR) Urine pH (5.0-8.0) Ur Specific Brewer Urine Protein (NEGATIVE) mg/dL Urine Glucose (UA) (NEGATIVE) mg/dL Urine Ketones (NEGATIVE) mg/dL Urine Occult Blood (NEGATIVE) Urine Nitrite (NEGATIVE) Urine Bilirubin (NEGATIVE) Urine Urobilinogen (0.2) EU/dL Ur Leukocyte Esterase (NEGATIVE) Urine RBC (NOT SEEN) /HPF Urine WBC (NOT SEEN) /HPF Ur Squamous Epith Cells (NEGATIVE) /HPF Urine Bacteria (NEGATIVE) /HPF Hyaline Casts (NEGATIVE) /HPF Urine Mucus (NEGATIVE) /LPF Urine Opiates Screen (NEGATIVE) Ur Buprenorphine Scrn (NEGATIVE) Ur Oxycodone Screen (NEGATIVE) Urine Methadone Screen (NEGATIVE) Ur Barbituates Screen (NEGATIVE) Ur Tricyclics Screen (NEGATIVE) Ur Amphetamines Screen (NEGATIVE) U Methamphetamines Scrn (NEGATIVE) Urine MDMA Screen (NEGATIVE) U Benzodiazepines Scrn (NEGATIVE) Urine Cocaine Screen (NEGATIVE) U Marijuana (THC) Screen (NEGATIVE) Meds: Medications Generic Name Dose Route Start Last Admin Trade Name Freq PRN Reason Stop Dose Admin Lactated Ringer's 1,000 mls @ 500 mls/hr 12/21/17 20:00 12/21/17 20:15 Ringers, Lactated IV 500 mls/hr ASDIRECTED EMILY Administration Potassium Chloride/Sodium Chloride 1,000 mls @ 200 mls/hr 12/21/17 21:00 03/28 21:00 Normal Saline With 40 Meq Kcl IV 200 mls/hr ASDIRECTED EMILY Administration Sodium Chloride 10 ml 12/21/17 19:53 Saline Flush FLUSH ASDIRECTED PRN Keep Vein Open Discontinued Medications Generic Name Dose Route Start Last Admin Trade Name Freq PRN Reason Stop Dose Admin Diltiazem HCl 25 mg 12/21/17 19:58 12/21/17 20:08 Diltiazem IVPUSH 12/21/17 19:59 25 mg ONETIME ONE Administration Departure - Departure Time of Disposition: 21:35 Disposition: Refer to Observation Clinical Impression: Hypokalemia, Palpitations, Sinus tachycardia - Discharge Information - Problem List Review Problem List Initiated/Reviewed/Updated: Yes - My Orders Last 24 Hours: My Active Orders 12/21/17 19:31 MISC TEST Stat 12/21/17 19:53 EKG Documentation Completion [RC] STAT Sodium Chloride 0.9% [Saline Flush] 10 ml FLUSH ASDIRECTED PRN Peripheral IV Insertion Adult [OM.PC] Routine 12/21/17 20:00 Lactated Ringers [Ringers, Lactated] 1,000 ml IV ASDIRECTED - Assessment/Plan Last 24 Hours: My Active Orders 12/21/17 19:31 MISC TEST Stat 12/21/17 19:53 EKG Documentation Completion [RC] STAT Sodium Chloride 0.9% [Saline Flush] 10 ml FLUSH ASDIRECTED PRN Peripheral IV Insertion Adult [OM.PC] Routine 12/21/17 20:00 Lactated Ringers [Ringers, Lactated] 1,000 ml IV ASDIRECTED Plan: Admit obs. Code 1. Was given cardizem 25mg IV. Rate stable in the low 100s to 1 teens. Started on NS with 40KCL at 200ml/hr. Will continue with her daily meds. Anticipate discharge tomorrow once potassium has normalized and rate is controlled.
[2017-12-21] MEDS ORDERED: LORazepam 0.5 MG Tab PO PRN (21:42)
[2017-12-21] MEDS ORDERED: Acetaminophen 325 MG Tab PO PRN (21:42)
[2017-12-21] MEDS ORDERED: Omeprazole 20 MG Cap.CR PO PRN (21:48)
[2017-12-21] MEDS ORDERED: Ondansetron 4 MG Tab.DIS PO PRN (21:49)
[2017-12-21] MEDS ORDERED: Aluminum Hydroxide/Magnesium Hydroxide/Simethicone Susp 30 ML Cup PO PRN (21:51)
[2017-12-22] MEDS ORDERED: Ibuprofen 200 MG Tab PO PRN (00:35)
[2017-12-22] MEDS ORDERED: HYDROmorphone 1 MG/ML Syringe IVPUSH ONE (02:50)
[2017-12-22 07:06] LABS: CHLORIDE,CL 110 mmol/L (98-107); SODIUM,NA 140 mmol/L (136-145)
[2017-12-22 07:07] LABS: ANION GAP 9.2 mmol/L (10-20)
[2017-12-22] MEDS ORDERED: Diltiazem 180 MG Cap.CD PO SCH (08:00)
[2017-12-22] MEDS ORDERED: Potassium Chloride 20 MEQ Tab.ER PO SCH (08:00)
[2017-12-22] MEDS: hydrOXYzine HCl 25 MG Tab PO SCH ×2 (08:22→13:04)
[2017-12-22] MEDS ORDERED: Meloxicam 7.5 MG Tab PO SCH (08:45)
[2017-12-22 09:29] VITALS: BP 124/65
--- NOTE | 2017-12-22 10:10 | PCM.PN ---
- General Info Date of Service: 12/22/17 Admission Dx/Problem (Free Text): States her tachycardia and palpitations are improving, but still continuing to have some. Her rate has been consistently below 90 but occasionally increases to 120-130 range. She has not required any IV cardizem. Denies any chest pain or palpitations. Her potassium has been repleted and is now 3.2. Functional Status: Reports: Pain Controlled - Review of Systems General: Reports: No Symptoms HEENT: Reports: No Symptoms Pulmonary: Reports: No Symptoms Cardiovascular: Reports: Palpitations Gastrointestinal: Reports: No Symptoms Genitourinary: Reports: No Symptoms Musculoskeletal: Reports: No Symptoms Skin: Reports: No Symptoms Neurological: Reports: No Symptoms Psychiatric: Reports: No Symptoms - Patient Data Vitals - Most Recent: Last Vital Signs Temp 36.8 C 12/22/17 09:41 Pulse 107 H 12/22/17 09:41 Resp 16 12/22/17 09:41 BP 124/65 12/22/17 09:41 Pulse Ox 99 12/22/17 09:41 Weight - Most Recent: 102.448 kg I&O - Last 24 Hours: Intake & Output 12/21/17 12/22/17 12/22/17 22:59 06:59 14:59 Intake Total 500 1500 Output Total 400 200 Balance 100 1300 Lab Results Last 24 Hours: Laboratory Results - last 24 hr 12/21/17 12/21/17 12/21/17 Range/Units 19:31 19:31 19:56 WBC 7.7 (4.0-10.0) x10^3/uL RBC 4.38 (4.00-5.50) x10^6/uL Hgb 13.9 (12.0-16.0) g/dL Hct 40.3 (33.0-47.0) % MCV 92.0 (78.0-93.0) fL MCH 31.7 (26.0-32.0) pg MCHC 34.5 (32.0-36.0) g/dL RDW Coeff of Dionna 13.9 (10.0-15.0) % Plt Count 241 (130-400) x10^3/uL Neut % (Auto) 74.9 (50.0-80.0) % Lymph % (Auto) 18.0 L (25.0-50.0) % [place] % (Auto) 5.8 (2.0-11.0) % Eos % (Auto) 1.2 (0.0-4.0) % Baso % (Auto) 0.1 L (0.2-1.2) % PT (9.6-11.4) SEC INR (2.0-3.5) Sodium (136-145) mmol/L Potassium (3.5-5.1) mmol/L Chloride (98-107) mmol/L Carbon Dioxide (21-32) mmol/L Anion Gap (10-20) mmol/L BUN (7-18) mg/dL Creatinine (0.55-1.02) mg/dL Est Cr Clr Drug Dosing mL/min Estimated GFR (MDRD) Glucose (74-106) mg/dL Calcium (8.5-10.1) mg/dL Corrected Calcium (8.5-10.1) mg/dL Phosphorus (2.6-4.7) mg/dL Magnesium (1.8-2.4) mg/dL Total Bilirubin (0.2-1.0) mg/dL AST (15-37) U/L ALT (14-59) U/L Alkaline Phosphatase (46-116) U/L Troponin I (<=0.056) ng/mL C-Reactive Protein (<=0.9) mg/dL NT-Pro-B Natriuret Pep (<=125) pg/mL Total Protein (6.4-8.2) g/dL Albumin (3.4-5.0) g/dL Globulin Albumin/Globulin Ratio Urine Color Yellow (YELLOW) Urine Appearance Slightly cloudy H (CLEAR) Urine pH 5.5 (5.0-8.0) Ur Specific [place] 1.025 Urine Protein Negative (NEGATIVE) mg/dL Urine Glucose (UA) Negative (NEGATIVE) mg/dL Urine Ketones Negative (NEGATIVE) mg/dL Urine Occult Blood Negative (NEGATIVE) Urine Nitrite Negative (NEGATIVE) Urine Bilirubin Negative (NEGATIVE) Urine Urobilinogen 0.2 (0.2) EU/dL Ur Leukocyte Esterase Negative (NEGATIVE) Urine RBC 0-5 (NOT SEEN) /HPF Urine WBC 0-5 (NOT SEEN) /HPF Ur Squamous Epith Cells Many H (NEGATIVE) /HPF Urine Bacteria Rare (NEGATIVE) /HPF Hyaline Casts Rare H (NEGATIVE) /HPF Urine Mucus Few H (NEGATIVE) /LPF Urine Opiates Screen Negative (NEGATIVE) Ur Buprenorphine Scrn Negative (NEGATIVE) Ur Oxycodone Screen Negative (NEGATIVE) Urine Methadone Screen Negative (NEGATIVE) Ur Barbituates Screen Negative (NEGATIVE) Ur Tricyclics Screen Negative (NEGATIVE) Ur Amphetamines Screen Negative (NEGATIVE) U Methamphetamines Scrn Negative (NEGATIVE) Urine MDMA Screen Negative (NEGATIVE) U Benzodiazepines Scrn Negative (NEGATIVE) Urine Cocaine Screen Negative (NEGATIVE) U Marijuana (THC) Screen Positive H (NEGATIVE) 12/21/17 12/21/17 12/22/17 Range/Units 19:56 19:56 06:23 WBC (4.0-10.0) x10^3/uL RBC (4.00-5.50) x10^6/uL Hgb (12.0-16.0) g/dL Hct (33.0-47.0) % MCV (78.0-93.0) fL MCH (26.0-32.0) pg MCHC (32.0-36.0) g/dL RDW Coeff of Dionna (10.0-15.0) % Plt Count (130-400) x10^3/uL Neut % (Auto) (50.0-80.0) % Lymph % (Auto) (25.0-50.0) % [place] % (Auto) (2.0-11.0) % Eos % (Auto) (0.0-4.0) % Baso % (Auto) (0.2-1.2) % PT 10.2 (9.6-11.4) SEC INR 1.0 L (2.0-3.5) Sodium 139 140 (136-145) mmol/L Potassium 2.6 L* D 3.2 L (3.5-5.1) mmol/L Chloride 106 110 H (98-107) mmol/L Carbon Dioxide 23 24 (21-32) mmol/L Anion Gap 12.6 9.2 L (10-20) mmol/L BUN 6 L 6 L (7-18) mg/dL Creatinine 0.9 0.8 (0.55-1.02) mg/dL Est Cr Clr Drug Dosing 68.35 176.28 mL/min Estimated GFR (MDRD) > 60 > 60 Glucose 135 H 127 H (74-106) mg/dL Calcium 8.6 8.0 L (8.5-10.1) mg/dL Corrected Calcium 9.08 (8.5-10.1) mg/dL Phosphorus 3.7 (2.6-4.7) mg/dL Magnesium 2.0 (1.8-2.4) mg/dL Total Bilirubin 0.2 (0.2-1.0) mg/dL AST 12 L (15-37) U/L ALT 22 (14-59) U/L Alkaline Phosphatase 73 (46-116) U/L Troponin I < 0.017 (<=0.056) ng/mL C-Reactive Protein 0.7 (<=0.9) mg/dL NT-Pro-B Natriuret Pep 112 (<=125) pg/mL Total Protein 7.3 (6.4-8.2) g/dL Albumin 3.4 (3.4-5.0) g/dL Globulin 3.9 Albumin/Globulin Ratio 0.87 Urine Color (YELLOW) Urine Appearance (CLEAR) Urine pH (5.0-8.0) Ur Specific [place] Urine Protein (NEGATIVE) mg/dL Urine Glucose (UA) (NEGATIVE) mg/dL Urine Ketones (NEGATIVE) mg/dL Urine Occult Blood (NEGATIVE) Urine Nitrite (NEGATIVE) Urine Bilirubin (NEGATIVE) Urine Urobilinogen (0.2) EU/dL Ur Leukocyte Esterase (NEGATIVE) Urine RBC (NOT SEEN) /HPF Urine WBC (NOT SEEN) /HPF Ur Squamous Epith Cells (NEGATIVE) /HPF Urine Bacteria (NEGATIVE) /HPF Hyaline Casts (NEGATIVE) /HPF Urine Mucus (NEGATIVE) /LPF Urine Opiates Screen (NEGATIVE) Ur Buprenorphine Scrn (NEGATIVE) Ur Oxycodone Screen (NEGATIVE) Urine Methadone Screen (NEGATIVE) Ur Barbituates Screen (NEGATIVE) Ur Tricyclics Screen (NEGATIVE) Ur Amphetamines Screen (NEGATIVE) U Methamphetamines Scrn (NEGATIVE) Urine MDMA Screen (NEGATIVE) U Benzodiazepines Scrn (NEGATIVE) Urine Cocaine Screen (NEGATIVE) U Marijuana (THC) Screen (NEGATIVE) Med Orders - Current: Current Medications Acetaminophen (Tylenol) 650 mg PO Q4H PRN PRN Reason: Pain Last Admin: 12/21/17 22:53 Dose: 650 mg Al Hydroxide/Mg Hydroxide (Mag-Al Plus) 30 ml PO Q4H PRN PRN Reason: GERD Diltiazem HCl (Cardizem Cd) 180 mg PO DAILY [facility] Last Admin: 12/22/17 08:22 Dose: 180 mg Hydroxyzine HCl (Atarax) 25 mg PO TID [facility] Last Admin: 12/22/17 08:22 Dose: 25 mg Ibuprofen (Motrin) 600 mg PO Q6H PRN PRN Reason: Pain/Fever Last Admin: 12/22/17 00:56 Dose: 600 mg Lorazepam (Ativan) 0.5 mg PO BID PRN PRN Reason: Anxiety Meloxicam (Mobic) 7.5 mg PO BID [facility] Last Admin: 12/22/17 08:50 Dose: Not Given Omeprazole (Omeprazole) 20 mg PO DAILY PRN PRN Reason: GERD Ondansetron HCl (Zofran Odt) 4 mg PO TID PRN PRN Reason: Nausea Potassium Chloride (Klor-Con M20) 20 meq PO DAILY [facility] Last Admin: 12/22/17 08:22 Dose: 20 meq Pramipexole Dihydrochloride (Mirapex) 0.125 mg PO BEDTIME [facility] Sodium Chloride (Saline Flush) 10 ml FLUSH ASDIRECTED PRN PRN Reason: Keep Vein Open Discontinued Medications Diltiazem HCl (Diltiazem) 25 mg IVPUSH ONETIME ONE Stop: 12/21/17 19:59 Last Admin: 12/21/17 20:08 Dose: 25 mg Hydromorphone HCl (Dilaudid) 1 mg IVPUSH ONETIME ONE Stop: 12/22/17 02:51 Last Admin: 12/22/17 03:05 Dose: 1 mg Lactated Ringer's (Ringers, Lactated) 1,000 mls @ 500 mls/hr IV ASDIRECTED [facility] Last Admin: 12/21/17 20:15 Dose: 500 mls/hr Potassium Chloride/Sodium Chloride (Normal Saline With 40 Meq Kcl) 1,000 mls @ 200 mls/hr IV ASDIRECTED [facility] Last Admin: 12/21/17 21:00 Dose: 200 mls/hr - Exam General: Alert, Oriented Lungs: Clear to Auscultation, Normal Respiratory Effort Cardiovascular: Regular Rate, Regular Rhythm GI/Abdominal Exam: Normal Bowel Sounds, Soft, Non-Tender, No Organomegaly, No Distention, No Abnormal Bruit, No Mass, Pelvis Stable Skin: Warm, Dry, Intact Neurological: No New Focal Deficit - Problem List & Annotations (1) Hypokalemia SNOMED Code(s): 18960898 Code(s): E87.6 - HYPOKALEMIA Status: Acute Priority: High Current Visit : Yes (2) Palpitations SNOMED Code(s): 75274524 Code(s): R00.2 - PALPITATIONS Status: Acute Priority: Medium Current Visit: Yes (3) Sinus tachycardia SNOMED Code(s): 95539392 Code(s): R00.0 - TACHYCARDIA, UNSPECIFIED Status: Acute Priority: High Current Visit: Yes - Problem List Review Problem List Initiated/Reviewed/Updated: Yes - My Orders Last 24 Hours: My Active Orders 12/21/17 19:31 MISC TEST Stat 12/21/17 19:53 Sodium Chloride 0.9% [Saline Flush] 10 ml FLUSH ASDIRECTED PRN Peripheral IV Insertion Adult [OM.PC] Routine 12/21/17 20:49 Patient Status [ADT] Routine 12/21/17 21:11 Vital Signs [RC] 06,10,14,18,22,02 12/21/17 21:12 Cardiac Monitoring [RC] 06,10,14,18,22,02 Intake and Output [RC] 06,18 Up ad Iris [RC] 08,20 VTE/DVT Education [RC] .PRN 12/21/17 21:13 Code Status [Resuscitation Status] Routine 12/21/17 21:42 Acetaminophen [Tylenol] 650 mg PO Q4H PRN LORazepam [Ativan] 0.5 mg PO BID PRN 12/21/17 21:48 Omeprazole 20 mg PO DAILY PRN 12/21/17 21:49 Ondansetron [Zofran ODT] 4 mg PO TID PRN 12/21/17 21:51 Alum Hydrox/Mag Hydrox/Simeth [Mag-Al Plus] 30 ml PO Q4H PRN 12/22/17 00:35 Ibuprofen [Motrin] 600 mg PO Q6H PRN 12/22/17 08:00 Diltiazem [Cardizem CD] 180 mg PO DAILY Potassium Chloride [Klor-Con M20] 20 meq PO DAILY hydrOXYzine HCl [Atarax] 25 mg PO TID 12/22/17 08:45 Meloxicam [Mobic] 7.5 mg PO BID 12/22/17 20:00 Pramipexole [Mirapex] 0.125 mg PO BEDTIME 12/22/17 Breakfast Regular Diet [DIET]
--- NOTE | 2017-12-22 12:32 | PCM.DCSUM1 ---
Discharge Summary - Hospital Course HPI Initial Comments: Patient admitted observation yesterday with complaints of palpitations and hypokalemia. Was in [facility] for similar symptoms given potassium and sent home from the ER on . She reported stated she quit taken her medications as this is a known and chronic condition for her resulting in numerous admissions for potassium repletion and lowering of her sinus tachycardia. Diagnosis: Stroke: No Modified Alba Scale: No Symptoms at All Modified Davie Scale Score: 0 - Discharge Data Discharge Date: 12/22/17 Discharge Disposition: Home, Self-Care 01 Condition: Good - Discharge Diagnosis/Problem(s) (1) Hypokalemia SNOMED Code(s): 34736411 ICD Code: E87.6 - HYPOKALEMIA Status: Acute Priority: High Current Visit: Yes (2) Palpitations SNOMED Code(s): 86217205 ICD Code: R00.2 - PALPITATIONS Status: Acute Priority: Medium Current Visit: Yes - Patient Summary/Data Recommended Follow-up Testing/Procedures: Continue to take your prescribed medications. I also recommend physical activity to increase your exercise tolerance and to lower your resting heart rate. Stay well hydrated. Make and keep your follow up appointments. I recommend a follow up in 1 week. Please call the hospital if you have any additional questions or concerns. - Patient Instructions Diet: Heart Healthy Diet Diet, Other: increase your potassium intake Activity: As Tolerated - Discharge Plan *PRESCRIPTION DRUG MONITORING PROGRAM REVIEWED*: Not Applicable *COPY OF PRESCRIPTION DRUG MONITORING REPORT IN PATIENT GAY: Not Applicable Home Medications: Home Meds Acetaminophen 650 mg PO Q4H PRN 05/10/17 [History] Albuterol [Proair HFA] 1 puff INH Q4H PRN 05/10/17 [History] hydrOXYzine HCl [hydrOXYzine] 25 mg PO TID 09/30/17 [History] LORazepam [Ativan] 0.5 mg PO BID PRN 10/28/17 [History] Mag Carb/Al Hydrox/Alginic Ac [Gaviscon Extra Strength Liquid] 30 ml PO Q4H PRN 10/28/17 [History] Omeprazole Magnesium [Prilosec Otc] 20 mg PO DAILY PRN 10/28/17 [History] Ondansetron HCl [Zofran] 4 mg PO TID PRN 10/28/17 [History] Potassium Chloride 20 meq PO DAILY 10/28/17 [History] Diltiazem HCl [Diltiazem 24Hr ER] 180 mg PO DAILY 12/21/17 [History] Meloxicam [Mobic] 15 mg PO BID 12/21/17 [History] Pramipexole Di-HCl [Mirapex] 0.125 mg PO BEDTIME 12/21/17 [History] Ibuprofen [Motrin] 600 mg PO Q6H PRN tablet 12/22/17 [Rx] Forms: ED Department Discharge Referrals: Sanam Woodson DO [Primary Care Provider] - - Discharge Summary/Plan Comment DC Time >30 min.: No - General Info Date of Service: 12/22/17 Admission Dx/Problem (Free Text: States her tachycardia and palpitations are improving, but still continuing to have some. Her rate has been consistently below 90 but occasionally increases to 120-130 range. She has not required any IV cardizem. Denies any chest pain or palpitations. Her potassium has been repleted and is now 3.2. Functional Status: Reports: Pain Controlled - Review of Systems General: Reports: No Symptoms HEENT: Reports: No Symptoms Pulmonary: Reports: No Symptoms Cardiovascular: Reports: No Symptoms Gastrointestinal: Reports: No Symptoms Genitourinary: Reports: No Symptoms Musculoskeletal: Reports: No Symptoms Skin: Reports: No Symptoms Neurological: Reports: Headache (chronic intermittent headache) Psychiatric: Reports: No Symptoms - Patient Data Vitals - Most Recent: Last Vital Signs Temp 36.8 C 12/22/17 09:41 Pulse 107 H 12/22/17 09:41 Resp 16 12/22/17 09:41 BP 124/65 12/22/17 09:41 Pulse Ox 99 12/22/17 09:41 Weight - Most Recent: 102.448 kg I&O - Last 24 hours: Intake & Output 12/21/17 12/22/17 12/22/17 22:59 06:59 14:59 Intake Total 500 1500 Output Total 400 200 Balance 100 1300 Lab Results - Last 24 hrs: Laboratory Results - last 24 hr 12/21/17 12/21/17 12/21/17 Range/Units 19:31 19:31 19:56 WBC 7.7 (4.0-10.0) x10^3/uL RBC 4.38 (4.00-5.50) x10^6/uL Hgb 13.9 (12.0-16.0) g/dL Hct 40.3 (33.0-47.0) % MCV 92.0 (78.0-93.0) fL MCH 31.7 (26.0-32.0) pg MCHC 34.5 (32.0-36.0) g/dL RDW Coeff of [place]na 13.9 (10.0-15.0) % Plt Count 241 (130-400) x10^3/uL Neut % (Auto) 74.9 (50.0-80.0) % Lymph % (Auto) 18.0 L (25.0-50.0) % [place] % (Auto) 5.8 (2.0-11.0) % Eos % (Auto) 1.2 (0.0-4.0) % Baso % (Auto) 0.1 L (0.2-1.2) % PT (9.6-11.4) SEC INR (2.0-3.5) Sodium (136-145) mmol/L Potassium (3.5-5.1) mmol/L Chloride (98-107) mmol/L Carbon Dioxide (21-32) mmol/L Anion Gap (10-20) mmol/L BUN (7-18) mg/dL Creatinine (0.55-1.02) mg/dL Est Cr Clr Drug Dosing mL/min Estimated GFR (MDRD) Glucose (74-106) mg/dL Calcium (8.5-10.1) mg/dL Corrected Calcium (8.5-10.1) mg/dL Phosphorus (2.6-4.7) mg/dL Magnesium (1.8-2.4) mg/dL Total Bilirubin (0.2-1.0) mg/dL AST (15-37) U/L ALT (14-59) U/L Alkaline Phosphatase (46-116) U/L Troponin I (<=0.056) ng/mL C-Reactive Protein (<=0.9) mg/dL NT-Pro-B Natriuret Pep (<=125) pg/mL Total Protein (6.4-8.2) g/dL Albumin (3.4-5.0) g/dL Globulin Albumin/Globulin Ratio Urine Color Yellow (YELLOW) Urine Appearance Slightly cloudy H (CLEAR) Urine pH 5.5 (5.0-8.0) Ur Specific [place] 1.025 Urine Protein Negative (NEGATIVE) mg/dL Urine Glucose (UA) Negative (NEGATIVE) mg/dL Urine Ketones Negative (NEGATIVE) mg/dL Urine Occult Blood Negative (NEGATIVE) Urine Nitrite Negative (NEGATIVE) Urine Bilirubin Negative (NEGATIVE) Urine Urobilinogen 0.2 (0.2) EU/dL Ur Leukocyte Esterase Negative (NEGATIVE) Urine RBC 0-5 (NOT SEEN) /HPF Urine WBC 0-5 (NOT SEEN) /HPF Ur Squamous Epith Cells Many H (NEGATIVE) /HPF Urine Bacteria Rare (NEGATIVE) /HPF Hyaline Casts Rare H (NEGATIVE) /HPF Urine Mucus Few H (NEGATIVE) /LPF Urine Opiates Screen Negative (NEGATIVE) Ur Buprenorphine Scrn Negative (NEGATIVE) Ur Oxycodone Screen Negative (NEGATIVE) Urine Methadone Screen Negative (NEGATIVE) Ur Barbituates Screen Negative (NEGATIVE) Ur Tricyclics Screen Negative (NEGATIVE) Ur Amphetamines Screen Negative (NEGATIVE) U Methamphetamines Scrn Negative (NEGATIVE) Urine MDMA Screen Negative (NEGATIVE) U Benzodiazepines Scrn Negative (NEGATIVE) Urine Cocaine Screen Negative (NEGATIVE) U Marijuana (THC) Screen Positive H (NEGATIVE) 12/21/17 12/21/17 12/22/17 Range/Units 19:56 19:56 06:23 WBC (4.0-10.0) x10^3/uL RBC (4.00-5.50) x10^6/uL Hgb (12.0-16.0) g/dL Hct (33.0-47.0) % MCV (78.0-93.0) fL MCH (26.0-32.0) pg MCHC (32.0-36.0) g/dL RDW Coeff of [place]na (10.0-15.0) % Plt Count (130-400) x10^3/uL Neut % (Auto) (50.0-80.0) % Lymph % (Auto) (25.0-50.0) % [place] % (Auto) (2.0-11.0) % Eos % (Auto) (0.0-4.0) % Baso % (Auto) (0.2-1.2) % PT 10.2 (9.6-11.4) SEC INR 1.0 L (2.0-3.5) Sodium 139 140 (136-145) mmol/L Potassium 2.6 L* D 3.2 L (3.5-5.1) mmol/L Chloride 106 110 H (98-107) mmol/L Carbon Dioxide 23 24 (21-32) mmol/L Anion Gap 12.6 9.2 L (10-20) mmol/L BUN 6 L 6 L (7-18) mg/dL Creatinine 0.9 0.8 (0.55-1.02) mg/dL Est Cr Clr Drug Dosing 68.35 176.28 mL/min Estimated GFR (MDRD) > 60 > 60 Glucose 135 H 127 H (74-106) mg/dL Calcium 8.6 8.0 L (8.5-10.1) mg/dL Corrected Calcium 9.08 (8.5-10.1) mg/dL Phosphorus 3.7 (2.6-4.7) mg/dL Magnesium 2.0 (1.8-2.4) mg/dL Total Bilirubin 0.2 (0.2-1.0) mg/dL AST 12 L (15-37) U/L ALT 22 (14-59) U/L Alkaline Phosphatase 73 (46-116) U/L Troponin I < 0.017 (<=0.056) ng/mL C-Reactive Protein 0.7 (<=0.9) mg/dL NT-Pro-B Natriuret Pep 112 (<=125) pg/mL Total Protein 7.3 (6.4-8.2) g/dL Albumin 3.4 (3.4-5.0) g/dL Globulin 3.9 Albumin/Globulin Ratio 0.87 Urine Color (YELLOW) Urine Appearance (CLEAR) Urine pH (5.0-8.0) Ur Specific [place] Urine Protein (NEGATIVE) mg/dL Urine Glucose (UA) (NEGATIVE) mg/dL Urine Ketones (NEGATIVE) mg/dL Urine Occult Blood (NEGATIVE) Urine Nitrite (NEGATIVE) Urine Bilirubin (NEGATIVE) Urine Urobilinogen (0.2) EU/dL Ur Leukocyte Esterase (NEGATIVE) Urine RBC (NOT SEEN) /HPF Urine WBC (NOT SEEN) /HPF Ur Squamous Epith Cells (NEGATIVE) /HPF Urine Bacteria (NEGATIVE) /HPF Hyaline Casts (NEGATIVE) /HPF Urine Mucus (NEGATIVE) /LPF Urine Opiates Screen (NEGATIVE) Ur Buprenorphine Scrn (NEGATIVE) Ur Oxycodone Screen (NEGATIVE) Urine Methadone Screen (NEGATIVE) Ur Barbituates Screen (NEGATIVE) Ur Tricyclics Screen (NEGATIVE) Ur Amphetamines Screen (NEGATIVE) U Methamphetamines Scrn (NEGATIVE) Urine MDMA Screen (NEGATIVE) U Benzodiazepines Scrn (NEGATIVE) Urine Cocaine Screen (NEGATIVE) U Marijuana (THC) Screen (NEGATIVE) Med Orders - Current: Current Medications Acetaminophen (Tylenol) 650 mg PO Q4H PRN PRN Reason: Pain Last Admin: 12/21/17 22:53 Dose: 650 mg Al Hydroxide/Mg Hydroxide (Mag-Al Plus) 30 ml PO Q4H PRN PRN Reason: GERD Diltiazem HCl (Cardizem Cd) 180 mg PO DAILY [facility] Last Admin: 12/22/17 08:22 Dose: 180 mg Hydroxyzine HCl (Atarax) 25 mg PO TID [facility] Last Admin: 12/22/17 08:22 Dose: 25 mg Ibuprofen (Motrin) 600 mg PO Q6H PRN PRN Reason: Pain/Fever Last Admin: 12/22/17 00:56 Dose: 600 mg Lorazepam (Ativan) 0.5 mg PO BID PRN PRN Reason: Anxiety Meloxicam (Mobic) 7.5 mg PO BID [facility] Last Admin: 12/22/17 08:50 Dose: Not Given Omeprazole (Omeprazole) 20 mg PO DAILY PRN PRN Reason: GERD Ondansetron HCl (Zofran Odt) 4 mg PO TID PRN PRN Reason: Nausea Potassium Chloride (Klor-Con M20) 20 meq PO DAILY [facility] Last Admin: 12/22/17 08:22 Dose: 20 meq Pramipexole Dihydrochloride (Mirapex) 0.125 mg PO BEDTIME [facility] Sodium Chloride (Saline Flush) 10 ml FLUSH ASDIRECTED PRN PRN Reason: Keep Vein Open Discontinued Medications Diltiazem HCl (Diltiazem) 25 mg IVPUSH ONETIME ONE Stop: 12/21/17 19:59 Last Admin: 12/21/17 20:08 Dose: 25 mg Hydromorphone HCl (Dilaudid) 1 mg IVPUSH ONETIME ONE Stop: 12/22/17 02:51 Last Admin: 12/22/17 03:05 Dose: 1 mg Lactated Ringer's (Ringers, Lactated) 1,000 mls @ 500 mls/hr IV ASDIRECTED [facility] Last Admin: 12/21/17 20:15 Dose: 500 mls/hr Potassium Chloride/Sodium Chloride (Normal Saline With 40 Meq Kcl) 1,000 mls @ 200 mls/hr IV ASDIRECTED [facility] Last Admin: 12/21/17 21:00 Dose: 200 mls/hr - Exam General: Reports: Alert, Oriented, Cooperative HEENT: Reports: Pupils Equal, Pupils Reactive, EOMI Lungs: Reports: Clear to Auscultation, Normal Respiratory Effort Cardiovascular: Reports: Regular Rate, Regular Rhythm GI/Abdominal Exam: Normal Bowel Sounds, Soft, Non-Tender, No Organomegaly, No Distention, No Abnormal Bruit, No Mass, Pelvis Stable Extremities: Normal Inspection, Normal Range of Motion, Non-Tender, No Pedal Edema, Normal Capillary Refill Skin: Reports: Warm, Dry, Intact Neurological: Reports: No New Focal Deficit Psy/Mental Status: Reports: Alert, Normal Affect, Normal Mood
[2017-12-22] MEDS ORDERED: Pramipexole 0.125 MG Tab PO SCH (20:00)
== END 2017-12-22 13:04 | disposition home or self-care (01) ==
LOC: VM.ED 19:21 → VM.MS 20:40
PROVIDERS: ADMIT Physician Assistant; ATTEND Physician Assistant
DX: E87.6 Hypokalemia (principal); R00.2 Palpitations; R00.0 Tachycardia, unspecified; J45.909 Unspecified asthma, uncomplicated; F17.210 Nicotine dependence, cigarettes, uncomplicated; E66.9 Obesity, unspecified; Z79.899 Other long term (current) drug therapy
CPT/HCPCS: 36415; 80048; 80053; 80305-QW; 80349; 81001; 83735; 83880; 84100; 84484; 85025; 85610; 86140; 96361; 96365; 96375; 99285; A9270-GY; G0378; J1170; J3480; J3490; J7120

== ENCOUNTER 2018-07-21 21:33 | Emergency (ER) | payer BC, OTHER ==
[2018-07-21] MEDS ORDERED: Iopamidol 612 MG/ML 100 ML Bottle IVPUSH ONE (22:04)
[2018-07-21] MEDS ORDERED: cefTRIAXone 2 GM Vial IVPUSH ONE (23:17)
--- NOTE | 2018-07-21 23:17 | EDM.PDOC ---
ED HPI GENERAL MEDICAL PROBLEM - General Chief Complaint: General Stated Complaint: PAIN IN LOWER BACK Time Seen by Provider: 07/21/18 21:47 Source of Information: Reports: Patient History Limitations: Reports: No Limitations - History of Present Illness INITIAL COMMENTS - FREE TEXT/NARRATIVE: Patient was in the clinic earlier today with left flank pain. Labs were drawn and were largely negative with only blood present in urine. Referred to the ER for additional screening and did not come this afternoon. She is now here for a CT exam which is what the provider from earlier wanted her to have done. Denies fever, chills, fatigue. States her flank pain started 4 days ago, urinating is painful. No other complaints. Duration: Intermittent Severity: Moderate Right flank Pain Score (Numeric/FACES): 7 - Related Data Allergies Allergy/AdvReac Type Severity Reaction Status Date / Time adhesive tape Allergy Hives Verified 07/21/18 23:24 gabapentin Allergy Cannot Verified 07/21/18 23:24 Remember latex Allergy Hives Verified 07/21/18 23:24 isoniazid AdvReac Unknown Seizure Verified 07/21/18 23:24 tramadol AdvReac Unknown Seizure Verified 07/21/18 23:24 Home Meds: Home Meds Acetaminophen 650 mg PO Q4H PRN 05/10/17 [History] Albuterol [Proair HFA] 1 puff INH Q4H PRN 05/10/17 [History] hydrOXYzine HCl [hydrOXYzine] 25 mg PO TID 09/30/17 [History] LORazepam [Ativan] 0.5 mg PO BID PRN 10/28/17 [History] Mag Carb/Al Hydrox/Alginic Ac [Gaviscon Extra Strength Liquid] 30 ml PO Q4H PRN 10/28/17 [History] Omeprazole Magnesium [Prilosec Otc] 20 mg PO DAILY PRN 10/28/17 [History] Ondansetron HCl [Zofran] 4 mg PO TID PRN 10/28/17 [History] Potassium Chloride 20 meq PO DAILY 10/28/17 [History] Diltiazem HCl [Diltiazem 24Hr ER] 180 mg PO DAILY 12/21/17 [History] Meloxicam [Mobic] 15 mg PO BID 12/21/17 [History] Pramipexole Di-HCl [Mirapex] 0.125 mg PO BEDTIME 12/21/17 [History] Ibuprofen [Motrin] 600 mg PO Q6H PRN tablet 12/22/17 [Rx] Past Medical History - Past Health History Medical/Surgical History: Denies Medical/Surgical History HEENT History: Reports: None Cardiovascular History: Reports: Arrhythmia Other Cardiovascular History: inappropriate sinus tachycardia. 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 MECHANIC History: Reports: Polycystic Ovaries, Other (See Below) Other FURNACE REPAIR MECHANIC History: dysmenorrhea Neurological History: Reports: Seizure Psychiatric History: Reports: Anxiety, Depression, Psychosis, Schizophrenia, Suicidal Ideation Other Psychiatric History: Schizoaffective Disorder Endocrine/Metabolic History: Reports: Obesity/BMI 30+, Other (See Below) Other Endocrine/Metabolic History: adrenal insufficiency Hematologic History: Reports: None Immunologic History: Reports: None Oncologic (Cancer) History: Reports: None - Infectious Disease History Infectious Disease History: Reports: Other (See Below) 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 - Past Surgical History Respiratory Surgical History: Reports: Thoracotomy GI Surgical History: Reports: Cholecystectomy, Colonoscopy Female Surgical History: Reports: Hysterectomy Other Female Surgeries/Procedures: hysterectomy on 02/04/16 Other Musculoskeletal Surgeries/Procedures:: foot surgery Social & Family History - Family History Family Medical History: Noncontributory - Caffeine Use Caffeine Use: Reports: None - Sexual History Sexual History: Reports: Same Sex Partner, Single Partner - Living Situation & Occupation Living situation: Reports: , with Spouse Occupation: Employed ED ROS GENERAL - Review of Systems Review Of Systems: See Below Constitutional: Reports: No Symptoms HEENT: Reports: No Symptoms Respiratory: Reports: No Symptoms Cardiovascular: Reports: No Symptoms Endocrine: Reports: No Symptoms GI/Abdominal: Reports: No Symptoms : Reports: No Symptoms Musculoskeletal: Reports: Back Pain Skin: Reports: No Symptoms Neurological: Reports: No Symptoms Psychiatric: Reports: No Symptoms Hematologic/Lymphatic: Reports: No Symptoms Immunologic: Reports: No Symptoms ED EXAM, GENERAL - Physical Exam Exam: See Below Exam Limited By: No Limitations General Appearance: Alert, WD/WN, No Apparent Distress Eye Exam: Bilateral Eye: EOMI, Normal Inspection Ears: Normal TMs Nose: Normal Inspection, Normal Mucosa, No Blood Throat/Mouth: Normal Inspection, Normal Lips, Normal Teeth, Normal Gums, Normal Oropharynx, Normal Voice, No Airway Compromise Head: Atraumatic, Normocephalic Neck: Normal Inspection, Supple, Non-Tender, Full Range of Motion Respiratory/Chest: No Respiratory Distress, Lungs Clear, Normal Breath Sounds, No Accessory Muscle Use, Chest Non-Tender Cardiovascular: Normal Peripheral Pulses, Regular Rate, Rhythm, No Edema, No Gallop, No JVD, No Murmur, No Rub Peripheral Pulses: 2+: Posterior Tibial (L), Posterior Tibial (R), Dorsalis Pedis (L), Dorsalis Pedis (R) GI/Abdominal: Normal Bowel Sounds, Soft, Non-Tender, No Organomegaly, No Distention, No Abnormal Bruit, No Mass Back Exam: CVA Tenderness (L) Extremities: Normal Inspection, Normal Range of Motion, Non-Tender, Normal Capillary Refill, No Pedal Edema Neurological: Alert, Oriented, CN II-XII Intact, Normal Cognition, Normal Gait, Normal Reflexes, No Motor/Sensory Deficits Psychiatric: Normal Affect, Normal Mood Skin Exam: Warm, Dry, Intact, Normal Color, No Rash Lymphatic: No Adenopathy Course - Vital Signs Last Recorded V/S: Last Vital Signs Temp 36.6 C 07/21/18 21:35 Pulse 84 07/21/18 21:35 Resp 16 07/21/18 21:35 BP 155/94 H 07/21/18 21:35 Pulse Ox 99 07/21/18 21:35 - Orders/Labs/Meds Orders: Active Orders 24 hr Category Date Time Status Abdomen Pelvis w Cont [CT] Stat Exams 07/21/18 21:48 Ordered Meds: Medications Discontinued Medications Generic Name Dose Route Start Last Admin Trade Name Murphyq PRN Reason Stop Dose Admin Ceftriaxone Sodium 2 gm 07/21/18 23:17 Rocephin IVPUSH 07/21/18 23:18 STAT ONE Iopamidol 100 ml 07/21/18 22:04 07/21/18 22:18 Isovue-300 (61%) IVPUSH 07/21/18 22:05 100 ml ONETIME ONE Administration Departure - Departure Time of Disposition: 23:54 Disposition: Home, Self-Care 01 Condition: Good Clinical Impression: Pyelonephritis - Discharge Information *PRESCRIPTION DRUG MONITORING PROGRAM REVIEWED*: Not Applicable *COPY OF PRESCRIPTION DRUG MONITORING REPORT IN PATIENT GAY: Not Applicable Instructions: Pyelonephritis, Adult, [id number], Ciprofloxacin tablets, Probiotics Referrals: Sanam Woodson, [Primary Care Provider] - Forms: ED Department Discharge Additional Instructions: Plan 1. Stay well hydrated 2. Take the full course of Cipro unless you have any allergic reactions including rash, swelling of the neck, throat, or difficulty breathing. 3. Follow up in the clinic in 7-10 days or sooner if symptoms persist. 4. CT negative for any stones. 5. Make sure to eat yogurt or take probiotics to prevent any bacterial infection of the gut caused by antibiotic use. 6. Please call us any time with any questions or concerns. - Problem List & Annotations (1) Pyelonephritis SNOMED Code(s): 26968534 Code(s): N12 - TUBULO-INTERSTITIAL NEPHRITIS, NOT SPCF ACUTE OR CHRONIC Status: Acute Priority: Low Current Visit: Yes - Problem List Review Problem List Initiated/Reviewed/Updated: Yes - My Orders Last 24 Hours: My Active Orders 07/21/18 21:48 Abdomen Pelvis w Cont [CT] Stat - Assessment/Plan Last 24 Hours: My Active Orders 07/21/18 21:48 Abdomen Pelvis w Cont [CT] Stat Assessment:: left pyelonephritis Plan: Plan 1. Stay well hydrated 2. Take the full course of Cipro unless you have any allergic reactions including rash, swelling of the neck, throat, or difficulty breathing. 3. Follow up in the clinic in 7-10 days or sooner if symptoms persist. 4. CT negative for any stones. 5. Make sure to eat yogurt or take probiotics to prevent any bacterial infection of the gut caused by antibiotic use. 6. Please call us any time with any questions or concerns.
[2018-07-21 23:24] VITALS: BP 155/94
[2018-07-21] MEDS ORDERED: diphenhydrAMINE 50 MG/ML SDV IM ONE (23:55)
--- NOTE | 2018-07-22 11:26 | CT ---
[id number] CT/CT Abdomen Pelvis W IV EXAM: CT Abdomen Pelvis W IV CLINICAL DATA: ABDOMINAL PAIN COMPARISON: CORRELATION IS MADE WITH THE EXAM OF OCTOBER 31, 2017. FINDINGS: There is a small left renal cyst. The gallbladder has been removed. The appendix is normal. The uterus and ovaries are not seen. The liver and spleen are unremarkable. The kidneys and adrenals show no abnormality. The aorta and pancreas are within normal limits. There is no bowel distention. There is no bowel wall thickening either. There is no free fluid or free air. There is no adenopathy. The pelvis shows no mass, free fluid, abscess, inflammatory change, or adenopathy. IMPRESSION: NO ACUTE PROCESS. Aravind Pham MD 07/22/18 1125 Thank you for allowing us to participate in the care of your patient.
== END 2018-07-22 00:07 | disposition home or self-care (01) ==
LOC: VM.ED 21:33
DX: N12 Tubulo-interstitial nephritis, not specified as acute or chronic (principal); E66.9 Obesity, unspecified; Z91.040 Latex allergy status; Z88.8 Allergy status to other drugs, medicaments and biological substances; Z79.899 Other long term (current) drug therapy
CPT/HCPCS: 74177; 96372; 96374; 99284; J0696; J1200; Q9967

== ENCOUNTER 2018-11-06 04:15 | Emergency (ER) | payer BC ==
[2018-11-06] MEDS ORDERED: fentaNYL 100 MCG/2 ML SDV IVPUSH ONE ×2 (04:51→06:50)
[2018-11-06] MEDS ORDERED: Sodium Chloride 0.9% 10 ML Syringe FLUSH PRN (04:51)
[2018-11-06 05:25] LABS: CHLORIDE,CL 107 mmol/L (98-107); SODIUM,NA 143 mmol/L (136-145)
[2018-11-06 05:28] LABS: ANION GAP 11.9 mmol/L (10-20)
[2018-11-06] MEDS ORDERED: Iopamidol 612 MG/ML 100 ML Bottle IVPUSH ONE (05:53)
[2018-11-06 06:14] VITALS: BP 102/66; PULSE 64
--- NOTE | 2018-11-06 07:04 | EDM.PDOC ---
ED HPI GENERAL MEDICAL PROBLEM - General Chief Complaint: Abdominal Pain Stated Complaint: Low abdominal pain Time Seen by Provider: 11/06/18 04:30 - History of Present Illness Location: Reports: Abdomen Improves with: Reports: Medication Treatments ADMINISTRATIVE PROGRAM SPECIALIST: Reports: Other (see below) Other Treatments ADMINISTRATIVE PROGRAM SPECIALIST: Ibuprofen 800mg at 12 midnight. low abdomen, RLQ, LLQ Pain Score (Numeric/FACES): 3 - Related Data Allergies Allergy/AdvReac Type Severity Reaction Status Date / Time adhesive tape Allergy Hives Verified 11/06/18 04:34 ceftriaxone [From Rocephin] Allergy Hives Verified 11/06/18 04:34 gabapentin Allergy Cannot Verified 11/06/18 04:34 Remember latex Allergy Hives Verified 11/06/18 04:34 isoniazid AdvReac Unknown Seizure Verified 11/06/18 04:34 tramadol AdvReac Unknown Seizure Verified 11/06/18 04:34 Home Meds: Home Meds RX: Acetaminophen 650 mg PO Q4H PRN 05/10/17 [History] RX: Albuterol [Proair HFA] 1 puff INH Q4H PRN 05/10/17 [History] RX: hydrOXYzine HCl [hydrOXYzine] 25 mg PO TID 09/30/17 [History] RX: LORazepam [Ativan] 0.5 mg PO BID PRN 10/28/17 [History] RX: Mag Carb/Al Hydrox/Alginic Ac [Gaviscon Extra Strength Liquid] 30 ml PO Q4H PRN 10/28/17 [History] RX: Omeprazole Magnesium [Prilosec Otc] 20 mg PO DAILY PRN 10/28/17 [History] RX: Ondansetron HCl [Zofran] 4 mg PO TID PRN 10/28/17 [History] RX: Potassium Chloride 20 meq PO DAILY 10/28/17 [History] RX: Meloxicam [Mobic] 15 mg PO BID 12/21/17 [History] RX: Pramipexole Di-HCl [Mirapex] 0.125 mg PO BEDTIME 12/21/17 [History] RX: dilTIAZem HCl [Diltiazem 24Hr ER ([place])] 180 mg PO DAILY 12/21/17 [History] RX: Ibuprofen [Motrin] 600 mg PO Q6H PRN tablet 12/22/17 [Rx] Past Medical History - Past Health History Medical/Surgical History: Denies Medical/Surgical History HEENT History: Reports: None Cardiovascular History: Reports: Arrhythmia Other Cardiovascular History: inappropriate sinus tachycardia. 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 CHEMISTRY History: Reports: Polycystic Ovaries, Other (See Below) Other MANAGER CHEMISTRY History: dysmenorrhea Neurological History: Reports: Seizure Psychiatric History: Reports: Anxiety, Depression, Psychosis, Schizophrenia, Suicidal Ideation Other Psychiatric History: Schizoaffective Disorder Endocrine/Metabolic History: Reports: Obesity/BMI 30+, Other (See Below) Other Endocrine/Metabolic History: adrenal insufficiency Hematologic History: Reports: None Immunologic History: Reports: None Oncologic (Cancer) History: Reports: None - Infectious Disease History Infectious Disease History: Reports: Other (See Below) 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 - Past Surgical History Respiratory Surgical History: Reports: Thoracotomy GI Surgical History: Reports: Cholecystectomy, Colonoscopy Female Surgical History: Reports: Hysterectomy Other Female Surgeries/Procedures: hysterectomy on 02/04/16 Other Musculoskeletal Surgeries/Procedures:: foot surgery Social & Family History - Family History Family Medical History: Noncontributory - Caffeine Use Caffeine Use: Reports: None - Sexual History Sexual History: Reports: Same Sex Partner, Single Partner - Living Situation & Occupation Living situation: Reports: , with Spouse Occupation: Employed ED ROS GENERAL - Review of Systems Review Of Systems: See Below Constitutional: Reports: No Symptoms HEENT: Reports: No Symptoms Respiratory: Reports: No Symptoms Cardiovascular: Reports: No Symptoms Endocrine: Reports: No Symptoms GI/Abdominal: Reports: Abdominal Pain Musculoskeletal: Reports: No Symptoms Skin: Reports: No Symptoms Neurological: Reports: No Symptoms ED EXAM, GI/ABD - Physical Exam Exam: See Below Text/Narrative:: Pt with hx of diverticulosis was treated and finished abx on 11/04. Continued lower abd pain. CT showed improved diverticulosis, no new findings. Labs with no acute findings. General Appearance: Alert, WD/WN, No Apparent Distress Ears: Normal External Exam Nose: Normal Inspection Head: Atraumatic, Normocephalic Neck: Normal Inspection Respiratory/Chest: No Respiratory Distress, Lungs Clear, Normal Breath Sounds, No Accessory Muscle Use, Chest Non-Tender Cardiovascular: Normal Peripheral Pulses, Regular Rate, Rhythm, No Edema, No Gallop, No JVD, No Murmur, No Rub GI/Abdominal Exam: Normal Bowel Sounds, Soft, No Mass, Tender, Other (Pain lower abd bilateral, pt with hx of diverticulosis finished medication on 11/04, continued pain ) Extremities: Normal Inspection, Normal Range of Motion, Non-Tender, Normal Capillary Refill, No Pedal Edema Neurological: Alert, Oriented, CN II-XII Intact, Normal Cognition, Normal Gait, Normal Reflexes, No Motor/Sensory Deficits Course - Vital Signs Last Recorded V/S: Last Vital Signs Temp 36.9 C 11/06/18 04:15 Pulse 64 11/06/18 06:13 Resp 16 11/06/18 06:13 BP 102/66 11/06/18 06:13 Pulse Ox 98 11/06/18 04:15 - Orders/Labs/Meds Orders: Active Orders 24 hr Category Date Time Status Abdomen Pelvis w Cont [CT] Stat Exams 11/06/18 05:30 Taken Sodium Chloride 0.9% [Saline Flush] Med 11/06/18 04:51 Active 10 ml FLUSH ASDIRECTED PRN Peripheral IV Insertion Adult [OM.PC] Routine Oth 11/06/18 04:51 Ordered Medication Orders Sodium Chloride (Saline Flush) 10 ml FLUSH ASDIRECTED PRN PRN Reason: Keep Vein Open Labs: Laboratory Tests 11/06/18 11/06/18 11/06/18 Range/Units 04:54 04:55 04:55 WBC 4.0 (4.0-10.0) x10^3/uL RBC 4.74 (4.00-5.50) x10^6/uL Hgb 14.9 (12.0-16.0) g/dL Hct 43.7 (33.0-47.0) % MCV 92.2 (78.0-93.0) fL MCH 31.4 (26.0-32.0) pg MCHC 34.1 (32.0-36.0) g/dL RDW Coeff of Dionna 12.5 (10.0-15.0) % Plt Count 246 (130-400) x10^3/uL Neut % (Auto) 48.4 L (50.0-80.0) % Lymph % (Auto) 35.5 (25.0-50.0) % [place] % (Auto) 11.5 H (2.0-11.0) % Eos % (Auto) 4.3 H (0.0-4.0) % Baso % (Auto) 0.3 (0.2-1.2) % Sodium 143 (136-145) mmol/L Potassium 3.9 (3.5-5.1) mmol/L Chloride 107 (98-107) mmol/L Carbon Dioxide 28 (21-32) mmol/L Anion Gap 11.9 (10-20) mmol/L BUN 5 L (7-18) mg/dL Creatinine 0.8 (0.55-1.02) mg/dL Est Cr Clr Drug Dosing 76.15 mL/min Estimated GFR (MDRD) > 60 Glucose 90 (74-106) mg/dL Calcium 9.0 (8.5-10.1) mg/dL Urine Color Yellow (YELLOW) Urine Appearance Clear (CLEAR) Urine pH 5.5 (5.0-8.0) Ur Specific [place] 1.020 Urine Protein Negative (NEGATIVE) mg/dL Urine Glucose (UA) Negative (NEGATIVE) mg/dL Urine Ketones Negative (NEGATIVE) mg/dL Urine Occult Blood Negative (NEGATIVE) Urine Nitrite Negative (NEGATIVE) Urine Bilirubin Negative (NEGATIVE) Urine Urobilinogen 0.2 (0.2) EU/dL Ur Leukocyte Esterase Negative (NEGATIVE) Meds: Medications Generic Name Dose Route Start Last Admin Trade Name Freq PRN Reason Stop Dose Admin Sodium Chloride 10 ml 11/06/18 04:51 Saline Flush FLUSH ASDIRECTED PRN Keep Vein Open Discontinued Medications Generic Name Dose Route Start Last Admin Trade Name Freq PRN Reason Stop Dose Admin Fentanyl 50 mcg 11/06/18 04:51 11/06/18 05:06 Sublimaze IVPUSH 11/06/18 04:52 50 mcg ONETIME ONE Administration Fentanyl 50 mcg 11/06/18 06:50 11/06/18 06:52 Sublimaze IVPUSH 11/06/18 06:51 50 mcg ONETIME ONE Administration Iopamidol 100 ml 11/06/18 05:53 11/06/18 06:07 Isovue-300 (61%) IVPUSH 11/06/18 05:54 100 ml ONETIME ONE Administration Departure - Departure Time of Disposition: 07:05 Disposition: Home, Self-Care 01 Condition: Good Clinical Impression: Abdominal pain - Discharge Information *PRESCRIPTION DRUG MONITORING PROGRAM REVIEWED*: Not Applicable *COPY OF PRESCRIPTION DRUG MONITORING REPORT IN PATIENT GAY: Not Applicable Instructions: Pain Without a Known Cause Referrals: PCP,Unobtain [Primary Care Provider] - Additional Instructions: Follow up with pcp for continued care. - My Orders Last 24 Hours: My Active Orders 11/06/18 04:51 Sodium Chloride 0.9% [Saline Flush] 10 ml FLUSH ASDIRECTED PRN Peripheral IV Insertion Adult [OM.PC] Routine 11/06/18 05:30 Abdomen Pelvis w Cont [CT] Stat - Assessment/Plan Last 24 Hours: My Active Orders 11/06/18 04:51 Sodium Chloride 0.9% [Saline Flush] 10 ml FLUSH ASDIRECTED PRN Peripheral IV Insertion Adult [OM.PC] Routine 11/06/18 05:30 Abdomen Pelvis w Cont [CT] Stat
--- NOTE | 2018-11-06 08:23 | CT ---
[id number] CT/CT Abdomen Pelvis W IV EXAM: ABDOMEN AND PELVIS CT WITH CONTRAST INDICATION: Bilateral lower abdominal/pelvic pain. COMPARISON: October 25, 2017. DISCUSSION: Significant interval improvement in sigmoid diverticulitis free fluid in the pelvis has nearly resolved. No free air, pneumatosis, abscess or other evident complication. Hysterectomy. Small fat-containing umbilical hernia. Mild hepatomegaly. Cholecystectomy. Subcentimeter bilateral renal hypodensities are too small to fully characterize, but likely represent cysts. The pancreas, spleen, adrenal glands, small bowel and appendix are normal in appearance. The osseous structures are unremarkable. IMPRESSION: 1. Resolving sigmoid diverticulitis without evident complication. No new findings. Yrn Stokes MD 11/06/18 0822 Thank you for allowing us to participate in the care of your patient.
== END 2018-11-06 07:10 | disposition home or self-care (01) ==
LOC: VM.ED 04:15
DX: R10.31 Right lower quadrant pain (principal); R10.32 Left lower quadrant pain; K21.9 Gastro-esophageal reflux disease without esophagitis; F41.9 Anxiety disorder, unspecified; F32.9 Major depressive disorder, single episode, unspecified; Z91.09 Other allergy status, other than to drugs and biological substances; Z88.1 Allergy status to other antibiotic agents; Z91.040 Latex allergy status; Z88.5 Allergy status to narcotic agent; Z88.8 Allergy status to other drugs, medicaments and biological substances; Z79.899 Other long term (current) drug therapy
CPT/HCPCS: 74177; 80048; 81003; 85025; 96374; 96376; 99284; J3010; Q9967

== ENCOUNTER → 2019-01-08 | Emergency (ER) | payer SELFPAY ==
[~2019-01-08] MED LIST: Aspirin 81 MG Tab.Chew PO ONE; GI Cocktail Oral Solution 30 ML PO ONE; Ketorolac 60 MG/2 ML SDV IVPUSH ONE; Morphine 2 MG/ML Syringe IVPUSH ONE; Nitroglycerin 0.4 MG Tab.SL SL ONE; Ondansetron 4 MG/2 ML SDV IVPUSH ONE; Sodium Chloride 0.9% 1,000 ML IV ONE
--- NOTE | 2019-01-08 16:45 | EDM.PDOC ---
ED HPI GENERAL MEDICAL PROBLEM - General Stated Complaint: CHEST PAIN Time Seen by Provider: 01/08/19 16:45 Source of Information: Reports: Patient - History of Present Illness INITIAL COMMENTS - FREE TEXT/NARRATIVE: She has had sharp sternal pain since 1:00. She says that she has been prescribed heart medications but she does not take them. She also states that she has taken potassium in the past she has not been taking them for a while. She denies taking nitroglycerin in the past. Her discomfort is a 6-7 out of 10. I will see if she will benefit from morphine before electing to go to nitroglycerin. EKG looks okay. Labs are being drawn. Her previous troponin has been 0.017 and she also has had a value of 0.019. I also gave her a GI cocktail and a shot of Toradol. Her discomfort did come down from a 6 to a 4 with the morphine. The substernal pain also radiates to her left shoulder and down to her left hand. The Patient did get relief with morphine. Her last stress test was 2014 Improves with: Reports: None Worsens with: Reports: Movement Mid-Sternal Chest Pain Score (Numeric/FACES): 7 - Related Data Allergies Allergy/AdvReac Type Severity Reaction Status Date / Time adhesive tape Allergy Hives Verified 01/08/19 19:30 ceftriaxone [From Rocephin] Allergy Hives Verified 01/08/19 19:30 gabapentin Allergy Cannot Verified 01/08/19 19:30 Remember latex Allergy Hives Verified 01/08/19 19:30 isoniazid AdvReac Unknown Seizure Verified 01/08/19 19:30 tramadol AdvReac Unknown Seizure Verified 01/08/19 19:30 Home Meds: Home Meds Acetaminophen 650 mg PO Q4H PRN 05/10/17 [History] Albuterol [Proair HFA] 1 puff INH Q4H PRN 05/10/17 [History] hydrOXYzine HCl [hydrOXYzine] 25 mg PO TID 09/30/17 [History] LORazepam [Ativan] 0.5 mg PO BID PRN 10/28/17 [History] Mag Carb/Al Hydrox/Alginic Ac [Gaviscon Extra Strength Liquid] 30 ml PO Q4H PRN 10/28/17 [History] Omeprazole Magnesium [Prilosec Otc] 20 mg PO DAILY PRN 07/20/18 [History] Ondansetron HCl [Zofran] 4 mg PO TID PRN 10/28/17 [History] Potassium Chloride 20 meq PO DAILY 10/28/17 [History] Meloxicam [Mobic] 15 mg PO BID 12/21/17 [History] Pramipexole Di-HCl [Mirapex] 0.125 mg PO BEDTIME 12/21/17 [History] dilTIAZem HCl [Diltiazem 24Hr ER (LA)] 180 mg PO DAILY 12/21/17 [History] Ibuprofen [Motrin] 600 mg PO Q6H PRN tablet 12/22/17 [Rx] Past Medical History - Past Health History Medical/Surgical History: Denies Medical/Surgical History HEENT History: Reports: None Cardiovascular History: Reports: Arrhythmia Other Cardiovascular History: inappropriate sinus tachycardia. 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: dysmenorrhea Neurological History: Reports: Seizure Psychiatric History: Reports: Anxiety, Depression, Psychosis, Schizophrenia, Suicidal Ideation Other Psychiatric History: Schizoaffective Disorder Endocrine/Metabolic History: Reports: Obesity/BMI 30+, Other (See Below) Other Endocrine/Metabolic History: adrenal insufficiency Hematologic History: Reports: None Immunologic History: Reports: None Oncologic (Cancer) History: Reports: None - Infectious Disease History Infectious Disease History: Reports: Other (See Below) 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 - Past Surgical History Respiratory Surgical History: Reports: Thoracotomy GI Surgical History: Reports: Cholecystectomy, Colonoscopy Female Surgical History: Reports: Hysterectomy Other Female Surgeries/Procedures: hysterectomy on 02/04/16 Other Musculoskeletal Surgeries/Procedures:: foot surgery Social & Family History - Family History Family Medical History: Noncontributory - Caffeine Use Caffeine Use: Reports: None - Sexual History Sexual History: Reports: Same Sex Partner, Single Partner - Living Situation & Occupation Living situation: Reports: , with Spouse Occupation: Employed ED ROS GENERAL - Review of Systems Review Of Systems: ROS reveals no pertinent complaints other than HPI. ED EXAM, GENERAL - Physical Exam Exam: See Below Exam Limited By: No Limitations General Appearance: Moderate Distress, Severe Distress Respiratory/Chest: No Respiratory Distress, Lungs Clear Cardiovascular: Normal Peripheral Pulses, Regular Rate, Rhythm, Other (Chest pain.) Extremities: Normal Inspection Neurological: Alert, Oriented Psychiatric: Normal Affect Skin Exam: Warm, Dry Lymphatic: No Adenopathy Course - Vital Signs Last Recorded V/S: Last Vital Signs Temp 36.8 C 01/08/19 16:35 Pulse 66 01/08/19 20:12 Resp 12 01/08/19 20:12 BP 111/61 01/08/19 20:12 Pulse Ox 97 01/08/19 20:12 - Orders/Labs/Meds Orders: Active Orders 24 hr Category Date Time Status EKG 12 Lead [EKG Documentation Completion] [RC] STAT Care 01/08/19 17:03 Active Labs: Laboratory Tests 01/08/19 01/08/19 01/08/19 Range/Units 17:00 17:00 20:04 WBC 6.5 (4.0-10.0) x10^3/uL RBC 4.83 (4.00-5.50) x10^6/uL Hgb 15.0 (12.0-16.0) g/dL Hct 43.6 (33.0-47.0) % MCV 90.3 (78.0-93.0) fL MCH 31.1 (26.0-32.0) pg MCHC 34.4 (32.0-36.0) g/dL RDW Coeff of Dionna 12.9 (10.0-15.0) % Plt Count 257 (130-400) x10^3/uL Neut % (Auto) 62.9 (50.0-80.0) % Lymph % (Auto) 27.5 (25.0-50.0) % [place] % (Auto) 7.7 (2.0-11.0) % Eos % (Auto) 1.7 (0.0-4.0) % Baso % (Auto) 0.2 (0.2-1.2) % Sodium 140 (69-191) mmol/L Potassium 4.1 (1.5-9.9) mmol/L Chloride 104 (54-184) mmol/L Carbon Dioxide 24 (21-32) mmol/L Anion Gap 16.1 (10-20) mmol/L BUN 7 (7-18) mg/dL Creatinine 0.8 (0.55-1.02) mg/dL Est Cr Clr Drug Dosing TNP Estimated GFR (MDRD) > 60 Glucose 87 (74-106) mg/dL Calcium 9.1 (8.5-10.1) mg/dL Corrected Calcium 9.18 (8.5-10.1) mg/dL Magnesium 1.9 (1.8-2.4) mg/dL Total Bilirubin 0.5 (0.2-1.0) mg/dL AST 21 (15-37) U/L ALT 25 (14-59) U/L Alkaline Phosphatase 66 (46-116) U/L Troponin I < 0.017 < 0.017 (<=0.056) ng/mL C-Reactive Protein < 0.2 (<=0.9) mg/dL Total Protein 7.6 (6.4-8.2) g/dL Albumin 3.9 (3.4-5.0) g/dL Globulin 3.7 Albumin/Globulin Ratio 1.05 Meds: Medications Discontinued Medications Generic Name Dose Route Start Last Admin Trade Name Freq PRN Reason Stop Dose Admin Al Hydroxide/Mg Hydroxide 30 ml 01/08/19 17:45 01/08/19 18:31 Gi Cocktail PO 01/08/19 17:46 30 ml ONETIME ONE Administration Aspirin 324 mg 01/08/19 19:00 Aspirin PO 01/08/19 19:01 ONETIME ONE Aspirin 324 mg 01/08/19 18:59 01/08/19 19:02 Aspirin PO 01/08/19 19:00 324 mg ONETIME ONE Administration Sodium Chloride 1,000 mls @ 999 mls/hr 01/08/19 19:03 01/08/19 19:09 Normal Saline IV 01/08/19 20:03 999 mls/hr .BOLUS ONE Administration Ketorolac Tromethamine 15 mg 01/08/19 18:12 01/08/19 18:31 Toradol IVPUSH 01/08/19 18:13 15 mg ONETIME ONE Administration Morphine Sulfate 2 mg 01/08/19 16:51 01/08/19 17:07 Morphine IVPUSH 01/08/19 16:52 2 mg ONETIME ONE Administration Morphine Sulfate 2 mg 01/08/19 18:55 01/08/19 18:59 Morphine IVPUSH 09/30/19 18:56 2 mg ONETIME ONE Administration Nitroglycerin 0.4 mg 01/08/19 18:52 Nitrostat SL 01/08/19 18:53 ONETIME ONE Ondansetron HCl 4 mg 01/08/19 16:51 01/08/19 17:10 Zofran IVPUSH 01/08/19 16:52 4 mg ONETIME ONE Administration Departure - Departure Time of Disposition: 20:35 Disposition: Home, Self-Care 01 Condition: Good Clinical Impression: Atypical chest pain Instructions: Nonspecific Chest Pain Referrals: Sanam Woodson DO [Primary Care Provider] - Forms: ED Department Discharge Additional Instructions: EKG looks normal. Labs appear normal. Chest x-ray appear normal. Schedule to see Dr. Sanam Woodson. You may benefit from a stress test or calcium score CT. scan. I will be contacting her on your behalf as a courtesy. Your cardiac enzymes were identical. Return here if pain returns. - My Orders Last 24 Hours: My Active Orders 01/08/19 17:03 EKG 12 Lead [EKG Documentation Completion] [RC] STAT - Assessment/Plan Last 24 Hours: My Active Orders 01/08/19 17:03 EKG 12 Lead [EKG Documentation Completion] [RC] STAT
--- NOTE | 2019-01-08 17:20 | CR ---
[id number] RAD/RAD Chest PA or AP 1V EXAM: FRONTAL CHEST INDICATION: Shortness of breath. COMPARISON: October 28, 2017. DISCUSSION: A small calcified granuloma is suggested in the medial right lung base. Mild hyperinflation. No acute infiltrates are identified. Normal heart size. IMPRESSION: 1. No acute findings. Yrn Stokes MD 01/08/19 [id number] Thank you for allowing us to participate in the care of your patient.
[2019-01-08 17:30] LABS: CHLORIDE,CL 104 mmol/L (54-184); SODIUM,NA 140 mmol/L (69-191)
[2019-01-08 17:31] LABS: ANION GAP 16.1 mmol/L (10-20)
[2019-01-08 20:13] VITALS: BP 111/61; PULSE 66
== END ==
LOC: VM.ED 16:30
DX: R07.89 Other chest pain (principal); K21.9 Gastro-esophageal reflux disease without esophagitis; F32.9 Major depressive disorder, single episode, unspecified; F41.9 Anxiety disorder, unspecified; J45.909 Unspecified asthma, uncomplicated; E66.9 Obesity, unspecified; Z91.040 Latex allergy status; Z91.048 Other nonmedicinal substance allergy status; Z79.899 Other long term (current) drug therapy; Z88.8 Allergy status to other drugs, medicaments and biological substances; Z79.51 Long term (current) use of inhaled steroids; Z90.49 Acquired absence of other specified parts of digestive tract; Z90.710 Acquired absence of both cervix and uterus; Z68.39 Body mass index [BMI] 39.0-39.9, adult
CPT/HCPCS: 36415; 71045; 80053; 83735; 84484; 85025; 86140; 93005; 96361; 96374; 96375; 96376; 99285; A9270; J1885; J2270; J2405; J7030; 99284-GF

== ENCOUNTER 2019-01-09 10:27 | Emergency (ER) | payer SELFPAY ==
[2019-01-09] MEDS ORDERED: Sodium Chloride 0.9% 10 ML Syringe FLUSH PRN (10:46)
[2019-01-09] MEDS ORDERED: Iopamidol 612 MG/ML 100 ML Bottle IVPUSH ONE (10:58)
[2019-01-09 11:11] VITALS: BP 101/78; PULSE 78
--- NOTE | 2019-01-09 11:31 | EDM.PDOC ---
ED HPI GENERAL MEDICAL PROBLEM - General Chief Complaint: Chest Pain Stated Complaint: CHEST PAIN Time Seen by Provider: 01/09/19 10:30 Source of Information: Reports: Patient History Limitations: Reports: No Limitations - History of Present Illness INITIAL COMMENTS - FREE TEXT/NARRATIVE: Pt. presents to ER with complaints of continued substernal chest pain. She was seen in the ER yesterday for the same. At that time her EKG was within normal limits. Trop I was negative. She did not have a d dimer or CTA performed of the chest, however. Pt. states that the discomfort is located in the mid chest. She states that it is worse with palpation but not cough, breathing, or movement. She denies any jaw, arm, neck or back pain. No nausea/vomiting. No fever or chills. Denies any cough or chest congestion. Onset Date: 01/08/19 Location: Reports: Chest Quality: Reports: Ache, Throbbing Severity: Moderate Middle Chest Pain Score (Numeric/FACES): 7 - Related Data Allergies Allergy/AdvReac Type Severity Reaction Status Date / Time adhesive tape Allergy Hives Verified 01/09/19 11:13 ceftriaxone [From Rocephin] Allergy Hives Verified 01/09/19 11:13 gabapentin Allergy Cannot Verified 01/09/19 11:13 Remember latex Allergy Hives Verified 01/09/19 11:13 isoniazid AdvReac Unknown Seizure Verified 01/09/19 11:13 tramadol AdvReac Unknown Seizure Verified 01/09/19 11:13 Home Meds: Home Meds Acetaminophen 650 mg PO Q4H PRN 05/10/17 [History] Albuterol [Proair HFA] 1 puff INH Q4H PRN 05/10/17 [History] hydrOXYzine HCl [hydrOXYzine] 25 mg PO TID 09/30/17 [History] LORazepam [Ativan] 0.5 mg PO BID PRN 10/28/17 [History] Mag Carb/Al Hydrox/Alginic Ac [Gaviscon Extra Strength Liquid] 30 ml PO Q4H PRN 10/28/17 [History] Omeprazole Magnesium [Prilosec Otc] 20 mg PO DAILY PRN 10/28/17 [History] Ondansetron HCl [Zofran] 4 mg PO Q6H PRN 10/28/17 [History] Potassium Chloride 20 meq PO DAILY 10/28/17 [History] Meloxicam [Mobic] 15 mg PO BID 12/21/17 [History] Pramipexole Di-HCl [Mirapex] 0.125 mg PO BEDTIME 12/21/17 [History] dilTIAZem HCl [Diltiazem 24Hr ER (LA)] 180 mg PO DAILY 12/21/17 [History] Ibuprofen [Motrin] 600 mg PO Q6H PRN tablet 12/22/17 [Rx] Past Medical History - Past Health History Medical/Surgical History: Denies Medical/Surgical History HEENT History: Reports: None Cardiovascular History: Reports: Arrhythmia Other Cardiovascular History: inappropriate sinus tachycardia. 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 BLENDER History: dysmenorrhea Neurological History: Reports: Seizure Psychiatric History: Reports: Anxiety, Depression, Psychosis, Schizophrenia, Suicidal Ideation Other Psychiatric History: Schizoaffective Disorder Endocrine/Metabolic History: Reports: Obesity/BMI 30+, Other (See Below) Other Endocrine/Metabolic History: adrenal insufficiency Hematologic History: Reports: None Immunologic History: Reports: None Oncologic (Cancer) History: Reports: None - Infectious Disease History Infectious Disease History: Reports: Other (See Below) 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 - Past Surgical History Respiratory Surgical History: Reports: Thoracotomy GI Surgical History: Reports: Cholecystectomy, Colonoscopy Female Surgical History: Reports: Hysterectomy Other Female Surgeries/Procedures: hysterectomy on 02/04/16 Other Musculoskeletal Surgeries/Procedures:: foot surgery Social & Family History - Family History Family Medical History: Noncontributory - Tobacco Use Smoking Status *Q: Unknown Ever Smoked - Caffeine Use Caffeine Use: Reports: None - Sexual History Sexual History: Reports: Same Sex Partner, Single Partner - Living Situation & Occupation Living situation: Reports: , with Spouse Occupation: Employed ED ROS GENERAL - Review of Systems Review Of Systems: See Below Constitutional: Reports: No Symptoms HEENT: Reports: No Symptoms Respiratory: Reports: Pleuritic Chest Pain Cardiovascular: Reports: Chest Pain Endocrine: Reports: No Symptoms GI/Abdominal: Reports: No Symptoms : Reports: No Symptoms Musculoskeletal: Reports: No Symptoms Skin: Reports: No Symptoms Neurological: Reports: No Symptoms Psychiatric: Reports: No Symptoms Hematologic/Lymphatic: Reports: No Symptoms Immunologic: Reports: No Symptoms ED EXAM, GENERAL - Physical Exam Exam: See Below Exam Limited By: No Limitations General Appearance: Alert, WD/WN, No Apparent Distress Throat/Mouth: Normal Inspection, Normal Lips, Normal Teeth, Normal Gums, Normal Oropharynx, Normal Voice, No Airway Compromise Head: Atraumatic, Normocephalic Neck: Normal Inspection, Supple, Non-Tender, Full Range of Motion Respiratory/Chest: No Respiratory Distress, Lungs Clear, Normal Breath Sounds, No Accessory Muscle Use, Other (chest tender to palpation) Cardiovascular: Normal Peripheral Pulses, Regular Rate, Rhythm, No Edema, No Murmur, No Rub Peripheral Pulses: 4+: Radial (R) GI/Abdominal: Normal Bowel Sounds, Soft, Non-Tender, No Organomegaly, No Distention, No Mass (Female) Exam: Deferred Rectal (Female) Exam: Deferred Back Exam: Normal Inspection, Full Range of Motion Extremities: Normal Inspection, Normal Range of Motion, Non-Tender, No Pedal Edema, Normal Capillary Refill Neurological: Alert, Oriented, CN II-XII Intact, Normal Cognition, Normal Gait, Normal Reflexes, No Motor/Sensory Deficits Psychiatric: Normal Affect, Normal Mood Skin Exam: Warm, Dry, Intact, Normal Color, No Rash Lymphatic: No Adenopathy Course - Vital Signs Last Recorded V/S: Last Vital Signs Temp 36.6 C 01/09/19 10:30 Pulse 78 01/09/19 10:30 Resp 16 01/09/19 10:30 BP 101/78 01/09/19 10:30 Pulse Ox 99 01/09/19 10:30 - Orders/Labs/Meds Orders: Active Orders 24 hr Category Date Time Status Sodium Chloride 0.9% [Saline Flush] Med 01/09/19 10:46 Active 10 ml FLUSH ASDIRECTED PRN Peripheral IV Insertion Adult [OM.PC] Routine Oth 01/09/19 10:47 Ordered Medication Orders Sodium Chloride (Saline Flush) 10 ml FLUSH ASDIRECTED PRN PRN Reason: Keep Vein Open Labs: Laboratory Tests 01/09/19 01/09/19 01/09/19 Range/Units 11:15 11:15 11:15 WBC 4.8 (4.0-10.0) x10^3/uL RBC 4.49 (4.00-5.50) x10^6/uL Hgb 14.1 (12.0-16.0) g/dL Hct 41.6 (33.0-47.0) % MCV 92.7 (78.0-93.0) fL MCH 31.4 (26.0-32.0) pg MCHC 33.9 (32.0-36.0) g/dL RDW Coeff of Dionna 13.0 (10.0-15.0) % Plt Count 226 (130-400) x10^3/uL Neut % (Auto) 67.5 (50.0-80.0) % Lymph % (Auto) 21.7 L (25.0-50.0) % [place] % (Auto) 7.5 (2.0-11.0) % Eos % (Auto) 3.3 (0.0-4.0) % Baso % (Auto) 0.0 L (0.2-1.2) % PT 10.5 (10.0-12.8) SEC INR 0.9 L (2.0-3.5) D-Dimer, Quantitative (<=0.58) mg/LFEU Sodium 139 (69-191) mmol/L Potassium 4.2 (1.5-9.9) mmol/L Chloride 104 (54-184) mmol/L Carbon Dioxide 30 (21-32) mmol/L Anion Gap 9.2 L (10-20) mmol/L BUN 9 (7-18) mg/dL Creatinine 0.8 (0.55-1.02) mg/dL Est Cr Clr Drug Dosing TNP Estimated GFR (MDRD) > 60 Glucose 84 (74-106) mg/dL Calcium 8.4 L (8.5-10.1) mg/dL Corrected Calcium 8.96 (8.5-10.1) mg/dL Magnesium 1.9 (1.8-2.4) mg/dL Total Bilirubin 0.3 (0.2-1.0) mg/dL AST 14 L (15-37) U/L ALT 27 (14-59) U/L Alkaline Phosphatase 59 (46-116) U/L Troponin I < 0.017 (<=0.056) ng/mL C-Reactive Protein 0.2 (<=0.9) mg/dL Total Protein 6.6 (6.4-8.2) g/dL Albumin 3.3 L (3.4-5.0) g/dL Globulin 3.3 Albumin/Globulin Ratio 1.00 01/09/19 Range/Units 11:15 WBC (4.0-10.0) x10^3/uL RBC (4.00-5.50) x10^6/uL Hgb (12.0-16.0) g/dL Hct (33.0-47.0) % MCV (78.0-93.0) fL MCH (26.0-32.0) pg MCHC (32.0-36.0) g/dL RDW Coeff of Dionna (10.0-15.0) % Plt Count (130-400) x10^3/uL Neut % (Auto) (50.0-80.0) % Lymph % (Auto) (25.0-50.0) % [place] % (Auto) (2.0-11.0) % Eos % (Auto) (0.0-4.0) % Baso % (Auto) (0.2-1.2) % PT (10.0-12.8) SEC INR (2.0-3.5) D-Dimer, Quantitative 0.25 (<=0.58) mg/LFEU Sodium (69-191) mmol/L Potassium (1.5-9.9) mmol/L Chloride (54-184) mmol/L Carbon Dioxide (21-32) mmol/L Anion Gap (10-20) mmol/L BUN (7-18) mg/dL Creatinine (0.55-1.02) mg/dL Est Cr Clr Drug Dosing Estimated GFR (MDRD) Glucose (74-106) mg/dL Calcium (8.5-10.1) mg/dL Corrected Calcium (8.5-10.1) mg/dL Magnesium (1.8-2.4) mg/dL Total Bilirubin (0.2-1.0) mg/dL AST (15-37) U/L ALT (14-59) U/L Alkaline Phosphatase (46-116) U/L Troponin I (<=0.056) ng/mL C-Reactive Protein (<=0.9) mg/dL Total Protein (6.4-8.2) g/dL Albumin (3.4-5.0) g/dL Globulin Albumin/Globulin Ratio Meds: Medications Generic Name Dose Route Start Last Admin Trade Name Freq PRN Reason Stop Dose Admin Sodium Chloride 10 ml 01/09/19 10:46 Saline Flush FLUSH ASDIRECTED PRN Keep Vein Open Discontinued Medications Generic Name Dose Route Start Last Admin Trade Name Freq PRN Reason Stop Dose Admin Iopamidol 100 ml 01/09/19 10:58 01/09/19 11:04 Isovue-300 (61%) IVPUSH 01/09/19 10:59 100 ml ONETIME ONE Administration Methylprednisolone Sodium Succinate 125 mg 01/09/19 11:49 01/09/19 12:06 Solu-Medrol IV 01/09/19 11:50 125 mg ONETIME ONE Administration - Radiology Interpretation Free Text/Narrative:: CT angiogram of the chest obtained and was negative for PE Departure - Departure Time of Disposition: 12:30 Disposition: Home, Self-Care 01 Clinical Impression: Chest pain, atypical - Discharge Information Instructions: Nonspecific Chest Pain, [id number] Referrals: Sanam Woodson DO [Primary Care Provider] - Forms: ED Department Discharge Additional Instructions: The cause of the discomfort is likely pleurisy. You cardiac enzymes and chest CT were negative. Prednisone 40mg once daily for 6 days Ibuprofen 200mg 3 tabs every 6 hours for pain Tylenol #3 1 every 4-6 hours as needed for pain Recheck in clinic in 10-14 days - My Orders Last 24 Hours: My Active Orders 01/09/19 10:46 Sodium Chloride 0.9% [Saline Flush] 10 ml FLUSH ASDIRECTED PRN 01/09/19 10:47 Peripheral IV Insertion Adult [OM.PC] Routine - Assessment/Plan Last 24 Hours: My Active Orders 01/09/19 10:46 Sodium Chloride 0.9% [Saline Flush] 10 ml FLUSH ASDIRECTED PRN 01/09/19 10:47 Peripheral IV Insertion Adult [OM.PC] Routine Plan: The cause of the discomfort is likely pleurisy. You cardiac enzymes and chest CT were negative. Prednisone 40mg once daily for 6 days Ibuprofen 200mg 3 tabs every 6 hours for pain Tylenol #3 1 every 4-6 hours as needed for pain Recheck in clinic in 10-14 days
--- NOTE | 2019-01-09 11:34 | CT ---
[id number] CT/CTA Chest EXAM: CTA Chest CLINICAL DATA: CHEST PAIN,SHORT OF BREATH. COMPARISON: January 08, 2019. FINDINGS: LUNGS: Clear. No pneumothorax or effusion. No endobronchial lesions. HEART AND GREAT VESSELS: Negative for pulmonary embolus. Thoracic aorta is normal in caliber. No dissection. Heart is normal in size and contour. No pericardial effusion. MEDIASTINUM AND LYMPHATICS: No mediastinal or hilar lymphadenopathy. UPPER ABDOMINAL ORGANS: Unremarkable. 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 Bones are otherwise unremarkable. IMPRESSION: Negative for pulmonary embolus or other significant abnormality in the chest. Munir Lucero MD 01/09/19 1132 Thank you for allowing us to participate in the care of your patient.
[2019-01-09 11:46] LABS: ANION GAP 9.2 mmol/L (10-20); CHLORIDE,CL 104 mmol/L (54-184); SODIUM,NA 139 mmol/L (69-191)
[2019-01-09] MEDS ORDERED: methylPREDNISolone Sodium Succinate 125 MG/2 ML SDV IV ONE (11:49)
== END 2019-01-09 12:18 | disposition home or self-care (01) ==
LOC: VM.ED 10:27
DX: R07.89 Other chest pain (principal); J45.909 Unspecified asthma, uncomplicated; K21.9 Gastro-esophageal reflux disease without esophagitis; F41.9 Anxiety disorder, unspecified; F32.9 Major depressive disorder, single episode, unspecified; E66.9 Obesity, unspecified; Z88.8 Allergy status to other drugs, medicaments and biological substances; Z91.048 Other nonmedicinal substance allergy status; Z91.040 Latex allergy status; Z88.1 Allergy status to other antibiotic agents; Z79.899 Other long term (current) drug therapy
CPT/HCPCS: 36415; 71275; 80053; 83735; 84484; 85025; 85379; 85610; 86140; 96374; 99284-GF; 99285-25; J2930; Q9967

== ENCOUNTER 2019-03-24 16:54 | Emergency (ER) | payer SELFPAY ==
[2019-03-24 17:04] VITALS: BP 179/105; PULSE 95
[2019-03-24] MEDS ORDERED: Ketorolac 60 MG/2 ML SDV IM ONE (17:21)
--- NOTE | 2019-03-24 17:24 | EDM.PDOC ---
ED HPI GENERAL MEDICAL PROBLEM - General Chief Complaint: General Stated Complaint: HEMORROIDS Time Seen by Provider: 03/24/19 17:05 Source of Information: Reports: Patient History Limitations: Reports: No Limitations - History of Present Illness INITIAL COMMENTS - FREE TEXT/NARRATIVE: Patient presents to ER with complaints of pressure/discomfort in the rectal area related to an external hemorrhoid. Has been using preparation H this week but it is more tender now and today noted blood when she wiped. No active bleeding now. First noted this hemorrhoid earlier in the week but it is now, larger and more painful. Has not been constipated. Has not done any straining or lifting as of late. Has been taking ibuprofen but not getting much relief of the pain. Onset: Gradual Duration: Day(s):, Getting Worse Location: Reports: Other (rectal area) Quality: Reports: Throbbing Severity: Moderate Improves with: Reports: None Context: Denies: Lifting Associated Symptoms: Reports: No Other Symptoms Treatments CRISIS NURSE: Reports: NSAIDS Buttock Pain Score (Numeric/FACES): 7 - Related Data Allergies Allergy/AdvReac Type Severity Reaction Status Date / Time adhesive tape Allergy Hives Verified 03/24/19 17:00 ceftriaxone [From Rocephin] Allergy Hives Verified 03/24/19 17:00 gabapentin Allergy Cannot Verified 03/24/19 17:00 Remember latex Allergy Hives Verified 03/24/19 17:00 isoniazid AdvReac Unknown Seizure Verified 03/24/19 17:00 tramadol AdvReac Unknown Seizure Verified 03/24/19 17:00 Home Meds: Home Meds Acetaminophen 650 mg PO Q4H PRN 05/10/17 [History] Albuterol [Proair HFA] 1 puff INH Q4H PRN 05/10/17 [History] hydrOXYzine HCl [hydrOXYzine] 25 mg PO TID 09/30/17 [History] LORazepam [Ativan] 0.5 mg PO BID PRN 10/28/17 [History] Mag Carb/Al Hydrox/Alginic Ac [Gaviscon Extra Strength Liquid] 30 ml PO Q4H PRN 10/28/17 [History] Omeprazole Magnesium [Prilosec Otc] 20 mg PO DAILY PRN 10/28/17 [History] Ondansetron HCl [Zofran] 4 mg PO Q6H PRN 10/28/17 [History] Potassium Chloride 20 meq PO DAILY 10/28/17 [History] Pramipexole Di-HCl [Mirapex] 0.125 mg PO BEDTIME 12/21/17 [History] dilTIAZem HCl [Diltiazem 24Hr ER (LA)] 180 mg PO DAILY 12/21/17 [History] Ibuprofen [Motrin] 600 mg PO Q6H PRN tablet 12/22/17 [Rx] Triamcinolone Acetonide [Triamcinolone Acetonide 0.1% Crm] 1 applic .XX TID #30 gm 02/27/19 [Rx] Past Medical History - Past Health History Medical/Surgical History: Denies Medical/Surgical History HEENT History: Reports: None Cardiovascular History: Reports: Arrhythmia Other Cardiovascular History: inappropriate sinus tachycardia. 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: Reports: Polycystic Ovaries, Other (See Below) Other GREETING CARD EDITOR History: dysmenorrhea Neurological History: Reports: Seizure Psychiatric History: Reports: Anxiety, Depression, Psychosis, Schizophrenia, Suicidal Ideation Other Psychiatric History: Schizoaffective Disorder Endocrine/Metabolic History: Reports: Obesity/BMI 30+, Other (See Below) Other Endocrine/Metabolic History: adrenal insufficiency Hematologic History: Reports: None Immunologic History: Reports: None Oncologic (Cancer) History: Reports: None - Infectious Disease History Infectious Disease History: Reports: Other (See Below) 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 - Past Surgical History Respiratory Surgical History: Reports: Thoracotomy GI Surgical History: Reports: Cholecystectomy, Colonoscopy Female Surgical History: Reports: Hysterectomy Other Female Surgeries/Procedures: hysterectomy on 02/04/16 Other Musculoskeletal Surgeries/Procedures:: foot surgery Social & Family History - Family History Family Medical History: Noncontributory - Caffeine Use Caffeine Use: Reports: None - Sexual History Sexual History: Reports: Same Sex Partner, Single Partner - Living Situation & Occupation Living situation: Reports: , with Spouse Occupation: Employed ED ROS GENERAL - Review of Systems Review Of Systems: See Below Constitutional: Denies: Fever, Chills, Malaise, Weakness, Decreased Appetite HEENT: Reports: No Symptoms Respiratory: Denies: Shortness of Breath, Cough Cardiovascular: Denies: Chest Pain, Edema, Lightheadedness Endocrine: Denies: Fatigue GI/Abdominal: Reports: Other (rectal discomfort). Denies: Nausea, Vomiting : Reports: No Symptoms Musculoskeletal: Reports: No Symptoms Skin: Reports: No Symptoms Neurological: Reports: No Symptoms ED EXAM, GENERAL - Physical Exam Exam: See Below Exam Limited By: No Limitations General Appearance: Alert, WD/WN, No Apparent Distress GI/Abdominal: Normal Bowel Sounds, Soft, Non-Tender Rectal (Female) Exam: Hemorrhoids (has a 1 cm thrombosed hemorrhoid, very tender. No active bleeding.) Course - Vital Signs Last Recorded V/S: Last Vital Signs Temp 96.7 F 03/24/19 17:03 Pulse 95 03/24/19 17:03 Resp 14 03/24/19 17:03 BP 179/105 H 03/24/19 17:03 Pulse Ox 96 03/24/19 17:03 - Re-Assessments/Exams Free Text/Narrative Re-Assessment/Exam: 03/24/19 17:33 Did discuss possibly lancing the area but patient refuses. No Anusol-HC cream or suppositories available so advised to obtain hydrocortisone cream and mix with her preparation H for constriction of this. May ultimately need this treated if continues to cause pain. Avoid straining with stools. Use cushion for sitting. No lifting at present. Departure - Departure Time of Disposition: 17:34 Disposition: Home, Self-Care 01 Condition: Good Clinical Impression: Thrombosed external hemorrhoid - Discharge Information *PRESCRIPTION DRUG MONITORING PROGRAM REVIEWED*: No *COPY OF PRESCRIPTION DRUG MONITORING REPORT IN PATIENT GAY: No Referrals: Sanam Woodson, [Primary Care Provider] - Additional Instructions: 1. Rest 2. Avoid straining or lifting 3. Use a cushion for sitting 4. Obtain hydrocortisone cream 1% and use with preparation H for constriction of hemorrhoid. If do not see improvement, may need to follow up to have the hemorrhoid lanced. 5. Call primary care provider for ongoing concerns. Sepsis Event Note - Evaluation Sepsis Screening Result: No Definite Risk - Focused Exam Vital Signs: Vital Signs Temp Pulse Resp BP Pulse Ox 03/24/19 17:03 96.7 F 95 14 179/105 H 96 Date Exam was Performed: 03/24/19 Time Exam was Performed: 17:15
== END 2019-03-24 17:43 | disposition home or self-care (01) ==
LOC: VM.ED 16:54
DX: K64.5 Perianal venous thrombosis (principal); J45.909 Unspecified asthma, uncomplicated; K21.9 Gastro-esophageal reflux disease without esophagitis; F41.9 Anxiety disorder, unspecified; F32.9 Major depressive disorder, single episode, unspecified; E66.9 Obesity, unspecified; Z68.38 Body mass index [BMI] 38.0-38.9, adult; Z91.040 Latex allergy status; Z91.048 Other nonmedicinal substance allergy status; Z88.5 Allergy status to narcotic agent; Z88.8 Allergy status to other drugs, medicaments and biological substances; Z79.899 Other long term (current) drug therapy
CPT/HCPCS: 96372; 99283; J1885

== ENCOUNTER 2019-05-26 10:23 | Emergency (ER) | payer OTHER ==
--- NOTE | 2019-05-26 10:56 | EDM.PDOC ---
ED HPI GENERAL MEDICAL PROBLEM - General Chief Complaint: Lower Extremity Injury/Pain Stated Complaint: RIGHT FOOT;BOTTOM BLEEDING Time Seen by Provider: 05/26/19 10:40 Source of Information: Reports: Patient History Limitations: Reports: No Limitations - History of Present Illness INITIAL COMMENTS - FREE TEXT/NARRATIVE: Patient presents with right heel pain s/p surgery. Had a heel spur removed by Dr. Woodson as well as removal of hardware. Was doing well. Had stitches removed on . Over the last 36 hours, has been draining yellow bloody drainage. Foot is more swollen and she is having more pain. Has been icing the area. Notes an area that appears like a blood blister now. Having a hard time bearing any weight on her foot and had been "ambulating with weight bear as tolerated" prior. No fevers. Foot has been getting more red. Onset: Gradual Duration: Hour(s):, Getting Worse Location: Reports: Lower Extremity, Left Quality: Reports: Throbbing Severity: Severe Improves with: Reports: Medication Worsens with: Reports: Movement Treatments EMBEDDED DEVELOPER: Reports: Other Medication(s) Other Treatments EMBEDDED DEVELOPER: tylenol, oxycodone - Related Data Allergies Allergy/AdvReac Type Severity Reaction Status Date / Time adhesive tape Allergy Hives Verified 03/24/19 17:00 ceftriaxone [From Rocephin] Allergy Hives Verified 03/24/19 17:00 gabapentin Allergy Cannot Verified 03/24/19 17:00 Remember latex Allergy Hives Verified 03/24/19 17:00 isoniazid AdvReac Unknown Seizure Verified 03/24/19 17:00 tramadol AdvReac Unknown Seizure Verified 03/24/19 17:00 Home Meds: Home Meds Acetaminophen 650 mg PO Q4H PRN 05/10/17 [History] Albuterol [Proair HFA] 1 puff INH Q4H PRN 05/10/17 [History] hydrOXYzine HCL [hydrOXYzine] 25 mg PO TID 09/30/17 [History] LORazepam [Ativan] 0.5 mg PO BID PRN 10/28/17 [History] Mag Carb/Al Hydrox/Alginic Ac [Gaviscon Extra Strength Liquid] 30 ml PO Q4H PRN 10/28/17 [History] Omeprazole Magnesium [Prilosec Otc] 20 mg PO DAILY PRN 10/28/17 [History] Ondansetron HCl [Zofran] 4 mg PO Q6H PRN 10/28/17 [History] Potassium Chloride 20 meq PO DAILY 10/28/17 [History] Pramipexole Di-HCl [Mirapex] 0.125 mg PO BEDTIME 12/21/17 [History] dilTIAZem HCl [Diltiazem 24Hr ER (LA)] 180 mg PO DAILY 12/21/17 [History] Ibuprofen [Motrin] 600 mg PO Q6H PRN tablet 12/22/17 [Rx] Triamcinolone Acetonide [Triamcinolone Acetonide 0.1% Crm] 1 applic .XX TID #30 gm 02/27/19 [Rx] Past Medical History - Past Health History Medical/Surgical History: Denies Medical/Surgical History HEENT History: Reports: None Cardiovascular History: Reports: Arrhythmia Other Cardiovascular History: inappropriate sinus tachycardia. 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 RESEARCH SCIENTIST History: dysmenorrhea Neurological History: Reports: Seizure Psychiatric History: Reports: Anxiety, Depression, Psychosis, Schizophrenia, Suicidal Ideation Other Psychiatric History: Schizoaffective Disorder Endocrine/Metabolic History: Reports: Obesity/BMI 30+, Other (See Below) Other Endocrine/Metabolic History: adrenal insufficiency Hematologic History: Reports: None Immunologic History: Reports: None Oncologic (Cancer) History: Reports: None - Infectious Disease History Infectious Disease History: Reports: Other (See Below) 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 - Past Surgical History Respiratory Surgical History: Reports: Thoracotomy GI Surgical History: Reports: Cholecystectomy, Colonoscopy Female Surgical History: Reports: Hysterectomy Other Female Surgeries/Procedures: hysterectomy on 02/04/16 Other Musculoskeletal Surgeries/Procedures:: foot surgery Social & Family History - Family History Family Medical History: Noncontributory - Tobacco Use Smoking Status *Q: Unknown Ever Smoked - Caffeine Use Caffeine Use: Reports: None - Sexual History Sexual History: Reports: Same Sex Partner, Single Partner - Living Situation & Occupation Living situation: Reports: , with Spouse Occupation: Employed Review of Systems - Review of Systems Review Of Systems: See Below Constitutional: Denies: Chills, Fever, Weakness Eyes: Reports: No Symptoms Ears: Reports: No Symptoms Nose: Reports: No Symptoms Mouth/Throat: Reports: No Symptoms Respiratory: Denies: Shortness of Breath Cardiovascular: Denies: Chest Pain, Palpitations GI/Abdominal: Reports: No Symptoms Musculoskeletal: Reports: Foot Pain Skin: Reports: Erythema, Wound ED EXAM, GENERAL - Physical Exam Exam: See Below Exam Limited By: No Limitations General Appearance: Alert, WD/WN, No Apparent Distress Respiratory/Chest: No Respiratory Distress, Lungs Clear, Normal Breath Sounds Cardiovascular: Regular Rate, Rhythm Extremities: Other (right heel is swollen, does have old blood along the incision line with a blood blister. Surrounding tissue is red, swollen, no warmth noted. Very tender with palpation) Neurological: Alert, Oriented Skin Exam: Erythema Course - Re-Assessments/Exams Free Text/Narrative Re-Assessment/Exam: 05/26/19 10:59 Will start Bactrim and give her additional norco to cover for pain. Follow up with surgeon on Tuesday if persisting concerns. Patient verbalizes understanding. Departure - Departure Time of Disposition: 10:51 Disposition: Home, Self-Care 01 Condition: Fair Clinical Impression: Incisional infection - Discharge Information *PRESCRIPTION DRUG MONITORING PROGRAM REVIEWED*: No *COPY OF PRESCRIPTION DRUG MONITORING REPORT IN PATIENT GAY: No Forms: ED Department Discharge Additional Instructions: 1. Rest 2. Ice 3. Elevate foot to reduce swelling 4. Start BActrim twice a day for 7 days 5. Use Marion 1-2 tabs every 6 hours for pain 6. Follow up with surgeon if persisting concerns.
[2019-05-26 15:30] VITALS: BP 142/78; PULSE 87
== END 2019-05-26 11:30 | disposition home or self-care (01) ==
LOC: VM.ED 10:23
DX: T81.41XA Infection following a procedure, superficial incisional surgical site, initial encounter (principal); L08.9 Local infection of the skin and subcutaneous tissue, unspecified; J45.909 Unspecified asthma, uncomplicated; K21.9 Gastro-esophageal reflux disease without esophagitis; F41.9 Anxiety disorder, unspecified; R56.9 Unspecified convulsions; E66.9 Obesity, unspecified; Y83.8 Other surgical procedures as the cause of abnormal reaction of the patient, or of later complication, without mention of misadventure at the time of the procedure; Z68.38 Body mass index [BMI] 38.0-38.9, adult; Z88.1 Allergy status to other antibiotic agents; Z91.040 Latex allergy status; Z88.5 Allergy status to narcotic agent; Z88.8 Allergy status to other drugs, medicaments and biological substances; Z91.048 Other nonmedicinal substance allergy status; Z79.899 Other long term (current) drug therapy
CPT/HCPCS: 99283

== ENCOUNTER 2019-06-10 14:51 | Observation (INO) | payer OTHER ==
[2019-06-10] MEDS ORDERED: Sodium Chloride 0.9% 10 ML Syringe FLUSH PRN (15:05)
[2019-06-10] MEDS ORDERED: Diltiazem 50 MG/10 ML SDV IVPUSH ONE (15:06)
[2019-06-10] MEDS ORDERED: Lactated Ringers 1,000 ML IV SCH (15:15)
[2019-06-10] MEDS ORDERED: Metoprolol Tartrate 5 MG/5 ML SDV IVPUSH ONE (15:34)
--- NOTE | 2019-06-10 15:40 | EDM.PDOC ---
ED HPI GENERAL MEDICAL PROBLEM - General Chief Complaint: Cardiovascular Problem Time Seen by Provider: 06/10/19 14:55 Source of Information: Reports: Patient History Limitations: Reports: No Limitations - History of Present Illness INITIAL COMMENTS - FREE TEXT/NARRATIVE: Pt. presents to ER with complaints of tachycardia for the past several hours. She has a longstanding history of intermittent sinus tach/SVT in the past. She has been worked up for this by cardiology and has not been formally diagnosed with any specific cause for the tachycardia. She states that she was watching TV at the onset. She states that she is taking all of her medications as prescribed. No recent illnesses. No fever, chills, or shortness of breath. She denies any drug or alcohol use. Pt. also has a history of intermittent hypokalemia and feels her potassium may be low. Again, she has been taking the medication as directed. Potassium on was 5.0. Onset: Today Onset Date: 06/10/19 Location: Reports: Chest, Generalized Severity: Mild Associated Symptoms: Denies: Chest Pain, Nausea/Vomiting, Shortness of Breath, Weakness - Related Data Allergies Allergy/AdvReac Type Severity Reaction Status Date / Time adhesive tape Allergy Hives Verified 06/10/19 15:30 ceftriaxone [From Rocephin] Allergy Hives Verified 06/10/19 15:30 gabapentin Allergy Cannot Verified 06/10/19 15:30 Remember latex Allergy Hives Verified 06/10/19 15:30 isoniazid AdvReac Unknown Seizure Verified 06/10/19 15:30 tramadol AdvReac Unknown Seizure Verified 06/10/19 15:30 Home Meds: Home Meds Acetaminophen 650 mg PO Q4H PRN 05/10/17 [History] Albuterol [Proair HFA] 1 puff INH Q4H PRN 05/10/17 [History] hydrOXYzine HCL [hydrOXYzine] 25 mg PO TID 09/30/17 [History] LORazepam [Ativan] 0.5 mg PO BID PRN 10/28/17 [History] Mag Carb/Al Hydrox/Alginic Ac [Gaviscon Extra Strength Liquid] 30 ml PO Q4H PRN 10/28/17 [History] Omeprazole Magnesium [Prilosec Otc] 20 mg PO DAILY PRN 10/28/17 [History] Ondansetron HCl [Zofran] 4 mg PO Q6H PRN 10/28/17 [History] Potassium Chloride 20 meq PO DAILY 10/28/17 [History] Pramipexole Di-HCl [Mirapex] 0.125 mg PO BEDTIME 12/21/17 [History] dilTIAZem HCl [Diltiazem 24Hr ER (LA)] 180 mg PO DAILY 12/21/17 [History] Ibuprofen [Motrin] 600 mg PO Q6H PRN tablet 12/22/17 [Rx] Triamcinolone Acetonide [Triamcinolone Acetonide 0.1% Crm] 1 applic .XX TID #30 gm 02/27/19 [Rx] Past Medical History - Past Health History Medical/Surgical History: Denies Medical/Surgical History HEENT History: Reports: None Cardiovascular History: Reports: Arrhythmia Other Cardiovascular History: inappropriate sinus tachycardia. 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 History: Reports: Polycystic Ovaries, Other (See Below) Other HEAD WAITER History: dysmenorrhea Neurological History: Reports: Seizure Psychiatric History: Reports: Anxiety, Depression, Psychosis, Schizophrenia, Suicidal Ideation Other Psychiatric History: Schizoaffective Disorder Endocrine/Metabolic History: Reports: Obesity/BMI 30+, Other (See Below) Other Endocrine/Metabolic History: adrenal insufficiency Hematologic History: Reports: None Immunologic History: Reports: None Oncologic (Cancer) History: Reports: None - Infectious Disease History Infectious Disease History: Reports: Other (See Below) 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 - Past Surgical History Respiratory Surgical History: Reports: Thoracotomy GI Surgical History: Reports: Cholecystectomy, Colonoscopy Female Surgical History: Reports: Hysterectomy Other Female Surgeries/Procedures: hysterectomy on 02/04/16 Other Musculoskeletal Surgeries/Procedures:: foot surgery Social & Family History - Family History Family Medical History: Noncontributory - Tobacco Use Smoking Status *Q: Current Every Day Smoker Years of Tobacco use: 15 Packs/Tins Daily: 1 - Caffeine Use Caffeine Use: Reports: None - Sexual History Sexual History: Reports: Same Sex Partner, Single Partner - Living Situation & Occupation Living situation: Reports: , with Spouse Occupation: Employed ED ROS GENERAL - Review of Systems Review Of Systems: See Below Constitutional: Reports: No Symptoms HEENT: Reports: No Symptoms Respiratory: Reports: No Symptoms Cardiovascular: Reports: Chest Pain, Lightheadedness, Palpitations Endocrine: Reports: No Symptoms GI/Abdominal: Reports: No Symptoms : Reports: No Symptoms Musculoskeletal: Reports: No Symptoms Skin: Reports: No Symptoms Neurological: Reports: No Symptoms Psychiatric: Reports: No Symptoms Hematologic/Lymphatic: Reports: No Symptoms Immunologic: Reports: No Symptoms ED EXAM, GENERAL - Physical Exam Exam: See Below Exam Limited By: No Limitations General Appearance: Alert, WD/WN, No Apparent Distress Eye Exam: Bilateral Eye: EOMI, PERRL Nose: Normal Inspection, Normal Mucosa, No Blood Throat/Mouth: Normal Inspection, Normal Lips, Normal Teeth, Normal Gums, Normal Oropharynx, Normal Voice, No Airway Compromise Head: Atraumatic, Normocephalic Neck: Normal Inspection, Supple, Non-Tender, Full Range of Motion Respiratory/Chest: No Respiratory Distress, Lungs Clear, Normal Breath Sounds, No Accessory Muscle Use, Chest Non-Tender Cardiovascular: Normal Peripheral Pulses, No Edema, No Gallop, No JVD, Tachycardia Peripheral Pulses: 4+: Radial (L) GI/Abdominal: Normal Bowel Sounds, Soft, Non-Tender, No Organomegaly, No Distention, No Mass (Female) Exam: Deferred Rectal (Female) Exam: Deferred Back Exam: Normal Inspection, Full Range of Motion Extremities: Normal Inspection, Normal Range of Motion, Non-Tender, No Pedal Edema, Normal Capillary Refill Neurological: Alert, Oriented, CN II-XII Intact, Normal Cognition, Normal Gait, Normal Reflexes, No Motor/Sensory Deficits Psychiatric: Normal Affect, Normal Mood Skin Exam: Warm, Dry, Intact, Normal Color, No Rash Lymphatic: No Adenopathy EKG INTERPRETATION Rhythm: NSR EKG Interpretation Comments: sinus tach 150-160 Course - Vital Signs Last Recorded V/S: Last Vital Signs Temp 37.3 C 06/10/19 14:55 Pulse 118 H 06/10/19 16:02 Resp 21 H 06/10/19 16:02 BP 109/68 06/10/19 16:02 Pulse Ox 98 06/10/19 15:42 - Orders/Labs/Meds Orders: Active Orders 24 hr Category Date Time Status Patient Status [ADT] Routine ADT 06/10/19 16:09 Active EKG Documentation Completion [RC] STAT Care 03/01/20 15:05 Active Lactated Ringers [Ringers, Lactated] 1,000 ml Med 06/10/19 15:15 Active IV ASDIRECTED Sodium Chloride 0.9% [Saline Flush] Med 06/10/19 15:05 Active 10 ml FLUSH ASDIRECTED PRN Sodium Chloride 0.9% with KCl [Normal Saline with 40 Med 06/10/19 16:15 Active mEq KCl] 1,000 ml IV ASDIRECTED Peripheral IV Insertion Adult [OM.PC] Routine Oth 06/10/19 15:06 Ordered Medication Orders Lactated Ringer's (Ringers, Lactated) 1,000 mls @ 1,000 mls/hr IV ASDIRECTED EMILY Last Admin: 06/10/19 15:19 Dose: 1,000 mls/hr Potassium Chloride/Sodium Chloride (Normal Saline With 40 Meq Kcl) 1,000 mls @ 250 mls/hr IV ASDIRECTED EMILY Sodium Chloride (Saline Flush) 10 ml FLUSH ASDIRECTED PRN PRN Reason: Keep Vein Open Labs: Laboratory Tests 06/10/19 06/10/19 06/10/19 Range/Units 15:23 15:23 15:23 WBC 8.6 (4.0-10.0) x10^3/uL RBC 4.28 (4.00-5.50) x10^6/uL Hgb 13.4 (12.0-16.0) g/dL Hct 39.3 (33.0-47.0) % MCV 91.8 (78.0-93.0) fL MCH 31.3 (26.0-32.0) pg MCHC 34.1 (32.0-36.0) g/dL RDW Coeff of Dionna 12.7 (10.0-15.0) % Plt Count 228 (130-400) x10^3/uL Neut % (Auto) 77.1 (50.0-80.0) % Lymph % (Auto) 17.8 L (25.0-50.0) % Dorado % (Auto) 4.3 (2.0-11.0) % Eos % (Auto) 0.7 (0.0-4.0) % Baso % (Auto) 0.1 L (0.2-1.2) % PT 10.5 (10.0-12.8) SEC INR 0.9 L (2.0-3.5) Sodium 143 (136-145) mmol/L Potassium 2.4 L* (3.5-5.1) mmol/L Chloride 106 (98-107) mmol/L Carbon Dioxide 23 (21-32) mmol/L Anion Gap 16.4 (10-20) mmol/L BUN 9 (7-18) mg/dL Creatinine 1.1 H (0.55-1.02) mg/dL Est Cr Clr Drug Dosing TNP Estimated GFR (MDRD) 56 Glucose 228 H (74-106) mg/dL Calcium 8.3 L (8.5-10.1) mg/dL Corrected Calcium 8.62 (8.5-10.1) mg/dL Magnesium 1.6 L (1.8-2.4) mg/dL Total Bilirubin 0.3 (0.2-1.0) mg/dL AST 11 L (15-37) U/L ALT 22 (14-59) U/L Alkaline Phosphatase 58 (46-116) U/L Troponin I < 0.017 (<=0.056) ng/mL Total Protein 6.7 (6.4-8.2) g/dL Albumin 3.6 (3.4-5.0) g/dL Globulin 3.1 Albumin/Globulin Ratio 1.16 TSH, Ultra Sensitive 1.030 (0.358-3.74) uIU/mL Meds: Medications Generic Name Dose Route Start Last Admin Trade Name Freq PRN Reason Stop Dose Admin Lactated Ringer's 1,000 mls @ 1,000 mls/hr 06/10/19 15:15 06/10/19 15:19 Ringers, Lactated IV 1,000 mls/hr ASDIRECTED EMILY Administration Potassium Chloride/Sodium Chloride 1,000 mls @ 250 mls/hr 06/10/19 16:15 Normal Saline With 40 Meq Kcl IV ASDIRECTED EMILY Sodium Chloride 10 ml 06/10/19 15:05 Saline Flush FLUSH ASDIRECTED PRN Keep Vein Open Discontinued Medications Generic Name Dose Route Start Last Admin Trade Name Freq PRN Reason Stop Dose Admin Diltiazem HCl 20 mg 06/10/19 15:06 06/10/19 15:11 Cardizem IVPUSH 06/10/19 15:07 20 mg ONETIME ONE Administration Metoprolol Tartrate 5 mg 06/10/19 15:34 06/10/19 15:41 Lopressor IVPUSH 06/10/19 15:35 5 mg ONETIME ONE Administration Departure - Departure Time of Disposition: 16:19 Disposition: Home, Self-Care 01 Clinical Impression: Hypokalemia, Tachycardia - Discharge Information Referrals: Sanam Woodson DO [Primary Care Provider] - Forms: ED Department Discharge Sepsis Event Note - Evaluation Sepsis Screening Result: No Definite Risk - Focused Exam Vital Signs: Vital Signs Temp Pulse Pulse Resp BP BP Pulse Ox 06/10/19 16:02 118 H 21 H 109/68 06/10/19 15:42 109 H 12 123/84 98 06/10/19 15:41 129 H 151/76 H 06/10/19 14:55 37.3 C 153 H 28 H 151/76 H 98 Date Exam was Performed: 06/10/19 Time Exam was Performed: 16:15 - Problem List Review Problem List Initiated/Reviewed/Updated: Yes - My Orders Last 24 Hours: My Active Orders 06/10/19 15:05 EKG Documentation Completion [RC] STAT Sodium Chloride 0.9% [Saline Flush] 10 ml FLUSH ASDIRECTED PRN 06/10/19 15:06 Peripheral IV Insertion Adult [OM.PC] Routine 06/10/19 15:15 Lactated Ringers [Ringers, Lactated] 1,000 ml IV ASDIRECTED 06/10/19 16:09 Patient Status [ADT] Routine 06/10/19 16:15 Sodium Chloride 0.9% with KCl [Normal Saline with 40 mEq KCl] 1,000 ml IV ASDIRECTED - Assessment/Plan Last 24 Hours: My Active Orders 06/10/19 15:05 EKG Documentation Completion [RC] STAT Sodium Chloride 0.9% [Saline Flush] 10 ml FLUSH ASDIRECTED PRN 06/10/19 15:06 Peripheral IV Insertion Adult [OM.PC] Routine 06/10/19 15:15 Lactated Ringers [Ringers, Lactated] 1,000 ml IV ASDIRECTED 06/10/19 16:09 Patient Status [ADT] Routine 06/10/19 16:15 Sodium Chloride 0.9% with KCl [Normal Saline with 40 mEq KCl] 1,000 ml IV ASDIRECTED Plan: Pt. was given cardizem 20mg IV. Heart rate still in the 120-130 range. Pt. was given 5mg metoprolol IV and heart rate decreased into 90-100 range. Decision was made for the patient to admitted observation. Pt. was started on NS with 40meq KCL at 250ml/hr. Bj Read will admit the patient observation. All questions were answered.
[2019-06-10 15:57] LABS: CHLORIDE,CL 106 mmol/L (98-107); SODIUM,NA 143 mmol/L (136-145)
[2019-06-10 15:58] LABS: ANION GAP 16.4 mmol/L (10-20)
[2019-06-10] MEDS: Sodium Chloride 0.9% with KCl 1,000 ML IV SCH ×2 (16:18→20:43)
[2019-06-10] MEDS ORDERED: LORazepam 0.5 MG Tab PO PRN (16:35)
[2019-06-10] MEDS ORDERED: Albuterol HFA 18 Gm Inhaler INH PRN (16:35)
[2019-06-10] MEDS ORDERED: Ondansetron 4 MG Tab.DIS PO PRN (16:35)
[2019-06-10] MEDS ORDERED: Magnesium Sulfate/Water 2 GM in Premix Bag 1 BAG IV ONE (16:35)
[2019-06-10] MEDS ORDERED: Acetaminophen 325 MG Tab PO PRN (16:35)
[2019-06-10] MEDS ORDERED: Ibuprofen 200 MG Tab PO PRN (16:35)
[2019-06-10] MEDS ORDERED: Omeprazole 20 MG Cap.CR PO PRN (16:35)
[2019-06-10] MEDS ORDERED: Potassium Chloride 20 MEQ Tab.ER PO ONE (17:22)
--- NOTE | 2019-06-10 17:30 | HP ---
CHIEF COMPLAINT: Palpitations. HISTORY OF PRESENT ILLNESS: The patient presented to the emergency room at [facility] earlier today for complaints of tachycardia that had been occurring over the past several hours. The patient has a longstanding history of intermittent sinus tach/SVT in the past. The patient had been worked up per Cardiology in the past, which has not really given a specific cause of her tachycardia. She states that she was merely watching TV when she felt the tachycardia and palpitations. She states that she is taking all of her medications as prescribed. No recent illness. The patient has not had any shortness of breath or chest pain. Patient denies any peripheral edema. Patient has not had a cough. The patient has a history of hypokalemia in the past. The patient's most recent potassium on 05/11/2019 was 5.0. While in the emergency room, the patient had an EKG completed, which showed sinus tachycardia. The patient was given 20 mg of IV Cardizem with minimal slowing of the rate. The patient was started on normal saline with 40 mEq of IV potassium. The patient was also given 5 mg of metoprolol IV. PAST MEDICAL HISTORY: 1. Obesity. 2. GERD. 3. Depression. 4. Schizoaffective disorder. 5. Polycystic ovaries. 6. Tobacco use disorder. 7. Convulsive disorder. 8. Chronic right knee pain. 9. Hypokalemia. 10.Positive PPD. 11.Anxiety. 12.Complex regional pain syndrome type 1 of right lower extremity. 13.Adrenal insufficiency. 14.Genital warts. 15.Diverticulitis. PAST SURGICAL HISTORY: 1. Arthroscopic knee surgery, bilateral. 2. Carpal tunnel on the right. 3. Cholecystectomy. 4. Colonoscopy. 5. EGD. 6. Hardware removal. 7. Hysterectomy. 8. Ligament repair. FAMILY HISTORY: Noncontributory. SOCIAL HISTORY: The patient currently smokes cigarettes on a daily basis. Patient denies any alcohol use. Patient does not use any illegal drugs. ALLERGIES: 1. Latex 2. Tramadol 3. Gabapentin 4. Isoniazid 5. Adhesive Tape 6. Rocephin HOME MEDICATIONS: 1. Tylenol 650 mg PO every 4 hours as needed 2. Ventolin HFA as directed 3. Cardizem 180 mg PO daily 4. Vistaril 25 mg PO TID 5. Motrin 600 mg PO TID as needed 6. Ativan 0.5 mg BID as needed 7. Omeprazole 20 mg PO daily 8. KCL 20 meq PO daily 9. Mirapex 0.125 mg PO daily at bedtime 10. TMC cream as directed REVIEW OF SYSTEMS: Constitutional: Negative. Respiratory: Negative. Cardiovascular: Positive for palpitations without any chest pain. Abdomen: Negative. Skin: Negative. Neurological: Negative. PHYSICAL EXAMINATION: General Presentation: The patient is alert and appropriate. No acute distress. The patient is cooperative. Respiratory: Lungs are clear to auscultation. Cardiovascular: Tachycardia without any murmurs. Regular rate. Abdomen: Soft, nontender. Bowel sounds are active x4. Skin: Warm, dry, and intact. Neurological: Patient is alert. The patient is oriented to person, place, and time. Vital Signs: Pulse 118, blood pressure 109/68, respiratory rate 21, oxygen saturation 98%. Temperature 99.2. LABORATORY DATA: 1. CBC, white blood cell count 8.6, hemoglobin 13.4, hematocrit 39.3, platelets are 228,000. 2. PT/INR 0.9. 3. CMP: Sodium 143, potassium 2.4, chloride 106, CO2 is 23, anion gap is 16.4, BUN is 9, creatinine 1.1. GFR is 56, glucose 228, calcium 8.3, AST is 11, ALT is 22, alkaline phosphatase 58, total protein 6.7. 4. Magnesium 1.6. 5. TSH 1.030. ASSESSMENT: 1. Severe hypokalemia. 2. Dehydration. 3. Tachycardia. PLAN: Patient will be admitted to the observation Unit at [facility] for IV potassium replenishment. The patient will also be given IV magnesium. The patient will be started on normal saline with the IV potassium at a rate of 250. Continue all other home medications the same. We will recheck laboratory work in the morning. The patient is a full code 1. DVT prophylaxis with early ambulation. The patient does wish to be transferred to higher level of care should the need arise. We will continue to follow. TB: 06/10/2019 16:34:58 MODL: 06/10/2019 17:21:58 /[id number] MISHA
[2019-06-10] MEDS: hydrOXYzine HCl 25 MG Tab PO SCH (19:41)
[2019-06-10] MEDS ORDERED: Triamcinolone Acetonide 0.1% Crm 15 GM Tube SCH (20:00)
[2019-06-10] MEDS ORDERED: Pramipexole 0.125 MG Tab PO SCH (20:00)
[2019-06-11] MEDS: Sodium Chloride 0.9% with KCl 1,000 ML IV SCH ×2 (01:38→05:12)
[2019-06-11 06:18] VITALS: BP 112/76; PULSE 106
[2019-06-11 07:10] LABS: ANION GAP 13.7 mmol/L (10-20); CHLORIDE,CL 115 mmol/L (98-107); SODIUM,NA 144 mmol/L (136-145)
[2019-06-11] MEDS ORDERED: Diltiazem 180 MG Cap.CD PO SCH (08:00)
[2019-06-11] MEDS ORDERED: Potassium Chloride 20 MEQ Tab.ER PO SCH (08:00)
[2019-06-11] MEDS: hydrOXYzine HCl 25 MG Tab PO SCH (08:50)
--- NOTE | 2019-06-12 00:58 | DISCH ---
CHIEF COMPLAINT: Low potassium and fast heart rate. REASON FOR ADMISSION: On the date of admission, this 39-year-old female with well known history of tachycardia and hypokalemia, presented to the emergency room with tachycardia for several hours. She has a known history of sinus tach and SVT. Has not been admitted though for over a year. The patient is on Cardizem. She denies missing any doses. She had recently had a potassium in the clinic that was 5 prior to a foot surgery. Otherwise, her potassium was found to be low in the emergency room at 2.4. It was replaced both IV and orally, and this morning it is up to 4.7. Her magnesium was also replaced IV. It was 1.6 and now is up to 1.9. Her creatinine improved from 1.1 to 0.6 with IV fluids and the potassium. She did have a headache last night, but states she just went to bed and it went away. She is denying any chest pain. The patient reports her breathing is good. Her heart rates on the monitor have improved. Her last tachycardia was just brief up to the 130s this morning at 5 a.m. She thinks she might have been up and moving around. The patient did also get some IV metoprolol 5 mg around 3 p.m. yesterday and 20 mg of IV Cardizem around 3 p.m. as well. The patient did not require any further IV heart rate medications. She did get a dose of Ativan last evening, but has not had a prescription for that in over a year. PHYSICAL EXAMINATION: Discharge vitals: Include a temperature 96.8, pulse 106, blood pressure 112/76, respiratory rate 18, and O2 of 95% on room air. General: She was in no acute distress. Heart: Regular rate and rhythm. S1, S2 without murmur. Lungs: Sounds were clear to auscultation bilaterally without crackles or wheezes. Extremities: Warm and dry. No edema. Mental status: Alert and orientated x3. DISCHARGE PLANS AND INSTRUCTIONS: The patient will follow up in the clinic with Dr. Woodson on 06/18. She will also follow up with Podiatry as planned. Her foot was inspected. It looked okay. There was no drainage. Still some tenderness. I had recently seen her in the clinic. She declined that she needed any refills of hydrocodone for pain. She will rest and relax today. Note was given to be off work. Otherwise, on her followup, she will have a BMP and mag level. She will stay on her same Cardizem and her same potassium 20 mEq daily. This was felt to come on suddenly like her past episodes, which we were unaware what have caused them, and she has had considerable workup with Nephrology, Cardiology, and even looked into seeing Endocrinology. Has had lab and urine testing. MKA: 06/11/2019 09:51:41 MODL: 06/12/2019 00:51:53 /[id number]
== END 2019-06-11 10:15 | disposition home or self-care (01) ==
LOC: VM.ED 14:51 → VM.MS 16:09
PROVIDERS: ADMIT Nurse Practitioner Family; ATTEND Nurse Practitioner Family
DX: E87.6 Hypokalemia (principal); R00.0 Tachycardia, unspecified; E86.0 Dehydration; K21.9 Gastro-esophageal reflux disease without esophagitis; G89.29 Other chronic pain; F41.9 Anxiety disorder, unspecified; E66.9 Obesity, unspecified; F32.9 Major depressive disorder, single episode, unspecified; F17.210 Nicotine dependence, cigarettes, uncomplicated; Z98.890 Other specified postprocedural states; Z91.040 Latex allergy status; Z88.6 Allergy status to analgesic agent; Z88.8 Allergy status to other drugs, medicaments and biological substances; Z91.048 Other nonmedicinal substance allergy status; Z88.1 Allergy status to other antibiotic agents; Z79.899 Other long term (current) drug therapy
CPT/HCPCS: 36415; 80048; 80053; 83735; 84443; 84484; 85025; 85610; 93005; 96360; 96361; 96365; 96366; 96368; 96374; 96375; 99285-25; A9270-GY; G0378; J3475; J3480; J3490; J7120

== ENCOUNTER 2019-06-11 13:52 | Emergency (ER) | payer OTHER ==
[2019-06-11] MEDS ORDERED: Sodium Chloride 0.9% 10 ML Syringe FLUSH PRN (14:05)
[2019-06-11] MEDS ORDERED: Metoprolol Tartrate 5 MG/5 ML SDV IVPUSH ONE ×2 (14:05→15:26)
[2019-06-11] MEDS ORDERED: Sodium Chloride 0.9% 1,000 ML IV ONE (14:05)
[2019-06-11] MEDS ORDERED: Diltiazem 50 MG/10 ML SDV IVPUSH ONE (14:06)
--- NOTE | 2019-06-11 14:33 | EDM.PDOC ---
ED HPI GENERAL MEDICAL PROBLEM - General Chief Complaint: General Stated Complaint: HEART RATE Time Seen by Provider: 06/11/19 14:00 Source of Information: Reports: Patient History Limitations: Reports: No Limitations - History of Present Illness INITIAL COMMENTS - FREE TEXT/NARRATIVE: Patient comes in to the emergency department with complaints of heart palpitations. Patient has a longstanding history of heart palpitations/SVT/ tachycardia. Patient was actually discharged earlier today with low potassium and SVT. Patient was given 40 mEq potassium IV along with Cardizem 20 mg IV and Lopressor 5 mg IV yesterday and was admitted for observation status. Patient went home this morning without any complications or further SVT episodes. Patient states approximately 1 hour ago patient was watching TV and noticed her heart rate was starting to increase along with heart palpitations and she began to have chest discomfort the heart rate increased. Patient presented to the emergency room immediately after trying multiple vasal vagal maneuvers at home first. Patient has never been given formal reason cause of SVT but they have discussed potentially needing an ablation in the future. Patient denies any other concerns or complaints at the present time. Onset: Sudden Quality: Reports: Other Severity: Moderate Improves with: Reports: None Worsens with: Reports: None Context: Reports: Other Associated Symptoms: Reports: No Other Symptoms Headache Pain Score (Numeric/FACES): 10 - Related Data Allergies Allergy/AdvReac Type Severity Reaction Status Date / Time adhesive tape Allergy Hives Verified 06/10/19 15:30 ceftriaxone [From Rocephin] Allergy Hives Verified 06/10/19 15:30 gabapentin Allergy Cannot Verified 06/10/19 15:30 Remember latex Allergy Hives Verified 06/10/19 15:30 isoniazid AdvReac Unknown Seizure Verified 06/10/19 15:30 tramadol AdvReac Unknown Seizure Verified 06/10/19 15:30 Home Meds: Home Meds Acetaminophen 650 mg PO Q4H PRN 05/10/17 [History] Albuterol [Proair HFA] 1 puff INH Q4H PRN 05/10/17 [History] hydrOXYzine HCL [hydrOXYzine] 25 mg PO TID 09/30/17 [History] Mag Carb/Al Hydrox/Alginic Ac [Gaviscon Extra Strength Liquid] 30 ml PO Q4H PRN 10/28/17 [History] Ondansetron HCl [Zofran] 4 mg PO Q6H PRN 10/28/17 [History] Potassium Chloride 20 meq PO DAILY 10/28/17 [History] Pramipexole Di-HCl [Mirapex] 0.125 mg PO BEDTIME 12/21/17 [History] dilTIAZem HCl [Diltiazem 24Hr ER (LA)] 180 mg PO DAILY 12/21/17 [History] Ibuprofen [Motrin] 600 mg PO Q6H PRN tablet 12/22/17 [Rx] Diclofenac Sodium [Voltaren] 75 mg PO BIDMEALS 06/10/19 [History] Hydrocodone/Acetaminophen [Hydrocodon-Acetaminophen 5-325] 1 - 2 tab PO Q6H PRN 06/10/19 [History] Diltiazem HCl [Cardizem LA] 240 mg PO DAILY #7 tab.sr.24h 06/11/19 [Rx] Metoprolol Succinate [Toprol XL 50mg] 50 mg PO DAILY #7 tab.er 06/11/19 [Rx] Potassium Chloride 20 meq PO DAILY #7 tablet.er 06/11/19 [Rx] Past Medical History - Past Health History Medical/Surgical History: Denies Medical/Surgical History HEENT History: Reports: None Cardiovascular History: Reports: Arrhythmia Other Cardiovascular History: inappropriate sinus tachycardia. 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, Other (See Below) Other ROASTER OPERATOR History: dysmenorrhea Neurological History: Reports: Seizure Psychiatric History: Reports: Anxiety, Depression, Psychosis, Schizophrenia, Suicidal Ideation Other Psychiatric History: Schizoaffective Disorder Endocrine/Metabolic History: Reports: Obesity/BMI 30+, Other (See Below) Other Endocrine/Metabolic History: adrenal insufficiency Hematologic History: Reports: None Immunologic History: Reports: None Oncologic (Cancer) History: Reports: None - Infectious Disease History Infectious Disease History: Reports: Other (See Below) 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 - Past Surgical History Respiratory Surgical History: Reports: Thoracotomy GI Surgical History: Reports: Cholecystectomy, Colonoscopy Female Surgical History: Reports: Hysterectomy Other Female Surgeries/Procedures: hysterectomy on 02/04/16 Other Musculoskeletal Surgeries/Procedures:: foot surgery Social & Family History - Family History Family Medical History: Noncontributory - Caffeine Use Caffeine Use: Reports: Coffee, Soda - Sexual History Sexual History: Reports: Same Sex Partner, Single Partner - Living Situation & Occupation Living situation: Reports: , with Spouse Occupation: Employed ED ROS GENERAL - Review of Systems Review Of Systems: Comprehensive ROS is negative, except as noted in HPI. Constitutional: Reports: No Symptoms HEENT: Reports: No Symptoms Respiratory: Reports: No Symptoms Cardiovascular: Reports: No Symptoms Endocrine: Reports: No Symptoms GI/Abdominal: Reports: No Symptoms : Reports: No Symptoms Musculoskeletal: Reports: No Symptoms ED EXAM, GENERAL - Physical Exam Exam: See Below Exam Limited By: No Limitations General Appearance: Alert, WD/WN, No Apparent Distress Nose: Normal Inspection, Normal Mucosa Throat/Mouth: Normal Inspection, Normal Lips Head: Atraumatic, Normocephalic Neck: Normal Inspection, Supple, Non-Tender Respiratory/Chest: No Respiratory Distress, Lungs Clear, Normal Breath Sounds, No Accessory Muscle Use, Chest Non-Tender Cardiovascular: Normal Peripheral Pulses, Regular Rate, Rhythm GI/Abdominal: Normal Bowel Sounds, Soft, Non-Tender, No Distention Back Exam: Normal Inspection, Full Range of Motion Extremities: Normal Inspection, Normal Range of Motion, Non-Tender Neurological: Alert, Oriented, CN II-XII Intact, Normal Cognition, Normal Gait Psychiatric: Normal Affect, Normal Mood Skin Exam: Warm, Dry, Intact Course - Vital Signs Last Recorded V/S: Last Vital Signs Temp 36.9 C 06/11/19 14:00 Pulse 116 H 06/11/19 15:42 Resp 16 06/11/19 15:42 BP 109/78 06/11/19 15:42 Pulse Ox 99 06/11/19 15:42 - Orders/Labs/Meds Orders: Active Orders 24 hr Category Date Time Status EKG Documentation Completion [RC] STAT Care 06/11/19 14:31 Active Sodium Chloride 0.9% [Saline Flush] Med 06/11/19 14:05 Active 10 ml FLUSH ASDIRECTED PRN Peripheral IV Insertion Adult [OM.PC] Stat Oth 06/11/19 14:05 Ordered Medication Orders Sodium Chloride (Saline Flush) 10 ml FLUSH ASDIRECTED PRN PRN Reason: Keep Vein Open Labs: Laboratory Tests 06/11/19 06/11/19 06/11/19 Range/Units 14:23 14:23 14:23 WBC 4.8 (4.0-10.0) x10^3/uL RBC 4.14 (4.00-5.50) x10^6/uL Hgb 13.0 (12.0-16.0) g/dL Hct 39.4 (33.0-47.0) % MCV 95.2 H D (78.0-93.0) fL MCH 31.4 (26.0-32.0) pg MCHC 33.0 (32.0-36.0) g/dL RDW Coeff of Dionna 13.5 (10.0-15.0) % Plt Count 215 (130-400) x10^3/uL Neut % (Auto) 56.7 (50.0-80.0) % Lymph % (Auto) 32.9 (25.0-50.0) % Todd % (Auto) 8.3 (2.0-11.0) % Eos % (Auto) 1.9 (0.0-4.0) % Baso % (Auto) 0.2 (0.2-1.2) % Sodium 145 (136-145) mmol/L Potassium 3.4 L (3.5-5.1) mmol/L Chloride 110 H (98-107) mmol/L Carbon Dioxide 21 (21-32) mmol/L Anion Gap 17.4 (10-20) mmol/L BUN 3 L (7-18) mg/dL Creatinine 0.7 (0.55-1.02) mg/dL Est Cr Clr Drug Dosing 86.18 mL/min Estimated GFR (MDRD) > 60 Glucose 126 H (74-106) mg/dL Calcium 8.0 L (8.5-10.1) mg/dL Corrected Calcium 8.32 L (8.5-10.1) mg/dL Total Bilirubin 0.2 (0.2-1.0) mg/dL AST 12 L (15-37) U/L ALT 21 (14-59) U/L Alkaline Phosphatase 59 (46-116) U/L Troponin I 0.021 (<=0.056) ng/mL Total Protein 6.8 (6.4-8.2) g/dL Albumin 3.6 (3.4-5.0) g/dL Globulin 3.2 Albumin/Globulin Ratio 1.13 TSH, Ultra Sensitive 2.631 (0.358-3.74) uIU/mL Meds: Medications Generic Name Dose Route Start Last Admin Trade Name Freq PRN Reason Stop Dose Admin Sodium Chloride 10 ml 06/11/19 14:05 Saline Flush FLUSH ASDIRECTED PRN Keep Vein Open Discontinued Medications Generic Name Dose Route Start Last Admin Trade Name Alla PRN Reason Stop Dose Admin Acetaminophen 500 mg 06/11/19 15:13 06/11/19 15:17 Tylenol Extra Strength PO 06/11/19 15:14 500 mg ONETIME ONE Administration Diltiazem HCl 20 mg 06/11/19 14:06 06/11/19 14:26 Cardizem IVPUSH 06/11/19 14:07 20 mg ONETIME ONE Administration Hydroxyzine HCl 50 mg 06/11/19 14:46 06/11/19 14:50 Atarax PO 06/11/19 14:47 50 mg ONETIME ONE Administration Sodium Chloride 1,000 mls @ 999 mls/hr 06/11/19 14:05 06/11/19 14:22 Normal Saline IV 06/11/19 15:05 999 mls/hr ONETIME ONE Administration Ketorolac Tromethamine 30 mg 06/11/19 14:36 06/11/19 14:39 Toradol IVPUSH 06/11/19 14:37 30 mg ONETIME ONE Administration Metoprolol Tartrate 5 mg 06/11/19 14:05 06/11/19 14:29 Lopressor IVPUSH 06/11/19 14:06 5 mg ONETIME ONE Administration Metoprolol Tartrate 5 mg 06/11/19 15:26 06/11/19 15:31 Lopressor IVPUSH 06/11/19 15:27 5 mg ONETIME ONE Administration Oxycodone/Acetaminophen 1 tab 06/11/19 15:41 06/11/19 15:44 Percocet 325-5 Mg PO 06/11/19 15:42 1 tab ONETIME ONE Administration Potassium Chloride 20 meq 06/11/19 15:41 06/11/19 15:44 Klor-Con M20 PO 06/11/19 15:42 20 meq ONETIME ONE Administration Departure - Departure Time of Disposition: 15:57 Disposition: Home, Self-Care 01 Clinical Impression: SVT (supraventricular tachycardia), Palpitations, Hypokalemia, Tachycardia, Anxiety - Discharge Information *PRESCRIPTION DRUG MONITORING PROGRAM REVIEWED*: Not Applicable *COPY OF PRESCRIPTION DRUG MONITORING REPORT IN PATIENT GAY: Not Applicable Prescriptions: Diltiazem HCl [Cardizem LA] 240 mg PO DAILY #7 tab.sr.24h Metoprolol Succinate [Toprol XL 50mg] 50 mg PO DAILY #7 tab.er Potassium Chloride 20 meq PO DAILY #7 tablet.er Instructions: Metoprolol extended-release tablets, Potassium chloride tablets, extended-release tablets or capsules, Ketorolac injection, Supraventricular Tachycardia, Adult, Diltiazem tablets Referrals: Sanam Woodson DO [Primary Care Provider] - Forms: ED Department Discharge Additional Instructions: 1. Referral for electrophysiology study/work-up is recommended per pharmacy intake technician in [facility] 2. Increase in Cardizem 240mg daily 7 days script given. Start this dose tomorrow. Do not take the Cardizem 180mg tablets you currently have at home 3. Increase your oral potassium. increase of 20 mEq to total 40 mEq daily was sent for 7 days 4. Toprol XL 50mg Daily prescribed for 7 days 5. rest 6. increase your water intake 7. Continue all other at home medications 8. Activity and diet as tolerated 9. Can take over the counter Tylenol or ibuprophen for any pain or discomfort 10. Follow up with PCP if symptoms continue, return, or progress. Need to follow up within the week with PCP for further medication management/dosing changes/ and electrophysiology referral. 11. Call with any questions or concerns Sepsis Event Note - Focused Exam Vital Signs: Vital Signs Temp Pulse Pulse Resp BP BP Pulse Ox 06/11/19 15:42 116 H 16 109/78 99 06/11/19 15:31 122 H 109/78 06/11/19 15:09 129 H 06/11/19 15:04 116 H 18 96/49 L 99 06/11/19 14:38 131 H 121/77 06/11/19 14:32 134 H 30 H 108/48 L 99 06/11/19 14:29 136 H 108/48 L 06/11/19 14:00 36.9 C 164 H 20 113/78 98 Date Exam was Performed: 06/11/19 Time Exam was Performed: 17:40 - My Orders Last 24 Hours: My Active Orders 06/11/19 14:05 Sodium Chloride 0.9% [Saline Flush] 10 ml FLUSH ASDIRECTED PRN Peripheral IV Insertion Adult [OM.PC] Stat 06/11/19 14:31 EKG Documentation Completion [RC] STAT - Assessment/Plan Last 24 Hours: My Active Orders 06/11/19 14:05 Sodium Chloride 0.9% [Saline Flush] 10 ml FLUSH ASDIRECTED PRN Peripheral IV Insertion Adult [OM.PC] Stat 06/11/19 14:31 EKG Documentation Completion [RC] STAT Assessment:: 1. Tachycardia 2. SVT 3. Palpitations 4. Hypokalemia Plan: 1. Labs completed in the ER. Results reviewed with the patient 2. IV initiated in the emergency department 3. IV fluids provided 4. Pain medication given for severe pain and discomfort-Ketorolac 30mg IV, Tylenol 500mg tab Percocet tab 5/325mg for headache 5. Cardizem 20mg IV given in ER 6. Lopressor 5mg IV given heart rate reduced to 120's. 2nd dose Lopressor 5mg IV- heart rate 100's. 7. Cardiology at [facility] contacted regarding patient. She recommends electrophysiology study with a possible endocrinology referral for further workup of episodic SVT. Also recommends medications adjustments until being seen by electrophysiology. Cardizem increased (240mg daily) script sent for 7 days, Start Toprol XL (50mg daily) 7 day script sent. Increase of potassium total 40mEq daily 7 day script sent. 6. Patient and nursing staff was updated regarding the plan of care 7. Education provided the patient regarding activity, diet, rest, over-the- counter medication modalities, and follow-up care was provided 8. Patient and family are agreeable to the above plan of care 9. All questions and concerns were addressed with the patient and family prior to discharge 10. Pt does not want to be admitted again and does understand the risk and is aware of the signs and symptoms if they do return. Pt will call 911 or have someone transport
[2019-06-11] MEDS ORDERED: Ketorolac 30 MG/ML SDV IVPUSH ONE (14:36)
[2019-06-11] MEDS ORDERED: hydrOXYzine HCl 25 MG Tab PO ONE (14:46)
[2019-06-11 14:49] LABS: CHLORIDE,CL 110 mmol/L (98-107); SODIUM,NA 145 mmol/L (136-145)
[2019-06-11 14:53] LABS: ANION GAP 17.4 mmol/L (10-20)
[2019-06-11] MEDS ORDERED: Acetaminophen 500 MG Tab PO ONE (15:13)
[2019-06-11] MEDS ORDERED: Acetaminophen/oxyCODONE 325-5 MG Tab PO ONE (15:41)
[2019-06-11] MEDS ORDERED: Potassium Chloride 20 MEQ Tab.ER PO ONE (15:41)
[2019-06-11 15:52] VITALS: BP 109/78; PULSE 116
== END 2019-06-11 15:57 | disposition home or self-care (01) ==
LOC: VM.ED 13:52
DX: I47.1 Supraventricular tachycardia (principal); E87.6 Hypokalemia; J45.909 Unspecified asthma, uncomplicated; K21.9 Gastro-esophageal reflux disease without esophagitis; E66.9 Obesity, unspecified; Z68.37 Body mass index [BMI] 37.0-37.9, adult; Z91.048 Other nonmedicinal substance allergy status; Z91.040 Latex allergy status; Z88.8 Allergy status to other drugs, medicaments and biological substances; Z79.899 Other long term (current) drug therapy
CPT/HCPCS: 80053; 84443; 84484; 85025; 93005; 96361; 96374; 96375; 99285; A9270; J1885; J3490; J7030; 36415

== ENCOUNTER 2020-01-15 05:08 | Emergency (ER) | payer OTHER ==
[2020-01-15 05:13] VITALS: BP 143/90; PULSE 72
--- NOTE | 2020-01-15 05:26 | EDM.PDOC ---
ED HPI GENERAL MEDICAL PROBLEM - General Chief Complaint: Abdominal Pain Stated Complaint: right sided abdominal pain Time Seen by Provider: 01/15/20 05:14 Source of Information: Reports: Patient - History of Present Illness INITIAL COMMENTS - FREE TEXT/NARRATIVE: Dafne is a 39 y/o female who comes to the ER this AM with RLQ abdominal pain that started yesterday. She reports that her stomach is upset and she has felt like she needed to have a bowel movement, but has been unable to go. She has used Miralax multiple times and had no result; now she is reporting small mucousy stools. No fever. Right Abdomen Pain Score (Numeric/FACES): 8 - Related Data Allergies Allergy/AdvReac Type Severity Reaction Status Date / Time adhesive tape Allergy Hives Verified 01/15/20 05:43 ceftriaxone [From Rocephin] Allergy Hives Verified 01/15/20 05:43 gabapentin Allergy Cannot Verified 01/15/20 05:43 Remember latex Allergy Hives Verified 01/15/20 05:43 isoniazid AdvReac Unknown Seizure Verified 01/15/20 05:43 tramadol AdvReac Unknown Seizure Verified 01/15/20 05:43 Home Meds: Home Meds Acetaminophen 1,000 mg PO Q6H PRN 05/10/17 [History] Albuterol [Proair HFA] 1 puff INH Q4H PRN 05/10/17 [History] hydrOXYzine HCL [hydrOXYzine] 25 mg PO TID 09/30/17 [History] Mag Carb/Aluminum Hydrox/Algin [Gaviscon Extra Strength Liquid] 30 ml PO Q4H PRN 10/28/17 [History] ondansetron HCL [Zofran] 4 mg PO Q6H PRN 10/28/17 [History] Pramipexole Di-HCl [Mirapex] 0.125 mg PO BEDTIME 12/21/17 [History] Diclofenac Sodium [Voltaren] 2 g TOP BID 06/10/19 [History] Diltiazem HCl [Cardizem LA] 240 mg PO DAILY #7 tab.sr.24h 06/11/19 [Rx] Metoprolol Succinate [Toprol XL 50mg] 50 mg PO DAILY #7 tab.er 06/11/19 [Rx] Potassium Chloride 20 meq PO DAILY #7 tablet.er 06/11/19 [Rx] Cyclobenzaprine [Flexeril] 5 mg PO TID PRN 01/15/20 [History] Ibuprofen [Motrin] 800 mg PO Q6H PRN 01/15/20 [History] dilTIAZem HCL [Cardizem] 30 mg PO ASDIRECTED PRN 01/15/20 [History] Past Medical History - Past Health History Medical/Surgical History: Denies Medical/Surgical History HEENT History: Reports: None Cardiovascular History: Reports: Arrhythmia Other Cardiovascular History: inappropriate sinus tachycardia. tachyarrhythmia Respiratory History: Reports: Asthma Gastrointestinal History: Reports: GERD Other Gastrointestinal History: Heartburn AUDIO VISUAL COLLECTIONS COORDINATOR History: Reports: Polycystic Ovaries, Other (See Below) Other AUDIO VISUAL COLLECTIONS COORDINATOR History: dysmenorrhea Neurological History: Reports: Seizure Psychiatric History: Reports: Anxiety, Depression, Psychosis, Schizophrenia, Suicidal Ideation Other Psychiatric History: Schizoaffective Disorder Endocrine/Metabolic History: Reports: Obesity/BMI 30+, Other (See Below) Other Endocrine/Metabolic History: adrenal insufficiency Hematologic History: Reports: None Immunologic History: Reports: None Oncologic (Cancer) History: Reports: None - Infectious Disease History Infectious Disease History: Reports: Other (See Below) 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 - Past Surgical History Respiratory Surgical History: Reports: Thoracotomy GI Surgical History: Reports: Cholecystectomy, Colonoscopy Female Surgical History: Reports: Hysterectomy Other Female Surgeries/Procedures: hysterectomy on 02/04/16 Other Musculoskeletal Surgeries/Procedures:: foot surgery Social & Family History - Family History Family Medical History: Noncontributory - Caffeine Use Caffeine Use: Reports: Coffee, Soda - Sexual History Sexual History: Reports: Same Sex Partner, Single Partner - Living Situation & Occupation Living situation: Reports: , with Spouse Occupation: Employed Review of Systems - Review of Systems Review Of Systems: See Below Constitutional: Reports: No Symptoms Eyes: Reports: No Symptoms Ears: Reports: No Symptoms Nose: Reports: No Symptoms Mouth/Throat: Reports: No Symptoms Respiratory: Reports: No Symptoms Cardiovascular: Reports: No Symptoms GI/Abdominal: Reports: Abdominal Pain, Decreased Appetite, Nausea Genitourinary: Reports: No Symptoms Musculoskeletal: Reports: No Symptoms Skin: Reports: No Symptoms Neurological: Reports: No Symptoms Psychiatric: Reports: No Symptoms ED EXAM, GENERAL - Physical Exam Exam: See Below General Appearance: Alert, WD/WN, No Apparent Distress (Adult female, appears to not feel well) Ears: Hearing Grossly Normal Nose: Normal Inspection Throat/Mouth: Normal Voice, No Airway Compromise Head: Atraumatic, Normocephalic Neck: Normal Inspection Respiratory/Chest: No Respiratory Distress, Lungs Clear, Normal Breath Sounds, Chest Non-Tender Cardiovascular: Normal Peripheral Pulses, Regular Rate, Rhythm GI/Abdominal: Soft, Tender (RLQ), Abnormal Bowel Sounds (hyperactive x 4 quadrants) (Female) Exam: Deferred Rectal (Female) Exam: Deferred Back Exam: Normal Inspection Extremities: Normal Inspection, Normal Range of Motion, Normal Capillary Refill Neurological: Alert, Oriented, CN II-XII Intact Psychiatric: Normal Affect, Normal Mood Skin Exam: Warm, Dry, Intact, Normal Color Lymphatic: No Adenopathy Course - Vital Signs Text/Narrative:: 0515 The patinet was seen by the TAPE RECORDER REPAIRER. Labs ordered. She was given Fentanyl 100mcg IVP and Zofran 4 mg IVP. 0635 CBC and CMP reviewed and normal. Has not urinate yet. Reports pain better, but then came back. 0715 UA neg, pain persisting in the RLQ. Fentanyl 50mcg IVP ordered. CT Abd/Pelvis W ordered. 0820 CT results reviewed. Pain improved, but not gone. Discussed non-med pain managing techniques including hot packs, rest, meditation, etc. Patient had no questions. She was given discharge instructions and left the ER in stable condition. Last Recorded V/S: Last Vital Signs Temp 36.4 C 01/15/20 05:10 Pulse 72 01/15/20 05:10 Resp 18 01/15/20 05:10 BP 143/90 H 01/15/20 05:10 Pulse Ox 96 01/15/20 05:10 - Orders/Labs/Meds Orders: Active Orders 24 hr Category Date Time Status Sodium Chloride 0.9% [Saline Flush] Med 01/15/20 05:19 Active 10 ml FLUSH ASDIRECTED PRN Saline Lock Insert [OM.PC] Stat Oth 01/15/20 05:18 Ordered Medication Orders Sodium Chloride (Saline Flush) 10 ml FLUSH ASDIRECTED PRN PRN Reason: Keep Vein Open Last Admin: 01/15/20 05:39 Dose: 10 ml Documented by: EUGENIE Labs: Laboratory Tests 01/15/20 01/15/2001/14/20 Range/Units 05:39 05:39 06:41 WBC 6.9 (4.0-10.0) x10^3/uL RBC 4.37 (4.00-5.50) x10^6/uL Hgb 14.0 (12.0-16.0) g/dL Hct 39.9 (33.0-47.0) % MCV 91.3 D (78.0-93.0) fL MCH 32.0 (26.0-32.0) pg MCHC 35.1 (32.0-36.0) g/dL RDW Coeff of [place]na 12.2 (10.0-15.0) % Plt Count 228 (130-400) x10^3/uL Neut % (Auto) 58.2 (50.0-80.0) % Lymph % (Auto) 29.9 (25.0-50.0) % [place] % (Auto) 7.7 (2.0-11.0) % Eos % (Auto) 4.1 H (0.0-4.0) % Baso % (Auto) 0.1 L (0.2-1.2) % Sodium 141 (136-145) mmol/L Potassium 3.7 (3.5-5.1) mmol/L Chloride 105 (98-107) mmol/L Carbon Dioxide 27 (21-32) mmol/L Anion Gap 12.7 (10-20) mmol/L BUN 11 (7-18) mg/dL Creatinine 0.8 (0.55-1.02) mg/dL Est Cr Clr Drug Dosing TNP Estimated GFR (MDRD) > 60 Glucose 87 (74-106) mg/dL Calcium 8.6 (8.5-10.1) mg/dL Corrected Calcium 8.92 (8.5-10.1) mg/dL Total Bilirubin 0.4 (0.2-1.0) mg/dL AST 18 (15-37) U/L ALT 39 (14-59) U/L Alkaline Phosphatase 55 (46-116) U/L Total Protein 6.8 (6.4-8.2) g/dL Albumin 3.6 (3.4-5.0) g/dL Globulin 3.2 Albumin/Globulin Ratio 1.13 Urine Color Yellow (YELLOW) Urine Appearance Clear (CLEAR) Urine pH 6.5 (5.0-8.0) Ur Specific [place] 1.020 Urine Protein Negative (NEGATIVE) mg/dL Urine Glucose (UA) Negative (NEGATIVE) mg/dL Urine Ketones Negative (NEGATIVE) mg/dL Urine Occult Blood Negative (NEGATIVE) Urine Nitrite Negative (NEGATIVE) Urine Bilirubin Negative (NEGATIVE) Urine Urobilinogen 0.2 (0.2) EU/dL Ur Leukocyte Esterase Negative (NEGATIVE) Meds: Medications Generic Name Dose Route Start Last Admin Trade Name Freq PRN Reason Stop Dose Admin Sodium Chloride 10 ml 01/15/20 05:19 01/15/20 05:39 Saline Flush FLUSH 10 ml ASDIRECTED PRN Administration Keep Vein Open Discontinued Medications Generic Name Dose Route Start Last Admin Trade Name Freq PRN Reason Stop Dose Admin Fentanyl 100 mcg 01/15/20 05:19 01/15/20 05:38 Sublimaze IVPUSH 01/15/20 05:20 100 mcg ONETIME ONE Administration Fentanyl 50 mcg 01/15/20 07:17 01/15/20 07:24 Sublimaze IVPUSH 01/15/20 07:18 50 mcg ONETIME ONE Administration Ondansetron HCl 4 mg 01/15/20 05:19 01/15/20 05:38 Zofran IVPUSH 01/15/20 05:20 4 mg ONETIME ONE Administration - Radiology Interpretation Free Text/Narrative:: CT Abd/Pelvis W=no acute findings (See final report) Departure - Departure Time of Disposition: 08:25 Disposition: Refer to Observation Condition: Good Clinical Impression: Abdominal pain Qualifiers: Abdominal location: right lower quadrant Qualified Code(s): R10.31 - Right l ower quadrant pain - Discharge Information Instructions: Abdominal Pain, Adult Referrals: PCP,None [Primary Care Provider] - Forms: ED Department Discharge Additional Instructions: -Use Over the counter pain meds as needed -Rest as needed -Try warm packs to the abdomen for comfort. -Other things that may help include meditation, yoga, relaxation, etc -If pain persists or any other concerns follow up with your PCP or return to the ER. Sepsis Event Note (ED) - Evaluation Sepsis Screening Result: No Definite Risk - Focused Exam Vital Signs: Vital Signs Temp Pulse Resp BP Pulse Ox 01/15/20 05:10 36.4 C 72 18 143/90 H 96 - My Orders Last 24 Hours: My Active Orders 01/15/20 05:18 Saline Lock Insert [OM.PC] Stat 01/15/20 05:19 Sodium Chloride 0.9% [Saline Flush] 10 ml FLUSH ASDIRECTED PRN - Assessment/Plan Last 24 Hours: My Active Orders 01/15/20 05:18 Saline Lock Insert [OM.PC] Stat 01/15/20 05:19 Sodium Chloride 0.9% [Saline Flush] 10 ml FLUSH ASDIRECTED PRN Assessment:: 1)RLQ Abdominal Pain Plan: -No laboratory or radiologic findings -Discharge to home
[2020-01-15] MEDS: fentaNYL 100 MCG/2 ML SDV IVPUSH ONE ×2 (05:38→07:24)
[2020-01-15] MEDS: Ondansetron 4 MG/2 ML SDV IVPUSH ONE (05:38)
[2020-01-15] MEDS: Sodium Chloride 0.9% 10 ML Syringe FLUSH PRN (05:39)
[2020-01-15 06:05] LABS: CHLORIDE,CL 105 mmol/L (98-107); SODIUM,NA 141 mmol/L (136-145)
[2020-01-15 06:06] LABS: ANION GAP 12.7 mmol/L (10-20)
--- NOTE | 2020-01-15 08:22 | CT ---
[id number] CT/CT Abdomen Pelvis W IV EXAM: ABDOMEN AND PELVIS CT WITH CONTRAST INDICATION: RIGHT LOWER QUADRANT PAIN. COMPARISON: November 06, 2018. DISCUSSION: Diverticulosis without CT evidence of acute diverticulitis. The liver is enlarged and demonstrates mild fatty infiltration. The gallbladder is surgically absent. Small fat-containing umbilical hernia. Uterus is surgically absent. The right ovary demonstrates a couple of prominent follicles the largest of which is about 19 mm in diameter. The pancreas, spleen, adrenal glands, kidneys, small bowel, and the appendix are normal in appearance. No adenopathy, free air free fluid. The osseous structures are unremarkable. IMPRESSION: 1. No acute findings. Yrn Stokes MD 01/15/20 0821 Thank you for allowing us to participate in the care of your patient.
[2020-01-15] MEDS: Iopamidol 612 MG/ML 100 ML Bottle IVPUSH ONE (08:40)
== END 2020-01-15 08:35 | disposition other institution (70) ==
LOC: VM.ED 05:08
DX: R10.31 Right lower quadrant pain (principal); J45.909 Unspecified asthma, uncomplicated; E66.9 Obesity, unspecified; Z91.040 Latex allergy status; Z88.6 Allergy status to analgesic agent; Z91.09 Other allergy status, other than to drugs and biological substances; Z88.1 Allergy status to other antibiotic agents; Z88.8 Allergy status to other drugs, medicaments and biological substances; Z90.49 Acquired absence of other specified parts of digestive tract; Z90.710 Acquired absence of both cervix and uterus
CPT/HCPCS: 36415; 74177; 80053; 81003; 85025; 96374; 96375; 96376; 99283; 99284-25; J2405; J3010; Q9967

== ENCOUNTER 2020-12-01 12:18 | Emergency (ER) | payer OTHER ==
--- NOTE | 2020-12-01 12:45 | EDM.PDOC ---
ED HPI GENERAL MEDICAL PROBLEM - General Chief Complaint: Chest Pain Stated Complaint: POUNDING HEART RATE, NAUSEA Time Seen by Provider: 12/01/20 12:40 Source of Information: Reports: Patient History Limitations: Reports: No Limitations - History of Present Illness INITIAL COMMENTS - FREE TEXT/NARRATIVE: Patient states last night about 8:00 she felt a pounding/pressure in the middle of her chest she rated about a 3 out of 10 nonradiating and stated happen intermittently through the night it would last a few minutes and then go away come back a few hours later repetitive cycle through the night this morning it occurred about an hour ago when she presented here to the ER. She states she has kind to have this before and seen a motor hotel manager years ago at [place] where they put her on metoprolol secondary to tachycardia there work-up included nuclear stress test ultrasound and at 1 time they talked about possibly doing an ablation but she has not followed up with anybody since. She denies any shortness of breath or true chest pain she describes it more as a pressure states she is had some fleeting few seconds of nausea no diaphoresis no weakness or no near syncopal episodes she has been eating and drinking normally She has no other complaints at this time Onset: Sudden Duration: Day(s): Location: Reports: Chest Quality: Reports: Pressure Severity: Mild Improves with: Reports: Other (time ) Associated Symptoms: Reports: Nausea/Vomiting. Denies: Confusion, Chest Pain, Cough, Diaphoresis, Fever/Chills, Headaches, Loss of Appetite, Shortness of Breath, Syncope - Related Data Allergies Allergy/AdvReac Type Severity Reaction Status Date / Time adhesive tape Allergy Hives Verified 12/01/20 13:10 ceftriaxone [From Rocephin] Allergy Hives Verified 12/01/20 13:10 gabapentin Allergy Cannot Verified 12/01/20 13:10 Remember latex Allergy Hives Verified 12/01/20 13:10 isoniazid AdvReac Unknown Seizure Verified 12/01/20 13:10 tramadol AdvReac Unknown Seizure Verified 12/01/20 13:10 Home Meds: Home Meds Acetaminophen 1,000 mg PO Q6H PRN 05/10/17 [History] Albuterol [Proair HFA] 1 puff INH Q4H PRN 05/10/17 [History] hydrOXYzine HCL [hydrOXYzine] 25 mg PO TID 09/30/17 [History] Mag Carb/Aluminum Hydrox/Algin [Gaviscon Extra Strength Liquid] 30 ml PO Q4H PRN 10/28/17 [History] ondansetron HCL [Zofran] 4 mg PO Q6H PRN 10/28/17 [History] Pramipexole Di-HCl [Mirapex] 0.125 mg PO BEDTIME 12/21/17 [History] Diclofenac Sodium [Voltaren] 2 g TOP BID 06/10/19 [History] Diltiazem HCl [Cardizem LA] 240 mg PO DAILY #7 tab.sr.24h 06/11/19 [Rx] Metoprolol Succinate [Toprol XL 50mg] 50 mg PO DAILY #7 tab.er 06/11/19 [Rx] Potassium Chloride 20 meq PO DAILY #7 tablet.er 06/11/19 [Rx] Cyclobenzaprine [Flexeril] 5 mg PO TID PRN 01/15/20 [History] Ibuprofen [Motrin] 800 mg PO Q6H PRN 01/15/20 [History] dilTIAZem HCL [Cardizem] 30 mg PO ASDIRECTED PRN 01/15/20 [History] Past Medical History - Past Health History Medical/Surgical History: Denies Medical/Surgical History HEENT History: Reports: None Cardiovascular History: Reports: Arrhythmia Other Cardiovascular History: inappropriate sinus tachycardia. 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 History: Reports: Polycystic Ovaries, Other (See Below) Other TACTICAL AIR DEFENSE CONTROLLER History: dysmenorrhea Neurological History: Reports: Seizure Psychiatric History: Reports: Anxiety, Depression, Psychosis, Schizophrenia, Suicidal Ideation Other Psychiatric History: Schizoaffective Disorder Endocrine/Metabolic History: Reports: Obesity/BMI 30+, Other (See Below) Other Endocrine/Metabolic History: adrenal insufficiency Hematologic History: Reports: None Immunologic History: Reports: None Oncologic (Cancer) History: Reports: None - Infectious Disease History Infectious Disease History: Reports: Other (See Below) 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 - Past Surgical History Respiratory Surgical History: Reports: Thoracotomy GI Surgical History: Reports: Cholecystectomy, Colonoscopy Female Surgical History: Reports: Hysterectomy Other Female Surgeries/Procedures: hysterectomy on 02/04/16 Other Musculoskeletal Surgeries/Procedures:: foot surgery Social & Family History - Family History Family Medical History: No Pertinent Family History - Caffeine Use Caffeine Use: Reports: Coffee, Soda - Sexual History Sexual History: Reports: Same Sex Partner, Single Partner - Living Situation & Occupation Living situation: Reports: , with Spouse Occupation: Employed ED ROS GENERAL - Review of Systems Review Of Systems: See Below Constitutional: Reports: No Symptoms HEENT: Reports: No Symptoms Respiratory: Denies: Shortness of Breath, Cough Cardiovascular: Reports: Other (heart pounding /pressure ). Denies: Chest Pain, Blood Pressure Problem, Claudication, Dyspnea on Exertion, Edema, Lightheadedness, Orthopnea, Palpitations, Syncope Endocrine: Reports: No Symptoms GI/Abdominal: Reports: No Symptoms : Reports: No Symptoms Musculoskeletal: Reports: No Symptoms Skin: Reports: No Symptoms Neurological: Reports: No Symptoms Psychiatric: Reports: No Symptoms Hematologic/Lymphatic: Reports: No Symptoms Immunologic: Reports: No Symptoms ED EXAM, GENERAL - Physical Exam Exam: See Below Exam Limited By: No Limitations General Appearance: Alert, WD/WN, No Apparent Distress Eye Exam: Bilateral Eye: EOMI, Normal Inspection, PERRL Ears: Normal External Exam, Normal Canal, Hearing Grossly Normal, Normal TMs Nose: Normal Inspection, Normal Mucosa, No Blood Throat/Mouth: Normal Inspection, Normal Lips, Normal Teeth, Normal Gums, Normal Oropharynx, Normal Voice, No Airway Compromise Head: Atraumatic, Normocephalic Neck: Normal Inspection, Supple, Non-Tender, Full Range of Motion Respiratory/Chest: No Respiratory Distress, Lungs Clear, Normal Breath Sounds, No Accessory Muscle Use, Chest Non-Tender Cardiovascular: Normal Peripheral Pulses, Regular Rate, Rhythm, No Edema, No Gallop, No JVD, No Murmur, No Rub GI/Abdominal: Normal Bowel Sounds, Soft, Non-Tender, No Organomegaly, No Distention. No: Guarding, Rigid, Rebound, Tender Back Exam: Full Range of Motion Extremities: Normal Inspection, Normal Range of Motion, Non-Tender, No Pedal Edema, Normal Capillary Refill Neurological: Alert, Oriented, CN II-XII Intact, Normal Cognition, Normal Gait, No Motor/Sensory Deficits Psychiatric: Normal Affect, Normal Mood Skin Exam: Warm, Dry, Intact, Normal Color, No Rash #1 Interpretation EKG Date: 12/01/20 Time: 12:40 Rhythm: NSR [place]: Normal P-Wave: Present QRS: Normal ST-T: Normal QT: Normal Course - Vital Signs Text/Narrative:: CBC BMP troponin chest x-ray EKG CBC WNL BMP WNL TROP 4 CHEST NAF BP rechecked was 135/71 pt has no pain ok with DC and f/u with pcp Last Recorded V/S: Last Vital Signs Temp 37.1 C 12/01/20 13:13 Pulse 76 12/01/20 13:13 Resp 19 12/01/20 13:13 BP 145/114 H 12/01/20 13:13 Pulse Ox 97 12/01/20 13:13 - Orders/Labs/Meds Labs: Laboratory Tests 12/01/20 12/01/20 Range/Units 12:53 12:53 WBC 5.9 (4.0-10.0) x10^3/uL RBC 4.60 (4.00-5.50) x10^6/uL Hgb 14.4 (12.0-16.0) g/dL Hct 42.6 (33.0-47.0) % MCV 92.6 (78.0-93.0) fL MCH 31.3 (26.0-32.0) pg MCHC 33.8 (32.0-36.0) g/dL RDW Coeff of Dionna 12.9 (10.0-15.0) % Plt Count 237 (130-400) x10^3/uL Immature Gran % (Auto) 0.20 (0.00-0.43) % Neut % (Auto) 57.2 (50.0-80.0) % Lymph % (Auto) 29.2 (25.0-50.0) % [place] % (Auto) 10.3 (2.0-11.0) % Eos % (Auto) 2.9 (0.0-4.0) % Baso % (Auto) 0.2 (0.2-1.2) % Neut # (Auto) 3.4 (1.8-7.7) x10^3/uL Lymph # (Auto) 1.7 (1.0-4.8) x10^3/uL [place] # (Auto) 0.6 (0.0-0.8) x10^3/uL Eos # (Auto) 0.2 (0.0-0.5) x10^3/uL Baso # (Auto) 0.0 (0.0-0.2) x10^3/uL Immature Gran # (Auto) 0.01 (0.00-0.07) x10^3/uL Sodium 142 (136-145) mmol/L Potassium 4.4 (3.5-5.1) mmol/L Chloride 105 (98-107) mmol/L Carbon Dioxide 30 (21-32) mmol/L Anion Gap 11.4 (5-15) mmol/L BUN 11 (7-18) mg/dL Creatinine 0.8 (0.55-1.02) mg/dL Est Cr Clr Drug Dosing TNP Estimated GFR (MDRD) > 60 Glucose 94 (70-99) mg/dL Calcium 8.8 (8.5-10.1) mg/dL Troponin I High Sens 4 (<=51) ng/L Departure - Departure Time of Disposition: 13:30 Disposition: Home, Self-Care 01 Condition: Good Clinical Impression: Chest pressure Forms: ED Department Discharge Sepsis Event Note (ED) - Focused Exam Vital Signs: Vital Signs Temp Pulse Resp BP Pulse Ox 12/01/20 13:13 37.1 C 76 19 145/114 H 97 - Problem List & Annotations (1) Chest pressure SNOMED Code(s): 599753507 Code(s): R07.89 - OTHER CHEST PAIN Status: Acute
--- NOTE | 2020-12-01 13:12 | CR ---
[id number] RAD/RAD Chest PA or AP 1V EXAM: RAD Chest PA or AP 1V INDICATION: CP. COMPARISON: January 08, 2019. DISCUSSION: Cardiomediastinal silhouette is stable in size and contour. No infiltrate, effusion, pneumothorax, or edema. IMPRESSION: No acute cardiopulmonary abnormality. Magdy Ricardo DO 12/01/20 1312 Thank you for allowing us to participate in the care of your patient.
[2020-12-01 13:24] LABS: ANION GAP 11.4 mmol/L (5-15); CHLORIDE,CL 105 mmol/L (98-107); SODIUM,NA 142 mmol/L (136-145)
[2020-12-01] MEDS ORDERED: Metoprolol Succinate 50 MG Tab.ER PO ONE (13:41)
[2020-12-01 13:44] VITALS: PULSE 87
[2020-12-01 14:47] VITALS: BP 146/85
== END 2020-12-01 14:35 | disposition home or self-care (01) ==
LOC: VM.ED 12:18 → SUPCPDRO 12:18 → VM.ED 14:35
DX: R07.89 Other chest pain (principal); J45.909 Unspecified asthma, uncomplicated; E66.9 Obesity, unspecified; Z68.35 Body mass index [BMI] 35.0-35.9, adult; Z91.048 Other nonmedicinal substance allergy status; Z88.8 Allergy status to other drugs, medicaments and biological substances; Z88.1 Allergy status to other antibiotic agents; Z91.040 Latex allergy status; Z88.5 Allergy status to narcotic agent; Z79.899 Other long term (current) drug therapy
CPT/HCPCS: 36415; 71045; 80048; 84484; 85025; 93005; 93010; 99284; 99285-25; A9270-GY

== ENCOUNTER 2021-04-18 12:40 | Emergency (ER) | payer OTHER ==
[2021-04-18] MEDS ORDERED: Sodium Chloride 0.9% 10 ML Syringe FLUSH PRN (13:01)
[2021-04-18] MEDS ORDERED: Sodium Chloride 0.9% 1,000 ML IV ONE ×2 (13:01→14:21)
[2021-04-18] MEDS ORDERED: Diltiazem 50 MG/10 ML SDV IVPUSH ONE ×2 (13:12→14:07)
--- NOTE | 2021-04-18 13:46 | EDM.PDOC ---
ED HPI GENERAL MEDICAL PROBLEM - General Chief Complaint: Cardiovascular Problem Stated Complaint: HIGH HEART RATE Time Seen by Provider: 04/18/21 13:15 Source of Information: Reports: Patient, Significant Other History Limitations: Reports: No Limitations - History of Present Illness INITIAL COMMENTS - FREE TEXT/NARRATIVE: Patient presents to the ED for fast heart rate, shakiness, numbness and tingling of the hands. She has a history of inappropriate tachycardia and take metoprolol 50 mg and cardiezem 240 mg at bedtime nightly and has a rescue dose of 30 mg of regular cardiezem to take when her heart rate is above 120. SHe was doing some sedentary craft work last night when she felt that her heart rate was raacing. Her apple watch showed a heart rate in the mid 130's. She took a total of 6 extra doses of 20 meq potassium since then, one extra dose of 30 mg cardiezem last night and one today. No change in the heart rate. She feels shaky, has been eating and drinking and taking her regular doses of medication. She did not come in sooner as she has a police scanner and heard the multiple ambulances that we had so decided to not come in. Last saw a home health care worker in 2017. last saw her PCP in February. 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 She did have several drinks for new years jean claude, but does not regularly drink. NO drug use, no recent illnesses. - Related Data Allergies Allergy/AdvReac Type Severity Reaction Status Date / Time adhesive tape Allergy Hives Verified 04/18/21 13:02 ceftriaxone [From Rocephin] Allergy Hives Verified 04/18/21 13:02 gabapentin Allergy Cannot Verified 04/18/21 13:02 Remember latex Allergy Hives Verified 04/18/21 13:02 isoniazid AdvReac Unknown Seizure Verified 04/18/21 13:02 tramadol AdvReac Unknown Seizure Verified 04/18/21 13:02 Home Meds: Home Meds Acetaminophen 1,000 mg PO Q6H PRN 05/10/17 [History] Albuterol [Proair HFA] 1 puff INH Q4H PRN 05/10/17 [History] hydrOXYzine HCL [hydrOXYzine] 25 mg PO TID 09/30/17 [History] Pramipexole Di-HCl [Mirapex] 0.125 mg PO BEDTIME 12/21/17 [History] Diclofenac Sodium [Voltaren] 2 g TOP QID 06/10/19 [History] Diltiazem HCl [Cardizem LA] 240 mg PO DAILY #7 tab.sr.24h 06/11/19 [Rx] Metoprolol Succinate [Toprol XL 50mg] 50 mg PO DAILY #7 tab.er 06/11/19 [Rx] Cyclobenzaprine [Flexeril] 10 mg PO TID PRN 01/15/20 [History] Ibuprofen [Motrin] 800 mg PO Q6H PRN 01/15/20 [History] dilTIAZem HCL [Cardizem] 30 mg PO ASDIRECTED PRN 01/15/20 [History] Nortriptyline HCl [Pamelor] 25 mg PO BEDTIME 04/18/21 [History] Potassium Chloride [Klor-Con 10] 10 meq PO DAILY 04/18/21 [History] Rivaroxaban [Xarelto] 20 mg PO DAILY 04/18/21 [History] Venlafaxine [Effexor XR 24 Hr] 37.5 mg PO DAILY 04/18/21 [History] Venlafaxine [Effexor XR] 75 mg PO DAILY 04/18/21 [History] Past Medical History - Past Health History Medical/Surgical History: Denies Medical/Surgical History HEENT History: Reports: None Cardiovascular History: Reports: Arrhythmia Other Cardiovascular History: inappropriate sinus tachycardia. tachyarrhythmia Respiratory History: Reports: Asthma Gastrointestinal History: Reports: GERD Other Gastrointestinal History: Heartburn MONITORING SPECIALIST History: Reports: Polycystic Ovaries, Other (See Below) Other MONITORING SPECIALIST History: dysmenorrhea Neurological History: Reports: Seizure Psychiatric History: Reports: Anxiety, Depression, Psychosis, Schizophrenia, Suicidal Ideation Other Psychiatric History: Schizoaffective Disorder Endocrine/Metabolic History: Reports: Obesity/BMI 30+, Other (See Below) Other Endocrine/Metabolic History: adrenal insufficiency Hematologic History: Reports: None Immunologic History: Reports: None Oncologic (Cancer) History: Reports: None - Infectious Disease History Infectious Disease History: Reports: Other (See Below) 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 - Past Surgical History Cardiovascular Surgical History: Reports: None Respiratory Surgical History: Reports: Thoracotomy GI Surgical History: Reports: Cholecystectomy, Colonoscopy Female Surgical History: Reports: Hysterectomy Other Female Surgeries/Procedures: hysterectomy on 02/04/16 Endocrine Surgical History: Reports: None Musculoskeletal Surgical History: Reports: Carpal Tunnel Other Musculoskeletal Surgeries/Procedures:: foot surgery Oncologic Surgical History: Reports: None Social & Family History - Family History Family Medical History: No Pertinent Family History - Tobacco Use Tobacco Use Status *Q: Current Every Day Tobacco User Years of Tobacco use: 25 Packs/Tins Daily: 1 - Caffeine Use Caffeine Use: Reports: Coffee, Soda - Living Situation & Occupation Living situation: Reports: , with Spouse Occupation: Employed ED ROS GENERAL - Review of Systems Review Of Systems: See Below Constitutional: Reports: Fatigue. Denies: Fever, Chills, Malaise HEENT: Reports: No Symptoms. Denies: Ear Discharge, Throat Pain, Vertigo Respiratory: Reports: No Symptoms. Denies: Shortness of Breath, Cough Cardiovascular: Reports: Lightheadedness, Palpitations GI/Abdominal: Reports: No Symptoms : Reports: No Symptoms. Denies: Dysuria, Frequency Musculoskeletal: Reports: No Symptoms Skin: Reports: No Symptoms Neurological: Reports: Other (lightheadedness, tingling hands) ED EXAM, GENERAL - Physical Exam Exam: See Below Exam Limited By: No Limitations General Appearance: Alert, WD/WN, No Apparent Distress, Anxious, Other (shaky and cramping hands) Eye Exam: Bilateral Eye: EOMI, Normal Inspection, PERRL Ears: Normal External Exam, Normal Canal, Hearing Grossly Normal, Normal TMs Nose: Normal Inspection Throat/Mouth: Normal Inspection, Normal Lips, Normal Oropharynx, Normal Voice, No Airway Compromise Head: Atraumatic Neck: Normal Inspection, Supple, Non-Tender, Full Range of Motion Respiratory/Chest: No Respiratory Distress, Lungs Clear, Normal Breath Sounds, No Accessory Muscle Use Cardiovascular: Regular Rate, Rhythm, No Murmur, Tachycardia GI/Abdominal: Normal Bowel Sounds, Soft, Non-Tender Back Exam: Normal Inspection, Full Range of Motion Extremities: Normal Inspection, Normal Range of Motion, Non-Tender, Normal Capillary Refill. No: Pedal Edema Neurological: Alert, Oriented, CN II-XII Intact, Normal Cognition, No Motor/Sensory Deficits Psychiatric: Anxious #1 Interpretation EKG Date: 04/18/21 Time: 12:52 Rhythm: NSR Rate (Beats/Min): 141 (sinus tachycardia) QT: Prolonged (borderline at 483 ( QTC)) Course - Vital Signs Last Recorded V/S: Last Vital Signs Temp 36.8 C 04/18/21 12:45 Pulse 125 H 04/18/21 14:25 Resp 22 H 04/18/21 14:15 BP 137/89 04/18/21 14:25 Pulse Ox 100 04/18/21 12:45 - Orders/Labs/Meds Orders: Active Orders 24 hr Category Date Time Status Cardiac Monitoring [RC] . DIRECTED Care 04/18/21 13:01 Active Chest 2V [CR] Stat Exams 04/18/21 14:47 Ordered LORazepam [Ativan] Med 04/18/21 15:50 Once 1 mg IVPUSH STAT ONE Sodium Chloride 0.9% [Saline Flush] Med 04/18/21 13:01 Active 10 ml FLUSH ASDIRECTED PRN dexAMETHasone [Decadron] Med 04/18/21 15:50 Once 8 mg IVPUSH ONETIME ONE diphenhydrAMINE [Benadryl] Med 04/18/21 15:50 Once 25 mg IVPUSH ONETIME ONE Peripheral IV Insertion Adult [OM.PC] Routine Oth 04/18/21 13:01 Ordered Medication Orders Sodium Chloride (Sodium Chloride 0.9% 10 Ml Syringe) 10 ml FLUSH ASDIRECTED PRN PRN Reason: Keep Vein Open Labs: Laboratory Tests 04/18/21 04/18/21 04/18/21 Range/Units 13:22 13:22 13:22 WBC 7.3 (4.0-10.0) x10^3/uL RBC 4.51 (4.00-5.50) x10^6/uL Hgb 14.3 (12.0-16.0) g/dL Hct 41.8 (33.0-47.0) % MCV 92.7 (78.0-93.0) fL MCH 31.7 (26.0-32.0) pg MCHC 34.2 (32.0-36.0) g/dL RDW Coeff of Dionna 13.0 (10.0-15.0) % Plt Count 245 (130-400) x10^3/uL Immature Gran % (Auto) 0.00 (0.00-0.43) % Neut % (Auto) 70.4 (50.0-80.0) % Lymph % (Auto) 18.7 L (25.0-50.0) % [place] % (Auto) 8.1 (2.0-11.0) % Eos % (Auto) 2.5 (0.0-4.0) % Baso % (Auto) 0.3 (0.2-1.2) % Neut # (Auto) 5.2 (1.8-7.7) x10^3/uL Lymph # (Auto) 1.4 (1.0-4.8) x10^3/uL [place] # (Auto) 0.6 (0.0-0.8) x10^3/uL Eos # (Auto) 0.2 (0.0-0.5) x10^3/uL Baso # (Auto) 0.0 (0.0-0.2) x10^3/uL Immature Gran # (Auto) 0.00 (0.00-0.07) x10^3/uL D-Dimer, Quantitative 0.53 (<=0.58) mg/LFEU Sodium 143 (136-145) mmol/L Potassium 3.1 L (3.5-5.1) mmol/L Chloride 104 (98-107) mmol/L Carbon Dioxide 27 (21-32) mmol/L Anion Gap 15.1 H (5-15) mmol/L BUN 8 (7-18) mg/dL Creatinine 0.8 (0.55-1.02) mg/dL Est Cr Clr Drug Dosing TNP Estimated GFR (MDRD) > 60 Glucose 125 H (70-99) mg/dL Calcium 8.7 (8.5-10.1) mg/dL Corrected Calcium 9.0 (8.5-10.1) mg/dL Magnesium 2.1 (1.8-2.4) mg/dL Total Bilirubin 0.2 (0.2-1.0) mg/dL AST 20 (15-37) U/L ALT 42 (14-59) U/L Alkaline Phosphatase 76 (46-116) U/L Troponin I High Sens 7 (<=51) ng/L NT-Pro-B Natriuret Pep 77 (<=125) pg/mL Total Protein 7.3 (6.4-8.2) g/dL Albumin 3.6 (3.4-5.0) g/dL Globulin 3.7 Albumin/Globulin Ratio 0.97 TSH, Ultra Sensitive 1.332 (0.358-3.74) uIU/mL Urine Color (YELLOW) Urine Appearance (CLEAR) Urine pH (5.0-8.0) Ur Specific [place] Urine Protein (NEGATIVE) mg/dL Urine Glucose (UA) (NEGATIVE) mg/dL Urine Ketones (NEGATIVE) mg/dL Urine Occult Blood (NEGATIVE) Urine Nitrite (NEGATIVE) Urine Bilirubin (NEGATIVE) Urine Urobilinogen (0.2) EU/dL Ur Leukocyte Esterase (NEGATIVE) Urine Opiates Screen (NEGATIVE) Ur Buprenorphine Scrn (NEGATIVE) Ur Oxycodone Screen (NEGATIVE) Urine Methadone Screen (NEGATIVE) Ur Barbiturates Screen (NEGATIVE) Ur Phencyclidine Scrn (NEGATIVE) Ur Amphetamine Screen (NEGATIVE) U Methamphetamines Scrn (NEGATIVE) Urine MDMA Screen (NEGATIVE) U Benzodiazepines Scrn (NEGATIVE) U Cocaine Metab Screen (NEGATIVE) U Marijuana (THC) Screen (NEGATIVE) Ethyl Alcohol (0-3) mg/dL 04/18/21 04/18/21 04/18/21 Range/Units 13:22 14:10 14:10 WBC (4.0-10.0) x10^3/uL RBC (4.00-5.50) x10^6/uL Hgb (12.0-16.0) g/dL Hct (33.0-47.0) % MCV (78.0-93.0) fL MCH (26.0-32.0) pg MCHC (32.0-36.0) g/dL RDW Coeff of Dionna (10.0-15.0) % Plt Count (130-400) x10^3/uL Immature Gran % (Auto) (0.00-0.43) % Neut % (Auto) (50.0-80.0) % Lymph % (Auto) (25.0-50.0) % [place] % (Auto) (2.0-11.0) % Eos % (Auto) (0.0-4.0) % Baso % (Auto) (0.2-1.2) % Neut # (Auto) (1.8-7.7) x10^3/uL Lymph # (Auto) (1.0-4.8) x10^3/uL [place] # (Auto) (0.0-0.8) x10^3/uL Eos # (Auto) (0.0-0.5) x10^3/uL Baso # (Auto) (0.0-0.2) x10^3/uL Immature Gran # (Auto) (0.00-0.07) x10^3/uL D-Dimer, Quantitative (<=0.58) mg/LFEU Sodium (136-145) mmol/L Potassium (3.5-5.1) mmol/L Chloride (98-107) mmol/L Carbon Dioxide (21-32) mmol/L Anion Gap (5-15) mmol/L BUN (7-18) mg/dL Creatinine (0.55-1.02) mg/dL Est Cr Clr Drug Dosing Estimated GFR (MDRD) Glucose (70-99) mg/dL Calcium (8.5-10.1) mg/dL Corrected Calcium (8.5-10.1) mg/dL Magnesium (1.8-2.4) mg/dL Total Bilirubin (0.2-1.0) mg/dL AST (15-37) U/L ALT (14-59) U/L Alkaline Phosphatase (46-116) U/L Troponin I High Sens (<=51) ng/L NT-Pro-B Natriuret Pep (<=125) pg/mL Total Protein (6.4-8.2) g/dL Albumin (3.4-5.0) g/dL Globulin Albumin/Globulin Ratio TSH, Ultra Sensitive (0.358-3.74) uIU/mL Urine Color Yellow (YELLOW) Urine Appearance Clear (CLEAR) Urine pH 7.0 (5.0-8.0) Ur Specific [place] 1.015 Urine Protein Negative (NEGATIVE) mg/dL Urine Glucose (UA) Negative (NEGATIVE) mg/dL Urine Ketones Negative (NEGATIVE) mg/dL Urine Occult Blood Negative (NEGATIVE) Urine Nitrite Negative (NEGATIVE) Urine Bilirubin Negative (NEGATIVE) Urine Urobilinogen 0.2 (0.2) EU/dL Ur Leukocyte Esterase Negative (NEGATIVE) Urine Opiates Screen Negative (NEGATIVE) Ur Buprenorphine Scrn Negative (NEGATIVE) Ur Oxycodone Screen Negative (NEGATIVE) Urine Methadone Screen Negative (NEGATIVE) Ur Barbiturates Screen Negative (NEGATIVE) Ur Phencyclidine Scrn Negative (NEGATIVE) Ur Amphetamine Screen Negative (NEGATIVE) U Methamphetamines Scrn Negative (NEGATIVE) Urine MDMA Screen Negative (NEGATIVE) U Benzodiazepines Scrn Negative (NEGATIVE) U Cocaine Metab Screen Negative (NEGATIVE) U Marijuana (THC) Screen Negative (NEGATIVE) Ethyl Alcohol < 3 (0-3) mg/dL Meds: Medications Generic Name Dose Route Start Last Admin Trade Name Freq PRN Reason Stop Dose Admin Sodium Chloride 10 ml 04/18/21 13:01 Sodium Chloride 0.9% 10 Ml Syringe FLUSH ASDIRECTED PRN Keep Vein Open Discontinued Medications Generic Name Dose Route Start Last Admin Trade Name Freq PRN Reason Stop Dose Admin Diltiazem HCl 5 mg 04/18/21 13:12 04/18/21 13:22 Diltiazem 50 Mg/10 Ml Sdv IVPUSH 04/18/21 13:13 5 mg ONETIME ONE Administration Diltiazem HCl 5 mg 04/18/21 14:07 04/18/21 14:38 Diltiazem 50 Mg/10 Ml Sdv IVPUSH 04/18/21 14:08 5 mg ONETIME ONE Administration Sodium Chloride 1,000 mls @ 999 mls/hr 04/18/21 13:01 04/18/21 13:21 Normal Saline IV 04/18/21 14:01 999 mls/hr ONETIME ONE Administration Potassium Chloride 20 meq/ 50 mls @ 50 mls/hr 04/18/21 14:09 04/18/21 14:32 Premix IV 04/18/21 15:08 50 mls/hr ONETIME ONE Administration Sodium Chloride 1,000 mls @ 999 mls/hr 04/18/21 14:21 04/18/21 14:32 Normal Saline IV 04/18/21 15:21 999 mls/hr ONETIME ONE Administration Ketorolac Tromethamine 15 mg 04/18/21 14:18 04/18/21 14:25 Ketorolac 15 Mg/Ml Sdv IVPUSH 04/18/21 14:19 15 mg ONETIME ONE Administration Metoprolol Succinate 25 mg 04/18/21 14:07 04/18/21 14:25 Metoprolol Succinate 25 Mg Tab.Er PO 04/18/21 14:08 25 mg ONETIME ONE Administration Potassium Chloride 40 meq 04/18/21 14:10 04/18/21 14:26 Potassium Chloride 20 Meq Tab.Er PO 04/18/21 14:11 40 meq ONETIME ONE Administration - Radiology Interpretation Free Text/Narrative:: chest x-ray with hyperinflation compatible with COPD, mild atelectasis in lung bases, interpreted by radiology - Re-Assessments/Exams Free Text/Narrative Re-Assessment/Exam: 04/18/21 13:46 Patient is shaky, appears anxious, states does get worried easily. heart rate is regular but 130. Otherwise nontoxic looking. Will place an iv. Give 1000 ml of normal saline. 5 mg of Diltazem IVP, has already take 30 mg orally today. Will check for labs, trop, bnp, ddimer, electrolyte problems. stressed importance of regular cardiology visits with chronic condition. Last echocardiogram was 2017 with ejection fraction of 60% and essentially normal. Last holter monitor was 2017 with sinus tachycardia 80% of the time, max heart rate of 157 and average heart rate of 111. takes both of 240 Cardizem and 50 metoprolol at bedtime 04/18/21 15:15 Patient has a low potassium even in light of taking 120 meq extra in the last day. will give 40 meq po, 20 meq iv, second liter of normal saline. Has a headache, typical for her when her heart rate has been elevated. will give Toradol 15 mg IVP. second dose of diltiazem 5 mg IVP given and 25 of metoprolol po given. did have a cup of coffee today. advised against all caffeine. Discussed at length the need for cardiology follow up, no alcohol, caffeine and medication adherence. Discouraged against free will taking of her potassium but the need for increased dosages for a few days, increased potassium in the diet and close recheck this next week. heart rate improved to 115 at rest. suggest hydration, rest, and can safely take the diltiazem 30 mg dose three times a day on top of the 240 ER dose as a max of 360 a day is noted. 04/18/21 15:52 also will give her ativan 1 mg iivp, benadryl 25 mg IVP and decadron 8 mg IVP as she has been crying, continues to have a headaches and is anxious. Discussed close follow up . heart rate 115. 04/18/21 15:59 Departure - Departure Time of Disposition: 15:53 Disposition: Home, Self-Care 01 Clinical Impression: Sinus tachycardia, Hypokalemia Headache Qualifiers: Headache type: unspecified Headache chronicity pattern: episodic headache Intractability: not intractable Qualified Code(s): R51 - Headache Instructions: General Headache Without Cause, Hypokalemia, Sinus Tachycardia, Potassium Content of Foods Referrals: Sanam Woodson, [Primary Care Provider] - Forms: ED Department Discharge Additional Instructions: YOu need to continue your regular medications. Take your potassium 20 meq three times a day. Eat potassium rich foods. Avoid all alcohol and caffiene. Hydrate well. You can take your diltiazem 30 mg three times a day along with your regular medication if your heart rate is greater than 120. Return to the ED for heart rates sustained of greater than 150 after one hour of taking a dose of 30 mg diltiazem. You were given multiple medications for your headache. Go home and rest, try to avoid stress as this will make the headache worse. You need follow up with your home health care worker. Make appointment with one and continue follow up with them and your PCP,. Testing today only found sinus tachycardia with rates of 135 that was medicated and low potassium of 3.1 with normal 3.5-5. ideal level would be 4 for a heart patient Sepsis Event Note (ED) - Focused Exam Vital Signs: Vital Signs Temp Pulse Pulse Resp BP BP Pulse Ox 04/18/21 14:25 125 H 137/89 04/18/21 14:15 129 H 22 H 137/89 04/18/21 12:45 36.8 C 148 H 20 132/88 100 - My Orders Last 24 Hours: My Active Orders 04/18/21 13:01 Cardiac Monitoring [RC] . DIRECTED Sodium Chloride 0.9% [Saline Flush] 10 ml FLUSH ASDIRECTED PRN Peripheral IV Insertion Adult [OM.PC] Routine 04/18/21 14:47 Chest 2V [CR] Stat 04/18/21 15:50 LORazepam [Ativan] 1 mg IVPUSH STAT ONE dexAMETHasone [Decadron] 8 mg IVPUSH ONETIME ONE diphenhydrAMINE [Benadryl] 25 mg IVPUSH ONETIME ONE - Assessment/Plan Last 24 Hours: My Active Orders 04/18/21 13:01 Cardiac Monitoring [RC] . DIRECTED Sodium Chloride 0.9% [Saline Flush] 10 ml FLUSH ASDIRECTED PRN Peripheral IV Insertion Adult [OM.PC] Routine 04/18/21 14:47 Chest 2V [CR] Stat 04/18/21 15:50 LORazepam [Ativan] 1 mg IVPUSH STAT ONE dexAMETHasone [Decadron] 8 mg IVPUSH ONETIME ONE diphenhydrAMINE [Benadryl] 25 mg IVPUSH ONETIME ONE
[2021-04-18 13:56] LABS: ANION GAP 15.1 mmol/L (5-15); CHLORIDE,CL 104 mmol/L (98-107); SODIUM,NA 143 mmol/L (136-145)
[2021-04-18] MEDS ORDERED: Metoprolol Succinate 25 MG Tab.ER PO ONE (14:07)
[2021-04-18] MEDS ORDERED: Potassium Chloride Riders 20 MEQ in Premix Bag 1 BAG IV ONE (14:09)
[2021-04-18] MEDS ORDERED: Potassium Chloride 20 MEQ Tab.ER PO ONE (14:10)
[2021-04-18] MEDS ORDERED: Ketorolac 15 MG/ML SDV IVPUSH ONE (14:18)
[2021-04-18 14:21] LABS: BARBITURATE SCREEN,URINE NEGATIVE (NEGATIVE); BENZODIAZEPINES SCREEN,URINE NEGATIVE (NEGATIVE); BUPRENORPHINE SCREEN,URINE NEGATIVE (NEGATIVE); METHAMPHETAMINE SCREEN, URINE NEGATIVE (NEGATIVE); THC SCREEN,URINE 50 NG/ML NEGATIVE (NEGATIVE)
[2021-04-18] MEDS ORDERED: LORazepam 2 MG/ML SDV IVPUSH ONE (15:50)
[2021-04-18] MEDS ORDERED: Dexamethasone 4 MG/ML SDV IVPUSH ONE (15:50)
[2021-04-18] MEDS ORDERED: diphenhydrAMINE 50 MG/ML SDV IVPUSH ONE (15:50)
--- NOTE | 2021-04-18 15:56 | CR ---
[id number] RAD/RAD Chest PA And Lateral EXAM: RAD Chest PA And Lateral INDICATION: Tachycardia. COMPARISON: December 01, 2020. DISCUSSION: Hyperinflation compatible with COPD. Mild atelectasis or infiltrates in the lung bases. Borderline heart size without evidence of edema. No effusions. IMPRESSION: 1. Mild bibasilar atelectasis and/or infiltrates. Yrn Stokes MD 04/18/21 [id number] Thank you for allowing us to participate in the care of your patient.
[2021-04-18 16:15] VITALS: BP 129/75; PULSE 113
== END 2021-04-18 16:16 | disposition home or self-care (01) ==
LOC: VM.ED 12:40
DX: R51.9 Headache, unspecified (principal); R00.0 Tachycardia, unspecified; E87.6 Hypokalemia; E66.9 Obesity, unspecified; Z68.30 Body mass index [BMI] 30.0-30.9, adult; Z91.048 Other nonmedicinal substance allergy status; Z88.1 Allergy status to other antibiotic agents; Z91.040 Latex allergy status; Z88.5 Allergy status to narcotic agent; Z88.8 Allergy status to other drugs, medicaments and biological substances; Z79.01 Long term (current) use of anticoagulants; Z72.0 Tobacco use
CPT/HCPCS: 71046; 80053; 80305; 80307; 81003; 83735; 83880; 84443; 84484; 85025; 85379; 93005; 96365; 96375; 96376; 99285; A9270; J1100; J1200; J1885; J2060; J3480; J3490; J7030

== ENCOUNTER 2021-04-18 23:23 | Inpatient (IN) | payer OTHER ==
[2021-04-18] MEDS ORDERED: LORazepam 2 MG/ML SDV IVPUSH ONE (23:54)
[2021-04-19] MEDS ORDERED: LORazepam 2 MG/ML SDV IVPUSH PRN (00:36)
[2021-04-19] MEDS ORDERED: Magnesium Sulfate/Water 2 GM in Premix Bag 1 BAG IV ONE (00:36)
[2021-04-19] MEDS ORDERED: Potassium Chloride Riders 10 MEQ in Premix Bag 1 BAG IV ONE (00:36)
[2021-04-19] MEDS ORDERED: Potassium Chloride Riders 20 MEQ in Premix Bag 1 BAG IV SCH (00:45)
[2021-04-19] MEDS: Diltiazem 125 MG in Sodium Chloride 0.9% 100 ML IV SCH ×2 (01:29→21:57)
[2021-04-19] MEDS: Orphenadrine 100 MG Tab.ER PO SCH ×3 (01:58→20:11)
[2021-04-19] MEDS ORDERED: Acetaminophen 325 MG Tab PO PRN (02:24)
[2021-04-19] MEDS ORDERED: Promethazine 6.25 MG in Sodium Chloride 0.9% 100 ML IV PRN (02:24)
[2021-04-19] MEDS ORDERED: Docusate Sodium 100 MG Cap PO PRN (02:24)
[2021-04-19] MEDS ORDERED: Albuterol HFA 18 Gm Inhaler INH PRN (02:29)
[2021-04-19] MEDS ORDERED: Sodium Chloride 0.9% 1,000 ML IV SCH ×2 (03:20→05:15)
[2021-04-19] MEDS ORDERED: Potassium Chloride Riders 50 ML ONE (05:20)
[2021-04-19] MEDS ORDERED: Potassium Chloride 10 MEQ Tab.ER PO SCH (08:00)
[2021-04-19] MEDS ORDERED: DILTIAZEM HCL 30 MG PO SCH (08:00)
[2021-04-19 08:39] LABS: CHLORIDE,CL 107 mmol/L (98-107); SODIUM,NA 141 mmol/L (136-145)
[2021-04-19] MEDS: ALPRAZolam 0.5 MG Tab PO SCH ×3 (08:40→20:12)
[2021-04-19] MEDS: Venlafaxine 75 MG Cap.ER PO SCH (08:41)
[2021-04-19] MEDS: Venlafaxine 37.5 MG Cap.ER PO SCH (08:41)
[2021-04-19 08:42] LABS: ANION GAP 16.8 mmol/L (5-15)
[2021-04-19] MEDS: Metoprolol Succinate 50 MG Tab.ER PO SCH (08:42)
[2021-04-19] MEDS: Enoxaparin 40 MG/0.4 ML Syringe SUBCUT SCH (08:49)
[2021-04-19] MEDS ORDERED: LORazepam 1 MG Tab PO PRN (09:27)
[2021-04-19] MEDS: Diltiazem IR 60 MG Tab PO SCH ×3 (10:30→20:09)
[2021-04-19] MEDS: Acetaminophen/HYDROcodone 325-5 MG Tab PO PRN (10:36)
[2021-04-19] MEDS ORDERED: Diltiazem IR 60 MG Tab PO SCH (12:00)
[2021-04-19] MEDS: Ibuprofen 200 MG Tab PO PRN (13:17)
[2021-04-19] MEDS: HYDROmorphone 0.5 MG/0.5 ML Syringe IVPUSH PRN ×3 (13:27→21:51)
[2021-04-19] MEDS: Pramipexole 0.125 MG Tab PO SCH (20:11)
[2021-04-19] MEDS: Melatonin 3 MG Tab PO SCH (20:12)
[2021-04-19] MEDS: hydrOXYzine HCl 25 MG Tab PO SCH (20:12)
[2021-04-19] MEDS: Nicotine 21 MG/24 Hr Patch TRDERM SCH (20:13)
[2021-04-19] MEDS: Sodium Chloride 0.9% 10 ML Syringe FLUSH PRN ×2 (20:16→21:56)
[2021-04-20 07:23] LABS: CHLORIDE,CL 107 mmol/L (98-107); SODIUM,NA 139 mmol/L (136-145)
[2021-04-20 07:24] LABS: ANION GAP 11.6 mmol/L (5-15)
[2021-04-20] MEDS: Acetaminophen/HYDROcodone 325-5 MG Tab PO PRN (08:09)
[2021-04-20] MEDS: Venlafaxine 75 MG Cap.ER PO SCH (08:09)
[2021-04-20] MEDS: Venlafaxine 37.5 MG Cap.ER PO SCH (08:09)
[2021-04-20] MEDS: ALPRAZolam 0.5 MG Tab PO SCH ×3 (08:09→20:34)
[2021-04-20] MEDS: Potassium Chloride 10 MEQ Tab.ER PO SCH (08:10)
[2021-04-20] MEDS: Diltiazem IR 60 MG Tab PO SCH ×3 (08:11→20:31)
[2021-04-20] MEDS: Metoprolol Succinate 50 MG Tab.ER PO SCH (08:11)
[2021-04-20] MEDS: Orphenadrine 100 MG Tab.ER PO SCH ×2 (08:12→20:33)
[2021-04-20] MEDS: Enoxaparin 40 MG/0.4 ML Syringe SUBCUT SCH (08:12)
[2021-04-20] MEDS: Nicotine 21 MG/24 Hr Patch TRDERM SCH (08:13)
[2021-04-20] MEDS: HYDROmorphone 0.5 MG/0.5 ML Syringe IVPUSH PRN ×3 (10:12→23:48)
[2021-04-20] MEDS: Melatonin 3 MG Tab PO SCH (20:32)
[2021-04-20] MEDS: Pramipexole 0.125 MG Tab PO SCH (20:33)
[2021-04-20] MEDS: hydrOXYzine HCl 25 MG Tab PO SCH (20:33)
[2021-04-20] MEDS: Sodium Chloride 0.9% 10 ML Syringe FLUSH PRN ×2 (20:38→23:51)
[2021-04-21 07:29] LABS: CHLORIDE,CL 107 mmol/L (98-107); SODIUM,NA 140 mmol/L (136-145)
[2021-04-21 07:31] LABS: ANION GAP 10.2 mmol/L (5-15)
[2021-04-21] MEDS: Nicotine 21 MG/24 Hr Patch TRDERM SCH (08:16)
[2021-04-21] MEDS: Enoxaparin 40 MG/0.4 ML Syringe SUBCUT SCH (08:17)
[2021-04-21] MEDS: Diltiazem IR 60 MG Tab PO SCH ×3 (08:17→20:53)
[2021-04-21] MEDS: ALPRAZolam 0.5 MG Tab PO SCH ×3 (08:17→20:54)
[2021-04-21] MEDS: Venlafaxine 37.5 MG Cap.ER PO SCH (08:19)
[2021-04-21] MEDS: Venlafaxine 75 MG Cap.ER PO SCH (08:19)
[2021-04-21] MEDS: Orphenadrine 100 MG Tab.ER PO SCH ×2 (08:20→20:53)
[2021-04-21] MEDS: Metoprolol Succinate 50 MG Tab.ER PO SCH (08:20)
[2021-04-21] MEDS: Potassium Chloride 10 MEQ Tab.ER PO SCH (08:21)
[2021-04-21] MEDS: Acetaminophen/HYDROcodone 325-5 MG Tab PO PRN (08:21)
[2021-04-21] MEDS ORDERED: Promethazine 6.25 MG in Sodium Chloride 0.9% 100 ML IV ONE (09:13)
[2021-04-21] MEDS ORDERED: Ketorolac 15 MG/ML SDV IVPUSH ONE (09:21)
[2021-04-21] MEDS: HYDROmorphone 2 MG Tab PO PRN ×2 (11:00→20:54)
[2021-04-21] MEDS: HYDROmorphone 0.5 MG/0.5 ML Syringe IVPUSH PRN ×2 (12:15→23:19)
[2021-04-21] MEDS ORDERED: HYDROmorphone 0.5 MG/0.5 ML Syringe IVPUSH ONE (12:46)
[2021-04-21] MEDS ORDERED: diphenhydrAMINE 25 MG Cap PO ONE (12:47)
[2021-04-21] MEDS: Sodium Chloride 0.9% 10 ML Syringe FLUSH PRN (20:51)
[2021-04-21] MEDS: Melatonin 3 MG Tab PO SCH (20:52)
[2021-04-21] MEDS: Pramipexole 0.125 MG Tab PO SCH (20:55)
[2021-04-21] MEDS: hydrOXYzine HCl 25 MG Tab PO SCH (20:55)
[2021-04-22] MEDS: Nicotine 21 MG/24 Hr Patch TRDERM SCH (07:21)
[2021-04-22] MEDS: Diltiazem IR 60 MG Tab PO SCH ×3 (07:22→20:04)
[2021-04-22] MEDS: Orphenadrine 100 MG Tab.ER PO SCH (07:22)
[2021-04-22] MEDS: Metoprolol Succinate 50 MG Tab.ER PO SCH (07:22)
[2021-04-22] MEDS: ALPRAZolam 0.5 MG Tab PO SCH ×3 (07:23→20:05)
[2021-04-22] MEDS: HYDROmorphone 0.5 MG/0.5 ML Syringe IVPUSH PRN (07:23)
[2021-04-22] MEDS: Venlafaxine 75 MG Cap.ER PO SCH (07:23)
[2021-04-22] MEDS: Potassium Chloride 10 MEQ Tab.ER PO SCH (07:23)
[2021-04-22] MEDS: Enoxaparin 40 MG/0.4 ML Syringe SUBCUT SCH (07:23)
[2021-04-22] MEDS: Venlafaxine 37.5 MG Cap.ER PO SCH (07:23)
[2021-04-22] MEDS: Sodium Chloride 0.9% 10 ML Syringe FLUSH PRN ×4 (07:24→20:09)
[2021-04-22] MEDS: Ondansetron 4 MG Tab.DIS PO PRN ×2 (07:24→11:39)
[2021-04-22] MEDS ORDERED: methylPREDNISolone Sodium Succinate 40 MG/1 ML SDV IVPUSH ONE (11:37)
[2021-04-22] MEDS ORDERED: diphenhydrAMINE 25 MG Cap PO ONE (11:38)
[2021-04-22] MEDS ORDERED: Haloperidol 5 MG Tab PO ONE (11:38)
[2021-04-22] MEDS: Ibuprofen 200 MG Tab PO PRN (11:39)
[2021-04-22] MEDS: HYDROmorphone 2 MG Tab PO PRN (14:15)
[2021-04-22] MEDS ORDERED: Sodium Chloride 0.9% 500 ML IV ONE (16:07)
[2021-04-22] MEDS ORDERED: Haloperidol 5 MG Tab PO PRN (16:13)
[2021-04-22] MEDS ORDERED: Meclizine 25 MG Tab PO PRN (16:18)
[2021-04-22] MEDS: Ketorolac 15 MG/ML SDV IVPUSH SCH ×2 (16:27→23:08)
[2021-04-22] MEDS: Haloperidol 5 MG Tab PO SCH ×2 (16:27→23:08)
[2021-04-22 16:43] LABS: CHLORIDE,CL 101 mmol/L (98-107); SODIUM,NA 138 mmol/L (136-145)
[2021-04-22 16:46] LABS: ANION GAP 15.4 mmol/L (5-15)
[2021-04-22] MEDS ORDERED: Orphenadrine 100 MG Tab.ER PO SCH (20:00)
[2021-04-22] MEDS: Melatonin 3 MG Tab PO SCH (20:05)
[2021-04-22] MEDS: hydrOXYzine HCl 25 MG Tab PO SCH (20:05)
[2021-04-22] MEDS: Pramipexole 0.125 MG Tab PO SCH (20:05)
[2021-04-23] MEDS: Nicotine 21 MG/24 Hr Patch TRDERM SCH (07:37)
[2021-04-23] MEDS: Enoxaparin 40 MG/0.4 ML Syringe SUBCUT SCH (07:37)
[2021-04-23] MEDS: Ketorolac 15 MG/ML SDV IVPUSH SCH (07:38)
[2021-04-23] MEDS: Diltiazem IR 60 MG Tab PO SCH (07:39)
[2021-04-23] MEDS: Venlafaxine 37.5 MG Cap.ER PO SCH (07:39)
[2021-04-23] MEDS: Potassium Chloride 10 MEQ Tab.ER PO SCH (07:39)
[2021-04-23] MEDS: Haloperidol 5 MG Tab PO SCH (07:40)
[2021-04-23] MEDS: ALPRAZolam 0.5 MG Tab PO SCH (07:40)
[2021-04-23] MEDS: Metoprolol Succinate 50 MG Tab.ER PO SCH (07:40)
[2021-04-23] MEDS: Sodium Chloride 0.9% 10 ML Syringe FLUSH PRN (07:41)
[2021-04-23 10:52] VITALS: BP 124/77; PULSE 93
== END 2021-04-23 11:30 | disposition home or self-care (01) | DRG 309 ==
LOC: VM.ED 23:23 → VM.MS 04-19 02:07
PROVIDERS: ADMIT Physician Assistant; ATTEND Internal Medicine
DX: R00.0 Tachycardia, unspecified (principal); F33.9 Major depressive disorder, recurrent, unspecified; E87.6 Hypokalemia; F41.9 Anxiety disorder, unspecified; R51.9 Headache, unspecified; E66.9 Obesity, unspecified; F17.210 Nicotine dependence, cigarettes, uncomplicated; G89.4 Chronic pain syndrome; K21.9 Gastro-esophageal reflux disease without esophagitis; F43.10 Post-traumatic stress disorder, unspecified; F25.9 Schizoaffective disorder, unspecified; M65.30 Trigger finger, unspecified finger; Z87.01 Personal history of pneumonia (recurrent); Z86.718 Personal history of other venous thrombosis and embolism; Z79.01 Long term (current) use of anticoagulants; Z88.0 Allergy status to penicillin; Z88.1 Allergy status to other antibiotic agents; Z91.09 Other allergy status, other than to drugs and biological substances; Z88.8 Allergy status to other drugs, medicaments and biological substances; Z88.5 Allergy status to narcotic agent; Z79.899 Other long term (current) drug therapy; Z20.822 Contact with and (suspected) exposure to COVID-19
CPT/HCPCS: 36415; 70450; 80048; 83735; 85025; 85652; 93005; 96374; 97116-GP; 97161-GP; 99285-25; A9270-GY; J1170; J1650; J1885; J2060; J2550; J2920; J3475; J3480; J3490; J7030; U0002

== ENCOUNTER 2021-06-07 20:00 | Emergency (ER) | payer OTHER ==
[2021-06-07 20:43] VITALS: BP 154/96
[2021-06-07 20:55] LABS: ANION GAP 11.9 mmol/L (5-15); CHLORIDE,CL 106 mmol/L (98-107); SODIUM,NA 140 mmol/L (136-145)
[2021-06-07] MEDS: Ketorolac 30 MG/ML SDV IM ONE (21:00)
[2021-06-07] MEDS: Take Home: Codeine/Promethazine 10-6.25 MG/5 ML Syrup 5 ML, 2 Cup Pack PO ONE (21:28)
[2021-06-07 23:10] VITALS: PULSE 72
[2021-06-07] MEDS: Take Home: Codeine/Promethazine 10-6.25 MG/5 ML Syrup 5 ML, 2 Cup Pack ONE (23:11)
== END 2021-06-07 21:42 | disposition home or self-care (01) ==
LOC: VM.ED 20:00
DX: J40 Bronchitis, not specified as acute or chronic (principal); K21.9 Gastro-esophageal reflux disease without esophagitis; E66.9 Obesity, unspecified; Z68.38 Body mass index [BMI] 38.0-38.9, adult; Z72.0 Tobacco use; Z88.1 Allergy status to other antibiotic agents; Z88.5 Allergy status to narcotic agent; Z91.048 Other nonmedicinal substance allergy status; Z79.899 Other long term (current) drug therapy
CPT/HCPCS: 36415; 71046; 80053; 85025; 86140; 96372; 99283; A9270; J1885

== ENCOUNTER 2021-10-07 09:55 | Emergency (ER) | payer OTHER ==
[2021-10-07] MEDS ORDERED: diphenhydrAMINE 50 MG/ML SDV IVPUSH ONE (10:06)
[2021-10-07] MEDS ORDERED: methylPREDNISolone Sodium Succinate 125 MG/2 ML SDV IVPUSH ONE (10:06)
[2021-10-07 10:27] VITALS: BP 110/76; PULSE 81
[2021-10-07] MEDS ORDERED: hydrOXYzine HCl 25 MG Tab PO ONE (11:02)
== END 2021-10-07 11:29 | disposition home or self-care (01) ==
LOC: VM.ED 09:55
DX: L50.9 Urticaria, unspecified (principal); F41.9 Anxiety disorder, unspecified; F32.A Depression, unspecified; E66.9 Obesity, unspecified
CPT/HCPCS: 96374; 96375; 99282; 99283; A9270; J1200; J2930

== ENCOUNTER 2021-10-14 09:46 | Emergency (ER) | payer OTHER ==
[2021-10-14 09:59] VITALS: BP 103/85; PULSE 111
[2021-10-14 10:31] LABS: PTT,PARTIAL THROMBOPLSTIN TIME 24.7 SEC (20.5-30.9)
[2021-10-14 10:33] LABS: CHLORIDE,CL 105 mmol/L (98-107); SODIUM,NA 141 mmol/L (136-145)
[2021-10-14 10:47] LABS: ESTIMATED GFR 73 mL/min (>=60)
== END 2021-10-14 11:08 | disposition home or self-care (01) ==
LOC: VM.ED 09:46
DX: L50.9 Urticaria, unspecified (principal); J45.909 Unspecified asthma, uncomplicated; F17.210 Nicotine dependence, cigarettes, uncomplicated; E66.9 Obesity, unspecified; Z68.30 Body mass index [BMI] 30.0-30.9, adult; Z91.048 Other nonmedicinal substance allergy status; Z88.1 Allergy status to other antibiotic agents; Z91.040 Latex allergy status; Z88.8 Allergy status to other drugs, medicaments and biological substances; Z88.5 Allergy status to narcotic agent; Z79.899 Other long term (current) drug therapy; Z79.82 Long term (current) use of aspirin; Z90.49 Acquired absence of other specified parts of digestive tract; Z90.710 Acquired absence of both cervix and uterus
CPT/HCPCS: 36415; 80053; 85025; 85610; 85730; 86140; 99283

== ENCOUNTER 2022-02-14 15:06 | Observation (INO) | payer OTHER ==
[2022-02-14] MEDS ORDERED: Sodium Chloride 0.9% 10 ML Syringe FLUSH PRN (15:33)
[2022-02-14] MEDS: Sodium Chloride 0.9% 1,000 ML IV SCH ×2 (15:49→20:57)
[2022-02-14] MEDS ORDERED: LORazepam 2 MG/ML SDV IVPUSH ONE ×2 (15:49→17:13)
[2022-02-14] MEDS ORDERED: Metoprolol Tartrate 5 MG/5 ML SDV IVPUSH ONE (15:54)
[2022-02-14 16:02] LABS: BARBITURATE SCREEN,URINE NEGATIVE (NEGATIVE); BENZODIAZEPINES SCREEN,URINE NEGATIVE (NEGATIVE); BUPRENORPHINE SCREEN,URINE NEGATIVE (NEGATIVE); METHAMPHETAMINE SCREEN, URINE NEGATIVE (NEGATIVE); THC SCREEN,URINE 50 NG/ML NEGATIVE (NEGATIVE)
[2022-02-14 16:21] LABS: CHLORIDE,CL 105 mmol/L (98-107); SODIUM,NA 138 mmol/L (136-145)
[2022-02-14 16:23] LABS: ANION GAP 8.5 mmol/L (5-15); ESTIMATED GFR 95 mL/min (>=60)
[2022-02-14] MEDS ORDERED: Diltiazem 50 MG/10 ML SDV IVPUSH ONE (18:03)
[2022-02-14] MEDS ORDERED: Morphine 4 MG/ML Syringe IVPUSH ONE (18:42)
[2022-02-14] MEDS ORDERED: LORazepam 1 MG Tab PO ONE (19:38)
[2022-02-14] MEDS ORDERED: Albuterol 0.083% 2.5 MG/3 ML Neb Soln INH PRN (20:13)
[2022-02-14] MEDS ORDERED: Nortriptyline 25 MG Cap PO PRN (20:13)
[2022-02-14] MEDS ORDERED: Ondansetron 4 MG Tab.DIS PO PRN (20:13)
[2022-02-14] MEDS ORDERED: Cyclobenzaprine 10 MG Tab PO PRN (20:13)
[2022-02-14] MEDS ORDERED: hydrOXYzine HCl 25 MG Tab PO PRN (20:13)
[2022-02-14] MEDS ORDERED: LORazepam 0.5 MG Tab PO PRN (20:18)
[2022-02-14] MEDS ORDERED: QUEtiapine 25 MG Tab PO PRN (20:18)
[2022-02-14] MEDS ORDERED: Flumazenil 0.1 MG/ML 5 ML MDV IVPUSH PRN (20:19)
[2022-02-14] MEDS ORDERED: Metoprolol Succinate 50 MG Tab.ER PO SCH (21:00)
[2022-02-14] MEDS: Ketorolac 15 MG/ML SDV IVPUSH PRN (21:25)
[2022-02-14] MEDS: Diltiazem IR 60 MG Tab PO SCH (23:15)
[2022-02-14] MEDS: tiZANidine 4 MG Tab PO SCH (23:17)
[2022-02-14] MEDS: Aspirin 81 MG Tab.EC PO SCH (23:18)
[2022-02-14] MEDS: Pramipexole 0.125 MG Tab PO SCH (23:18)
[2022-02-14] MEDS: Pregabalin 25 MG Cap PO SCH (23:18)
[2022-02-14] MEDS: Lidocaine 4% 1 each Patch TOP SCH (23:19)
[2022-02-14] MEDS: Potassium Chloride 10 MEQ Tab.ER PO SCH (23:21)
[2022-02-15] MEDS: HYDROmorphone 1 MG/ML Syringe IVPUSH PRN ×5 (01:09→22:25)
[2022-02-15] MEDS: Sodium Chloride 0.9% 1,000 ML IV SCH (02:13)
[2022-02-15] MEDS: ClonazePAM 0.5 MG Tab PO PRN ×2 (02:17→22:24)
[2022-02-15 06:59] LABS: ANION GAP 7.7 mmol/L (5-15)
[2022-02-15] MEDS: LORazepam 2 MG/ML SDV IVPUSH PRN ×2 (07:30→12:10)
[2022-02-15] MEDS ORDERED: methylPREDNISolone Sodium Succinate 40 MG/1 ML SDV IVPUSH ONE ×2 (07:46→10:00)
[2022-02-15] MEDS ORDERED: predniSONE 20 MG Tab PO SCH (09:00)
[2022-02-15] MEDS: Venlafaxine 150 MG Cap.ER PO SCH (09:56)
[2022-02-15] MEDS: Potassium Chloride 10 MEQ Tab.ER PO SCH (09:56)
[2022-02-15] MEDS: Calcium Carbonate/Vitamin D3 1250 MG-5 MCG Tab PO SCH ×2 (09:57→17:48)
[2022-02-15] MEDS: tiZANidine 4 MG Tab PO SCH ×3 (09:57→22:06)
[2022-02-15] MEDS: Diltiazem IR 60 MG Tab PO SCH ×3 (09:57→22:25)
[2022-02-15] MEDS: Losartan 50 MG Tab PO SCH (09:57)
[2022-02-15] MEDS: Pregabalin 25 MG Cap PO SCH ×2 (09:58→22:07)
[2022-02-15] MEDS: Ketorolac 15 MG/ML SDV IVPUSH PRN (15:11)
[2022-02-15] MEDS: Heparin Sodium 5,000 Units/ML Vial SUBCUT SCH ×3 (17:45→23:41)
[2022-02-15] MEDS: Propranolol 20 MG Tab PO SCH ×3 (17:48→23:42)
[2022-02-15] MEDS: Aspirin 81 MG Tab.EC PO SCH (22:07)
[2022-02-15] MEDS: Pramipexole 0.125 MG Tab PO SCH (22:08)
[2022-02-15] MEDS: Lidocaine 4% 1 each Patch TOP SCH (22:09)
[2022-02-16] MEDS: Ketorolac 15 MG/ML SDV IVPUSH PRN ×2 (02:00→08:34)
[2022-02-16 06:32] VITALS: BP 135/84; PULSE 75
[2022-02-16] MEDS: Heparin Sodium 5,000 Units/ML Vial SUBCUT SCH (08:36)
[2022-02-16] MEDS: Calcium Carbonate/Vitamin D3 1250 MG-5 MCG Tab PO SCH (08:39)
[2022-02-16] MEDS: Potassium Chloride 10 MEQ Tab.ER PO SCH (08:39)
[2022-02-16] MEDS: Venlafaxine 150 MG Cap.ER PO SCH (08:39)
[2022-02-16] MEDS: Pregabalin 25 MG Cap PO SCH (08:39)
[2022-02-16] MEDS: tiZANidine 4 MG Tab PO SCH (08:39)
[2022-02-16] MEDS: Propranolol 20 MG Tab PO SCH (08:40)
[2022-02-16] MEDS: Losartan 50 MG Tab PO SCH (08:40)
[2022-02-16] MEDS: Diltiazem IR 60 MG Tab PO SCH (08:40)
[2022-02-16] MEDS ORDERED: Acetaminophen/oxyCODONE 325-5 MG Tab PO PRN (09:32)
[2022-02-17] MEDS ORDERED: predniSONE 20 MG Tab PO SCH (09:00)
== END 2022-02-16 13:10 | disposition home or self-care (01) ==
LOC: VM.ED 15:06 → VM.MS 18:53
PROVIDERS: ADMIT Internal Medicine; ATTEND Internal Medicine
DX: R00.0 Tachycardia, unspecified (principal); R09.1 Pleurisy; G47.00 Insomnia, unspecified; E66.9 Obesity, unspecified; F17.200 Nicotine dependence, unspecified, uncomplicated; R41.0 Disorientation, unspecified; F41.9 Anxiety disorder, unspecified; K21.9 Gastro-esophageal reflux disease without esophagitis; E87.6 Hypokalemia; F25.9 Schizoaffective disorder, unspecified; Z20.822 Contact with and (suspected) exposure to COVID-19; Z88.8 Allergy status to other drugs, medicaments and biological substances; Z88.5 Allergy status to narcotic agent; Z91.048 Other nonmedicinal substance allergy status; Z79.899 Other long term (current) drug therapy; Z98.890 Other specified postprocedural states; Z90.49 Acquired absence of other specified parts of digestive tract
CPT/HCPCS: 36415; 70450; 71046; 80048; 80053; 80305-QW; 80307; 81003; 81025; 82140; 83735; 84100; 84132; 84443; 84484; 85025; 86140; 93005; 97129-GO; 97161-GP; 97165-GO; A9270-GY; J1170; J1644; J1885; J2060; J2270; J2920; J3490; J7030; U0002

== ENCOUNTER 2022-02-20 23:07 | Emergency (ER) | payer OTHER ==
[2022-02-21 00:10] LABS: BARBITURATE SCREEN,URINE NEGATIVE (NEGATIVE); BENZODIAZEPINES SCREEN,URINE NEGATIVE (NEGATIVE); METHAMPHETAMINE SCREEN, URINE NEGATIVE (NEGATIVE); THC SCREEN,URINE 50 NG/ML NEGATIVE (NEGATIVE)
[2022-02-21 00:11] LABS: BUPRENORPHINE SCREEN,URINE NEGATIVE (NEGATIVE)
[2022-02-21 00:16] LABS: CHLORIDE,CL 105 mmol/L (98-107); SODIUM,NA 142 mmol/L (136-145)
[2022-02-21 00:17] LABS: ACETAMINOPHEN 0 ug/ml (10-30); ANION GAP 11.3 mmol/L (5-15); ESTIMATED GFR 95 mL/min (>=60)
[2022-02-21] MEDS: LORazepam 1 MG Tab PO ONE (00:54)
[2022-02-21] MEDS ORDERED: Take Home: LORazepam 0.5 MG Tab, 2 Tab Pack PO ONE (01:26)
[2022-02-21] MEDS: diphenhydrAMINE 25 MG Cap PO ONE (01:42)
[2022-02-21] MEDS: Haloperidol 5 MG Tab PO ONE (01:42)
[2022-02-21 09:20] VITALS: PULSE 70
[2022-02-21 09:51] VITALS: BP 118/84
[2022-02-21] MEDS: Take Home: LORazepam 0.5 MG Tab, 2 Tab Pack PO ONE (10:01)
== END 2022-02-21 10:03 | disposition home or self-care (01) ==
LOC: SUPCPDRO 23:07 → VM.ED 23:07
DX: F20.89 Other schizophrenia (principal); J45.909 Unspecified asthma, uncomplicated; K21.9 Gastro-esophageal reflux disease without esophagitis; E66.9 Obesity, unspecified; Z72.0 Tobacco use; Z91.048 Other nonmedicinal substance allergy status; Z88.1 Allergy status to other antibiotic agents; Z88.8 Allergy status to other drugs, medicaments and biological substances; Z91.040 Latex allergy status; Z88.5 Allergy status to narcotic agent; Z79.82 Long term (current) use of aspirin; Z79.899 Other long term (current) drug therapy
CPT/HCPCS: 36415; 80053; 80143; 80179; 80305; 80307; 83735; 84443; 85025; 99285; A9270

== ENCOUNTER 2022-02-22 21:09 | Emergency (ER) | payer OTHER ==
[2022-02-22] MEDS ORDERED: OLANZapine 10 MG Vial IM ONE (21:45)
[2022-02-22 22:12] VITALS: BP 123/64; PULSE 75
[2022-02-22 22:15] LABS: BARBITURATE SCREEN,URINE NEGATIVE (NEGATIVE); BENZODIAZEPINES SCREEN,URINE POSITIVE (NEGATIVE); METHAMPHETAMINE SCREEN, URINE NEGATIVE (NEGATIVE); THC SCREEN,URINE 50 NG/ML NEGATIVE (NEGATIVE)
[2022-02-22 22:16] LABS: BUPRENORPHINE SCREEN,URINE NEGATIVE (NEGATIVE)
[2022-02-22] MEDS ORDERED: Acetaminophen 325 MG Tab PO ONE (22:50)
[2022-02-22 23:06] LABS: ANION GAP 14.3 mmol/L (5-15)
== END 2022-02-22 23:10 ==
LOC: VM.ED 21:09
DX: S41.112A Laceration without foreign body of left upper arm, initial encounter (principal); R44.0 Auditory hallucinations; J45.909 Unspecified asthma, uncomplicated; E66.9 Obesity, unspecified; Z68.37 Body mass index [BMI] 37.0-37.9, adult; Z91.048 Other nonmedicinal substance allergy status; Z88.1 Allergy status to other antibiotic agents; Z88.8 Allergy status to other drugs, medicaments and biological substances; Z91.040 Latex allergy status; Z88.5 Allergy status to narcotic agent; Z79.82 Long term (current) use of aspirin; Z79.899 Other long term (current) drug therapy; X78.8XXA Intentional self-harm by other sharp object, initial encounter
CPT/HCPCS: 36415; 80053; 80305; 85025; 96372; 99285; J3490

== ENCOUNTER 2022-03-01 23:04 | Emergency (ER) | payer OTHER ==
[2022-03-02] MEDS ORDERED: Sodium Chloride 0.9% 10 ML Syringe FLUSH PRN (23:21)
[2022-03-02] MEDS ORDERED: Flumazenil 0.1 MG/ML 5 ML MDV IVPUSH ONE ×2 (23:27→23:45)
[2022-03-02] MEDS ORDERED: Sodium Chloride 0.9% 1,000 ML IV ONE (23:45)
[2022-03-02] MEDS ORDERED: Rocuronium 50 MG/5 ML Vial ONE (23:55)
[2022-03-02] MEDS ORDERED: Succinylcholine 200 MG/10 ML MDV ONE (23:55)
[2022-03-03] LABS: ACETAMINOPHEN 0 ug/ml (10-30); ANION GAP 12.2 mmol/L (5-15); CHLORIDE,CL 105 mmol/L (98-107); ESTIMATED GFR 83 mL/min (>=60); SODIUM,NA 143 mmol/L (136-145)
[2022-03-03] MEDS ORDERED: Flumazenil 0.1 MG/ML 5 ML MDV IVPUSH ONE ×2 (00:02→00:03)
[2022-03-03] MEDS ORDERED: Sodium Chloride 0.9% 1,000 ML IV ONE (00:24)
[2022-03-03 00:42] LABS: BARBITURATE SCREEN,URINE NEGATIVE (NEGATIVE); BENZODIAZEPINES SCREEN,URINE POSITIVE (NEGATIVE); BUPRENORPHINE SCREEN,URINE NEGATIVE (NEGATIVE); METHAMPHETAMINE SCREEN, URINE NEGATIVE (NEGATIVE); THC SCREEN,URINE 50 NG/ML NEGATIVE (NEGATIVE)
[2022-03-03] MEDS ORDERED: Calcium Gluc in NaCl, ISO-OSM 1,000 MG in Premix Bag 1 BAG IV ONE ×4 (00:42→00:49)
[2022-03-03] MEDS ORDERED: SODIUM CHLORIDE ONE (00:50)
[2022-03-03] MEDS ORDERED: [UNRECOGNIZED DRUG - OTHER] ONE (00:50)
[2022-03-03] MEDS ORDERED: CALCIUM GLUCONATE ONE (00:50)
[2022-03-03] MEDS ORDERED: Norepinephrine 4 MG/4 ML SDV ONE (00:51)
[2022-03-03] MEDS ORDERED: Norepinephrine 4 MG in Dextrose 5% in Water 246 ML IV SCH ×2 (01:00)
[2022-03-03 05:03] VITALS: BP 141/79; PULSE 91
== END 2022-03-03 00:50 | disposition short-term general hospital (02) ==
LOC: VM.ED 23:04
DX: T43.591A Poisoning by other antipsychotics and neuroleptics, accidental (unintentional), initial encounter (principal); T51.3X1A Toxic effect of fusel oil, accidental (unintentional), initial encounter; J45.909 Unspecified asthma, uncomplicated; E66.9 Obesity, unspecified; Z91.048 Other nonmedicinal substance allergy status; Z88.1 Allergy status to other antibiotic agents; Z91.040 Latex allergy status; Z88.5 Allergy status to narcotic agent; Z91.041 Radiographic dye allergy status; Z79.899 Other long term (current) drug therapy; Z79.82 Long term (current) use of aspirin
CPT/HCPCS: 36415; 80053; 80143; 80305-QW; 81003; 82150; 82550; 83690; 83880; 84484; 85025; 85610; 85652; 93005; 99285; J0330; J3490; J7030

== ENCOUNTER 2022-03-21 18:04 | Emergency (ER) | payer OTHER ==
[2022-03-21] MEDS: Sodium Chloride 0.9% 1,000 ML IV ONE (18:28)
[2022-03-21] MEDS: Flumazenil 0.1 MG/ML 5 ML MDV IVPUSH ONE ×2 (18:43→19:00)
[2022-03-21 19:10] LABS: CHLORIDE,CL 105 mmol/L (98-107); SODIUM,NA 139 mmol/L (136-145)
[2022-03-21 19:15] LABS: ANION GAP 9.5 mmol/L (5-15); ESTIMATED GFR 95 mL/min (>=60)
[2022-03-21 19:35] LABS: ACETAMINOPHEN 0 ug/ml (10-30)
[2022-03-21] MEDS: Acetaminophen 325 MG Tab PO ONE (19:41)
[2022-03-21 20:09] LABS: BARBITURATE SCREEN,URINE NEGATIVE (NEGATIVE); BENZODIAZEPINES SCREEN,URINE POSITIVE (NEGATIVE); BUPRENORPHINE SCREEN,URINE NEGATIVE (NEGATIVE); METHAMPHETAMINE SCREEN, URINE NEGATIVE (NEGATIVE); THC SCREEN,URINE 50 NG/ML NEGATIVE (NEGATIVE)
[2022-03-21] MEDS: Ketorolac 30 MG/ML SDV IVPUSH ONE (21:30)
[2022-03-21 21:48] VITALS: BP 93/54; PULSE 74
== END 2022-03-21 21:50 | disposition home or self-care (01) ==
LOC: VM.ED 18:04
DX: T50.901A Poisoning by unspecified drugs, medicaments and biological substances, accidental (unintentional), initial encounter (principal); F41.9 Anxiety disorder, unspecified; J45.909 Unspecified asthma, uncomplicated; E66.9 Obesity, unspecified; Z72.0 Tobacco use; Z91.048 Other nonmedicinal substance allergy status; Z88.1 Allergy status to other antibiotic agents; Z91.040 Latex allergy status; Z88.8 Allergy status to other drugs, medicaments and biological substances; Z79.899 Other long term (current) drug therapy; Z79.82 Long term (current) use of aspirin
CPT/HCPCS: 80053; 80143; 80179; 80305-QW; 80307; 81003; 85025; 86140; 96361; 96374; 96375; 99284; 99284-25; A9270-GY; J1885; J3490; J7030

== ENCOUNTER 2022-03-22 08:03 | Observation (INO) | payer OTHER ==
[2022-03-22] MEDS ORDERED: Sodium Chloride 0.9% 10 ML Syringe FLUSH PRN (08:22)
[2022-03-22 08:58] LABS: BARBITURATE SCREEN,URINE NEGATIVE (NEGATIVE); BENZODIAZEPINES SCREEN,URINE POSITIVE (NEGATIVE)
[2022-03-22 08:59] LABS: BUPRENORPHINE SCREEN,URINE NEGATIVE (NEGATIVE); METHAMPHETAMINE SCREEN, URINE NEGATIVE (NEGATIVE); THC SCREEN,URINE 50 NG/ML NEGATIVE (NEGATIVE)
[2022-03-22 09:03] LABS: PTT,PARTIAL THROMBOPLSTIN TIME 23.2 SEC (20.5-30.9)
[2022-03-22 09:14] LABS: CHLORIDE,CL 110 mmol/L (98-107); SODIUM,NA 142 mmol/L (136-145)
[2022-03-22 09:15] LABS: ANION GAP 11.7 mmol/L (5-15); ESTIMATED GFR 95 mL/min (>=60)
[2022-03-22] MEDS ORDERED: Ketorolac 15 MG/ML SDV IVPUSH ONE (09:31)
[2022-03-22] MEDS ORDERED: Lactated Ringers 1,000 ML IV ONE (10:52)
[2022-03-22] MEDS ORDERED: Ketorolac 15 MG/ML SDV IVPUSH PRN (10:54)
[2022-03-22] MEDS ORDERED: Acetaminophen/Aspirin/Caffeine 250-250-65 MG Tab PO ONE (12:47)
[2022-03-22 13:23] VITALS: BP 103/41; PULSE 66
== END 2022-03-22 15:40 | disposition short-term general hospital (02) ==
LOC: VM.ED 08:03 → VM.MS 09:25
PROVIDERS: ADMIT Physician Assistant; ATTEND Physician Assistant
DX: R42 Dizziness and giddiness (principal); F41.9 Anxiety disorder, unspecified; F32.A Depression, unspecified; J45.909 Unspecified asthma, uncomplicated; K21.9 Gastro-esophageal reflux disease without esophagitis; E66.9 Obesity, unspecified; Z90.49 Acquired absence of other specified parts of digestive tract; Z91.048 Other nonmedicinal substance allergy status; Z91.040 Latex allergy status; Z88.1 Allergy status to other antibiotic agents; Z79.82 Long term (current) use of aspirin; Z79.899 Other long term (current) drug therapy; Z98.890 Other specified postprocedural states
CPT/HCPCS: 36415; 71045; 80053; 80305-QW; 80307; 81003; 81025; 82140; 83735; 84100; 84443; 84484; 85025; 85610; 85730; 86140; 93005; 93010; 96374; 99284; 99285-25; A9270-GY; J1885; J3490; J7120

== ENCOUNTER 2022-04-21 11:17 | Emergency (ER) | payer OTHER ==
[2022-04-21 12:32] LABS: BARBITURATE SCREEN,URINE NEGATIVE (NEGATIVE)
[2022-04-21 12:33] LABS: BENZODIAZEPINES SCREEN,URINE NEGATIVE (NEGATIVE); BUPRENORPHINE SCREEN,URINE NEGATIVE (NEGATIVE); METHAMPHETAMINE SCREEN, URINE NEGATIVE (NEGATIVE); THC SCREEN,URINE 50 NG/ML NEGATIVE (NEGATIVE)
[2022-04-21 13:04] LABS: CHLORIDE,CL 106 mmol/L (98-107); SODIUM,NA 143 mmol/L (136-145)
[2022-04-21 13:05] LABS: ANION GAP 15.7 mmol/L (5-15); ESTIMATED GFR 95 mL/min (>=60)
[2022-04-21] MEDS ORDERED: Potassium Chloride Riders 20 MEQ in Premix Bag 1 BAG IV ONE ×3 (13:09→14:16)
[2022-04-21] MEDS ORDERED: Sodium Chloride 0.9% 250 ML IV SCH (13:15)
[2022-04-21] MEDS ORDERED: Sodium Chloride 0.9% 1,000 ML IV SCH (13:45)
[2022-04-21 16:20] VITALS: BP 135/78; PULSE 115
== END 2022-04-21 16:13 | disposition home or self-care (01) ==
LOC: VM.ED 11:17
DX: E87.6 Hypokalemia (principal); R00.2 Palpitations; R00.0 Tachycardia, unspecified; J45.909 Unspecified asthma, uncomplicated; K21.9 Gastro-esophageal reflux disease without esophagitis; E66.9 Obesity, unspecified; Z91.048 Other nonmedicinal substance allergy status; Z88.1 Allergy status to other antibiotic agents; Z88.8 Allergy status to other drugs, medicaments and biological substances; Z91.040 Latex allergy status; Z88.5 Allergy status to narcotic agent; Z79.82 Long term (current) use of aspirin; Z79.899 Other long term (current) drug therapy
CPT/HCPCS: 36415; 80053; 80305-QW; 81003; 82550; 83615; 83735; 84132; 84484; 85025; 86140; 93005; 93010; 96361; 96365; 96366; 99284; 99285-25; J3480; J7030

== ENCOUNTER 2022-04-24 12:40 | Emergency (ER) | payer OTHER | END 2022-04-24 13:05 | LOC: VM.ED 12:40 | DX: Z53.21 Procedure and treatment not carried out due to patient leaving prior to being seen by health care provider (principal) ==

== ENCOUNTER 2022-05-03 06:54 | Emergency (ER) | payer OTHER ==
[2022-05-03] MEDS: Sodium Chloride 0.9% 1,000 ML IV SCH (07:15)
[2022-05-03] MEDS: Calcium Gluc in NaCl, ISO-OSM 1,000 MG in Premix Bag 1 BAG IV ONE ×2 (07:30)
[2022-05-03] MEDS ORDERED: Rocuronium 50 MG/5 ML Vial ONE (07:37)
[2022-05-03] MEDS ORDERED: Succinylcholine 200 MG/10 ML MDV ONE (07:37)
[2022-05-03] MEDS: Activated Charcoal/Sorbitol Susp 50 GM/240 ML Bottle PO ONE (07:46)
[2022-05-03 07:48] LABS: CHLORIDE,CL 105 mmol/L (98-107); SODIUM,NA 141 mmol/L (136-145)
[2022-05-03 07:50] LABS: ANION GAP 15.6 mmol/L (5-15); ESTIMATED GFR 95 mL/min (>=60)
[2022-05-03 07:55] LABS: BARBITURATE SCREEN,URINE NEGATIVE (NEGATIVE)
[2022-05-03 07:56] LABS: BENZODIAZEPINES SCREEN,URINE NEGATIVE (NEGATIVE); BUPRENORPHINE SCREEN,URINE NEGATIVE (NEGATIVE); METHAMPHETAMINE SCREEN, URINE NEGATIVE (NEGATIVE); THC SCREEN,URINE 50 NG/ML NEGATIVE (NEGATIVE)
[2022-05-03 08:02] LABS: ACETAMINOPHEN 0 ug/ml (10-30)
[2022-05-03] MEDS: Haloperidol Lactate 5 MG/ML SDV IV ONE (08:15)
[2022-05-03] MEDS: Sodium Chloride 0.9% 10 ML Syringe FLUSH PRN (08:21)
[2022-05-03 08:39] VITALS: BP 124/77; PULSE 86
== END 2022-05-03 09:25 | disposition short-term general hospital (02) ==
LOC: VM.ED 06:54
DX: T50.3X2A Poisoning by electrolytic, caloric and water-balance agents, intentional self-harm, initial encounter (principal); T46.1X2A Poisoning by calcium-channel blockers, intentional self-harm, initial encounter; T42.4X2A Poisoning by benzodiazepines, intentional self-harm, initial encounter; J45.909 Unspecified asthma, uncomplicated; E66.9 Obesity, unspecified; Z68.41 Body mass index [BMI] 40.0-44.9, adult; Z91.048 Other nonmedicinal substance allergy status; Z88.1 Allergy status to other antibiotic agents; Z88.8 Allergy status to other drugs, medicaments and biological substances; Z91.040 Latex allergy status; Z88.5 Allergy status to narcotic agent; Z79.82 Long term (current) use of aspirin; Z79.899 Other long term (current) drug therapy
CPT/HCPCS: 80053; 80143; 80305; 80307; 81003; 81025; 83735; 84100; 84443; 84484; 85025; 85610; 85730; 93005; 93010; 96374; 96375; 99284; 99285; A9270; J1630; J3490; J7030; J0330

== ENCOUNTER 2022-06-08 07:09 | Emergency (ER) | payer OTHER ==
[2022-06-08] MEDS: Sodium Chloride 0.9% 1,000 ML IV SCH (07:20)
[2022-06-08 07:56] LABS: PTT,PARTIAL THROMBOPLSTIN TIME 25.9 SEC (20.5-30.9)
[2022-06-08 08:03] LABS: ACETAMINOPHEN 0 ug/ml (10-30); ANION GAP 12.6 mmol/L (5-15); CHLORIDE,CL 106 mmol/L (98-107); ESTIMATED GFR 82 mL/min (>=60); SODIUM,NA 139 mmol/L (136-145)
[2022-06-08 09:01] LABS: BARBITURATE SCREEN,URINE NEGATIVE (NEGATIVE)
[2022-06-08 09:03] LABS: BENZODIAZEPINES SCREEN,URINE POSITIVE (NEGATIVE); BUPRENORPHINE SCREEN,URINE NEGATIVE (NEGATIVE); METHAMPHETAMINE SCREEN, URINE NEGATIVE (NEGATIVE); THC SCREEN,URINE 50 NG/ML NEGATIVE (NEGATIVE)
[2022-06-08 09:37] VITALS: BP 129/86; PULSE 71
== END 2022-06-08 10:07 | disposition home or self-care (01) ==
LOC: VM.ED 07:09 → EEVIPCON 07:09 → VM.ED 10:07
DX: T42.4X2A Poisoning by benzodiazepines, intentional self-harm, initial encounter (principal); T43.592A Poisoning by other antipsychotics and neuroleptics, intentional self-harm, initial encounter; T43.212A Poisoning by selective serotonin and norepinephrine reuptake inhibitors, intentional self-harm, initial encounter; F32.A Depression, unspecified; J45.909 Unspecified asthma, uncomplicated; E66.9 Obesity, unspecified; Z91.048 Other nonmedicinal substance allergy status; Z88.1 Allergy status to other antibiotic agents; Z88.8 Allergy status to other drugs, medicaments and biological substances; Z91.040 Latex allergy status; Z91.041 Radiographic dye allergy status; Z88.5 Allergy status to narcotic agent; Z79.899 Other long term (current) drug therapy; Z79.82 Long term (current) use of aspirin
CPT/HCPCS: 80053; 80143; 80179; 80305-QW; 80307; 81003; 83735; 84100; 84443; 84484; 85025; 85610; 85730; 93005; 93010; 96360; 99284; 99284-25; J7030

== ENCOUNTER 2022-07-15 20:15 | Observation (INO) | payer OTHER ==
[2022-07-15] MEDS ORDERED: Sodium Chloride 0.9% 10 ML Syringe FLUSH PRN (20:30)
[2022-07-15 21:01] LABS: BARBITURATE SCREEN,URINE NEGATIVE (NEGATIVE); BENZODIAZEPINES SCREEN,URINE NEGATIVE (NEGATIVE); BUPRENORPHINE SCREEN,URINE NEGATIVE (NEGATIVE); METHAMPHETAMINE SCREEN, URINE NEGATIVE (NEGATIVE); THC SCREEN,URINE 50 NG/ML NEGATIVE (NEGATIVE)
[2022-07-15 21:10] LABS: PTT,PARTIAL THROMBOPLSTIN TIME 25.1 SEC (23.6-33.6)
[2022-07-15 21:18] LABS: CHLORIDE,CL 105 mmol/L (98-107); SODIUM,NA 143 mmol/L (136-145)
[2022-07-15 21:20] LABS: ANION GAP 13.6 mmol/L (5-15); ESTIMATED GFR 95 mL/min (>=60)
[2022-07-16] MEDS ORDERED: Acetaminophen 325 MG Tab PO PRN (10:40)
[2022-07-16] MEDS: Acetaminophen 325 MG Tab PO PRN ×2 (11:07→17:07)
[2022-07-16] MEDS ORDERED: Prochlorperazine 10 MG/2 ML SDV IV ONE (12:44)
[2022-07-16] MEDS ORDERED: Ketorolac 15 MG/ML SDV IVPUSH ONE (12:44)
[2022-07-16] MEDS: lamoTRIgine 100 MG Tab PO SCH (13:44)
[2022-07-16] MEDS: Nicotine 21 MG/24 Hr Patch TRDERM SCH (18:18)
[2022-07-16] MEDS ORDERED: Mirtazapine 15 MG Tab PO SCH (21:00)
[2022-07-16] MEDS ORDERED: Melatonin 3 MG Tab PO SCH (21:00)
[2022-07-16] MEDS ORDERED: risperiDONE 1 MG Tab PO SCH (21:00)
[2022-07-16] MEDS ORDERED: PRAZOSIN 2 MG PO SCH (21:00)
[2022-07-16] MEDS ORDERED: Pramipexole 0.125 MG Tab PO SCH (21:00)
[2022-07-17] MEDS: Nicotine 21 MG/24 Hr Patch TRDERM SCH (08:40)
[2022-07-17] MEDS: lamoTRIgine 100 MG Tab PO SCH (08:40)
[2022-07-17] MEDS ORDERED: Aspirin 81 MG Tab.EC PO SCH (09:00)
[2022-07-17 11:21] VITALS: BP 128/91; PULSE 71
== END 2022-07-17 11:32 | disposition home or self-care (01) ==
LOC: VM.ED 20:15 → VM.MS 21:51
PROVIDERS: ADMIT Physician Assistant; ATTEND Physician Assistant
DX: R41.82 Altered mental status, unspecified (principal); R53.83 Other fatigue; R42 Dizziness and giddiness; R20.0 Anesthesia of skin; F41.9 Anxiety disorder, unspecified; F32.2 Major depressive disorder, single episode, severe without psychotic features; F25.9 Schizoaffective disorder, unspecified; F43.10 Post-traumatic stress disorder, unspecified; E87.6 Hypokalemia; E83.42 Hypomagnesemia; R00.0 Tachycardia, unspecified; J45.909 Unspecified asthma, uncomplicated; K21.9 Gastro-esophageal reflux disease without esophagitis; R45.851 Suicidal ideations; G43.909 Migraine, unspecified, not intractable, without status migrainosus; E66.9 Obesity, unspecified; Z68.41 Body mass index [BMI] 40.0-44.9, adult; F17.210 Nicotine dependence, cigarettes, uncomplicated; Z79.899 Other long term (current) drug therapy; Z91.048 Other nonmedicinal substance allergy status; Z88.8 Allergy status to other drugs, medicaments and biological substances; Z88.5 Allergy status to narcotic agent; Z88.1 Allergy status to other antibiotic agents; Z91.040 Latex allergy status; Z90.710 Acquired absence of both cervix and uterus; Z79.82 Long term (current) use of aspirin
CPT/HCPCS: 36415; 70450; 71045; 80053; 80305-QW; 80307; 81003; 83735; 84100; 84443; 84484; 85025; 85610; 85730; 86140; 93005; 96374; 96375; 99285; A9270-GY; G0378; J0780; J1885

== ENCOUNTER 2022-11-16 09:02 | Inpatient (IN) | payer OTHER ==
[2022-11-16] MEDS ORDERED: HYDROmorphone 0.5 MG/0.5 ML Syringe IVPUSH PRN (09:05)
[2022-11-16] MEDS ORDERED: Sodium Chloride 0.9% 10 ML Syringe FLUSH PRN (09:05)
[2022-11-16] MEDS ORDERED: Cyclobenzaprine 10 MG Tab PO PRN (09:33)
[2022-11-16] MEDS ORDERED: Albuterol HFA 18 Gm Inhaler INH PRN (09:33)
[2022-11-16] MEDS ORDERED: Naloxone 0.4 MG/ML SDV IVPUSH PRN (09:33)
[2022-11-16] MEDS ORDERED: hydrOXYzine HCl 25 MG Tab PO PRN (09:44)
[2022-11-16] MEDS ORDERED: Furosemide 40 MG/4 ML VIAL IV ONE (09:45)
[2022-11-16] MEDS: Potassium Chloride 20 MEQ Tab.ER PO SCH ×2 (10:06→20:25)
[2022-11-16] MEDS: Acetaminophen/HYDROcodone 325-5 MG Tab PO PRN ×2 (10:07→21:49)
[2022-11-16] MEDS ORDERED: Potassium Chloride 10 MEQ Tab.ER PO ONE (10:45)
[2022-11-16] MEDS ORDERED: Ketorolac 15 MG/ML SDV IVPUSH PRN (11:07)
[2022-11-16] MEDS: Magnesium Oxide 400 MG Tab PO SCH (11:13)
[2022-11-16] MEDS: Aspirin 81 MG Tab.EC PO SCH (20:25)
[2022-11-16] MEDS: Melatonin 3 MG Tab PO SCH (20:25)
[2022-11-16] MEDS: Mirtazapine 15 MG Tab PO SCH (20:25)
[2022-11-16] MEDS: Nortriptyline 10 MG Cap PO SCH (20:25)
[2022-11-16] MEDS: Pramipexole 0.125 MG Tab PO SCH (20:25)
[2022-11-16] MEDS: Citalopram 20 MG Tab PO SCH (20:27)
[2022-11-16] MEDS: risperiDONE 1 MG Tab PO SCH (20:27)
[2022-11-16] MEDS: Prazosin 1 MG Cap PO SCH (20:27)
[2022-11-16] MEDS: VARENICLINE 1 MG PO SCH (20:30)
[2022-11-16] MEDS ORDERED: Magnesium Oxide 400 MG Tab PO SCH (21:00)
[2022-11-17 06:49] LABS: BASOPHILS PERCENT AUTO 0.2 % (0.2-1.2); EOSINOPHILS ABSOLUTE AUTO 0.3 x10^3/uL (0.0-0.5); HEMATOCRIT 36.8 % (33.0-47.0); HEMOGLOBIN 12.5 g/dL (12.0-16.0); IMMATURE GRAN ABSOLUTE AUTO 0.01 x10^3/uL (0.00-0.07); LYMPHOCYTES ABSOLUTE AUTO 1.4 x10^3/uL (1.0-4.8); LYMPHOCYTES PERCENT AUTO 28.2 % (25.0-50.0); MEAN CORPUSCULAR HEMOGLOBIN 30.9 pg (26.0-32.0); MEAN CORPUSCULAR VOLUME 91.1 fL (78.0-93.0); MONOCYTES ABSOLUTE AUTO 0.5 x10^3/uL (0.0-0.8); MONOCYTES PERCENT AUTO 9.5 % (2.0-11.0); NEUTROPHILS ABSOLUTE AUTO 2.9 x10^3/uL (1.8-7.7); NEUTROPHILS PERCENT AUTO 56.9 % (50.0-80.0); PLATELET COUNT,PLT 243 x10^3/uL (130-400); RED BLOOD CELL COUNT 4.04 x10^6/uL (4.00-5.50)
[2022-11-17 07:04] LABS: CALCIUM 8.4 mg/dL (8.5-10.1); CREATININE 0.7 mg/dL (0.55-1.02); EST CRCL DRUG DOSING (CG) 83.65 mL/min; PHOSPHORUS 3.9 mg/dL (2.6-4.7); POTASSIUM,K 3.8 mmol/L (3.5-5.1)
[2022-11-17] MEDS: Furosemide 40 MG/4 ML VIAL IV SCH ×2 (08:47→13:49)
[2022-11-17] MEDS: Aspirin 81 MG Tab.EC PO SCH ×2 (08:51→20:07)
[2022-11-17] MEDS: lamoTRIgine 100 MG Tab PO SCH (08:51)
[2022-11-17] MEDS: Potassium Chloride 20 MEQ Tab.ER PO SCH ×2 (08:51→20:06)
[2022-11-17] MEDS: Magnesium Oxide 400 MG Tab PO SCH ×2 (08:51→20:05)
[2022-11-17] MEDS: Enoxaparin 40 MG/0.4 ML Syringe SUBCUT SCH (08:51)
[2022-11-17] MEDS: VARENICLINE 1 MG PO SCH ×2 (08:51→20:08)
[2022-11-17] MEDS: Acetaminophen/HYDROcodone 325-5 MG Tab PO PRN ×2 (10:34→20:22)
[2022-11-17] MEDS: Pramipexole 0.125 MG Tab PO SCH (20:05)
[2022-11-17] MEDS: Citalopram 20 MG Tab PO SCH (20:06)
[2022-11-17] MEDS: Prazosin 1 MG Cap PO SCH (20:06)
[2022-11-17] MEDS: Mirtazapine 15 MG Tab PO SCH (20:06)
[2022-11-17] MEDS: Nortriptyline 10 MG Cap PO SCH (20:06)
[2022-11-17] MEDS: Melatonin 3 MG Tab PO SCH (20:06)
[2022-11-17] MEDS: risperiDONE 1 MG Tab PO SCH (20:07)
[2022-11-18 06:42] LABS: BASOPHILS PERCENT AUTO 0.4 % (0.2-1.2); EOSINOPHILS ABSOLUTE AUTO 0.3 x10^3/uL (0.0-0.5); EOSINOPHILS PERCENT AUTO 5.6 % (0.0-4.0); HEMATOCRIT 37.9 % (33.0-47.0); HEMOGLOBIN 12.7 g/dL (12.0-16.0); IMMATURE GRAN ABSOLUTE AUTO 0.02 x10^3/uL (0.00-0.07); LYMPHOCYTES ABSOLUTE AUTO 1.5 x10^3/uL (1.0-4.8); LYMPHOCYTES PERCENT AUTO 28.2 % (25.0-50.0); MEAN CORPUSCULAR HEMOGLOBIN 30.7 pg (26.0-32.0); MEAN CORPUSCULAR HGB CONC 33.5 g/dL (32.0-36.0); MEAN CORPUSCULAR VOLUME 91.5 fL (78.0-93.0); MONOCYTES ABSOLUTE AUTO 0.6 x10^3/uL (0.0-0.8); MONOCYTES PERCENT AUTO 10.2 % (2.0-11.0); NEUTROPHILS PERCENT AUTO 55.2 % (50.0-80.0); PLATELET COUNT,PLT 243 x10^3/uL (130-400); RED BLOOD CELL COUNT 4.14 x10^6/uL (4.00-5.50); WHITE BLOOD CELL COUNT,WBC 5.4 x10^3/uL (4.0-10.0)
[2022-11-18 07:04] LABS: A/G RATIO 0.97; BILIRUBIN TOTAL 0.3 mg/dL (0.2-1.0); CALCIUM 8.5 mg/dL (8.5-10.1); CREATININE 0.8 mg/dL (0.55-1.02); EST CRCL DRUG DOSING (CG) 73.19 mL/min; PROTEIN TOTAL,TP 6.1 g/dL (6.4-8.2)
[2022-11-18] MEDS: Enoxaparin 40 MG/0.4 ML Syringe SUBCUT SCH (09:07)
[2022-11-18] MEDS: Furosemide 20 MG/2 ML VIAL IV SCH ×2 (09:08→12:01)
[2022-11-18] MEDS: Aspirin 81 MG Tab.EC PO SCH (09:08)
[2022-11-18] MEDS: Potassium Chloride 20 MEQ Tab.ER PO SCH (09:08)
[2022-11-18] MEDS: Magnesium Oxide 400 MG Tab PO SCH (09:08)
[2022-11-18] MEDS: lamoTRIgine 100 MG Tab PO SCH (09:08)
[2022-11-18] MEDS: VARENICLINE 1 MG PO SCH (09:09)
[2022-11-18 15:18] VITALS: PULSE 80
[2022-11-18 16:28] VITALS: BP 133/70
== END 2022-11-18 16:30 | disposition home or self-care (01) | DRG 948 ==
LOC: VM.MS 09:02
PROVIDERS: ADMIT Internal Medicine; ATTEND Internal Medicine
DX: R60.1 Generalized edema (principal); Z68.42 Body mass index [BMI] 45.0-49.9, adult; R59.0 Localized enlarged lymph nodes; F25.9 Schizoaffective disorder, unspecified; E66.01 Morbid (severe) obesity due to excess calories; K21.9 Gastro-esophageal reflux disease without esophagitis; F41.1 Generalized anxiety disorder; F32.A Depression, unspecified; E87.6 Hypokalemia; R06.02 Shortness of breath; F60.3 Borderline personality disorder; R51.9 Headache, unspecified; Z79.82 Long term (current) use of aspirin; E28.2 Polycystic ovarian syndrome; Z98.890 Other specified postprocedural states; Z88.0 Allergy status to penicillin; Z88.8 Allergy status to other drugs, medicaments and biological substances; Z79.899 Other long term (current) drug therapy; Z86.718 Personal history of other venous thrombosis and embolism; Z90.710 Acquired absence of both cervix and uterus; Z90.49 Acquired absence of other specified parts of digestive tract; Z87.891 Personal history of nicotine dependence
CPT/HCPCS: 36415; 80053; 80069; 83735; 85025; 97165-GO; 97535-GO; A9270-GY; J1650; J1885; J1940

== ENCOUNTER 2022-12-01 18:07 | Emergency (ER) | payer OTHER ==
[2022-12-01] MEDS ORDERED: Sodium Chloride 0.9% 10 ML Syringe FLUSH PRN (18:19)
[2022-12-01] MEDS ORDERED: Diltiazem 50 MG/10 ML SDV IVPUSH ONE (18:19)
[2022-12-01] MEDS ORDERED: Sodium Chloride 0.9% 1,000 ML IV ONE (18:19)
[2022-12-01 18:27] VITALS: PULSE 132
[2022-12-01 18:31] LABS: BASOPHILS PERCENT AUTO 0.2 % (0.2-1.2); EOSINOPHILS ABSOLUTE AUTO 0.2 x10^3/uL (0.0-0.5); EOSINOPHILS PERCENT AUTO 1.6 % (0.0-4.0); HEMATOCRIT 36.6 % (33.0-47.0); HEMOGLOBIN 13.2 g/dL (12.0-16.0); IMMATURE GRAN ABSOLUTE AUTO 0.03 x10^3/uL (0.00-0.07); LYMPHOCYTES ABSOLUTE AUTO 1.8 x10^3/uL (1.0-4.8); LYMPHOCYTES PERCENT AUTO 19.1 % (25.0-50.0); MEAN CORPUSCULAR HEMOGLOBIN 32.2 pg (26.0-32.0); MEAN CORPUSCULAR HGB CONC 36.1 g/dL (32.0-36.0); MEAN CORPUSCULAR VOLUME 89.3 fL (78.0-93.0); MONOCYTES ABSOLUTE AUTO 0.7 x10^3/uL (0.0-0.8); NEUTROPHILS ABSOLUTE AUTO 6.5 x10^3/uL (1.8-7.7); NEUTROPHILS PERCENT AUTO 70.8 % (50.0-80.0); PLATELET COUNT,PLT 277 x10^3/uL (130-400); WHITE BLOOD CELL COUNT,WBC 9.2 x10^3/uL (4.0-10.0)
[2022-12-01 18:42] LABS: INR 0.9 (2.0-3.5); PROTHROMBIN TIME 9.7 SEC (9.5-12.2)
[2022-12-01 18:57] LABS: A/G RATIO 1.06; ALANINE AMINOTRANSFERASE,ALT 63 U/L (14-59); ALBUMIN 3.7 g/dL (3.4-5.0); ALKALINE PHOSPHATASE 109 U/L (46-116); ASPARTATE AMNIOTRANSFERASE,AST 26 U/L (15-37); BLOOD UREA NITROGEN,BUN 8 mg/dL (7-18); CALCIUM 8.3 mg/dL (8.5-10.1); CARBON DIOXIDE,CO2 29 mmol/L (21-32); CHLORIDE,CL 101 mmol/L (98-107); GLUCOSE RANDOM 120 mg/dL (70-99); PRO B-TYPE NATRIUR PEPT,BNPPRO 126 pg/mL (<=125); PROTEIN TOTAL,TP 7.2 g/dL (6.4-8.2); SODIUM,NA 143 mmol/L (136-145)
[2022-12-01 18:58] LABS: ANION GAP 15.9 mmol/L (5-15); ESTIMATED GFR 73 mL/min (>=60)
[2022-12-01 18:59] LABS: POTASSIUM,K 2.9 mmol/L (3.5-5.1)
[2022-12-01] MEDS ORDERED: Potassium Chloride Riders 20 MEQ in Premix Bag 1 BAG IV ONE (18:59)
[2022-12-01 19:09] LABS: BILIRUBIN TOTAL 0.1 mg/dL (0.2-1.0)
[2022-12-01 20:46] VITALS: BP 128/76
== END 2022-12-01 20:42 | disposition home or self-care (01) ==
LOC: VM.ED 18:07
DX: E87.6 Hypokalemia (principal); R00.0 Tachycardia, unspecified; R00.2 Palpitations; Z88.1 Allergy status to other antibiotic agents; Z88.5 Allergy status to narcotic agent; Z88.8 Allergy status to other drugs, medicaments and biological substances; Z91.048 Other nonmedicinal substance allergy status; Z91.040 Latex allergy status; Z79.82 Long term (current) use of aspirin; Z79.899 Other long term (current) drug therapy
CPT/HCPCS: 36415; 71045; 80053; 83880; 84484; 85025; 85610; 93005; 93010; 96361; 96365; 96375; 99284; 99285-25; J3480; J3490; J7030

== ENCOUNTER 2023-02-04 14:21 | Emergency (ER) | payer OTHER ==
[2023-02-04 14:34] VITALS: PULSE 72
[2023-02-04 15:13] VITALS: BP 149/90
== END 2023-02-04 15:04 | disposition home or self-care (01) ==
LOC: VM.ED 14:21
DX: K04.7 Periapical abscess without sinus (principal); I10 Essential (primary) hypertension; J45.909 Unspecified asthma, uncomplicated; F17.210 Nicotine dependence, cigarettes, uncomplicated; Z91.09 Other allergy status, other than to drugs and biological substances; Z88.5 Allergy status to narcotic agent; Z88.8 Allergy status to other drugs, medicaments and biological substances; Z91.040 Latex allergy status; Z79.82 Long term (current) use of aspirin
CPT/HCPCS: 99283

== ENCOUNTER 2023-04-15 15:46 | Emergency (ER) | payer OTHER ==
[2023-04-15] MEDS ORDERED: LORazepam 1 MG Tab PO ONE (16:00)
[2023-04-15 16:37] LABS: BASOPHILS PERCENT AUTO 0.5 % (0.2-1.2); EOSINOPHILS ABSOLUTE AUTO 0.3 x10^3/uL (0.0-0.5); EOSINOPHILS PERCENT AUTO 4.9 % (0.0-4.0); HEMATOCRIT 39.9 % (33.0-47.0); HEMOGLOBIN 13.3 g/dL (12.0-16.0); IMMATURE GRAN ABSOLUTE AUTO 0.01 x10^3/uL (0.00-0.07); LYMPHOCYTES ABSOLUTE AUTO 1.8 x10^3/uL (1.0-4.8); LYMPHOCYTES PERCENT AUTO 31.8 % (25.0-50.0); MEAN CORPUSCULAR HEMOGLOBIN 30.1 pg (26.0-32.0); MEAN CORPUSCULAR HGB CONC 33.3 g/dL (32.0-36.0); MEAN CORPUSCULAR VOLUME 90.3 fL (78.0-93.0); MONOCYTES ABSOLUTE AUTO 0.5 x10^3/uL (0.0-0.8); MONOCYTES PERCENT AUTO 8.6 % (2.0-11.0); NEUTROPHILS ABSOLUTE AUTO 3.1 x10^3/uL (1.8-7.7); PLATELET COUNT,PLT 305 x10^3/uL (130-400); RED BLOOD CELL COUNT 4.42 x10^6/uL (4.00-5.50); WHITE BLOOD CELL COUNT,WBC 5.7 x10^3/uL (4.0-10.0)
[2023-04-15 16:47] LABS: APPEARANCE,URINE CLEAR (CLEAR); BILIRUBIN,URINE NEGATIVE (NEGATIVE); COLOR,URINE LIGHT YELLOW (YELLOW); GLUCOSE,URINE NEGATIVE (NEGATIVE); KETONES,URINE NEGATIVE (NEGATIVE); LEUKOCYTE ESTERASE,URINE NEGATIVE (NEGATIVE); NITRITE,URINE NEGATIVE (NEGATIVE); OCCULT BLOOD,URINE NEGATIVE (NEGATIVE); PH,URINE 6.5 (5.0-8.0); PROTEIN,URINE NEGATIVE (NEGATIVE); UROBILINOGEN,URINE 0.2 EU/dL (0.2)
[2023-04-15] MEDS ORDERED: Haloperidol Lactate 5 MG/ML SDV IM ONE (16:47)
[2023-04-15 16:54] LABS: AMPHETAMINES SCREEN, URINE NEGATIVE (NEGATIVE); BARBITURATE SCREEN,URINE NEGATIVE (NEGATIVE); BENZODIAZEPINES SCREEN,URINE NEGATIVE (NEGATIVE); BUPRENORPHINE SCREEN,URINE NEGATIVE (NEGATIVE); COCAINE METABOLITES,URINE NEGATIVE (NEGATIVE); METHADONE SCREEN, URINE NEGATIVE (NEGATIVE); METHAMPHETAMINE SCREEN, URINE NEGATIVE (NEGATIVE); OXYCODONE SCREEN,URINE NEGATIVE (NEGATIVE); PCP SCREEN,URINE NEGATIVE (NEGATIVE); THC SCREEN,URINE 50 NG/ML NEGATIVE (NEGATIVE)
[2023-04-15 16:55] LABS: CORONAVIRUS COVID-19 NAA NEGATIVE (NEGATIVE); INFLUENZA A NAA NEGATIVE (NEGATIVE); INFLUENZA B NAA NEGATIVE (NEGATIVE); RESPIRATORY SYNCYTIAL VIR NAA NEGATIVE (NEGATIVE)
[2023-04-15 17:09] LABS: A/G RATIO 0.97; ALANINE AMINOTRANSFERASE,ALT 64 U/L (14-59); ALBUMIN 3.4 g/dL (3.4-5.0); ALKALINE PHOSPHATASE 101 U/L (46-116); ASPARTATE AMNIOTRANSFERASE,AST 29 U/L (15-37); BILIRUBIN TOTAL 0.2 mg/dL (0.2-1.0); BLOOD UREA NITROGEN,BUN 5 mg/dL (7-18); CALCIUM 8.6 mg/dL (8.5-10.1); CARBON DIOXIDE,CO2 28 mmol/L (21-32); CHLORIDE,CL 106 mmol/L (98-107); CREATININE 0.9 mg/dL (0.55-1.02); GLUCOSE RANDOM 91 mg/dL (70-99); POTASSIUM,K 3.6 mmol/L (3.5-5.1); PROTEIN TOTAL,TP 6.9 g/dL (6.4-8.2); SODIUM,NA 143 mmol/L (136-145); TSH ULTRASENSITIVE 2.299 uIU/mL (0.358-3.74)
[2023-04-15 17:14] LABS: ANION GAP 12.6 mmol/L (5-15); ESTIMATED GFR 82 mL/min (>=60)
[2023-04-15 17:22] LABS: ACETAMINOPHEN 0 ug/ml (10-30); ETHANOL BLOOD MEDICAL < 3 mg/dL (0-3)
[2023-04-15 17:31] VITALS: PULSE 85
[2023-04-15 20:11] VITALS: BP 139/77
== END 2023-04-15 19:50 ==
LOC: VM.ED 15:46
DX: S51.812A Laceration without foreign body of left forearm, initial encounter (principal); J45.909 Unspecified asthma, uncomplicated; K21.9 Gastro-esophageal reflux disease without esophagitis; Z79.899 Other long term (current) drug therapy; Z79.82 Long term (current) use of aspirin; Z91.048 Other nonmedicinal substance allergy status; Z91.040 Latex allergy status; Z88.0 Allergy status to penicillin; Z88.1 Allergy status to other antibiotic agents; Z88.6 Allergy status to analgesic agent; Z88.8 Allergy status to other drugs, medicaments and biological substances; Z20.822 Contact with and (suspected) exposure to COVID-19; X78.8XXA Intentional self-harm by other sharp object, initial encounter
CPT/HCPCS: 0241U; 36415; 80053; 80143; 80179; 80305; 80307; 81003; 81025; 82140; 84443; 85025; 96372; 99285; A9270; J1630

== ENCOUNTER 2024-02-23 07:06 | Day surgery (SDC) | payer OTHER ==
[2024-02-23] MEDS: Lactated Ringers 1,000 ML IV SCH (07:25)
[2024-02-23] MEDS ORDERED: Propofol 200 MG/20 ML SDV ONE ×2 (08:27→08:46)
[2024-02-23] MEDS ORDERED: fentaNYL 100 MCG/2 ML SDV ONE (08:27)
[2024-02-23] MEDS ORDERED: Ketamine 200 MG/20 ML MDV ONE (09:13)
[2024-02-23 10:02] VITALS: BP 137/73; PULSE 59
[2024-02-23] MEDS: droPERidol 5 MG/2 ML SDV IVPUSH PRN (10:17)
== END 2024-02-23 11:40 | disposition home or self-care (01) ==
LOC: VM.SDS 07:06
PROVIDERS: ATTEND Family Medicine
DX: Z12.11 Encounter for screening for malignant neoplasm of colon (principal); D12.6 Benign neoplasm of colon, unspecified; K57.30 Diverticulosis of large intestine without perforation or abscess without bleeding; Z86.0100 Personal history of colon polyps, unspecified; I10 Essential (primary) hypertension; E03.9 Hypothyroidism, unspecified; K21.9 Gastro-esophageal reflux disease without esophagitis; E66.01 Morbid (severe) obesity due to excess calories; Z68.43 Body mass index [BMI] 50.0-59.9, adult; Z79.899 Other long term (current) drug therapy; Z88.0 Allergy status to penicillin
CPT/HCPCS: 00811; 74019; J1790; J2704; J3010; J3490; J7120